=== PATIENT | female | born 1935 | race Caucasian/White ===

== ENCOUNTER → 2020-04-26 15:27 | Outpatient (BNVA) | payer MEDICARE, OTHER, SELFPAY | PROVIDERS: PCP Internal Medicine; Referring Provider Internal Medicine; Visit Provider Internal Medicine Cardiovascular Disease | DX: R94.31 Abnormal electrocardiogram [ECG] [EKG] (principal) | CPT/HCPCS: 93005 ==

== ENCOUNTER 2020-08-06 14:24 | Outpatient (REF) | payer MEDICARE, OTHER, SELFPAY ==
[2020-08-06 16:19] LABS: Anion Gap 13 (12-20); Blood Urea Nitrogen 13 mg/dL (9-16); Calcium 9.3 mg/dL (8.4-10.2); Carbon Dioxide 27 mmol/L (22-29); Chloride 101 mmol/L (96-108); Estimated Glomerular Filt Rate > 60; Glucose Random 94 mg/dL (60-115); Potassium 4.4 mmol/L (3.3-5.1); Sodium 137 mmol/L (135-145)
== END 2020-08-06 14:25 | disposition home or self-care (01) ==
LOC: HO.LAB 14:24
PROVIDERS: PCP Internal Medicine; Visit Provider Internal Medicine Cardiovascular Disease
DX: I48.0 Paroxysmal atrial fibrillation (principal); Z79.01 Long term (current) use of anticoagulants; Z79.899 Other long term (current) drug therapy
CPT/HCPCS: 36415; 80048; 93005; 99212

== ENCOUNTER → 2021-02-21 15:01 | Outpatient (BNVA) | payer MEDICARE, OTHER, SELFPAY | PROVIDERS: PCP Internal Medicine; Referring Provider Internal Medicine; Visit Provider Internal Medicine Cardiovascular Disease | DX: I48.0 Paroxysmal atrial fibrillation (principal); Z98.890 Other specified postprocedural states; Z79.02 Long term (current) use of antithrombotics/antiplatelets | CPT/HCPCS: 93005; 99212 ==

== ENCOUNTER 2021-03-26 10:27 | Outpatient (REF) | payer MEDICARE, OTHER, SELFPAY ==
[2021-03-26 10:31] LABS: MANUAL DIFF FLAG NO
[2021-03-26 11:24] LABS: Basophils Percent Auto 0.3 % (0-2); Eosinophils Absolute Auto 0.1 X10*3/uL (0.0-0.4); Eosinophils Percent Auto 1.7 % (0-4); Hematocrit 44.2 % (37-47); Hemoglobin 14.8 g/dl (12.0-16.0); Imm Gran Abs Auto 0.02 X10*3/uL (0.00-0.03); Imm Gran Pct Auto 0.3 % (0.0-0.4); Lymphocytes Absolute Auto 1.5 X10*3/uL (1.2-4.9); Lymphocytes Percent Auto 25.3 % (20-40); Mean Corpuscular HGB Conc 33.5 g/dl (31.0-35.0); Mean Corpuscular Hemoglobin 32.7 pg (27.0-33.0); Mean Corpuscular Volume 97.6 fL (80-98); Mean Platelet Volume 10.6 fL (9.4-12.3); Monocytes Absolute Auto 0.6 X10*3/uL (0.1-1.2); Monocytes Percent Auto 10.3 % (2-11); Neutrophils Absolute Auto 3.6 X10*3/uL (2.0-8.3); Neutrophils Percent Auto 62.1 % (45-73); Platelet Count 269 X10*3/uL (160-400); Red Blood Count 4.53 X10*6/uL (4.20-5.50); Red Cell Distribution Width 11.9 % (11.0-16.0); White Blood Count 5.7 X10*3/uL (4.8-10.8)
[2021-03-26 11:33] LABS: Estimated Average Glucose 97 mg/dL
[2021-03-26 11:46] LABS: Alanine Aminotransferase 14 U/L (0-31); Albumin Level 4.3 g/dL (3.5-5.0); Alkaline Phosphatase 72 U/L (39-117); Anion Gap 14 (12-20); Aspartate Amino Transferase 19 U/L (5-31); Bilirubin Total 0.6 mg/dL (0.0-1.0); Blood Urea Nitrogen 10 mg/dL (9-16); Calcium 9.5 mg/dL (8.4-10.2); Carbon Dioxide 26 mmol/L (22-29); Chloride 104 mmol/L (96-108); Cholesterol 183 mg/dL; Estimated Glomerular Filt Rate > 60; Glucose Fasting 102 mg/dL (60-99); HDL Cholesterol 58 mg/dL; LDL Cholesterol Calculated 111 mg/dl; Sodium 140 mmol/L (135-145); Total Protein 7.3 g/dL (6.5-8.0); Triglycerides 73 mg/dL
[2021-03-26 11:54] LABS: Appearance Urine CLEAR; Color Urine YELLOW; Glucose Urine UA NEG (NEG); Leukocyte Esterase Urine NEG (NEG); Nitrite Urine NEG (NEG); PH 7.5 (5.0-8.0); Urine Blood NEG (NEG); Urine Ketones NEG (NEG); Urine Protein NEG (NEG-TRACE)
[2021-03-26 11:55] LABS: Creatinine Urine 13.75 mg/dL; Microalbumin Urine < 5.0 mg/L
== END 2021-03-26 10:28 | disposition home or self-care (01) ==
LOC: HO.LNP 10:27
PROVIDERS: Visit Provider Internal Medicine
DX: I10 Essential (primary) hypertension (principal); R73.03 Prediabetes; E78.00 Pure hypercholesterolemia, unspecified
CPT/HCPCS: 80053; 80061; 81003; 82043; 83036; 85025

== ENCOUNTER → 2021-05-27 15:19 | Outpatient (BNVA) | payer MEDICARE, OTHER, SELFPAY | PROVIDERS: PCP Internal Medicine; Referring Provider Internal Medicine; Visit Provider Internal Medicine Cardiovascular Disease | DX: R94.31 Abnormal electrocardiogram [ECG] [EKG] (principal) | CPT/HCPCS: 93005 ==

== ENCOUNTER → 2021-08-26 10:28 | Outpatient (REF) | payer MEDICARE, OTHER, SELFPAY ==
--- NOTE | 2021-08-26 10:32 | CA_ITS ---
Transthoracic Echocardiogram Patient (Last, First, Middle): Toña Ríos, Gender: Female Date of : 1935 Age: 86 Procedure Date: 08/26/2021 Procedure Type: Transthoracic Echocardiogram Location: OP Height: 157.48 cm Weight: 58.97 kg BSA: 1.59 m2 Heart Rate: bpm BP: 120 / 80 mmHg Counseling Services Director: VH/OT Referring MD: Vic Stanley MD Symptoms: I48.0 - Paroxysmal atrial fibrillation Study Quality: Fair ECG Rhythm: Atrial Fibrillation Conclusions: - The left ventricular systolic function is normal. The visually estimated ejection fraction is between 55-60%. - No obvious valvular pathology seen on this study. - Patient in atrial fibrillation/rapid rate during procedure. Findings Left Ventricle Normal left ventricular cavity size. There is normal left ventricular wall thickness. The left ventricular systolic function is normal. The visually estimated ejection fraction is between 55-60%. There is no evidence of regional wall motion abnormalities. Diastolic function is indeterminate on the basis of available data. Right Ventricle Normal right ventricular cavity size and systolic function. Atria The left atrium is mildly dilated. The right atrium is normal in size. Aortic Valve There is a normal trileaflet aortic valve. There is no aortic valve stenosis. There is no aortic valve regurgitation. Mitral Valve The mitral valve appears normal. There is no mitral valve regurgitation. There is no mitral valve stenosis. Pulmonic Valve The pulmonic valve is likely normal. Tricuspid Valve Normal tricuspid valve structure. There is trace tricuspid valve regurgitation. The pulmonary artery systolic pressure is normal. Great Vessels The sinuses of valsalva is normal in size. Venous The inferior vena cava is normal in size and collapses greater than 50% with inspiration. Pericardium/Pleural There is no evidence of pericardial effusion. Prior Study Comparison No significant change compared to prior study dated: 06/16/2020. Recommendations, Care & Conclusions No obvious valvular pathology seen on this study. Measurements 2D Linear Measurements IVSd: 0.76 0.6-0.9/0.6-1.0 cm LVIDd: 3.42 3.9-5.3/4.2-5.9 cm LVIDd Index: 2.15 2.4-3.2/2.2-3.1 cm/m2 LVIDs: 2.22 2.0-3.6 cm LVPWd: 0.85 0.7-1.1 cm LA Diam: 3.30 2.7-3.8/3.0-4.0 cm LAIDs Index: 2.08 1.5-2.3 cm/m2 LV Mass: 90.59 67-162/88-224 g LV Mass Index: 56.98 43-95/49-115 g/m2 LVOT Diam: 2.10 3.0+(-)1.3 cm 2D Systolic Function EF 4C: 52.00 >55% Mitral Valve MV Pk E: 0.80 MV Decel Time: 136.00 E'Lateral: 8.70 E'Medial: 7.67 E/E' Med: 10.40 E/E' Lat: 9.20 PHT: 40.00 MVA PHT: 5.50 Decel [place]: 5.89 Aortic Valve AoV Pk Adán: 0.99 AoV Mn Adán: 0.63 AoV VTI: 0.15 AoV Pk Grad: 4.00 Aov Mn Grad: 2.00 TERESA Cont.VTI: 2.48 LVOT LVOT Pk Adán: 0.69 LVOT Mn Adán: 0.46 LVOT VTI: 0.11 LVOT Pk Grad: 2.00 LVOT Mn Grad: 1.00 LVOT Diam: 2.10 LVOT Area: 3.46 Diastolic Function MV Pk E: 0.80 E'Medial: 7.67 E/E' Med: 10.40 E' Laterial: 8.70 E/E' Lat: 9.20 Tricuspid Valve TR Pk Adán: 1.91 TR Pk Grad: 15.00 RA Press: 3.00 RVSP: 18.00 Great Vessels Aorta Sinus of Valsalva: 2.60 2.0-3.5 cm Pulmonary Valve PV Pk Adán: 0.57 Peak PV Grad: 1.00 Updated in Other Vendor System with Status of Final Darnell Moran MD electronically signed on 08/27/2021 12:29:55 PM with status of Final
== END ==
LOC: HO.CARD 10:28
PROVIDERS: Visit Provider Internal Medicine Cardiovascular Disease
DX: I48.0 Paroxysmal atrial fibrillation (principal)
CPT/HCPCS: 93306

== ENCOUNTER → 2021-08-27 15:21 | Outpatient (BNVA) | payer MEDICARE, OTHER, SELFPAY | PROVIDERS: PCP Internal Medicine; Referring Provider Internal Medicine; Visit Provider Internal Medicine Cardiovascular Disease | DX: I48.19 Other persistent atrial fibrillation (principal) | CPT/HCPCS: 93005; 99212 ==

== ENCOUNTER → 2021-09-04 14:55 | Outpatient (REF) | payer MEDICARE, OTHER, SELFPAY ==
--- NOTE | 2021-09-04 14:59 | HM_ITS ---
Conclusion: 1. Patient was monitored for total period of 3 days and 9 hours 2. Baseline rhythm is atrial fibrillation with average heart of 94 beats per minute, borderline rate control. 3. No significant pauses noted 4. One 9 beat wide complex run most likely due to aberrant conduction 5. Very rare PVCs 6. No patient reported events MTDD
== END ==
LOC: HO.CARD 14:55
PROVIDERS: Visit Provider Internal Medicine Cardiovascular Disease
DX: I48.19 Other persistent atrial fibrillation (principal)
CPT/HCPCS: 93242

== ENCOUNTER 2022-01-07 14:39 | Outpatient (REF) | payer MEDICARE, OTHER, SELFPAY ==
[2022-01-07 17:13] LABS: Anion Gap 16 (12-20); Blood Urea Nitrogen 17 mg/dL (9-16); Calcium 9.7 mg/dL (8.4-10.2); Carbon Dioxide 24 mmol/L (22-29); Chloride 104 mmol/L (96-108); Estimated Glomerular Filt Rate > 60; Glucose Random 101 mg/dL (60-115); Potassium 5.8 mmol/L (3.3-5.1); Sodium 138 mmol/L (135-145)
[2022-01-07 18:49] LABS: Digoxin < 0.3 ng/mL (0.8-2.0)
== END 2022-01-07 14:40 | disposition home or self-care (01) ==
LOC: HO.LAB 14:39
PROVIDERS: PCP Internal Medicine; Referring Provider Internal Medicine; Visit Provider Internal Medicine Cardiovascular Disease
DX: I48.20 Chronic atrial fibrillation, unspecified (principal); Z79.899 Other long term (current) drug therapy
CPT/HCPCS: 36415; 80048; 80162; 93005; 99212

== ENCOUNTER 2022-01-09 15:02 | Outpatient (REF) | payer MEDICARE, OTHER, SELFPAY ==
[2022-01-09 15:19] LABS: Potassium 5.4 mmol/L (3.3-5.1)
== END 2022-01-09 15:03 | disposition home or self-care (01) ==
LOC: HO.LNP 15:02
PROVIDERS: Visit Provider Internal Medicine
DX: E87.5 Hyperkalemia (principal)
CPT/HCPCS: 84132

== ENCOUNTER 2022-01-30 08:40 | Outpatient (REF) | payer MEDICARE, OTHER, SELFPAY ==
--- NOTE | ~2022-01-30 | XR_ITS ---
EXAMINATION: XR PELVIS CLINICAL INFORMATION: Hip pain COMPARISON: Pelvic radiographs 04/21/20202018, 10/26/2017 TECHNIQUE: AP x3 views of the pelvis. FINDINGS: There is prior left hip arthroplasty with proximal femoral cerclage wire. Hardware is intact. There is no destructive process or osteolysis. No fracture, dislocation. Again, there are degenerative changes SI joints and pubis. There are prominent osteoarthritic changes right hip with marked joint narrowing, subchondral sclerosis, osteophytes, and mild lateral subluxation similar to prior studies. XR/XR pelvis 1-2V IMPRESSION: -Left hip arthroplasty. Hardware intact. No osteolysis. -Severe osteoarthritis right hip similar to prior exam. -Degenerative changes SI joints and pubis.
== END 2022-01-30 08:41 | disposition home or self-care (01) ==
LOC: HO.HOSX 08:40
PROVIDERS: Visit Provider Orthopaedic Surgery
DX: M16.11 Unilateral primary osteoarthritis, right hip (principal); Z96.642 Presence of left artificial hip joint
CPT/HCPCS: 72170; 99212

== ENCOUNTER 2022-04-01 10:35 | Outpatient (REF) | payer MEDICARE, OTHER, SELFPAY ==
[2022-04-01 10:40] LABS: MANUAL DIFF FLAG NO
[2022-04-01 10:48] LABS: Basophils Percent Auto 0.5 % (0-2); Eosinophils Absolute Auto 0.2 X10*3/uL (0.0-0.4); Eosinophils Percent Auto 2.2 % (0-4); Hematocrit 43.3 % (37.0-47.0); Hemoglobin 14.5 g/dl (12.0-16.0); Imm Gran Abs Auto 0.04 X10*3/uL (0.00-0.03); Imm Gran Pct Auto 0.5 % (0.0-0.4); Lymphocytes Absolute Auto 1.9 X10*3/uL (1.2-4.9); Lymphocytes Percent Auto 25.6 % (20-40); Mean Corpuscular HGB Conc 33.5 g/dl (31.0-35.0); Mean Corpuscular Hemoglobin 33.1 pg (27.0-33.0); Mean Corpuscular Volume 98.9 fL (80.0-98.0); Mean Platelet Volume 10.7 fL (9.4-12.3); Monocytes Absolute Auto 0.8 X10*3/uL (0.1-1.2); Monocytes Percent Auto 10.2 % (2-11); Neutrophils Absolute Auto 4.5 x10*3/uL (2.0-8.3); Platelet Count 294 X10*3/uL (160-400); Red Blood Count 4.38 X10*6/uL (4.20-5.50); Red Cell Distribution Width 12.2 % (11.0-16.0); White Blood Count 7.3 X10*3/uL (4.8-10.8)
[2022-04-01 10:54] LABS: Appearance Urine Clear; Color Urine Yellow; Glucose Urine UA Negative (Negative); Leukocyte Esterase Urine Small (1+) (Negative); Nitrite Urine Negative (Negative); UMIC TRIGGER UA YES; Urine Blood Negative (Negative); Urine Ketones Negative (Negative); Urine Protein Negative (Neg-Trace)
[2022-04-01 11:05] LABS: Alanine Aminotransferase 17 U/L (0-31); Alkaline Phosphatase 76 U/L (39-117); Anion Gap 14 (12-20); Aspartate Amino Transferase 21 U/L (5-31); Bilirubin Total 0.5 mg/dL (0.0-1.0); Blood Urea Nitrogen 17 mg/dL (9-16); Calcium 9.3 mg/dL (8.4-10.2); Carbon Dioxide 27 mmol/L (22-29); Chloride 103 mmol/L (96-108); Cholesterol 185 mg/dL; Estimated Glomerular Filt Rate > 60; Glucose Fasting 124 mg/dL (60-99); HDL Cholesterol 47 mg/dL; LDL Cholesterol Calculated 120 mg/dl; Potassium 4.3 mmol/L (3.3-5.1); Sodium 140 mmol/L (135-145); Total Protein 7.1 g/dL (6.5-8.0); Triglycerides 92 mg/dL
[2022-04-01 11:07] LABS: Estimated Average Glucose 114 mg/dL; Hemoglobin A1c % 5.6 %
[2022-04-01 11:12] LABS: Bacteria Urine None Seen (None Seen); Hyaline Casts Urine 0-2 /LPF (0-2); Other Crystals Urine Present; RBC Urine 0-2 /HPF (0-2); Squamous Epithelial Cell Urine 0-2 /HPF (0-2); WBC Urine 0-5 /HPF (0-5)
[2022-04-01 12:15] LABS: Creatinine Urine 27.87 mg/dL; Microalbum/Creatinine Ratio Ur 32.2 ug/mg cr
== END 2022-04-01 10:36 | disposition home or self-care (01) ==
LOC: HO.LNP 10:35
PROVIDERS: Visit Provider Internal Medicine
DX: R73.03 Prediabetes (principal); E78.00 Pure hypercholesterolemia, unspecified; I10 Essential (primary) hypertension
CPT/HCPCS: 80053; 80061; 81001; 82043; 83036; 85025

== ENCOUNTER → 2022-04-14 12:19 | Outpatient (BNVA) | payer MEDICARE, OTHER, SELFPAY | PROVIDERS: PCP Internal Medicine; Referring Provider Internal Medicine; Visit Provider Internal Medicine Cardiovascular Disease | DX: Z01.810 Encounter for preprocedural cardiovascular examination (principal); I48.19 Other persistent atrial fibrillation | CPT/HCPCS: 93005; 99212 ==

== ENCOUNTER → 2022-05-12 09:18 | Outpatient (REF) | payer MEDICARE, OTHER, SELFPAY ==
--- NOTE | ~2022-05-12 | NM_ITS ---
Myocardial perfusion study Indication: Preoperative cardiovascular risk stratification Technique: The patient was brought in for a Lexiscan perfusion study on 05/12/2022. Patient performed low-level exercise and was injected 0.4 mg of Lexiscan intravenously. Within a minute of injection, 25 mCi of sestamibi was given intravenously. Images were obtained using the SPECT gamma camera interlaced with the gating device. Images were obtained in supine position. Resting perfusion study was performed on 05/13/2022. Patient was administered 25 mCi of sestamibi intravenously at rest. Images were then obtained in supine position. Images obtained with and without CT attenuation. Total DLP 104 mGy-cm. Images were processed with the software and compared side to side in short axis, horizontal long axis and vertical long axis views. Findings: The stress perfusion study showed both attenuated as well as non attenuated corrected images show normal uptake of radiotracer in all segment of LV myocardium. There is suggestion of left ventricle hypertrophy. The gated study shows normal LV systolic function with calculated LVEF of greater than 70%. LV cavity is normal in size. The gated study shows normal systolic wall thickening and contraction of segments. Resting study shows attenuated corrected images show normal uptake of radiotracer in all segments of LV myocardium.. Gating at rest reveals normal systolic wall motion with visually estimated ejection fraction at greater than 70%. The findings are consistent with normal myocardial perfusion. NM/NM kim perf SPECT rest & str Impression: 1. Myocardial perfusion imaging study shows normal myocardial perfusion 2. Gated LVEF is greater than 70% 3. Transient ischemic dilatation not present EKG is nondiagnostic for ischemia
--- NOTE | 2022-05-12 09:23 | CA_ITS ---
Acquisition Time: 2022-05-12 09:41:47 Total Exercise Time: 00:02:00 Test Indications: Abnormal ECG Medications: METOPROLOL DOGOXIN RIVAROXABAN Protocol: LEXISCAN Max HR: 166 BPM 122% of Pred: 135 BPM Max BP: 108/084 mmHG Max Work Load: 1.0 METS Pharmacological stress test with Lexiscan injection, while laying with feet elevated, without anginal symptoms, without arrythmia beyone her baseline afib, with normotensive response to injection, with nondiagnostic EKG for ischemia. In recovery she was treated with Aminophylline 75mg IVP to reverse Lexiscan. Nuclear images pending. Test reviewed with Dr Stanley. Note: when she arrived at stress lab she was in Afib RVR rate 140-160, asymptomatic. She had not taken her usual home meds. She was given her usual Metoprolol and Digoxin. She relaxed in recliner for over 1 hour as heart rate gradually came down to the 90s. She remained asymptomatic and we preceeded with test as planned. Referred By: Vic Stanley Overread By: MOI DAMICO
== END ==
LOC: HO.CARD 09:18
PROVIDERS: Visit Provider Internal Medicine Cardiovascular Disease
DX: Z01.810 Encounter for preprocedural cardiovascular examination (principal)
CPT/HCPCS: 78452; 93017; A9500; J0280; J2785

== ENCOUNTER → 2022-06-11 12:54 | Outpatient (BNVA) | payer MEDICARE, OTHER, SELFPAY | PROVIDERS: PCP Internal Medicine; Visit Provider Nurse Practitioner Family | DX: I95.9 Hypotension, unspecified (principal); E87.5 Hyperkalemia; I48.19 Other persistent atrial fibrillation; Z79.01 Long term (current) use of anticoagulants; Z79.899 Other long term (current) drug therapy | CPT/HCPCS: 99212 ==

== ENCOUNTER 2022-07-15 13:10 | Outpatient (REF) | payer MEDICARE, OTHER, SELFPAY ==
[2022-07-15 15:04] LABS: Hemoglobin 14.4 g/dl (12.0-16.0); Mean Corpuscular HGB Conc 33.5 g/dl (31.0-35.0); Mean Corpuscular Hemoglobin 33.2 pg (27.0-33.0); Mean Corpuscular Volume 99.1 fL (80.0-98.0); Mean Platelet Volume 10.3 fL (9.4-12.3); Platelet Count 295 X10*3/uL (160-400); Red Blood Count 4.34 X10*6/uL (4.20-5.50); Red Cell Distribution Width 12.5 % (11.0-16.0); White Blood Count 7.7 X10*3/uL (4.8-10.8)
[2022-07-15 15:35] LABS: Anion Gap 14 (12-20); Blood Urea Nitrogen 17 mg/dL (9-16); Calcium 9.6 mg/dL (8.4-10.2); Carbon Dioxide 24 mmol/L (22-29); Chloride 104 mmol/L (96-108); Estimated Glomerular Filt Rate > 60; Glucose Random 92 mg/dL (60-115); Magnesium 2.3 mg/dL (1.6-2.6); Sodium 137 mmol/L (135-145)
[2022-07-15 15:54] LABS: Digoxin 0.5 ng/mL (0.8-2.0)
== END 2022-07-15 13:11 | disposition home or self-care (01) ==
LOC: HO.LAB 13:10
PROVIDERS: Nurse Practitioner Family; PCP Internal Medicine; Referring Provider Internal Medicine; Visit Provider Internal Medicine Cardiovascular Disease
DX: I48.19 Other persistent atrial fibrillation (principal); I95.1 Orthostatic hypotension; Z79.899 Other long term (current) drug therapy
CPT/HCPCS: 36415; 80048; 80162; 83735; 85027; 93005; 99212

== ENCOUNTER → 2022-10-28 13:46 | Outpatient (BNVA) | payer MEDICARE, OTHER, SELFPAY | PROVIDERS: PCP Internal Medicine; Visit Provider Internal Medicine Cardiovascular Disease ==

== ENCOUNTER 2023-04-06 11:08 | Outpatient (REF) | payer MEDICARE, OTHER, SELFPAY ==
[2023-04-06 11:11] LABS: MANUAL DIFF FLAG NO
[2023-04-06 11:33] LABS: Basophils Percent Auto 0.3 % (0-2); Eosinophils Absolute Auto 0.2 X10*3/uL (0.0-0.4); Eosinophils Percent Auto 2.3 % (0-4); Hematocrit 44.6 % (37.0-47.0); Hemoglobin 14.9 g/dl (12.0-16.0); Imm Gran Abs Auto 0.04 X10*3/uL (0.00-0.03); Imm Gran Pct Auto 0.5 % (0.0-0.4); Lymphocytes Absolute Auto 2.8 X10*3/uL (1.2-4.9); Lymphocytes Percent Auto 32.3 % (20-40); Mean Corpuscular HGB Conc 33.4 g/dl (31.0-35.0); Mean Corpuscular Hemoglobin 32.1 pg (27.0-33.0); Mean Corpuscular Volume 96.1 fL (80.0-98.0); Mean Platelet Volume 11.2 fL (9.4-12.3); Monocytes Absolute Auto 0.9 X10*3/uL (0.1-1.2); Monocytes Percent Auto 10.2 % (2-11); Neutrophils Absolute Auto 4.8 x10*3/uL (2.0-8.3); Neutrophils Percent Auto 54.4 % (45-73); Platelet Count 269 X10*3/uL (160-400); Red Blood Count 4.64 X10*6/uL (4.20-5.50); Red Cell Distribution Width 12.2 % (11.0-16.0); White Blood Count 8.7 X10*3/uL (4.8-10.8)
[2023-04-06 11:40] LABS: Appearance Urine Cloudy; Color Urine Yellow; Glucose Urine UA Negative (Negative); Leukocyte Esterase Urine Large (3+) (Negative); Nitrite Urine Negative (Negative); Specific Gravity - Urine 1.025 (1.005-1.025); UMIC TRIGGER UACC YES; Urine Blood Trace (Negative); Urine Ketones Negative (Negative); Urine Protein 30 (1+) mg/dL (Neg-Trace)
[2023-04-06 11:44] LABS: Estimated Average Glucose 105 mg/dL; Hemoglobin A1c % 5.3 % (<6.0)
[2023-04-06 11:57] LABS: Alanine Aminotransferase 12 U/L (0-31); Albumin Level 3.9 g/dL (3.5-5.0); Alkaline Phosphatase 77 U/L (39-117); Anion Gap 15 (12-20); Aspartate Amino Transferase 22 U/L (5-31); Bilirubin Total 0.6 mg/dL (0.0-1.0); Blood Urea Nitrogen 17 mg/dL (9-16); Calcium 9.3 mg/dL (8.4-10.2); Carbon Dioxide 23 mmol/L (22-29); Chloride 107 mmol/L (96-108); Cholesterol 187 mg/dL (<200); Estimated Glomerular Filt Rate > 60; Glucose Fasting 108 mg/dL (60-99); HDL Cholesterol 42 mg/dL (>40); LDL Cholesterol Calculated 118 mg/dL (<100); Sodium 141 mmol/L (135-145); Total Protein 7.4 g/dL (6.5-8.0); Triglycerides 139 mg/dL (<150)
[2023-04-06 12:12] LABS: Bacteria Urine 3+ (None Seen); Calcium Oxalate Crystals Urine Present; Squamous Epithelial Cell Urine >20 /HPF (0-2); UACC Culture Trigger YES; WBC Urine >50 /HPF (0-5)
[2023-04-06 12:43] LABS: Creatinine Urine 171.38 mg/dL; Microalbum/Creatinine Ratio Ur 35.5 ug/mg cr (<30)
== END 2023-04-06 11:09 | disposition home or self-care (01) ==
LOC: HO.LNP 11:08
PROVIDERS: Visit Provider Internal Medicine
DX: R73.09 Other abnormal glucose (principal); E78.00 Pure hypercholesterolemia, unspecified; R82.90 Unspecified abnormal findings in urine
CPT/HCPCS: 80053; 80061; 81001; 82043; 82570; 83036; 85025; 87086

== ENCOUNTER 2023-04-27 10:46 | Outpatient (REF) | payer MEDICARE, OTHER, SELFPAY ==
[2023-04-27 11:09] LABS: Appearance Urine Cloudy; Color Urine Yellow; Glucose Urine UA Negative (Negative); Leukocyte Esterase Urine Moderate (2+) (Negative); Nitrite Urine Negative (Negative); UMIC TRIGGER UA YES; Urine Blood Small (1+) (Negative); Urine Ketones Negative (Negative); Urine Protein Negative (Neg-Trace)
[2023-04-27 11:13] LABS: Bacteria Urine 1+ (None Seen); Hyaline Casts Urine 0-2 /LPF (0-2); RBC Urine >20 /HPF (0-2); WBC Urine >50 /HPF (0-5)
== END 2023-04-27 10:47 | disposition home or self-care (01) ==
LOC: HO.LNP 10:46
PROVIDERS: Visit Provider Internal Medicine
DX: R31.29 Other microscopic hematuria (principal)
CPT/HCPCS: 81001

== ENCOUNTER 2023-05-07 12:45 | Outpatient (AMB) | payer MEDICARE, OTHER, SELFPAY ==
[2023-05-07 12:49] VITALS: BP 118/70; PULSE 84; BMI 21.4
--- NOTE | 2023-05-07 12:49 | MHC.OFFVIS ---
Intake Vital Signs 05/07/23 12:49 Height 5 ft 2 in Weight 116 lb 13.52 oz BMI 21.4 BP 118/70 Blood Pressure Location Lt brachial Position Sitting Pulse 84 Intake Visit Reasons: 6 mth f/up Intake Note: 6 month follow-up with ekg feeling ok Product Manufacturing Professional Required: No Allergies No Known Allergies [No Known Allergies*] Allergy (Unverified 10/28/22 13:47) Medication List - Last Reconciled 05/07/23 by Vic Stanley MD digoxin 125 mcg PO DAILY 90 days metoprolol tartrate 25 mg PO BID rivaroxaban 20 mg PO HPI HPI Comments History of Present Illness Details Toña comes for follow-up. She has been doing well from cardiac perspective. Overall no symptoms of lightheadedness or syncope. Denies any prolonged palpitation irregular heartbeat. No orthopnea, PND, leg edema. As per her , she has been improving of physical capacity. No bleeding issues or neurologic events. [facility] Medical History Persistent atrial fibrillation Paroxysmal atrial fibrillation History of cardioversion Surgical History History of hip surgery Family History Father No problems noted. Mother No problems noted. Review of Systems Const Denies chills, Denies fatigue, Denies fever(s), Denies frequent falls, Denies weakness, Denies weight gain and Denies weight loss ENT Denies dizziness Card Denies chest pain, Denies leg edema, Denies lightheadedness, Denies palpitations, Denies dyspnea, Denies dyspnea on exertion, Denies orthopnea and Denies other (loss of consciousness) Resp Denies cough, Denies dyspnea and Denies dyspnea on exertion GI Denies hematochezia and Denies change in stool character Musc Denies abnormal gait, Denies muscle weakness, Denies numbness, Denies radiating pain into limb and Denies tingling Neuro Denies abnormal gait, Denies dizziness, Denies frequent falls, Denies numbness, Denies tingling and Denies weakness Endo Denies fatigue and Denies palpitations Physical Exam Vital Signs: Last Vital Signs Pulse 84 05/07/23 12:49 BP 118/70 05/07/23 12:49 BMI result Body Mass Index 21.4 Const General: cooperative, comfortable, no acute distress, alert and awake Nutritional Appearance: thin and other (Frail elderly woman) Orientation/consciousness: patient oriented x3 Neck Neck: Yes supple and Yes no JVD Chest Chest palpation & inspection: normal inspection of the chest Resp Effort & Inspection: normal respiratory effort Auscultation: clear to auscultation bilaterally Cardio Jugular venous distension: no JVD Rhythm: abnormal rhythm irregularly irregular Heart sounds: S1 normal heart sound present, S2 normal heart sound present, no click, no gallops and no murmurs GI Auscultation: normal bowel sounds Neuro General: patient oriented x3 and no focal motor deficits Extrem General: Yes no clubbing, cyanosis or edema Psych Appearance: grossly normal Office Procedures EKG Details: EKG shows atrial fibrillation with low-voltage QRS with QS pattern in lead V1 V2 with no significant ST T wave changes [id number], Complete Assessment & Plan Assessment & Plan (1) Persistent atrial fibrillation: Code(s): I48.19 - Other persistent atrial fibrillation Plan: Chronic persistent atrial fibrillation without any significant signs or symptoms of cardiac decompensation. No symptoms related to it. Continue rate control approach at this point time. Continue current metoprolol as well as digoxin dose. Requires digoxin assay every 6 months, talk to patient patient's . They understand agree. Continue current full oral anticoagulation, currently on renally adjusted dose of Xarelto. At least semi annual renal function test should be pursued. (2) Hypotension: Code(s): I95.9 - Hypotension, unspecified Plan: Prior history of hypotension although blood pressure is well optimized on current regimen of metoprolol and digoxin. Advised to maintain adequate hydration. Orthostatic precautions were discussed. Advised to seek sitting and/or supine position if symptomatic. Will follow up in the clinic in 6 months time, sooner p.r.n.. Thank you for allowing me to partake in her care Orders: Orders Digoxin Today I48.19 - Other persistent atrial fibrillation Coding Level of Care Code Est Pt Level 4 (96553) Diagnoses Persistent atrial fibrillation I48.19 Hypotension I95.9 CPT Codes EKG - CPT: 64883-[id number], Complete ([id number])
== END 2023-05-07 13:31 | disposition home or self-care (01) ==
PROVIDERS: Visit Provider Internal Medicine Cardiovascular Disease
DX: I48.19 Other persistent atrial fibrillation (principal); I95.9 Hypotension, unspecified
CPT/HCPCS: 93010; 99214

== ENCOUNTER 2023-05-07 12:45 | Outpatient (REF) | payer MEDICARE, OTHER, SELFPAY ==
[2023-05-07 15:00] LABS: Digoxin 0.4 ng/mL (0.8-2.0)
== END 2023-05-07 12:46 | disposition home or self-care (01) ==
LOC: HO.LAB 12:45
PROVIDERS: PCP Internal Medicine; Visit Provider Internal Medicine Cardiovascular Disease
DX: I48.19 Other persistent atrial fibrillation (principal); I95.9 Hypotension, unspecified; Z79.899 Other long term (current) drug therapy
CPT/HCPCS: 36415; 80162; 93005; 99212

== ENCOUNTER 2023-05-18 11:04 | Outpatient (REF) | payer MEDICARE, OTHER, SELFPAY ==
[2023-05-18 11:11] LABS: Appearance Urine Clear; Color Urine Yellow; Glucose Urine UA Negative (Negative); Leukocyte Esterase Urine Small (1+) (Negative); Nitrite Urine Negative (Negative); UMIC TRIGGER UACC YES; Urine Blood Negative (Negative); Urine Ketones Negative (Negative); Urine Protein Negative (Neg-Trace)
[2023-05-18 11:24] LABS: Bacteria Urine None Seen (None Seen); Hyaline Casts Urine 0-2 /LPF (0-2); RBC Urine 0-2 /HPF (0-2); Squamous Epithelial Cell Urine 0-2 /HPF (0-2); UACC Culture Trigger YES; WBC Urine 0-5 /HPF (0-5)
== END 2023-05-18 11:05 | disposition home or self-care (01) ==
LOC: HO.LNP 11:04
PROVIDERS: Visit Provider Internal Medicine
DX: R31.9 Hematuria, unspecified (principal)
CPT/HCPCS: 81001; 87086

== ENCOUNTER 2023-12-08 13:05 | Outpatient (AMB) | payer MEDICARE, OTHER, SELFPAY ==
[2023-12-08 13:17] VITALS: BP 110/62; PULSE 48; BMI 21.0
--- NOTE | 2023-12-08 13:17 | MHC.OFFVIS ---
Vital Signs 12/08/23 13:17 Height 5 ft 2 in Weight 114 lb 10.246 oz BMI 21.0 BP 110/62 Blood Pressure Location Lt brachial Position Sitting Pulse 48 L Intake Visit Reasons: 6 mth fu Intake Note: 6 month follow-up with ekg feeling good Knit Goods Cutter Hand Required: No Reservoir Engineering Advisor: Reservoir Engineering Advisor Present Accompanied by: Spouse Allergies No Known Allergies [No Known Allergies*] Allergy (Unverified 10/28/22 13:47) Medication List - Last Reconciled 12/08/23 by Vic Stanley MD digoxin 125 mcg PO DAILY metoprolol tartrate 25 mg PO BID rivaroxaban 20 mg PO Q24H HPI Comments Details: Toña comes for follow-up. As per L her who accompanies her she says she has been doing well. She has been moving around better although she prefers not to walk much. She denies any exertional chest pain or shortness of breath. No prolonged palpitation irregular heartbeat. Noted to have low blood pressure occasionally. Today the blood pressure is 110 systolic. She has not had any lightheadedness or syncope. No falls. Denies any heart failure symptoms. [facility] Medical History (Updated 12/08/23 @ 13:52 by Vic Stanley MD) Paroxysmal atrial fibrillation Persistent atrial fibrillation History of cardioversion Surgical History History of hip surgery Family History Father No problems noted. Mother No problems noted. Review of Systems Const Denies chills, Denies fatigue, Denies fever(s), Denies frequent falls, Denies weakness, Denies weight gain and Denies weight loss ENT Denies dizziness Card Denies chest pain, Denies leg edema, Denies lightheadedness, Denies palpitations, Denies dyspnea, Denies dyspnea on exertion, Denies orthopnea and Denies other (loss of consciousness) Resp Denies cough, Denies dyspnea and Denies dyspnea on exertion GI Denies hematochezia and Denies change in stool character Musc Denies abnormal gait, Denies muscle weakness, Denies numbness, Denies radiating pain into limb and Denies tingling Neuro Denies abnormal gait, Denies dizziness, Denies frequent falls, Denies numbness, Denies tingling and Denies weakness Endo Denies fatigue and Denies palpitations Physical Exam Vital Signs: Last Vital Signs Pulse 48 L 12/08/23 13:17 BP 110/62 12/08/23 13:17 BMI result Body Mass Index 21.0 Const General: cooperative, comfortable, no acute distress, alert and awake Nutritional Appearance: thin and other (Frail elderly woman) Orientation/consciousness: patient oriented x3 Neck Neck: Yes supple and Yes no JVD Chest Chest palpation & inspection: normal inspection of the chest Resp Effort & Inspection: normal respiratory effort Auscultation: clear to auscultation bilaterally Cardio Jugular venous distension: no JVD Rhythm: abnormal rhythm irregularly irregular Heart sounds: S1 normal heart sound present, S2 normal heart sound present, no click, no gallops and no murmurs GI Auscultation: normal bowel sounds Neuro General: patient oriented x3 and no focal motor deficits Extrem General: Yes no clubbing, cyanosis or edema Psych Appearance: grossly normal Assessment & Plan Assessment & Plan (1) Paroxysmal atrial fibrillation: Code(s): I48.0 - Paroxysmal atrial fibrillation Category: Medical Plan: Patient has converted to sinus rhythm spontaneously. She has much improved symptoms and good quality of life at this point time. At this point time does not indication for digoxin. See below. Continue full oral anticoagulation with Xarelto. Semi annual renal function test should be pursued. Management was discussed with the in details. 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 There is no indication for digoxin therapy at this point time. This will be discontinued. Will also reduced metoprolol from b.i.d. to Toprol-XL 25 mg daily to reduce risk associated slow heart rate with low blood pressure. Advised to monitor blood pressure and heart rate at home. Follow up in the clinic in 6 months time, sooner p.r.n.. Thank you for allowing me to partake in her care Medications: New metoprolol succinate ER (Toprol XL) 25 mg PO DAILY 30 tabs 5RF Discontinued digoxin Discontinued Reason: Doctor's Order 125 mcg PO DAILY 90 tabs 3RF metoprolol tartrate Discontinued Reason: Doctor's Order 25 mg PO BID 180 tabs 3RF I48.19 - Other persistent atrial fibrillation Coding Level of Care Code Est Pt Level 4 (46042) Diagnoses Paroxysmal atrial fibrillation I48.0 Sinus bradycardia R00.1
== END 2023-12-08 14:02 | disposition home or self-care (01) ==
PROVIDERS: PCP Internal Medicine; Visit Provider Internal Medicine Cardiovascular Disease
DX: I48.0 Paroxysmal atrial fibrillation (principal); R00.1 Bradycardia, unspecified
CPT/HCPCS: 99214

== ENCOUNTER → 2023-12-08 13:05 | Outpatient (BNVA) | payer MEDICARE, OTHER, SELFPAY | PROVIDERS: PCP Internal Medicine; Visit Provider Internal Medicine Cardiovascular Disease | DX: R00.1 Bradycardia, unspecified (principal); I48.0 Paroxysmal atrial fibrillation; Z98.890 Other specified postprocedural states | CPT/HCPCS: 99212 ==

== ENCOUNTER 2024-04-12 11:45 | Outpatient (REF) | payer MEDICARE, OTHER, SELFPAY ==
[2024-04-12 11:49] LABS: MANUAL DIFF FLAG NO
[2024-04-12 12:08] LABS: Basophils Percent Auto 0.4 % (0-2); Eosinophils Absolute Auto 0.2 X10*3/uL (0.0-0.4); Eosinophils Percent Auto 2.1 % (0-4); Hematocrit 42.5 % (37.0-47.0); Hemoglobin 13.8 g/dl (12.0-16.0); Imm Gran Abs Auto 0.02 X10*3/uL (0.00-0.03); Imm Gran Pct Auto 0.3 % (0.0-0.4); Lymphocytes Absolute Auto 2.5 X10*3/uL (1.2-4.9); Lymphocytes Percent Auto 34.1 % (20-40); Mean Corpuscular HGB Conc 32.5 g/dl (31.0-35.0); Mean Corpuscular Hemoglobin 31.7 pg (27.0-33.0); Mean Corpuscular Volume 97.5 fL (80.0-98.0); Mean Platelet Volume 10.9 fL (9.4-12.3); Monocytes Absolute Auto 0.6 X10*3/uL (0.1-1.2); Monocytes Percent Auto 8.3 % (2-11); Neutrophils Absolute Auto 4.1 x10*3/uL (2.0-8.3); Neutrophils Percent Auto 54.8 % (45-73); Platelet Count 293 X10*3/uL (160-400); Red Blood Count 4.36 X10*6/uL (4.20-5.50); Red Cell Distribution Width 12.4 % (11.0-16.0); White Blood Count 7.5 X10*3/uL (4.8-10.8)
[2024-04-12 12:24] LABS: Appearance Urine Clear; Color Urine Yellow; Glucose Urine UA Negative (Negative); Leukocyte Esterase Urine Large (3+) (Negative); Nitrite Urine Positive (Negative); Specific Gravity - Urine <= 1.005 (1.005-1.025); UMIC TRIGGER UACC YES; Urine Blood Large (3+) (Negative); Urine Ketones Negative (Negative); Urine Protein Negative (Neg-Trace)
[2024-04-12 12:30] LABS: Bacteria Urine 4+ (None Seen); Hyaline Casts Urine 0-2 /LPF (0-2); RBC Urine >20 /HPF (0-2); Squamous Epithelial Cell Urine 0-2 /HPF (0-2); UACC Culture Trigger YES; WBC Urine 21-50 /HPF (0-5)
[2024-04-12 12:40] LABS: Estimated Average Glucose 105 mg/dL; Hemoglobin A1C 121.8827 umol/L; Hemoglobin A1c % 5.3 % (<6.0); Total Hemoglobin (HGBA1C) 3519.6666 umol/L
[2024-04-12 12:51] LABS: Alanine Aminotransferase 12 U/L (0-31); Alkaline Phosphatase 94 U/L (39-117); Anion Gap 16 (12-20); Aspartate Amino Transferase 27 U/L (5-31); Bilirubin Total 0.5 mg/dL (0.0-1.0); Blood Urea Nitrogen 18 mg/dL (9-16); Calcium 9.9 mg/dL (8.4-10.2); Carbon Dioxide 25 mmol/L (22-29); Chloride 107 mmol/L (96-108); Cholesterol 206 mg/dL (<200); Estimated Glomerular Filt Rate > 60; Glucose Fasting 108 mg/dL (60-99); HDL Cholesterol 54 mg/dL (>40); LDL Cholesterol Calculated 135 mg/dL (<100); Potassium 4.4 mmol/L (3.3-5.1); Sodium 144 mmol/L (135-145); Total Protein 7.4 g/dL (6.5-8.0); Triglycerides 87 mg/dL (<150)
[2024-04-12 13:04] LABS: Creatinine Urine 23.52 mg/dL; Microalbum/Creatinine Ratio Ur 174.3 ug/mg cr (<30)
== END 2024-04-12 11:46 | disposition home or self-care (01) ==
LOC: HO.LNP 11:45
PROVIDERS: Visit Provider Internal Medicine
DX: R73.09 Other abnormal glucose (principal); Z86.72 Personal history of thrombophlebitis; E78.00 Pure hypercholesterolemia, unspecified; E11.9 Type 2 diabetes mellitus without complications; R82.79 Other abnormal findings on microbiological examination of urine
CPT/HCPCS: 80053; 80061; 81001; 82043; 82570; 83036; 85025; 87086; 87088; 87186

== ENCOUNTER 2024-05-03 14:52 | Inpatient (IN) | payer MEDICARE, OTHER, SELFPAY ==
--- NOTE | ~2024-05-03 | CT_ITS ---
EXAMINATION: CT HEAD WITHOUT CONTRAST CT FACIAL BONES WITHOUT CONTRAST CT CERVICAL SPINE WITHOUT CONTRAST CLINICAL INFORMATION: Fall. Head strike. Patient on blood thinners. COMPARISON: None available. TECHNIQUE: Imaging was performed from the skull base to vertex without intravenous administration of contrast. In addition, helical noncontrast CT imaging was acquired through the cervical spine and facial bones and source images were reviewed along with axial reconstructions and sagittal and coronal MPRs. This CT examination was performed using dose optimization techniques as appropriate, variously including the following: *Automated exposure control. *Adjustment of mA and/or kV according to patient size (this includes techniques or standardized protocols for targeted exams where dose is matched to indication/reason for exam; i.e. extremities or head). *Use of iterative reconstruction technique. DLP: 1134 mGy-cm FINDINGS: Head: There is no evidence of acute intracranial hemorrhage or edematous territorial infarction. Yanes-white matter differentiation is preserved. Scattered and partially confluent hypoattenuation in the periventricular and deep white matter are consistent with moderate microangiopathy. Proportional prominence of the ventricles and sulcal spaces without evidence of obstructive hydrocephalus. No abnormal mass effect or midline shift. No extra-axial fluid collections. Calcific atherosclerotic disease of the intracranial internal carotid arteries. No hyperdense vessel sign. Moderate subgaleal hematoma along the right aspect of the frontal bone, measuring up to 0.9 cm in depth. No associated acute osseous abnormalities. Maxillofacial Bones: Moderate subcutaneous edema/hematoma in the right periorbital soft tissues extending into the right premaxillary soft tissues. No evidence of maxillofacial bone fractures. The zygomatic arches remain intact. No nasal bone fracture. The nasal septum remains midline. No evidence of mandibular or maxillary fracture. The mandibular condyles remain well-seated in their respective temporal articular grooves. Normal appearance of the intraconal and extraconal fat. No evidence of traumatic injury to the extraocular musculature or globes. Mild mucosal thickening of the paranasal sinuses. The mastoid air cells and middle ear cavities are clear. No layering fluid collections. Multifocal odontogenic enamel erosions and periapical lucencies. Cervical Spine: The atlantooccipital and atlantoaxial articulations remain well aligned. Moderate degenerative arthropathy of the atlantodental articulation. Minimal reversal of the normal cervical lordosis. Mild degenerative anterolistheses of C3 on C4 and stepwise from C6-T1. Otherwise, there is anatomic alignment of the vertebral bodies and posterior elements. Ankylosis of the C2-C3 facets. No evidence of acute fracture or subluxation. The vertebral body heights are maintained. Advanced degenerative disc disease from C4-C6. Moderate degenerative disc disease at C7-T1. Facet and uncovertebral joint arthropathy leads to osseous encroachment on the neural foramina from C2-T1. There is no prevertebral soft tissue swelling. The thyroid gland and remaining cervical soft tissues are within normal limits. The lung apices demonstrate no abnormalities. CT/CT cervical spine wo IV con IMPRESSION: 1. No evidence of acute intracranial hemorrhage or edematous territorial infarction. 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 2. No evidence of acute fracture or traumatic subluxation of the cervical spine. Moderate to advanced multilevel degenerative spondyloarthropathy of the cervical spine. 3. Moderate right frontal scalp, right periorbital, and right facial soft tissue edema/hematoma. No associated osseous abnormalities. 4. No evidence of acute fracture of the maxillofacial bones. Electronically signed by: Apolinar Oliva DO 05/03/2024 06:02 PM [facility]
--- NOTE | ~2024-05-03 | MR_ITS ---
EXAMINATION: MR BRAIN WITHOUT CONTRAST CLINICAL INFORMATION: Recurrent episodes of unresponsiveness COMPARISON: None available. TECHNIQUE: MRI of the brain was obtained using routine sequences without contrast. FINDINGS: No acute intracranial hemorrhage or infarct. Scattered and confluent periventricular and deep white matter T2/FLAIR hyperintensities, nonspecific however commonly seen with small vessel ischemic disease. Diffuse prominence of the sulci with associated ex vacuo dilation of the ventricles compatible with global cerebral atrophy. No midline shift or hydrocephalus. No acute extra-axial fluid collections. The osseous structures are unremarkable. There is a well-circumscribed soft tissue mass involving the right frontal scalp which demonstrate heterogeneous signal, likely reflect a complicated epidermal inclusion cyst. The pituitary gland, pineal gland and remaining midline structures are unremarkable. No orbital pathology. The paranasal sinuses and mastoid air cells are clear. MR/MR head/brain wo con IMPRESSION: No acute intracranial abnormality. Electronically signed by: Danish Moreno MD 05/04/2024 08:57 [facility]
[2024-05-03 14:56] VITALS: BP 132/51; PULSE 77; RESP 20; TEMP 37; O2SAT 98; BMI 20.5
--- NOTE | 2024-05-03 14:56 | ED_ITS ---
HPI - General Adult General Chief complaint: Fall Stated complaint: Fall - facial bruising, trouble speaking Time Seen by Provider: 05/03/24 18:02 Source: patient Mode of arrival: ambulatory Limitations: no limitations History of Present Illness ED Provider: Olinda Gabriel NP HPI narrative: patient is an 88-year-old female Who presents emergency department with and daughter for evaluation. Acaciater reports that approximately 1 month ago patient had an episode of unresponsiveness where she was awake with eyes open but not responding to her not following any commands not moving. This episode lasted approximately 1 hour before self-resolving. 1 week later she was diagnosed with a urinary tract infection that was discovered on apparently routine testing she was not endorsing any symptoms. She was treated with an antibiotic for 5 days, off antibiotics for 5 days. A repeat culture was obtained from her doctor, which still indicated a UTI and she was subsequently placed on Keflex A 10 day course (urine culture 04/12/2024 benjamin-sensitive E coli). Reportedly 2 nights ago patient was leaning forward to fix her shoes and she fell off the edge of the bed striking her head onto the floor. She is anticoagulated on Xarelto due to atrial fibrillation. She did not seek evaluation after this. Last night she had another episode at approximately 23:00 that lasted 30 minutes where she was not responding to her not symptoms sitting in a chair and staring off. She eventually got up and walked to bed afterwards. Patient's daughter states that did not make her aware of this episode was mother until today, they contacted her primary care doctor and was advised to come to the emergency department. Related Data Previous Rx's ?Medication ?Instructions ?Recorded rivaroxaban 20 mg tablet 20 mg PO Q24H #90 tabs 11/18/23 metoprolol succinate 25 mg 25 mg PO DAILY #30 tabs 12/08/23 tablet,extended release 24 hr (Toprol XL) Allergies Allergy/AdvReac Type Severity Reaction Status Date / Time No Known Allergies Allergy Unverified 05/03/24 14:59 [No Known Allergies*] [facility] Past Medical History Medical History (Updated 05/04/24 @ 01:25 by Olinda Gabriel CNP) Paroxysmal atrial fibrillation Persistent atrial fibrillation History of cardioversion Surgical History History of hip surgery Family History Family History Father No problems noted. Mother No problems noted. Social History Social History Household Members: Spouse Housing: House Do you presently have visiting nurse or other home services: No Patient Tobacco Use Status: Never used Tobacco Smoked in Last 30 Days: No Use of substances other than those prescribed or required for medical reasons: No Currently Displaying Signs/Symptoms of Drug Intoxication Withdrawal: No Have you been hit, kicked, punched, or otherwise hurt by someone within the past year? If so, by whom?: No Do you feel safe in your current relationship?: Yes Is there a partner from a previous relationship who is making you feel unsafe now?: No Are you made to feel afraid or neglected: No Advance Directives: No Advance Directives Information Provided: No Do you have a plan to hurt others: No Plan Recently lost weight without trying: No How much weight loss: Not applicable Eating poorly because of decreased appetite: No Nutrition screen score: 0 Nutrition Risks: No Nutritional Risk Patient : No : No Poor oral hygiene: No Physical Exam ED Vital Signs: Vital Signs - 24 hr 05/03/24 14:56 05/03/24 19:10 Temperature 98.6 F 97.9 F Pulse Rate 77 81 Respiratory Rate 20 14 Blood Pressure 132/51 L 119/61 Pulse Oximetry 98 99 Oxygen Delivery Method Room Air Room Air BMI result Body Mass Index 20.5 Appearance: Alert.?Oriented to person, place and time. No acute distress.?Normal affect. Head: Normocephalic Eyes: Pupils equal, round and reactive to light. EOMI. Conjunctiva and sclera normal? bilateral rolo orbital ecchymosis and swelling ENT: No septal hematoma, nares patent bilaterally. External auditory canal normal tympanic membrane pearly garcia and intact bilaterally. Dentition normal, no fractured teeth. No lesions or lacerations of oropharynx. Uvula midline. Moist mucous membranes. Neck: Normal inspection.? Neck supple.??No palpable tenderness, step-off, deformities. CVS: Heart sounds normal. Normal heart rate and rhythm.? Pulses normal.?? Respiratory: No respiratory distress.? Lung sounds clear to auscultation bilaterally?? Abdomen: Soft and non-tender. Normoactive bowel sounds. ?? Skin: Skin warm and dry.? Normal skin color.? Normal skin turgor.?? Extremities: No lower extremity edema.? Neuro: Moves all extremities spontaneously. Sensation intact bilaterally. CN II- XII intact. No focal neuro deficits. Course Course Course Narrative: This is a rapid medical exam performed by Sally Rodriguez NP: Additional HPI, ROS, PE not included below will be deferred to primary provider. Patient is an 88-year-old female with history of afib on Xarelto presenting to the ED with daughter who reports that patient had an episode around 11pm last night where patient was minimally responsive. tried to get her into bed and she was not responding. Patient also had a fall on Thursday, fell first from sitting while trying to put socks on. Significant bruising to face around eyes. Family reports a similar episode of patient not responding a few weeks ago. Also currently on second round of abx for UTI. Plan: CT head, c-spine, facial bones, labs Medications Administered Generic Name Dose Route Start Last Admin Trade Name Freq PRN Reason Stop Dose Admin Sodium Chloride 3 ml 05/04/24 00:00 05/04/24 00:17 0.9 % Sodium Chloride Flush 3 Ml Syringe IVFLUSH 3 ml QSHIFT GUERRERO Administration Discontinued Medications Generic Name Dose Route Start Last Admin Trade Name Freq PRN Reason Stop Dose Admin Ceftriaxone Sodium 1 gm 05/03/24 21:10 05/03/24 22:15 Ceftriaxone Sodium 1 Gm Vial IVPUSH 05/03/24 21:11 1 gm ONCE ONE Administration Medical Decision Making Medical Decision Making [facility] Narrative: This is an 88-year-old female with past medical history of paroxysmal atrial fibrillation on Xarelto, arthritis, hypertension who presents emergency department for episodes of unresponsiveness and a recent fall recent treatment for UTI as per HPI. The unresponsive episodes or concerning for possible absen seizure vtersus seizure versus syncope, the exact etiology is unclear. I have reviewed serum labs as well as CT imaging obtained prior to my assumption of care; CT head , facial bones and cervical spine are without acute intracranial abnormality, cervical fracture subluxation, maxillofacial fracture. Serum labs are without leukocytosis, anemia thrombocytopenia. No electrolyte derangement. No GEMMA. LFTs within normal range. Urinalysis remains concerning for urinary tract infection with WBC tear as well as microscopic hematuria daughter both state that she has noticed small amounts of blood toilet after patient urinates. Will cover with Rocephin. EKG reveals a sinus arrhythmia, discernible P-waves does not appear to be atrial fibrillation at this time, ventricular rate of 76, QTC 441, no ST elevation or ST depression. High sensitive troponin __. spoke with hospitalist Dr. Brayan Hollis regarding admission, she may require EEG/MRI for further evaluation Differential Diagnosis Differential Diagnoses: The differential diagnosis associated with the presentation includes Admission/Observation Consideration of admission/observation: Escalation of care including admission/observation considered Consult Healthcare Provider Management of the patient was discussed with: Hospitalist ( see narrative above) Lab Data MDM Lab Attestation statement: I reviewed the patient's lab results. ( see narrative above) 05/03/24 15:42 05/03/24 15:42 Labs: Lab Results 05/03/24 05/03/24 Range/Units 15:42 19:45 WBC 7.1 (4.8-10.8) X10*3/uL RBC 3.81 L (4.20-5.50) X10*6/uL Hgb 12.0 (12.0-16.0) g/dl Hct 36.0 L (37.0-47.0) % MCV 94.5 (80.0-98.0) fL MCH 31.5 (27.0-33.0) pg MCHC 33.3 (31.0-35.0) g/dl RDW 12.4 (11.0-16.0) % Plt Count 217 D (160-400) X10*3/uL MPV 10.6 (9.4-12.3) fL Immature Gran % (Auto) 0.3 (0.0-0.4) % Neut % (Auto) 57.7 (45-73) % Lymph % (Auto) 25.4 (20-40) % [place] % (Auto) 12.2 H (2-11) % Eos % (Auto) 3.8 (0-4) % Baso % (Auto) 0.6 (0-2) % Lymph # (Auto) 1.8 (1.2-4.9) X10*3/uL [place] # (Auto) 0.9 (0.1-1.2) X10*3/uL Eos # (Auto) 0.3 (0.0-0.4) X10*3/uL Baso # (Auto) 0.0 (0.0-0.2) X10*3/uL Abs Immat Gran (auto) 0.02 (0.00-0.03) X10*3/uL Absolute Neuts (auto) 4.1 (2.0-8.3) x10*3/uL Absolute Nucleated RBC 0.000 (0.0-0.012) X10*3/uL Nucleated RBC % (auto) 0.0 (0.0-0.2) /100WBC PT 23.3 H (10.9-12.4) SEC INR 2.0 H (0.9-1.1) Sodium 138 (135-145) mmol/L Potassium 4.2 (3.3-5.1) mmol/L Chloride 103 (96-108) mmol/L Carbon Dioxide 27 (22-29) mmol/L Anion Gap 12 (12-20) BUN 15 (9-16) mg/dL Creatinine 0.69 (0.5-1.4) mg/dL Estim Creat Clear Calc 47.5 Estimated GFR > 60 Random Glucose 119 H (60-115) mg/dL Calcium 9.3 D (8.4-10.2) mg/dL Total Bilirubin 0.5 (0.0-1.0) mg/dL AST 25 (5-31) U/L ALT 12 (0-31) U/L Alkaline Phosphatase 95 (39-117) U/L Total Protein 6.8 (6.5-8.0) g/dL Albumin 3.6 (3.5-5.0) g/dL Urine Color RED Urine Appearance Turbid Urine pH 6.5 (5.0-9.0) Ur Specific [place] >= 1.030 H (1.005-1.025) Urine Protein See Note (Neg-Trace) mg/dL Urine Glucose (UA) Negative (Negative) mg/dL Urine Ketones See Note (Negative) mg/dL Urine Blood Large (3+) H (Negative) Urine Nitrite See Note (Negative) Ur Leukocyte Esterase See Note (Negative) Urine RBC >20 H (0-2) /HPF Urine WBC 21-50 H (0-5) /HPF Ur Squamous Epith Cells 3-5 (0-2) /HPF Urine Bacteria 2+ (None Seen) Hyaline Casts 0-2 (0-2) /LPF Independent Interpretation I performed an independent interpretation of an: EKG ( see narrative above) and CT Scan ( no ICH or fracture) Radiology Impression Discussion of test interpretation with radiology: I have reviewed the radiologist's reading. Independent Historian Clinical information obtained from an independent historian. History obtained from or confirmed by: Spouse and Other (DTR) External Record Review External record reviewed: Outpatient record Discharge Plan Discharge Clinical Impression: Episode of unresponsiveness UTI (urinary tract infection) Qualifiers: Urinary tract infection type: acute cystitis Hematuria presence: without hematuria Qualified Code(s): N30.00 - Acute cystitis without hematuria Patient Disposition: Still a Patient Interventions: Admission Worksheet (ED) Last Done: 05/03/24 23:16 Discharge Date/Time: 05/04/24 00:02
[2024-05-03 16:01] LABS: MANUAL DIFF FLAG NO
[2024-05-03 16:02] LABS: Basophils Percent Auto 0.6 % (0-2); Eosinophils Absolute Auto 0.3 X10*3/uL (0.0-0.4); Eosinophils Percent Auto 3.8 % (0-4); Imm Gran Abs Auto 0.02 X10*3/uL (0.00-0.03); Imm Gran Pct Auto 0.3 % (0.0-0.4); Lymphocytes Absolute Auto 1.8 X10*3/uL (1.2-4.9); Lymphocytes Percent Auto 25.4 % (20-40); Mean Corpuscular HGB Conc 33.3 g/dl (31.0-35.0); Mean Corpuscular Hemoglobin 31.5 pg (27.0-33.0); Mean Corpuscular Volume 94.5 fL (80.0-98.0); Mean Platelet Volume 10.6 fL (9.4-12.3); Monocytes Absolute Auto 0.9 X10*3/uL (0.1-1.2); Monocytes Percent Auto 12.2 % (2-11); Neutrophils Absolute Auto 4.1 x10*3/uL (2.0-8.3); Neutrophils Percent Auto 57.7 % (45-73); Platelet Count 217 X10*3/uL (160-400); Red Blood Count 3.81 X10*6/uL (4.20-5.50); Red Cell Distribution Width 12.4 % (11.0-16.0); White Blood Count 7.1 X10*3/uL (4.8-10.8)
[2024-05-03 16:17] LABS: Prothrombin Time 23.3 SEC (10.9-12.4)
[2024-05-03 16:22] LABS: Alanine Aminotransferase 12 U/L (0-31); Albumin Level 3.6 g/dL (3.5-5.0); Anion Gap 12 (12-20); Aspartate Amino Transferase 25 U/L (5-31); Bilirubin Total 0.5 mg/dL (0.0-1.0); Blood Urea Nitrogen 15 mg/dL (9-16); Calcium 9.3 mg/dL (8.4-10.2); Carbon Dioxide 27 mmol/L (22-29); Chloride 103 mmol/L (96-108); Creatinine Clr Calc Pharmacy 47.5; Estimated Glomerular Filt Rate > 60; Glucose Random 119 mg/dL (60-115); Potassium 4.2 mmol/L (3.3-5.1); Sodium 138 mmol/L (135-145); Total Protein 6.8 g/dL (6.5-8.0)
[2024-05-03 16:45] LABS: Alkaline Phosphatase 95 U/L (39-117)
[2024-05-03 19:10] VITALS: BP 119/61; PULSE 81; RESP 14; TEMP 36.6; O2SAT 99
--- NOTE | 2024-05-03 19:43 | ECG_ITS ---
Test Reason : A-FIB/FALL Blood Pressure : / mmHG Vent. Rate : 076 BPM Atrial Rate : 076 BPM P-R Int : 158 ms QRS Dur : 064 ms QT Int : 392 ms P-R-T Axes : 070 017 039 degrees QTc Int : 441 ms Sinus rhythm with marked sinus arrhythmia Low voltage QRS Septal infarct (cited on or before 25-JUL-2016) Abnormal ECG When compared with ECG of 02-OCT-2016 11:22, Questionable change in initial forces of Septal leads Nonspecific T wave abnormality, improved in Inferior leads Nonspecific T wave abnormality, improved in Anterolateral leads QT has shortened Referred By: Olinda Gabriel Electronically Signed By:CARMELO CROFT
[2024-05-03 19:53] LABS: Appearance Urine Turbid; Color Urine RED; Glucose Urine UA Negative (Negative); PH 6.5 (5.0-9.0); Specific Gravity - Urine >= 1.030 (1.005-1.025); UMIC TRIGGER UACC YES; Urine Blood Large (3+) (Negative)
[2024-05-03 20:05] LABS: Bacteria Urine 2+ (None Seen); Hyaline Casts Urine 0-2 /LPF (0-2); RBC Urine >20 /HPF (0-2); UACC Culture Trigger YES; WBC Urine 21-50 /HPF (0-5)
--- NOTE | 2024-05-03 20:13 | PC.NURSE ---
ambulatory to BR with very minimal assist. family states that patient has been more alert and steady on feet today than she was at home.
--- NOTE | 2024-05-03 22:14 | PM.IMHP ---
History of Present Illness Date of Service: 05/03/24 Attending physician on admission: Mj Hollis Chief Complaint: Episodes of unresponsiveness Toña Ríos is a delightful 88 years old woman with past medical history significant for AFib on Xarelto followed by Dr. Stanley who was brought to the emergency department by her and daughter after she has been experiencing events of unresponsiveness there has been weakness by her . Her stated that about a month ago and last night the patient is having spells of unresponsiveness the last 20 minutes. He noted some minimal abnormal jerking movements. After she is out of these events she will return to her baseline. It seems like the patient has no recollection of these events. did not observe any associated events of stools or urine incontinence. Last Thursday, she was sitting tighten her shoes laces lost balance and hit her face with the floor. She had glasses on. Next day she developed significant bruising of the periorbital region and right frontal aspect of her head. There are no headache, acute visual disturbances, speech difficulty, focal weakness or acute gait difficulty reported. There is no fevers or chills. The patient was recently diagnosed with UTI and has had 2 courses of antibiotics. She was recently completed a course of cephalexin. Most recent urine culture showed pansensitive E coli. The patient has no history of seizures or strokes. In the ED, she was found to have normal vital signs. Blood workup was significant for no leukocytosis. Hemoglobin and platelets are normal. INR is 2.0. There are no electrolyte imbalances. LFTs are normal. Troponin is negative. Urinalysis consistent with UTI. ECG showed normal sinus rhythm with sinus arrhythmia and no obvious acute ischemic changes. Head face and C-spine CT scan showed no acute abnormalities. ED tx: Ceftriaxone 1 g IV. Daughter and at bedside. [facility] Medical History (Updated 05/03/24 @ 22:41 by Mj Hollis MD) Paroxysmal atrial fibrillation Persistent atrial fibrillation History of cardioversion Family History Father No problems noted. Mother No problems noted. Surgical History History of hip surgery Social History Smoked in Last 30 Days: No Use of substances other than those prescribed or required for medical reasons: No Advance Directives: No Advance Directives Information Provided: No Meds Allergies Allergy/AdvReac Type Severity Reaction Status Date / Time No Known Allergies Allergy Unverified 05/03/24 14:59 [No Known Allergies*] Active Medications: Current Medications Acetaminophen (Acetaminophen 325 Mg Tablet) 975 mg PO Q6H PRN PRN Reason: Pain, Mild (Pain Scale 1-3), fever or headache Melatonin (Melatonin 3 Mg Tablet) 6 mg PO BEDTIME PRN PRN Reason: Insomnia Sodium Chloride (0.9 % Sodium Chloride Flush 3 Ml Syringe) 3 ml IVFLUSH QSHIFT [facility] Physical Exam Vital Signs and Narrative: Vital Signs: Last Vital Signs Temp 97.9 F 05/03/24 19:10 Pulse 81 05/03/24 19:10 Resp 14 05/03/24 19:10 BP 119/61 05/03/24 19:10 Pulse Ox 99 05/03/24 19:10 O2 Del Method Room Air 05/03/24 19:10 BMI result Body Mass Index 20.5 Results Labs 05/03/24 15:42 05/03/24 15:42 Labs: Laboratory Results - last 24 hr 05/03/24 05/03/24 15:42 19:45 MCV 94.5 MCH 31.5 MCHC 33.3 RDW 12.4 Plt Count 217 D MPV 10.6 Immature Gran % (Auto) 0.3 Neut % (Auto) 57.7 Lymph % (Auto) 25.4 [place] % (Auto) 12.2 H Eos % (Auto) 3.8 Baso % (Auto) 0.6 Lymph # (Auto) 1.8 [place] # (Auto) 0.9 Eos # (Auto) 0.3 Baso # (Auto) 0.0 Abs Immat Gran (auto) 0.02 Absolute Neuts (auto) 4.1 Absolute Nucleated RBC 0.000 Nucleated RBC % (auto) 0.0 PT 23.3 H INR 2.0 H Anion Gap 12 Estim Creat Clear Calc 47.5 Estimated GFR > 60 Random Glucose 119 H Calcium 9.3 D Total Bilirubin 0.5 AST 25 ALT 12 Alkaline Phosphatase 95 Total Protein 6.8 Albumin 3.6 Urine Color RED Urine Appearance Turbid Urine pH 6.5 Ur Specific [place] >= 1.030 H Urine Protein See Note Urine Glucose (UA) Negative Urine Ketones See Note Urine Blood Large (3+) H Urine Nitrite See Note Ur Leukocyte Esterase See Note Urine RBC >20 H Urine WBC 21-50 H Ur Squamous Epith Cells 3-5 Urine Bacteria 2+ Hyaline Casts 0-2 Imaging Radiologist's Impressions: Impressions Face CT 05/03/24 14:59 IMPRESSION: 1. No evidence of acute intracranial hemorrhage or edematous territorial infarction. 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 2. No evidence of acute fracture or traumatic subluxation of the cervical spine. Moderate to advanced multilevel degenerative spondyloarthropathy of the cervical spine. 3. Moderate right frontal scalp, right periorbital, and right facial soft tissue edema/hematoma. No associated osseous abnormalities. 4. No evidence of acute fracture of the maxillofacial bones. Electronically signed by: Apolinar Oliva DO 05/03/2024 06:02 PM EST RP Head CT 05/03/24 14:59 IMPRESSION: 1. No evidence of acute intracranial hemorrhage or edematous territorial infarction. 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 2. No evidence of acute fracture or traumatic subluxation of the cervical spine. Moderate to advanced multilevel degenerative spondyloarthropathy of the cervical spine. 3. Moderate right frontal scalp, right periorbital, and right facial soft tissue edema/hematoma. No associated osseous abnormalities. 4. No evidence of acute fracture of the maxillofacial bones. Electronically signed by: Apolinar Oliva DO 05/03/2024 06:02 PM EST RP Cervical Spine CT 05/03/24 15:23 IMPRESSION: 1. No evidence of acute intracranial hemorrhage or edematous territorial infarction. 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 2. No evidence of acute fracture or traumatic subluxation of the cervical spine. Moderate to advanced multilevel degenerative spondyloarthropathy of the cervical spine. 3. Moderate right frontal scalp, right periorbital, and right facial soft tissue edema/hematoma. No associated osseous abnormalities. 4. No evidence of acute fracture of the maxillofacial bones. Electronically signed by: Apolinar Oliva DO 05/03/2024 06:02 PM EST RP Assessment and Plan (1) Unresponsiveness: Status: Acute (2) UTI (urinary tract infection): Qualifiers: Urinary tract infection type: acute cystitis Hematuria presence: without hematuria Qualified Code(s): N30.00 - Acute cystitis without hematuria Status: Acute Plan Toña Ríos is a 88 y/o woman admitted with: Episodes of unresponsiveness without collapse. ?Seizures. Admit to hospitalist service. Telemetry. Neuro checks every 4 hours. Check brain MRI and ECG. Neurology consult. UTI. Continue ceftriaxone 1 g IV daily. Urine culture obtained -will follow results. AFib, currently rate and rhythm controlled. Continue Xarelto (dose decreased to 15 mg due to current renal clearance). Continue metoprolol. DVT prophylaxis Xarelto Code status: Full Plan discussed with the and daughter and are agreeable. Patient will need hospitalization for at least 2 midnights for UTI treatment with IV antibiotics as she was failing outpatient treatment. Patient will also need further neurological assessment due to multiple episodes of unresponsiveness. Quality Stroke Does the patient have a stroke diagnosis?: No VTE Prior VTE?: No VTE Risk Level:: Medical - moderate - high VTE Device Contraindication: N/A - Device Ordered VTE Drug Contraindication: N/A - Med Ordered
[2024-05-03] MEDS: cefTRIAXone sodium 1 GM VIAL IVPUSH (22:15)
--- NOTE | 2024-05-03 22:17 | PHA.MEDREC ---
Pharmacy Consult ? Medication Reconciliation Pharmacy has completed the medication reconciliation.Med rec complete, spoke to patients daughter and compared with outpatient pharmacy history.
[2024-05-03 22:18] VITALS: BP 109/62; PULSE 71; RESP 18; TEMP 36.8; O2SAT 97
[2024-05-03 23:58] VITALS: BMI 20.3
[2024-05-04] VITALS (7 sets, daily range): BP systolic 96–123; BP diastolic 55–78; PULSE 58–84; RESP 16–18; TEMP 36.1–36.5; O2SAT 97–99
[2024-05-04] MEDS: 0.9 % Sodium Chloride Flush 3 ML SYRINGE IVFLUSH ×4 (00:17→23:52)
[2024-05-04 07:56] LABS: MANUAL DIFF FLAG NO
[2024-05-04 08:02] LABS: Basophils Percent Auto 0.7 % (0-2); Eosinophils Absolute Auto 0.3 X10*3/uL (0.0-0.4); Eosinophils Percent Auto 4.5 % (0-4); Hemoglobin 12.1 g/dl (12.0-16.0); Imm Gran Abs Auto 0.01 X10*3/uL (0.00-0.03); Imm Gran Pct Auto 0.2 % (0.0-0.4); Lymphocytes Absolute Auto 1.4 X10*3/uL (1.2-4.9); Lymphocytes Percent Auto 23.4 % (20-40); Mean Corpuscular HGB Conc 33.6 g/dl (31.0-35.0); Mean Corpuscular Hemoglobin 31.7 pg (27.0-33.0); Mean Corpuscular Volume 94.2 fL (80.0-98.0); Mean Platelet Volume 10.5 fL (9.4-12.3); Monocytes Absolute Auto 0.7 X10*3/uL (0.1-1.2); Monocytes Percent Auto 12.1 % (2-11); Neutrophils Absolute Auto 3.5 x10*3/uL (2.0-8.3); Neutrophils Percent Auto 59.1 % (45-73); Platelet Count 222 X10*3/uL (160-400); Red Blood Count 3.82 X10*6/uL (4.20-5.50); Red Cell Distribution Width 12.3 % (11.0-16.0); White Blood Count 5.9 X10*3/uL (4.8-10.8)
[2024-05-04 08:18] LABS: Anion Gap 13 (12-20); Blood Urea Nitrogen 12 mg/dL (9-16); Calcium 8.9 mg/dL (8.4-10.2); Carbon Dioxide 24 mmol/L (22-29); Chloride 107 mmol/L (96-108); Creatinine Clr Calc Pharmacy 55.9; Estimated Glomerular Filt Rate > 60; Glucose Random 75 mg/dL (60-115); Magnesium 2.4 mg/dL (1.6-2.6); Sodium 140 mmol/L (135-145)
--- NOTE | 2024-05-04 09:23 | P.CNNE_ITS ---
History of Present Illness Data of Consult Service Date: 05/04/24 Primary Care Provider: Jem Reid MD [facility] Reason for consult: Periods of unresponsiveness This is a 88 years old woman with history of AFib on Xarelto followed by Dr. Stanley who was brought to the emergency department by her and daughter after she has been experiencing events of unresponsiveness. Her stated that about a month ago and last night the patient was having spells of unresponsiveness that last 20 minutes. He noted some minimal abnormal jerking movements. After she is out of these events she will return to her baseline. It seems like the patient has no recollection of these events. There is no incontinence. Last Thursday, she was sitting to tighten her shoes laces when she lost balance and hit her face on the floor. Next day she developed significant bruising of the periorbital region and right frontal aspect of her head. There are no headache, acute visual disturbances, speech difficulty, focal weakness or acute gait difficulty reported. There is no fevers or chills. The patient was recently diagnosed with UTI and has had 2 courses of antibiotics. She was recently completed a course of cephalexin. Most recent urine culture showed pansensitive E coli. The patient has no history of seizures or strokes. CT head and neck negative except age related changes PMFSH Past Medical History Medical History (Updated 05/04/24 @ 01:25 by Olinda Gabriel CNP) Paroxysmal atrial fibrillation Persistent atrial fibrillation History of cardioversion Family History Family History Father No problems noted. Mother No problems noted. Surgical History Surgical History History of hip surgery Social History Social History Household Members: Spouse Housing: House Do you presently have visiting nurse or other home services: No Patient Tobacco Use Status: Never used Tobacco Smoked in Last 30 Days: No Use of substances other than those prescribed or required for medical reasons: No Currently Displaying Signs/Symptoms of Drug Intoxication Withdrawal: No Have you been hit, kicked, punched, or otherwise hurt by someone within the past year? If so, by whom?: No Do you feel safe in your current relationship?: Yes Is there a partner from a previous relationship who is making you feel unsafe now?: No Are you made to feel afraid or neglected: No Advance Directives: No Advance Directives Information Provided: No Do you have a plan to hurt others: No Plan Recently lost weight without trying: No How much weight loss: Not applicable Eating poorly because of decreased appetite: No Nutrition screen score: 0 Nutrition Risks: No Nutritional Risk Patient : No : No Poor oral hygiene: No service: No Meds Allergies Allergy/AdvReac Type Severity Reaction Status Date / Time No Known Allergies Allergy Unverified 05/03/24 14:59 [No Known Allergies*] Active Medications: Current Medications Acetaminophen (Acetaminophen 325 Mg Tablet) 975 mg PO Q6H PRN PRN Reason: Pain, Mild (Pain Scale 1-3), fever or headache Ceftriaxone Sodium (Ceftriaxone Sodium 1 Gm Vial) 1 gm IVPUSH Q24H [facility] Melatonin (Melatonin 3 Mg Tablet) 6 mg PO BEDTIME PRN PRN Reason: Insomnia Metoprolol Succinate (Metoprolol Succinate Er 25 Mg Tab.Er.24h) 25 mg PO DAILY [facility]; Protocol Last Admin: 05/04/24 07:46 Dose: Not Given Rivaroxaban (Rivaroxaban 15 Mg Tablet) 15 mg PO DAILY@1700 [facility] Sodium Chloride (0.9 % Sodium Chloride Flush 3 Ml Syringe) 3 ml IVFLUSH QSHIFT [facility] Last Admin: 05/04/24 07:46 Dose: 3 ml Physical Exam 2 Vital Signs: Vital Signs: Last Vital Signs Temp 97.1 F 05/04/24 07:55 Pulse 63 05/04/24 07:55 Resp 18 05/04/24 07:55 BP 106/68 05/04/24 08:27 Pulse Ox 99 05/04/24 07:55 O2 Del Method Room Air 05/04/24 07:55 BMI result Body Mass Index 20.3 Neuro: Other: Non focal exam Results Labs 05/04/24 05:46 05/04/24 05:45 Labs: Short CBC 05/03/24 05/04/24 Range/Units 15:42 05:46 WBC 7.1 5.9 (4.8-10.8) X10*3/uL Hgb 12.0 12.1 (12.0-16.0) g/dl Hct 36.0 L 36.0 L (37.0-47.0) % Plt Count 217 D 222 (160-400) X10*3/uL BMP 05/03/24 05/04/24 15:42 05:45 Sodium 138 140 Potassium 4.2 4.0 Chloride 103 107 Carbon Dioxide 24 BUN 15 12 Creatinine 0.69 0.58 Calcium 9.3 D 8.9 Liver Function 05/03/24 Range/Units 15:42 Total Bilirubin 0.5 (0.0-1.0) mg/dL AST 25 (5-31) U/L ALT 12 (0-31) U/L Alkaline Phosphatase 95 (39-117) U/L Albumin 3.6 (3.5-5.0) g/dL Urine 05/03/24 Range/Units 19:45 Urine Color RED Urine Appearance Turbid Urine pH 6.5 (5.0-9.0) Ur Specific [place] >= 1.030 H (1.005-1.025) Urine Protein See Note (Neg-Trace) mg/dL Urine Glucose (UA) Negative (Negative) mg/dL Assessment and Plan (1) Episode of unresponsiveness: Status: Acute r/o Seizures, r/o arrhythmias Recommendation: EEG, Cardiac monitoring , Echocardiogram Procedures Date of Service Date of Service: 05/04/24
--- NOTE | 2024-05-04 09:24 | MHC.CM.PN ---
IMM 05/04/24 S/P fall on Eliquis. She lives with her spouse. She is independent with all functional mobility. A new HCP has been documented.DP home self care. A family member will transport homeDtr Lakia Bo
--- NOTE | 2024-05-04 10:32 | EEG_ITS ---
FINDINGS: The waking background activity consists of a moderate voltage, diffuse 7 hertz theta intermixed with low voltage, fast frequencies anteriorly. Photic stimulation is without activation. Hyperventilation was omitted. IMPRESSION: This EEG is considered mildly abnormal due to diffuse background slowing consistent with a diffuse encephalopathic process or a dementing illness. No epileptiform discharges are seen. MD ROSEMARY Wilhelm/MAITE / [id number]
--- NOTE | 2024-05-04 15:19 | P.PNIM_ITS ---
Subjective Subjective Date of Service: 05/04/24 Interval History: uti Review of Systems No new episode of dizziness or passing out Denies any chest pain or shortness of breath Physical Exam 2 Vital Signs: Vital Signs: Last Vital Signs Temp 97.1 F 05/04/24 07:55 Pulse 63 05/04/24 07:55 Resp 18 05/04/24 07:55 BP 106/68 05/04/24 08:27 Pulse Ox 99 05/04/24 07:55 O2 Del Method Room Air 05/04/24 07:55 BMI result Body Mass Index 20.3 Appearance: Alert.? Oriented X3. cvs: rrr, [id number]. res: clear to auscultation ,no rhonchii or wheezing abd: no rebound or guarding ,nt, bs present. ext pulses present , no cyanosis . neuro: axo3 , nonfocal. skin: has ecchymosis of face /eye area, Objective Data Active Medications Acetaminophen (Acetaminophen 325 Mg Tablet) 975 mg PO Q6H PRN PRN Reason: Pain, Mild (Pain Scale 1-3), fever or headache Ceftriaxone Sodium (Ceftriaxone Sodium 1 Gm Vial) 1 gm IVPUSH Q24H [facility] Melatonin (Melatonin 3 Mg Tablet) 6 mg PO BEDTIME PRN PRN Reason: Insomnia Metoprolol Succinate (Metoprolol Succinate Er 25 Mg Tab.Er.24h) 25 mg PO DAILY [facility]; Protocol Last Admin: 05/04/24 07:46 Dose: Not Given Documented By: DABA Non-Admin Reason: Decreased Heart Rate Rivaroxaban (Rivaroxaban 15 Mg Tablet) 15 mg PO DAILY@1700 [facility] Sodium Chloride (0.9 % Sodium Chloride Flush 3 Ml Syringe) 3 ml IVFLUSH QSHIFT [facility] Last Admin: 05/04/24 07:46 Dose: 3 ml Documented By: DABA Labs 05/04/24 05:46 05/04/24 05:45 Labs: Laboratory Results - last 24 hr 05/03/24 05/03/24 05/03/24 15:42 19:45 22:09 MCV 94.5 MCH 31.5 MCHC 33.3 RDW 12.4 Plt Count 217 D MPV 10.6 Immature Gran % (Auto) 0.3 Neut % (Auto) 57.7 Lymph % (Auto) 25.4 [place] % (Auto) 12.2 H Eos % (Auto) 3.8 Baso % (Auto) 0.6 Lymph # (Auto) 1.8 [place] # (Auto) 0.9 Eos # (Auto) 0.3 Baso # (Auto) 0.0 Abs Immat Gran (auto) 0.02 Absolute Neuts (auto) 4.1 Absolute Nucleated RBC 0.000 Nucleated RBC % (auto) 0.0 PT 23.3 H INR 2.0 H Anion Gap 12 Estim Creat Clear Calc 47.5 Estimated GFR > 60 Random Glucose 119 H Calcium 9.3 D Magnesium Total Bilirubin 0.5 AST 25 ALT 12 Alkaline Phosphatase 95 Troponin I High Sens 9.0 Total Protein 6.8 Albumin 3.6 Urine Color RED Urine Appearance Turbid Urine pH 6.5 Ur Specific [place] >= 1.030 H Urine Protein See Note Urine Glucose (UA) Negative Urine Ketones See Note Urine Blood Large (3+) H Urine Nitrite See Note Ur Leukocyte Esterase See Note Urine RBC >20 H Urine WBC 21-50 H Ur Squamous Epith Cells 3-5 Urine Bacteria 2+ Hyaline Casts 0-2 05/04/24 05/04/24 05:45 05:46 MCV 94.2 MCH 31.7 MCHC 33.6 RDW 12.3 Plt Count 222 MPV 10.5 Immature Gran % (Auto) 0.2 Neut % (Auto) 59.1 Lymph % (Auto) 23.4 [place] % (Auto) 12.1 H Eos % (Auto) 4.5 H Baso % (Auto) 0.7 Lymph # (Auto) 1.4 [place] # (Auto) 0.7 Eos # (Auto) 0.3 Baso # (Auto) 0.0 Abs Immat Gran (auto) 0.01 Absolute Neuts (auto) 3.5 Absolute Nucleated RBC 0.000 Nucleated RBC % (auto) 0.0 PT INR Anion Gap 13 Estim Creat Clear Calc 55.9 Estimated GFR > 60 Random Glucose 75 Calcium 8.9 Magnesium 2.4 Total Bilirubin AST ALT Alkaline Phosphatase Troponin I High Sens Total Protein Albumin Urine Color Urine Appearance Urine pH Ur Specific [place] Urine Protein Urine Glucose (UA) Urine Ketones Urine Blood Urine Nitrite Ur Leukocyte Esterase Urine RBC Urine WBC Ur Squamous Epith Cells Urine Bacteria Hyaline Casts Microbiology Microbiology Results: Microbiology 05/03/24 Unknown Urine Culture - Preliminary Urine clean catch - Clean Catch Midstream Gram negative merle Assessment and Plan (1) UTI (urinary tract infection): Status: Acute (2) Episode of unresponsiveness: Status: Acute Assessment and Plan: 88 y/o woman admitted with: Episodes of unresponsiveness without collapse. ?Seizures. Admit to hospitalist service. Telemetry. Neuro checks every 4 hours. brain MRI and EEG ordered . Neurology consult. UTI. Continue ceftriaxone 1 g IV daily. Urine culture obtained -will follow results. AFib, currently rate and rhythm controlled. Continue Xarelto (dose decreased to 15 mg due to current renal clearance). Continue metoprolol. DVT prophylaxis Xarelto Plan discussed with the and daughter and are agreeable. Patient will need hospitalization for UTI treatment with IV antibiotics as she was failing outpatient treatment. Patient will also need further neurological assessment due to multiple episodes of unresponsiveness. Quality Stroke Does the patient have a stroke diagnosis?: No VTE Prior VTE?: No VTE Risk Level:: Medical - moderate - high VTE Device Contraindication: N/A - Device Ordered VTE Drug Contraindication: N/A - Med Ordered
[2024-05-04] MEDS: Rivaroxaban 15 MG TABLET PO (16:08)
--- NOTE | 2024-05-04 16:32 | P.PNNE_ITS ---
Subjective Subjective Date of Service: 05/04/24 Interval History: uti Critical Care Time (minutes): 0 Physical Exam 2 Vital Signs: Vital Signs: Last Vital Signs Temp 97.7 F 05/04/24 15:22 Pulse 76 05/04/24 15:22 Resp 18 05/04/24 15:22 BP 123/59 L 05/04/24 15:22 Pulse Ox 99 05/04/24 15:22 O2 Del Method Room Air 05/04/24 15:22 BMI result Body Mass Index 20.3 Neuro: Other: Non focal exam except for mild dementia. Disoriented to time and year. Slow in responses. Oriented to person and surroundings. Objective Data Labs 05/04/24 05:46 05/04/24 05:45 Labs: Laboratory Results - last 24 hr 05/03/24 05/03/24 05/03/24 15:42 19:45 22:09 WBC RBC Hgb Hct MCV MCH MCHC RDW Plt Count MPV Immature Gran % (Auto) Neut % (Auto) Lymph % (Auto) [place] % (Auto) Eos % (Auto) Baso % (Auto) Lymph # (Auto) [place] # (Auto) Eos # (Auto) Baso # (Auto) Abs Immat Gran (auto) Absolute Neuts (auto) Absolute Nucleated RBC Nucleated RBC % (auto) Sodium Potassium Chloride Carbon Dioxide Anion Gap BUN Creatinine Estim Creat Clear Calc Estimated GFR Random Glucose Calcium Magnesium Alkaline Phosphatase 95 Troponin I High Sens 9.0 Urine Color RED Urine Appearance Turbid Urine pH 6.5 Ur Specific [place] >= 1.030 H Urine Protein See Note Urine Glucose (UA) Negative Urine Ketones See Note Urine Blood Large (3+) H Urine Nitrite See Note Ur Leukocyte Esterase See Note Urine RBC >20 H Urine WBC 21-50 H Ur Squamous Epith Cells 3-5 Urine Bacteria 2+ Hyaline Casts 0-2 05/04/24 05/04/24 05:45 05:46 WBC 5.9 RBC 3.82 L Hgb 12.1 Hct 36.0 L MCV 94.2 MCH 31.7 MCHC 33.6 RDW 12.3 Plt Count 222 MPV 10.5 Immature Gran % (Auto) 0.2 Neut % (Auto) 59.1 Lymph % (Auto) 23.4 [place] % (Auto) 12.1 H Eos % (Auto) 4.5 H Baso % (Auto) 0.7 Lymph # (Auto) 1.4 [place] # (Auto) 0.7 Eos # (Auto) 0.3 Baso # (Auto) 0.0 Abs Immat Gran (auto) 0.01 Absolute Neuts (auto) 3.5 Absolute Nucleated RBC 0.000 Nucleated RBC % (auto) 0.0 Sodium 140 Potassium 4.0 Chloride 107 Carbon Dioxide 24 Anion Gap 13 BUN 12 Creatinine 0.58 Estim Creat Clear Calc 55.9 Estimated GFR > 60 Random Glucose 75 Calcium 8.9 Magnesium 2.4 Alkaline Phosphatase Troponin I High Sens Urine Color Urine Appearance Urine pH Ur Specific [place] Urine Protein Urine Glucose (UA) Urine Ketones Urine Blood Urine Nitrite Ur Leukocyte Esterase Urine RBC Urine WBC Ur Squamous Epith Cells Urine Bacteria Hyaline Casts Microbiology Microbiology Results: Microbiology 05/03/24 Unknown Urine clean catch - Clean Catch Midstream Urine Culture - Preliminary Gram negative merle Progress Note: A&P Assessment and plan (1) UTI (urinary tract infection): Status: Acute (2) Episode of unresponsiveness: Status: Acute Assessment and Plan: Basline mild dementia. Periods of unresponsiveness possibly excessive sleep MRI show rex related atrophy and minor micro vascular changes. EEG show mild diffuse slowing. Recommendations; Can be discharged after aperiod of observation Time Spent With Patient Time: Total time managing care of this patient today ____ minutes. Procedures Date of Service Date of Service: 05/04/24 Quality Stroke Does the patient have a stroke diagnosis?: No VTE Prior VTE?: No VTE Risk Level:: Medical - moderate - high VTE Device Contraindication: N/A - Device Ordered VTE Drug Contraindication: N/A - Med Ordered
[2024-05-04] MEDS: cefTRIAXone sodium 1 GM VIAL IVPUSH (21:11)
[2024-05-05] VITALS (8 sets, daily range): BP systolic 92–136; BP diastolic 50–78; PULSE 68–144; RESP 16–18; TEMP 36.3–36.8; O2SAT 96–100
--- NOTE | 2024-05-05 | ECG_ITS ---
Test Reason : tachycardia Blood Pressure : / mmHG Vent. Rate : 102 BPM Atrial Rate : 102 BPM P-R Int : 152 ms QRS Dur : 064 ms QT Int : 324 ms P-R-T Axes : 000 022 235 degrees QTc Int : 422 ms Atrial flutter vs Atrial tachycardia Septal infarct (cited on or before 25-JUL-2016) Abnormal ECG When compared with ECG of 03-MAY-2024 19:49, Rhythm change Referred By: Christelle Lambert Electronically Signed By:CARMELO CROFT
--- NOTE | 2024-05-05 06:06 | PM.EVENT ---
Event Note Date of Service: 05/05/24 Event Note: HR went up to 214 when she went to bathroom, then came back down..No symptoms Time Spent With Patient Time: Total time managing care of this patient today ____ minutes.
--- NOTE | 2024-05-05 06:11 | PC.NURSE ---
Patient's heart rate up to 214 while patient ambulated to the bathroom, stayed elevated for a few minutes until patient got back to bed. Patient asymptomatic, denies chest pain, sob, or discomfort. Patient alert and oriented. Psychology Intern at bedside , ekg done. Dr. Morris notified and ekg results sent to Dr. Morris. Continue to monitor.
[2024-05-05] MEDS: Metoprolol Tartrate 25 MG TABLET PO ×2 (08:55→19:20)
[2024-05-05] MEDS: 0.9 % Sodium Chloride Flush 3 ML SYRINGE IVFLUSH ×3 (08:57→21:00)
--- NOTE | 2024-05-05 11:00 | P.CONCA_ITS ---
History of Present Illness History of Present Illness Date of Service: 05/05/24 Chief complaint: Episode of unresponsiveness, UTI failing outpatien Narrative: This is a cardiology consultation regarding unresponsive episodes. Apparently, the month ago the patient started having spells of unresponsiveness lasting about 20 minutes. Minimal abnormal [place] moments. After that, she returns back to her baseline. Patient has no recollection. Few days back, she was tightening issues and, lost balance and hit her face on the floor. Bruising in the periorbital region. Then evaluated in the ER and found her normal atrial size. Admitted for further care. Currently, patient states she feels fine. She is not offering any clear-cut cardiac complaints. On telemetry, there were runs of narrow complex tachycardia reaching almost 200/min and hence we are consulted. Patient however does not feel it. Also they are all very brief duration. Review of Systems 2 Review of Systems: Yes all other systems are reviewed and are negative Constitutional: Constitutional: Reports as per HPI and Reports no additional constitutional complaints Eyes: Eyes: Reports as per HPI and Denies no additional eye complaints ENT: Denies system reviewed and no additional complaints, except as documented and Reports as per HPI Cardiovascular: Cardiovascular: Reports as per HPI, Reports no additional cardiovascular complaints, Denies acrocyanosis, Denies cool extremities, Denies chest pain, Denies leg edema, Denies lightheadedness, Denies palpitations and Denies dyspnea Respiratory: Respiratory: Reports as per HPI, Denies no additional respiratory complaints and Denies dyspnea Gastrointestinal: Gastrointestinal: Reports as per HPI and Denies no additional gastrointestinal complaints Genitourinary: Genitourinary: Reports as per HPI Musculoskeletal: Musculoskeletal: Reports no additional musculoskeletal complaints and Reports as per HPI Integumentary/Breasts: Skin/Breast: Reports system reviewed and no additional complaints, except as docu Neurologic: Reports system reviewed and no additional complaints, except as documented and Reports as per HPI Psychiatric: Psychiatric: Reports no additional psychiatric complaints and Reports as per HPI Endocrine: Endocrine: Reports no additional endocrine complaints, Reports as per HPI and Denies palpitations Hematologic/Lymphatic: Hematologic/Lymphatic: Reports no additional hematologic/lymphatic complaints and Reports as per HPI Allergic/Immunologic: Allergic/Immunologic: Reports no additional allergic/immunologic complaints and Reports as per HPI [facility] Past Medical History Medical History (Updated 05/05/24 @ 11:04 by Darnell Moran MD) Paroxysmal atrial fibrillation Persistent atrial fibrillation History of cardioversion Family History Family History Father No problems noted. Mother No problems noted. Surgical History Surgical History History of hip surgery Social History Social History Household Members: Spouse Housing: House Do you presently have visiting nurse or other home services: No Patient Tobacco Use Status: Never used Tobacco Smoked in Last 30 Days: No Use of substances other than those prescribed or required for medical reasons: No Currently Displaying Signs/Symptoms of Drug Intoxication Withdrawal: No Have you been hit, kicked, punched, or otherwise hurt by someone within the past year? If so, by whom?: No Do you feel safe in your current relationship?: Yes Is there a partner from a previous relationship who is making you feel unsafe now?: No Are you made to feel afraid or neglected: No Advance Directives: No Advance Directives Information Provided: No Do you have a plan to hurt others: No Plan Recently lost weight without trying: No How much weight loss: Not applicable Eating poorly because of decreased appetite: No Nutrition screen score: 0 Nutrition Risks: No Nutritional Risk Patient : No : No Poor oral hygiene: No service: No Meds Allergies Allergy/AdvReac Type Severity Reaction Status Date / Time No Known Allergies Allergy Unverified 05/03/24 14:59 [No Known Allergies*] Active Medications: Current Medications Acetaminophen (Acetaminophen 325 Mg Tablet) 975 mg PO Q6H PRN PRN Reason: Pain, Mild (Pain Scale 1-3), fever or headache Ceftriaxone Sodium (Ceftriaxone Sodium 1 Gm Vial) 1 gm IVPUSH Q24H [facility] Last Admin: 05/04/24 21:11 Dose: 1 gm Melatonin (Melatonin 3 Mg Tablet) 6 mg PO BEDTIME PRN PRN Reason: Insomnia Metoprolol Tartrate (Metoprolol Tartrate 25 Mg Tablet) 25 mg PO BID [facility]; Protocol Last Admin: 05/05/24 08:55 Dose: 25 mg Rivaroxaban (Rivaroxaban 15 Mg Tablet) 15 mg PO DAILY@1700 [facility] Last Admin: 05/04/24 16:08 Dose: 15 mg Sodium Chloride (0.9 % Sodium Chloride Flush 3 Ml Syringe) 3 ml IVFLUSH QSHIFT [facility] Last Admin: 05/05/24 08:57 Dose: 3 ml Physical Exam 2 Vital Signs: Vital Signs: Last Vital Signs Temp 97.5 F 05/05/24 07:46 Pulse 88 05/05/24 08:55 Resp 16 05/05/24 07:46 BP 120/78 05/05/24 08:55 Pulse Ox 99 05/05/24 07:46 O2 Del Method Room Air 05/05/24 07:46 BMI result Body Mass Index 20.3 Const: General: comfortable and no acute distress O rientation/consciousness: patient oriented x3 HEENT: Other: Unremarkable Head: Yes normal to inspection Neck: Neck: Yes normal visual inspection Chest: Chest palpation & inspection: normal inspection of the chest Resp: Auscultation: clear to auscultation bilaterally Cardio: Palpation: normal PMI Heart sounds: S1 normal heart sound present, S2 normal heart sound present, no gallops, no murmurs and no rubs GI: Palpation (GI): Soft to palpation Back/Spine/Pelvis: Other: unremarkable Skin: General skin exam: no rashes or lesions noted Neuro: General: patient oriented x3 Extrem: General: Yes normal to inspection Psych: Mental Status: mental status grossly normal Objective Labs and Meds 05/04/24 05:46 05/04/24 05:45 ECG Interpretation: In the EKG, underlying rhythm is sinus with frequent supraventricular ectopy; 76/Min; cannot exclude old septal infarct; normal MD and corrected QT. In the repeat EKG, possible atrial flutter with a ventricular rate of 102/Min. Can also be atrial tachycardia. Imaging Radiologist's impression: Impressions Brain MRI 05/04/24 13:00 IMPRESSION: No acute intracranial abnormality. Electronically signed by: Danish Moreno MD 05/04/2024 08:57 PM [facility] Assessment and Plan (1) Atrial flutter with rapid ventricular response: Status: Acute (2) Unresponsiveness: Status: Acute Plan Troponin level is unremarkable. In the last echocardiogram, LVEF 55-60%. On telemetry, very brief runs of narrow complex tachycardia reaching almost 200/Min. Not clear if it is atrial flutter with rapid rate. Difficult to say. Otherwise, back in sinus rhythm around 60/Min. We can start her on amiodarone which should keep her in sinus rhythm. However, doubt that these brief episodes or making it unresponsive. She is already on anticoagulation. Check TSH. Discussed with Dr. Lambert. Procedures Date of Service Date of Service: 05/05/24
--- NOTE | 2024-05-05 11:13 | HO.PM.IMPN ---
Subjective Subjective Date of Service: 05/05/24 Interval History: follow up Review of Systems has intermittent tachycardia denies chest pain or sob Physical Exam Vital Signs: Vital Signs: Last Vital Signs Temp 97.5 F 05/05/24 07:46 Pulse 88 05/05/24 08:55 Resp 16 05/05/24 07:46 BP 120/78 05/05/24 08:55 Pulse Ox 99 05/05/24 07:46 O2 Del Method Room Air 05/05/24 07:46 BMI result Body Mass Index 20.3 Appearance: Alert.? Oriented X3. cvs: rrr, [id number]. res: clear to auscultation ,no rhonchii or wheezing abd: no rebound or guarding ,nt, bs present. ext pulses present , no cyanosis . neuro: axo3 , nonfocal. skin: has ecchymosis of face /eye area, Objective Data Active Medications Acetaminophen (Acetaminophen 325 Mg Tablet) 975 mg PO Q6H PRN PRN Reason: Pain, Mild (Pain Scale 1-3), fever or headache Amiodarone HCl (Amiodarone Hcl 200 Mg Tablet) 400 mg PO BID [facility] Ceftriaxone Sodium (Ceftriaxone Sodium 1 Gm Vial) 1 gm IVPUSH Q24H [facility] Last Admin: 05/04/24 21:11 Dose: 1 gm Documented By: LOKESH Melatonin (Melatonin 3 Mg Tablet) 6 mg PO BEDTIME PRN PRN Reason: Insomnia Metoprolol Tartrate (Metoprolol Tartrate 25 Mg Tablet) 25 mg PO BID [facility]; Protocol Last Admin: 05/05/24 08:55 Dose: 25 mg Documented By: DENIS Rivaroxaban (Rivaroxaban 15 Mg Tablet) 15 mg PO DAILY@1700 [facility] Last Admin: 05/04/24 16:08 Dose: 15 mg Documented By: DABA Sodium Chloride (0.9 % Sodium Chloride Flush 3 Ml Syringe) 3 ml IVFLUSH QSHIFT [facility] Last Admin: 05/05/24 08:57 Dose: 3 ml Documented By: DENIS Labs 05/04/24 05:46 05/04/24 05:45 Microbiology Microbiology Results: Microbiology 05/03/24 Unknown Urine Culture - Final Urine clean catch - Clean Catch Midstream Pseudomonas aeruginosa Assessment and Plan (1) Atrial flutter with rapid ventricular response: Status: Acute (2) Episode of unresponsiveness: Status: Acute Plan 88 y/o woman admitted with: Episodes of unresponsiveness without collapse. ?Seizures. Admit to hospitalist service. Telemetry. Neuro checks every 4 hours. brain MRI and EEG ordered . Neurology consult. UTI. Continue ceftriaxone 1 g IV daily. Urine culture obtained -will follow results. AFib with rvr hr seems going in 200's intermittently Continue Xarelto (dose decreased to 15 mg due to current renal clearance),added amiodarone 400 mg bid ,adjusted metoprolol 25 mg po bid . tsh levels cardiology eval DVT prophylaxis Xarelto Plan discussed with the and daughter and are agreeable. ongoing stay for hospitalization UTI treatment with IV antibiotics as she was failing outpatient treatment. also have afib with rvr -added amio,needed tele monitering and cardiology eval. Quality Stroke Does the patient have a stroke diagnosis?: No VTE Prior VTE?: No VTE Risk Level:: Medical - moderate - high VTE Device Contraindication: N/A - Device Ordered VTE Drug Contraindication: N/A - Med Ordered
[2024-05-05] MEDS: Amiodarone HCL 200 MG TABLET 400 MG PO ×2 (12:06→19:20)
[2024-05-05] MEDS: Rivaroxaban 15 MG TABLET PO (17:12)
[2024-05-05] MEDS: cefTRIAXone sodium 1 GM VIAL IVPUSH (21:00)
[2024-05-06 03:15] VITALS: BP 109/71; PULSE 54; RESP 16; TEMP 36; O2SAT 100
[2024-05-06 07:10] LABS: Anion Gap 14 (12-20); Blood Urea Nitrogen 12 mg/dL (9-16); Calcium 9.3 mg/dL (8.4-10.2); Carbon Dioxide 27 mmol/L (22-29); Chloride 104 mmol/L (96-108); Creatinine Clr Calc Pharmacy 40.5; Estimated Glomerular Filt Rate > 60; Glucose Random 95 mg/dL (60-115); Potassium 4.4 mmol/L (3.3-5.1); Sodium 141 mmol/L (135-145)
[2024-05-06 07:28] LABS: Thyroid Stimulating Hormone 2.26 uIU/mL (0.32-4.0)
[2024-05-06 07:59] VITALS: BP 118/63; PULSE 54; RESP 14; TEMP 36.3; O2SAT 100
[2024-05-06] MEDS: 0.9 % Sodium Chloride Flush 3 ML SYRINGE IVFLUSH ×2 (08:37→16:03)
[2024-05-06] MEDS: Metoprolol Tartrate 12.5 MG HALFTAB PO (08:53)
[2024-05-06] MEDS: Amiodarone HCL 200 MG TABLET 400 MG PO ×2 (08:53→19:59)
--- NOTE | 2024-05-06 09:22 | PC.NURSE ---
Patient had a low heart rate of 54 This AM. Consulted with MD regarding scheduled metoprolol 12.5mg and Amiodarone 400mg. MD advised this RN to give both scheduled doses despite low HR. Pt is on tele, [employer] agreed to alert if HR drops below 50. Will continue to monitor.
[2024-05-06 10:02] VITALS: BP 96/68; PULSE 54
[2024-05-06 10:36] VITALS: BP 102/64; BP 103/68; PULSE 59; PULSE 62
[2024-05-06] MEDS: Piperacillin Sodium/Tazobactam 3.375 GM in 0.9 % Sodium Chloride 50 ML IV (11:38)
--- NOTE | 2024-05-06 12:12 | HO.PM.IMPN ---
Subjective Subjective Date of Service: 05/06/24 Interval History: pseudomonas uti Review of Systems denies new c/o no dizziness or chest pain Physical Exam Vital Signs: Vital Signs: Last Vital Signs Temp 97.3 F 05/06/24 07:59 Pulse 62 05/06/24 10:36 Resp 14 05/06/24 07:59 BP 102/64 05/06/24 10:36 Pulse Ox 100 05/06/24 07:59 O2 Del Method Room Air 05/06/24 07:59 BMI result Body Mass Index 20.3 Appearance: Alert.? Oriented X3. cvs: rrr, [id number]. res: clear to auscultation ,no rhonchii or wheezing abd: no rebound or guarding ,nt, bs present. ext pulses present , no cyanosis . neuro: axo3 , nonfocal. skin: has ecchymosis of face /eye area, Objective Data Active Medications Acetaminophen (Acetaminophen 325 Mg Tablet) 975 mg PO Q6H PRN PRN Reason: Pain, Mild (Pain Scale 1-3), fever or headache Amiodarone HCl (Amiodarone Hcl 200 Mg Tablet) 400 mg PO BID [facility] Last Admin: 05/06/24 08:53 Dose: 400 mg Documented By: KASIA Piperacillin Sod/Tazobactam (Sod 3.375 gm/ Sodium Chloride) 50 mls @ 100 mls/hr IV Q6H [facility] Last Admin: 05/06/24 11:38 Dose: 100 mls/hr Documented By: KASIA Melatonin (Melatonin 3 Mg Tablet) 6 mg PO BEDTIME PRN PRN Reason: Insomnia Rivaroxaban (Rivaroxaban 15 Mg Tablet) 15 mg PO DAILY@1700 [facility] Last Admin: 05/05/24 17:12 Dose: 15 mg Documented By: DENIS Sodium Chloride (0.9 % Sodium Chloride Flush 3 Ml Syringe) 3 ml IVFLUSH QSHIFT [facility] Last Admin: 05/06/24 08:37 Dose: 3 ml Documented By: KASIA Labs 05/04/24 05:46 05/06/24 05:06 Labs: Laboratory Results - last 24 hr 05/06/24 05:06 Anion Gap 14 Estim Creat Clear Calc 40.5 Estimated GFR > 60 Random Glucose 95 Calcium 9.3 TSH 2.26 Microbiology Microbiology Results: Microbiology 05/03/24 Unknown Urine Culture - Final Urine clean catch - Clean Catch Midstream Pseudomonas aeruginosa Assessment and Plan (1) Atrial flutter with rapid ventricular response: Status: Acute (2) Episode of unresponsiveness: Status: Acute Plan 88 y/o woman admitted with: Episodes of unresponsiveness without collapse. unclear etiology seen by neuro-Basline mild dementia unspecified. Periods of unresponsiveness possibly excessive sleep MRI show rex related atrophy and minor micro vascular changes. EEG show mild diffuse slowing. mane scan 05/13/22 : ef 70% orthostatics negative tele seems fine except -mild bradycardia seen by cardiology -continue amiodarone for rate control,and xarelato. UTI: urine culture grew -pseudomonas will avoid levaquin since patient is on amiodarone Added zosyn Id eval AFib with rvr hr seems improved ,mild bradycardia tsh levels normal cardiology eval noted -syncope-etiology unlcear. Continue Xarelto (dose decreased to 15 mg due to current renal clearance),added amiodarone 400 mg bid ,stop metoprolol due to boderline bp . DVT prophylaxis Xarelto Plan discussed with the and daughter and are agreeable. ongoing stay for hospitalization pseudomonas UTI treatment with IV antibiotics as she was failing outpatient treatment. also have afib with rvr -added amio,needed tele monitering and cardiology eval. Quality Stroke Does the patient have a stroke diagnosis?: No VTE Prior VTE?: No VTE Risk Level:: Medical - moderate - high VTE Device Contraindication: N/A - Device Ordered VTE Drug Contraindication: N/A - Med Ordered
--- NOTE | 2024-05-06 15:02 | MHC.CM.PN ---
EMR REVIEWED AND PER MD ROUNDS, PT IS NOT MEDICALLY CLEARED FOR DC ( AWAITING ID CONSULT/P.T. EVAL) FAMILY AT BEDSIDE AND UPDATED. CM WILL CONTINUE TO FOLLOW FOR ANY CHANGE TO DC PLAN.
[2024-05-06 15:49] VITALS: BP 117/56; PULSE 60; RESP 16; TEMP 37.1; O2SAT 94
[2024-05-06] MEDS: levoFLOXacin/D5W 750 MG/150 ML PIGGYBACK 100 MG IV (16:03)
[2024-05-06] MEDS: Rivaroxaban 15 MG TABLET PO (17:04)
[2024-05-06 19:32] VITALS: BP 101/56; PULSE 68; RESP 18; TEMP 37; O2SAT 99
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
--- NOTE | 2024-05-07 | ECG_ITS ---
Test Reason : Qtc check Blood Pressure : / mmHG Vent. Rate : 061 BPM Atrial Rate : 061 BPM P-R Int : 148 ms QRS Dur : 064 ms QT Int : 454 ms P-R-T Axes : 077 029 051 degrees QTc Int : 457 ms Poor data quality, interpretation may be adversely affected Sinus rhythm with sinus arrhythmia Low voltage QRS Borderline ECG When compared with ECG of 05-MAY-2024 05:48, rhythm change Referred By: Christelle Lambert Electronically Signed By:CARMELO CROFT
[2024-05-07] MEDS: 0.9 % Sodium Chloride Flush 3 ML SYRINGE IVFLUSH ×2 (00:29→08:54)
[2024-05-07 03:44] VITALS: BP 110/54; PULSE 58; RESP 18; TEMP 36.7; O2SAT 99
[2024-05-07 07:49] VITALS: BP 112/56; PULSE 60; RESP 16; TEMP 36.4; O2SAT 100
[2024-05-07] MEDS: Amiodarone HCL 200 MG TABLET 400 MG PO (08:54)
[2024-05-07 08:55] VITALS: PULSE 68
--- NOTE | 2024-05-07 09:18 | ECG_ITS ---
Test Reason : CP Blood Pressure : / mmHG Vent. Rate : 067 BPM Atrial Rate : 067 BPM P-R Int : 154 ms QRS Dur : 066 ms QT Int : 450 ms P-R-T Axes : 080 029 053 degrees QTc Int : 475 ms Sinus rhythm with Premature atrial complexes Low voltage QRS Borderline ECG When compared with ECG of 07-MAY-2024 09:17, Premature atrial complexes are now Present Referred By: Christelle Lambert Electronically Signed By:CARMELO CROFT
[2024-05-07 11:03] VITALS: PULSE 68
--- NOTE | 2024-05-07 11:49 | W.MHC.F2F ---
Service Date Service Date: 05/07/24 Encounter Date of encounter: 05/07/24 Encounter: Fall, UTI, AFib. Reasons for Services Signs and symptoms assessed: Elevated heart rate, dizziness, chest pain, any urinary complaints. Reason for shelter: medication management, medication treatment and teach disease management MD Overseeing Care: Jem Reid Homebound: Leaving the home is medically contraindicated at this time without the asist of a device and/or another person due th the listed conditions above and below. Reason homebound: weakness related to hospital stay Homebound supporting statement: Patient is generalised weak post hospitlisation ,has multiple coomorbidities, and need help with going to appointments and labs draws as well as PT. Certification: Based on the above findings, I certify that this patient is confined to the home and needs intermittent shelter care, physical therapy and/or speech therapy, or continues to need occupational therapy. The patient is under my care, and I have initiated the establishment of the plan of care. The patient will be followed by a physician who will periodically review the plan of care. Time Spent With Patient Time: Total time managing care of this patient today ____ minutes.
--- NOTE | 2024-05-07 11:53 | PM.DS ---
DS: Providers Provider Date of Service: 05/07/24 Date of admission: 05/03/24 22:08 Date of discharge: 05/07/24 Primary care physician: Jem Reid MD Consults: 05/03/24 22:10 Consult to Neurology Routine Consulting Provider: [facility] Reason for consultation: episodes of unresponsiveness, seizures? Has provider been notified: No 05/05/24 08:45 Consult to Cardiology Routine Consulting Provider: [facility] Reason for consultation: Syncope , tachycardia Has provider been notified: No 05/06/24 11:06 Consult to Infectious Diseases Routine Consulting Provider: [facility] Reason for consultation: pseudomanas uti,also on amiodarone for afib Has provider been notified: No Attending physician on discharge: Christelle Lambert Discharging clinician: Christelle Lambert DS: Diagnosis Discharge Diagnosis (1) UTI (urinary tract infection): Status: Acute DS: Summary Hospital Course Hospital Course: HPI: 88 years old woman with past medical history significant for AFib on Xarelto followed by Dr. Stanley who was brought to the emergency department by her and daughter after she has been experiencing events of unresponsiveness there has been weakness by her . Her stated that about a month ago and last night the patient is having spells of unresponsiveness the last 20 minutes. He noted some minimal abnormal jerking movements. After she is out of these events she will return to her baseline. It seems like the patient has no recollection of these events. did not observe any associated events of stools or urine incontinence. Last Thursday, she was sitting tighten her shoes laces lost balance and hit her face with the floor. She had glasses on. Next day she developed significant bruising of the periorbital region and right frontal aspect of her head. There are no headache, acute visual disturbances, speech difficulty, focal weakness or acute gait difficulty reported. There is no fevers or chills. The patient was recently diagnosed with UTI and has had 2 courses of antibiotics. She was recently completed a course of cephalexin. Most recent urine culture showed pansensitive E coli. The patient has no history of seizures or strokes. In the ED, she was found to have normal vital signs. Blood workup was significant for no leukocytosis. Hemoglobin and platelets are normal. INR is 2.0. There are no electrolyte imbalances. LFTs are normal. Troponin is negative. Urinalysis consistent with UTI. ECG showed normal sinus rhythm with sinus arrhythmia and no obvious acute ischemic changes. Head face and C-spine CT scan showed no acute abnormalities. ED tx: Ceftriaxone 1 g IV.Daughter and at bedside. Hospital course: Patient was admitted for fall , UTI, episode of unresponsiveness. 1.Episodes of unresponsiveness without collapse. unclear etiology. ct head and neck: negative, has Moderate right frontal scalp, right periorbital, and right facial soft tissue edema/hematoma. No associated osseous abnormalities. MRI show rex related atrophy and minor micro vascular changes. EEG show mild diffuse slowing. mane scan 05/13/22 : ef 70%,orthostatics negative tele seems fine except -mild bradycardia seen by cardiology -continue amiodarone for rate control,and xarelato. seen by neuro-Basline mild dementia unspecified. Periods of unresponsiveness possibly excessive sleep 2. Hx of afib: patient had tachycardia (very brief runs of narrow complex tachycardia reaching almost 200/Min): patient started on amidarone 400 mg po bid for 1 week(until 05/11/24) ,then switch to 200 mg daily on 05/12/24.Metoprolol was stopped due to borderline blood pressure. uti: Urine culture grew Pseudomonas sensitive to Levaquin, discussed with Cardiology and ID- ekg repeated qtc in 450's acceptable :patient will go home with levaquin 750 mg po q48hrs ( end date 05/15/24). Pt eval home with pt /vna. plan: amidarone 400 mg po bid for 1 week(until 05/11/24) ,then switch to 200 mg daily on 05/12/24.Metoprolol was stopped due to borderline blood pressures. Cardiology may arrange their own appointment outpatient and repeat EKG outpatient. levaquin 750 mg po q48hrs ( end date 05/15/24). Above management discussed with the patient detail length she understand in agreement with the above plan, time spent 40 minute. Time Attestation Total time managing care of this patient today: 40 mintues. Discharge Coordination Time (in mins): 40 min Quality: Safe Use of Opioids Does Pt have an Active Cancer Diagnosis on the Problem List?: No Quality: Stroke Does the patient have a stroke diagnosis?: No Physical Exam Vital Signs: Vital Signs: Last Vital Signs Temp 97.6 F 05/07/24 07:49 Pulse 68 05/07/24 11:03 Resp 16 05/07/24 07:49 BP 112/56 L 05/07/24 07:49 Pulse Ox 100 05/07/24 07:49 O2 Del Method Room Air 05/07/24 07:49 BMI result Body Mass Index 20.3 Appearance: Alert.? Oriented X3. cvs: rrr, [id number]. res: clear to auscultation ,no rhonchii or wheezing abd: no rebound or guarding ,nt, bs present. ext pulses present , no cyanosis . neuro: axo3 , nonfocal. skin: has ecchymosis of face /eye area improivng DS: Data Imaging Chest x-ray: Radiologist's impression: ITS Impressions Face CT 05/03/24 14:59 IMPRESSION: 1. No evidence of acute intracranial hemorrhage or edematous territorial infarction. 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 2. No evidence of acute fracture or traumatic subluxation of the cervical spine. Moderate to advanced multilevel degenerative spondyloarthropathy of the cervical spine. 3. Moderate right frontal scalp, right periorbital, and right facial soft tissue edema/hematoma. No associated osseous abnormalities. 4. No evidence of acute fracture of the maxillofacial bones. Electronically signed by: Apolinar Oliva DO 05/03/2024 06:02 PM EST RP Head CT 05/03/24 14:59 IMPRESSION: 1. No evidence of acute intracranial hemorrhage or edematous territorial infarction. 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 2. No evidence of acute fracture or traumatic subluxation of the cervical spine. Moderate to advanced multilevel degenerative spondyloarthropathy of the cervical spine. 3. Moderate right frontal scalp, right periorbital, and right facial soft tissue edema/hematoma. No associated osseous abnormalities. 4. No evidence of acute fracture of the maxillofacial bones. Electronically signed by: Apolinar Oliva DO 05/03/2024 06:02 PM EST RP Cervical Spine CT 05/03/24 15:23 IMPRESSION: 1. No evidence of acute intracranial hemorrhage or edematous territorial infarction. 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 2. No evidence of acute fracture or traumatic subluxation of the cervical spine. Moderate to advanced multilevel degenerative spondyloarthropathy of the cervical spine. 3. Moderate right frontal scalp, right periorbital, and right facial soft tissue edema/hematoma. No associated osseous abnormalities. 4. No evidence of acute fracture of the maxillofacial bones. Electronically signed by: Apolinar Oliva DO 05/03/2024 06:02 PM EST RP Brain MRI 05/04/24 13:00 IMPRESSION: No acute intracranial abnormality. Electronically signed by: Dansih Moreno MD 05/04/2024 08:57 PM EST RP Discharge Plan Discharge Anticipated Discharge Date/Time: 05/06/24 10:57 Patient Disposition: Home Health Service Discharge Diagnosis: episode of unresponsiveness unclear etiology Referrals: Bonnie MAYO [Outside] - 1 Week Jem Reid MD [Primary Care Provider] - 1 Week Discharge Medications: New amiodarone 200 mg Tablet 400 mg PO BID Qty: 90 0RF Rx Instructions: continue amiodarone 400 mg( 2 tabs ) po bid until 05/11/24, then switch to amiodarone 200 mg (1 tabs) daily afterwards. Xarelto 15 mg Tablet 15 mg PO DAILY@1700 Qty: 90 0RF acetaminophen 325 mg Tablet 975 mg PO Q6H PRN (Reason: Pain, Mild (Pain Scale 1-3), fever or headache) Qty: 10 0RF levofloxacin 750 mg tablet 750 mg PO Q48H Qty: 4 0RF Rx Instructions: please tale levofloxacin 750 mg po q48hrs ( end date is 05/15/24) Discontinued rivaroxaban 20 mg tablet 20 mg PO Q24H Qty: 90 3RF metoprolol succinate [Toprol XL] 25 mg tablet extended release 24 hr 25 mg PO DAILY Qty: 30 5RF Discharge Orders: Discharge Order (Routine); Ordered 05/07/24 Ordered By: Christelle Lambert Diet: Advance to usual diet Activity on Discharge: As tolerated Stand Alone Forms: Patient Portal Discharge page Print Language: Greenlandic Care Plan Goals: Patient was admitted for fall , UTI, syncope: Workup for syncope including CT, MRI, EEG unrevealing, in addition seen by neuro and cardio: Etiology of syncope unclear, orthostatic negative.patient had tachycardia (very brief runs of narrow complex tachycardia reaching almost 200/Min): patient started on amidarone 400 mg po bid for 1 week(until 05/11/24) ,then switch to 200 mg daily on 05/12/24.Metoprolol was stopped due to borderline blood pressure. uti: Urine culture grew Pseudomonas sensitive to Levaquin, discussed with Cardiology and ID- ekg repeated qtc in 450's acceptable :patient will go home with levaquin 750 mg po q48hrs ( end date 05/15/24). Pt eval home with pt /vna. Health Concerns: As above. Plan of Treatment: amidarone 400 mg po bid for 1 week(until 05/11/24) ,then switch to 200 mg daily on 05/12/24.Metoprolol was stopped due to borderline blood pressures. Cardiology may arrange their own appointment outpatient and repeat EKG outpatient. levaquin 750 mg po q48hrs ( end date 05/15/24). Assessment: as above. Patient Instructions: Syncope (DC), Urinary Tract Infection in Older Adults (DC)
--- NOTE | 2024-05-07 12:27 | MHC.CM.PN ---
Addendum entered by Terra Ball 05/07/24 13:14: [facility] HAS ACCEPTED AND WILL CONTACT PT FOR SOC Original Note: PT CLEARED TO DC HOME TODAY WITH [facility] FOR SN AND PT REFERRALS OUT DAUGHTER TO TRANSPORT
== END 2024-05-07 14:22 | disposition home health service (06) | DRG 690 ==
LOC: HO.ED 19:40 → HO.EDOVER 22:44 → HO.S3 23:12
PROVIDERS: Nurse Practitioner Family; Registered Nurse Emergency; Admitting Provider Internal Medicine; Emergency Provider Emergency Medicine; PCP Internal Medicine; Visit Provider Internal Medicine
DX: N39.0 Urinary tract infection, site not specified (principal); I48.19 Other persistent atrial fibrillation; F03.A0 Unspecified dementia, mild, without behavioral disturbance, psychotic disturbance, mood disturbance, and anxiety; B96.5 Pseudomonas (aeruginosa) (mallei) (pseudomallei) as the cause of diseases classified elsewhere; Z87.440 Personal history of urinary (tract) infections; Z79.01 Long term (current) use of anticoagulants; Z79.899 Other long term (current) drug therapy
CPT/HCPCS: 36415; 70450; 70486; 70551; 72125; 80048; 80053; 81001; 83735; 84443; 84484; 85025; 85610; 87086; 87088; 87186; 93005; 95816; 97161; 99285; J0696; J1956; J2543

== ENCOUNTER → 2024-05-03 18:26 | Outpatient (BNV) | payer MEDICARE, OTHER, SELFPAY | PROVIDERS: Emergency Provider Emergency Medicine; PCP Internal Medicine; Visit Provider Internal Medicine | DX: N30.00 Acute cystitis without hematuria (principal) | CPT/HCPCS: 99222; 99231; 99232; 99239; G0180 ==

== ENCOUNTER 2024-05-03 22:08 | Outpatient (BNV) | payer MEDICARE, OTHER, SELFPAY | END 2024-05-07 09:17 | PROVIDERS: Admitting Provider Internal Medicine; Emergency Provider Emergency Medicine; PCP Internal Medicine; Visit Provider Internal Medicine | DX: I49.8 Other specified cardiac arrhythmias (principal); R94.31 Abnormal electrocardiogram [ECG] [EKG]; R07.9 Chest pain, unspecified | CPT/HCPCS: 93010 ==

== ENCOUNTER 2024-05-03 22:08 | Outpatient (BNV) | payer MEDICARE, OTHER, SELFPAY | END 2024-05-05 05:48 | PROVIDERS: Admitting Provider Internal Medicine; Emergency Provider Emergency Medicine; PCP Internal Medicine; Visit Provider Internal Medicine | DX: R00.0 Tachycardia, unspecified (principal); I48.92 Unspecified atrial flutter; R94.31 Abnormal electrocardiogram [ECG] [EKG] | CPT/HCPCS: 93010 ==

== ENCOUNTER → 2024-05-03 22:08 | Outpatient (BNV) | payer MEDICARE, OTHER, SELFPAY | PROVIDERS: Admitting Provider Internal Medicine; Emergency Provider Emergency Medicine; PCP Internal Medicine; Visit Provider Internal Medicine | DX: N30.00 Acute cystitis without hematuria (principal) | CPT/HCPCS: 99221 ==

== ENCOUNTER → 2024-05-03 22:08 | Outpatient (BNV) | payer MEDICARE, OTHER, SELFPAY | PROVIDERS: Admitting Provider Internal Medicine; Emergency Provider Emergency Medicine; PCP Internal Medicine; Visit Provider Internal Medicine | DX: I48.92 Unspecified atrial flutter (principal); R41.89 Other symptoms and signs involving cognitive functions and awareness | CPT/HCPCS: 93010; 99223 ==

== ENCOUNTER → 2024-05-03 22:08 | Outpatient (BNV) | payer MEDICARE, OTHER, SELFPAY | PROVIDERS: Admitting Provider Internal Medicine; Emergency Provider Emergency Medicine; PCP Internal Medicine; Visit Provider Psychiatry & Neurology Neurology | DX: R40.4 Transient alteration of awareness (principal); F03.A0 Unspecified dementia, mild, without behavioral disturbance, psychotic disturbance, mood disturbance, and anxiety; N30.00 Acute cystitis without hematuria | CPT/HCPCS: 99222 ==

== ENCOUNTER 2024-05-16 15:22 | Outpatient (REF) | payer MEDICARE, OTHER, SELFPAY ==
[2024-05-16 15:32] LABS: Appearance Urine Clear; Color Urine Yellow; Glucose Urine UA Negative (Negative); Leukocyte Esterase Urine Trace (Negative); Nitrite Urine Negative (Negative); Specific Gravity - Urine 1.015 (1.005-1.025); UMIC TRIGGER UACC YES; Urine Blood Large (3+) (Negative); Urine Ketones Negative (Negative); Urine Protein Negative (Neg-Trace)
[2024-05-16 15:37] LABS: Bacteria Urine None Seen (None Seen); Hyaline Casts Urine 0-2 /LPF (0-2); RBC Urine >20 /HPF (0-2); WBC Urine 0-5 /HPF (0-5)
== END 2024-05-16 15:23 | disposition home or self-care (01) ==
LOC: HO.LNP 15:22
PROVIDERS: Visit Provider Internal Medicine
DX: Z87.440 Personal history of urinary (tract) infections (principal)
CPT/HCPCS: 81001

== ENCOUNTER 2024-05-20 11:22 | Day surgery (SDC) | payer MEDICARE, OTHER, SELFPAY ==
--- NOTE | 2024-05-19 12:06 | P.CONAN_ITS ---
Documented by User: Apolonia Hammer NP 05/19/24 12:09 HPI - Anesthesia Eval Consult details Narrative: 88yo F for Cardioversion Xarelto for afib [facility] admit 04/2024 for ams Hospital course: Patient was admitted for fall , UTI, episode of unresponsiveness. 1.Episodes of unresponsiveness without collapse. unclear etiology. ct head and neck: negative, has Moderate right frontal scalp, right periorbital, and right facial soft tissue edema/hematoma. No associated osseous abnormalities. MRI show rex related atrophy and minor micro vascular changes. EEG show mild diffuse slowing. mane scan 05/13/22 : ef 70%,orthostatics negative tele seems fine except -mild bradycardia seen by cardiology -continue amiodarone for rate control,and xarelato. seen by neuro-[facility] mild dementia unspecified. Periods of unresponsiveness p ossibly excessive sleep 2. Hx of afib: patient had tachycardia (very brief runs of narrow complex tachycardia reaching almost 200/Min): patient started on amidarone 400 mg po bid for 1 week(until 05/11/24) ,then switch to 200 mg daily on 05/12/24.Metoprolol was stopped due to borderline blood pressure. uti: Urine culture grew Pseudomonas sensitive to Levaquin, discussed with Cardiology and ID- ekg repeated qtc in 450's acceptable :patient will go home with levaquin 750 mg po q48hrs ( end date 05/15/24). [facility] Active Problems Active Problems: All Active Problems Atrial flutter with rapid ventricular response (Acute) Episode of unresponsiveness (Acute) UTI (urinary tract infection) (Acute) Unresponsiveness (Acute) Sinus bradycardia (Acute) Paroxysmal atrial fibrillation (Acute) Hypotension (Acute) Hyperkalemia (Acute) Pre-operative cardiovascular examination (Acute) History of left hip replacement (Acute) Arthritis of right hip (Acute) Past Medical History Medical History Paroxysmal atrial fibrillation Persistent atrial fibrillation History of cardioversion Family History Family History Father No problems noted. Mother No problems noted. Surgical History Surgical History History of hip surgery Social History Social History Household Members: Spouse Housing: House Are you a primary geriatric care manager to a significant other at home: No Do you presently have visiting nurse or other home services: No Patient Tobacco Use Status: Never used Tobacco Have you been hit, kicked, punched, or otherwise hurt by someone within the past year? If so, by whom?: No Are you DNR?: No Advance Directives: No Advance Directives Information Provided: Yes Recently lost weight without trying: No Nutrition Risks: No Nutritional Risk service: No Meds Allergies Allergy/AdvReac Type Severity Reaction Status Date / Time No Known Allergies Allergy Unverified 05/03/24 14:59 [No Known Allergies*] Exam Pertinent Lab Results Pertinent Lab Results: Laboratory Tests 05/04/24 05/06/24 05:46 05:06 WBC 5.9 Hgb 12.1 Hct 36.0 L Plt Count 222 Sodium 141 Potassium 4.4 Chloride 104 Carbon Dioxide 27 BUN 12 Creatinine 0.80 Assessment and Plan Assessment Anesthesia Assessment: Chart Reviewed Documented by User: Mona Solano MD 05/20/24 13:32 PMF Past Medical History Medical History Paroxysmal atrial fibrillation Persistent atrial fibrillation History of cardioversion Family History Family History Father No problems noted. Mother No problems noted. Family history of problems with anesthesia: No Surgical History Surgical History History of hip surgery History of Problems with Anesthesia: No Social History Social History Household Members: Spouse Housing: House Are you a primary geriatric care manager to a significant other at home: No Do you presently have visiting nurse or other home services: No Patient Tobacco Use Status: Never used Tobacco Have you been hit, kicked, punched, or otherwise hurt by someone within the past year? If so, by whom?: No Are you DNR?: No Advance Directives: No Advance Directives Information Provided: Yes Recently lost weight without trying: No Nutrition Risks: No Nutritional Risk service: No Meds Allergies Allergy/AdvReac Type Severity Reaction Status Date / Time No Known Allergies Allergy Unverified 05/03/24 14:59 [No Known Allergies*] Exam Airway Mallampati Class: II TM Dist: >3cm Neck ROM: Full Heart: a fib Lungs: cta Assessment and Plan Assessment Anesthesia Assessment: Anesthesia Plan Discussed Final Anesthetic Review Family History of Problems with Anesthesia: No History of Problems with Anesthesia: No ASA Class: III Final Preanesthetic Review: No Changes in Pt Med Stat, Meds/Allgs Chart Reviewed, Consent Obtained/Reviewed and Anes Risks/Benef Reviewed Patient Risk: Intermediate Procedure Risk: Low Anesthetic Plan Anesthetic Plan: MAC: Disposition: Standard PACU
[2024-05-20] VITALS (7 sets, daily range): BP systolic 90–117; BP diastolic 54–75; PULSE 56–102; RESP 14–18; TEMP 36.6–36.8; O2SAT 98–100; BMI 20.1
--- OUTSIDE RECORDS SUMMARY | 2024-05-20 11:25 | XMS_ITS ---
Author Organization Jem Reid MD Address [address] [place] [phone] Care Team Providers Care Stone Mason Name Role Phone Jem Reid Primary Care Provider [phone] REASON FOR VISIT U/A culture Encounters Encounter Location Date Provider Diagnosis Jem Reid MD 10 [facility] [address] [place] [phone] 05/10/2024 Jem Reid Acute UTI N39.0 ASSESSMENTS Encounter Date Diagnosis Assessment Notes Treatment Notes Treatment Clinical Notes 05/10/2024 Acute UTI (ICD-10 - N39.0) PLAN OF TREATMENT Pending Test Test Name Order Date Urinalysis and Microscopic 05/10/2024 Urine Culture 05/10/2024 Next Appt Details Provider Name:Jem aragon, 06/02/2024 08:30:00 AM, [address] [place] [address], [address] [place] [address], [phone], Provider Name:Jem aragon, 06/17/2024 02:00:00 PM, [address] [place] [address], [address], [phone], Provider Name:Jem aragon, 04/17/2025 07:45:00 AM, [address] [place] [address], [address], [phone], Provider Name:Jem aragon, 04/24/2025 01:00:00 PM, [address], [address], [place], [phone],
--- OUTSIDE RECORDS SUMMARY | 2024-05-20 11:25 | XMS_ITS ---
Author Organization Jem Reid MD Address [address] [place], [place] [phone] Care Team Providers Care Line Haul Owner Operator Name Role Phone Jem Reid Primary Care Provider ALLERGIES No Known Allergies RESULTS Component Value Reference Range Notes UA ClnCatch+Micro w/rflx Cul t Reviewed date:05/17/2024 12:50:27 PM Interpretation: Performing Lab:[facility], [address] [place] [phone] Notes/Report: Urine, Clean Catch Color Urine Yellow Appearance Urine Clear PH 8.0 5.0-9.0 Glucose Urine UA Negative Negative mg/dL Urine Blood Large (3+) Negative Specific [place] - Urine 1.015 1.005-1.025 Urine Protein Negative Neg-Trace mg/dL Urine Ketones Negative Negative mg/dL Nitrite Urine Negative Negative Leukocyte Esterase Urine Trace Negative RBC Urine >20 0-2 /HPF WBC Urine 0-5 0-5 /HPF Squamous Epithelial Cell Urine 3-5 0-2 /HPF Bacteria Urine None Seen None Seen Hyaline Casts Urine 0-2 0-2 /LPF REASON FOR VISIT PH/TCM, Accompanied by and daughter MEDICATIONS Medication SIG (Take, Route, Frequency, Duration) Notes Start Date End Date Status Amiodarone HCl 200 MG 1 tablet Orally On ce a day Active Tylenol Extra Strength 500 MG 2 tablets as needed Orally every 6 hrs Not-Taking Tylenol 325 MG 1 tablet as needed Orally every 4 hrs Not-Taking Digoxin 125 MCG 1 tablet Orally Active Calcium + D 315-200 MG-UNIT 1 tablet with meals Orally Twice a day Active Xarelto 15 MG TAKE 1 TABLET BY CHERRI TH EVERY DAY Orally Once a day Active VITAL SIGNS BMI 19.84 kg/m2 05/16/2024 Blood pressure systolic 92 mm Hg 05/16/20 24 Blood pressure diastolic 58 mm Hg 024 Height 63 in 05/16/2024 Weight 112 lbs 05/16/2024 Encounters Encounter Location Date Provider Diagnosis Jem Reid MD [address] [place] [address] [place] [phone] 05/16/2024 Jem Reid After-treatment Z51.89 ; Gross hematuria R31.0 and Loss of consciousness R40.20 ASSESSMENTS Encounter Date Diagnosis Assessment Notes Treatment Notes Treatment Clinical Notes 05/16/2024 After-treatment (ICD-10 - Z51.89) 05/16/2024 Gross hematuria (ICD-10 - R31.0) maybe related to the uti 05/16/2024 Loss of consciousness (ICD-10 - R40.20) maybe related to her uti/ but appears to be confused at times. did have heart rate of 200 in afib and is slower now but is going to get cardioverted next week PLAN OF TREATMENT Treatment Notes Assessment Notes Gross hematuria maybe related to the uti Loss of consciousness maybe related to h er uti/ but appears to be confused at times. did have heart rate of 200 in afib and is slower now but is going to get cardioverted next week Next Appt Details Follow Up: 1 months, Reason: Provider Name:Jem aragon, 06/02/2024 08:30:00 AM, [address] [place] [address], [address] [place] [address], [phone], Provider Name:Jem aragon, 06/17/2024 02:00:00 PM, [address] [place] [address], [address], [phone], Provider Name:Jem aragon, 04/17/2025 07:45:00 AM, [address] [place] [address], [address], [phone], Provider Name:Jem Mckee mahesh, 04/24/2025 01:00:00 PM, [address], [address], [place], [phone], Progress Notes * Examination Category Sub-Category Detail Notes General Examination GENERAL APPEARANCE: well dev eloped, well nourished HEAD: normocephalic HEART: irregularly irregula r rhythm LUNGS: no wheezes, rales, r honchi , good air movement , clear to auscultation bilaterally SKIN: good turgor History and Physical Notes * HPI (History of Present Illness) Category Sub-Category Detail Notes Fall Risk History Have you had any falls with injury in the past year?: Yes Patient leaned forward to tie her shoe and fell forward onto her face.
--- OUTSIDE RECORDS SUMMARY | 2024-05-20 11:25 | XMS_ITS ---
Author Organization Jem Reid MD Address [address] [place] [phone] Care Team Providers Care Resource Teacher Name Role Phone Jem Reid Primary Care Provider Encounters Encounter Location Date Provider Diagnosis Jem Reid MD 10 [facility] [address] [place] [phone] 05/19/2024 Jem Reid PLAN OF TREATMENT Next Appt Details Provider Name:Jem Mckee ier, 06/02/2024 08:30:00 AM, [address] [place] [address], [address], [phone], Provider Name:Jem Mckee ier, 06/17/2024 02:00:00 PM, [address] [place] [address], [address], [phone], Provider Name:Jem Mckee ier, 04/17/2025 07:45:00 AM, [address] [place] [address], [address], [phone], Provider Name:Jem Mckee ier, 04/24/2025 01:00:00 PM, [address] [place] [address], [address], [phone],
--- OUTSIDE RECORDS SUMMARY | 2024-05-20 11:26 | XMS_ITS | Patient Health Record ---
Author Organization Jem Reid MD Address [address] [place], [place] [id number] Care Team Providers Care Product Support Analyst Name Role Phone Jem Reid Primary Care Provider ALLERGIES No Known Allergies RESULTS Component Value Reference Range Notes Hemoglobin A1c Reviewed date:10/08/2023 01:34:13 PM Interpretation: Performing Lab: Notes/Report: Value Hemoglobin A1c 5.5 Glucose, finger stick Reviewed date:10/08/2023 01:23:43 PM Interpretation: Performing Lab: Notes/Report: Value 94 Urine Culture Reviewed date:04/14/2024 12:49:03 PM Interpretation: Performing Lab:[facility], [address] [place] [phone] Notes/Report: O:ESCCOL Escherichia coli Urine Culture Quant Urine Culture > 100,000 cfu/mL Ampicillin 8 Cefazolin 2 Cefepime <=0.12 Ceftriaxone <=0.25 Ciprofloxacin <=0.06 Gentamicin <=1 Nitrofurantoin <=16 Trimethoprim/Sulfamethoxa zole <=20 Complete Blood Count Auto Di ff Reviewed date:04/12/2024 04:50:38 PM Interpretation: Performing Lab:[facility], [address] [place] [phone] Notes/Report: White Blood Count 7.5 4.8-10.8 X10*3/uL Red Blood Count 4.36 4.20-5.50 X10*6/uL Hemoglobin 13.8 12.0-16.0 g/dl Hematocrit 42.5 37.0-47.0 % Mean Corpuscular Volume 97.5 80.0-98.0 fL Mean Corpuscular Hemoglobin 31.7 27.0-33.0 pg Mean Corpuscular HGB Conc 32.5 31.0-35.0 g/dl Red Cell Distribution Width 12.4 11.0-16.0 % Platelet Count 293 160-400 X10*3/uL Mean Platelet Volume 10.9 9.4-12.3 fL Neutrophils Percent Auto 54.8 45-73 % Imm Gran Pct Auto 0.3 0.0-0.4 % Lymphocytes Percent Auto 34.1 20-40 % Monocytes Percent Auto 8.3 2-11 % Eosinophils Percent Auto 2.1 0-4 % Basophils Percent Auto 0.4 0-2 % NRBC Pct Auto 0.0 0.0-0.2 /100WBC Neutrophils Absolute Auto 4.1 2.0-8.3 x10*3/u L Imm Gran Abs Auto 0.02 0.00-0.03 X10*3/uL Lymphocytes Absolute Auto 2.5 1.2-4.9 X10*3/u L Monocytes Absolute Auto 0.6 0.1-1.2 X10*3/uL Eosinophils Absolute Auto 0.2 0.0-0.4 X10*3/u L Basophils Absolute Auto 0.0 0.0-0.2 X10*3/uL NRBC Abs Auto 0.000 0.0-0.012 X10*3/uL Comprehensive Boyce. Panel Fa st Reviewed date:04/12/2024 04:49:40 PM Interpretation: Performing Lab:[facility], [address] [place] [address], [place] [phone] Notes/Report: Sodium 144 135-145 mmol/L Potassium 4.4 3.3-5.1 mmol/L Chloride 107 96-108 mmol/L Carbon Dioxide 25 22-29 mmol/L Anion Gap 16 12-20 Blood Urea Nitrogen 18 9-16 mg/dL Creatinine 0.74 0.5-1.4 mg/dL Estimated Glomerular Filt Rate > 60 NOTE: For -Emirati individuals, multiply the result by 1.210. Chronic Kidney Disease: Estimated GFR < 60 mL/min/1.73m2 Severe Kidney Disease: Estimated GFR < 15 mL/min/1.73m2 Glucose Fasting 108 60-99 mg/dL A fasting glucose from 100-125 mg/dl is considered impaired (pre-diabetes). Calcium 9.9 8.4-10.2 mg/dL Bilirubin Total 0.5 0.0-1.0 mg/dL Aspartate Amino Transferase 27 5-31 U/L Alanine Aminotransferase 12 0-31 U/L Total Protein 7.4 6.5-8.0 g/dL Albumin Level 4.0 3.5-5.0 g/dL Alkaline Phosphatase 94 39-117 U/L Lipid Panel Reviewed date:04/12/2024 04:51:05 PM Interpretation: Performing Lab:[facility], [address] [place] [phone] Notes/Report: Triglycerides 87 <150 mg/dL Desirable Triglyceride: less than 150 mg/dL Borderline High Triglyceride 150-199 mg/dL High Triglyceride: 200-499 mg/dL Very High Triglyceride: greater than or equal to 5OO mg/dL Cholesterol 206 <200 mg/dL Desirable Cholesterol: less than 200 mg/dL Borderline High Cholesterol: 200-239 mg/dL High Cholesterol: greater than 239 mg/dL LDL Cholesterol Calculated 135 <100 mg/dL Desirable LDL: less than 100 mg/dL Near Optimal/Above Optimal LDL: 110-129 mg/dL Borderline High LDL: 130-159 mg/dL High LDL: 160-189 mg/dL Very High LDL: greater than or equal to 190 mg/dL HDL Cholesterol 54 >40 mg/dL Desirable HDL: greater than 40 mg/dL Note: This HDL assay may give artificially low results in patients with liver disease. Microalbumin, Random Reviewed date:04/12/2024 04:50:01 PM Interpretation: Performing Lab:[address] [phone] Notes/Report: Creatinine Urine 23.52 Microalbumin Urine 41.0 Microalbum/Creatinine Ratio Ur 174.3 <30 ug/mg cr Albumin/Creatinine Ratio Reference Ranges: Normal: < 30 ug/mg creatinine Microalbuminuria: 30 - 300 ug/mg creatinine Clinical Albuminuria: > 300 ug/mg creatinine Hemoglobin A1c Reviewed date:04/12/2024 04:49:49 PM Interpretation: Performing Lab:[facility], [address] [place] [phone] Notes/Report: Hemoglobin A1c % 5.3 <6.0 % Hemoglobin A1C Reference Range Adults: 4.8 - 6.0 % Non diabetic: < 6.0 % Goal: < 7.0 % Additional Action Suggested: > 8.0 % Note: Hemoglobin A1c results are invalid for patients with abnormal amounts of HbF. Blood transfusions may impact the HbA1c concentration in the patient sample. Estimated Average Glucose 105 eAG = Estimated average glucose which is %A1C expressed as average glucose, using the formula of the J5R-Reulzks Average Glucose study (ADAG), Diabetes Care, Vol.31,#8, Jan. 2007 UA ClnCatch+Micro w/rflx Cul t Reviewed date:04/21/2024 10:28:41 AM Interpretation:CHEN 04/19 Performing Lab:[facility], [address] [place] [phone] Notes/Report: Urine, Clean Catch Color Urine Yellow Appearance Urine Clear PH 7.0 5.0-9.0 Glucose Urine UA Negative Negative mg/dL Urine Blood Large (3+) Negative Specific Sealy - Urine <= 1.005 1.005-1.025 Urine Protein Negative Neg-Trace mg/dL Urine Ketones Negative Negative mg/dL Nitrite Urine Positive Negative Leukocyte Esterase Urine Large (3+) Negative RBC Urine >20 0-2 /HPF WBC Urine 21-50 0-5 /HPF Squamous Epithelial Cell Urine 0-2 0-2 /HPF Bacteria Urine 4+ None Seen Hyaline Casts Urine 0-2 0-2 /LPF UA ClnCatch+Micro w/rflx Cul t (Not yet reviewed by provider) Interpretation:will be booked to a PH visit Performing Lab:[facility], [address] [place] [phone] Notes/Report: [id number] Urine, Clean Catch Color Urine RED Appearance Urine Turbid PH 6.5 5.0-9.0 Glucose Urine UA Negative Negative mg/dL Urine Blood Large (3+) Negative Specific Se[place] - Urine >= 1.030 1.005-1.025 Urine Protein See Note Neg-Trace mg/dL Urine pigme nt obscured dipstick results. Urine Ketones See Note Negative mg/dL Urine pigmen t obscured dipstick results. Nitrite Urine See Note Negative Urine pigment obscured dipstick results. Leukocyte Esterase Urine See Note Negative Uri ne pigment obscured dipstick results. RBC Urine >20 0-2 /HPF WBC Urine 21-50 0-5 /HPF Squamous Epithelial Cell Urine 3-5 0-2 /HPF Bacteria Urine 2+ None Seen Hyaline Casts Urine 0-2 0-2 /LPF Complete Blood Count Auto Di ff Reviewed date:05/03/2024 06:12:49 PM Interpretation: Performing Lab:[facility], [address] [place] [phone] Notes/Report: White Blood Count 7.1 4.8-10.8 X10*3/uL Red Blood Count 3.81 4.20-5.50 X10*6/uL Hemoglobin 12.0 12.0-16.0 g/dl Hematocrit 36.0 37.0-47.0 % Mean Corpuscular Volume 94.5 80.0-98.0 fL Mean Corpuscular Hemoglobin 31.5 27.0-33.0 pg Mean Corpuscular HGB Conc 33.3 31.0-35.0 g/dl Red Cell Distribution Width 12.4 11.0-16.0 % Platelet Count 217 160-400 X10*3/uL Mean Platelet Volume 10.6 9.4-12.3 fL Neutrophils Percent Auto 57.7 45-73 % Imm Gran Pct Auto 0.3 0.0-0.4 % Lymphocytes Percent Auto 25.4 20-40 % Monocytes Percent Auto 12.2 2-11 % Eosinophils Percent Auto 3.8 0-4 % Basophils Percent Auto 0.6 0-2 % NRBC Pct Auto 0.0 0.0-0.2 /100WBC Neutrophils Absolute Auto 4.1 2.0-8.3 x10*3/u L Imm Gran Abs Auto 0.02 0.00-0.03 X10*3/uL Lymphocytes Absolute Auto 1.8 1.2-4.9 X10*3/u L Monocytes Absolute Auto 0.9 0.1-1.2 X10*3/uL Eosinophils Absolute Auto 0.3 0.0-0.4 X10*3/u L Basophils Absolute Auto 0.0 0.0-0.2 X10*3/uL NRBC Abs Auto 0.000 0.0-0.012 X10*3/uL Prothrombin Time INR Reviewed date:05/03/2024 06:12:09 PM Interpretation: Performing Lab:[facility], [address] [place] [phone] Notes/Report: Prothrombin Time 23.3 10.9-12.4 SEC INTERNATIONAL NORM RATIO 2.0 0.9-1.1 INTERNATIONAL NORMALIZED RATIO (INR) REFERENCE RANGES Reference Range For patients not on anticoagulant therapy: 0.9 - 1.1 INR ranges for oral anticoagulant therapy: For prevention and treatment of venous thrombosis and pulmonary embolism: 2.0 - 3.0 For acute myocardial infarction with aspirin therapy: 2.0 - 3.0 For acute myocardial infarction without aspirin therapy: 3.0 - 4.0 For patients with mechanical prosthetic heart valves: 2.5 - 3.5 Comprehensive Met. Panel Reviewed date:05/03/2024 06:12:00 PM Interpretation: Performing Lab:[facility], [address] [place] [phone] Notes/Report: Sodium 138 135-145 mmol/L Potassium 4.2 3.3-5.1 mmol/L Chloride 103 96-108 mmol/L Carbon Dioxide 27 22-29 mmol/L Anion Gap 12 12-20 Blood Urea Nitrogen 15 9-16 mg/dL Creatinine 0.69 0.5-1.4 mg/dL Creatinine Clr Calc Pharmacy 47.5 Provided height and weight: 160.02 cm, 52.6 kg. eGFR (calculated from the MDRD study equation) and eCrCl (calculated from the Cockcroft-Gault equation) are based on different parameters and may not yield comparable results. If eCrCl result is absurd, please check patient's height/weight. Estimated Glomerular Filt Rate > 60 Chronic Kidney Disease: Estimated GFR < 60 mL/min/1.73m2 Severe Kidney Disease: Estimated GFR < 15 mL/min/1.73m2 Glucose Random 119 60-115 mg/dL Calcium 9.3 8.4-10.2 mg/dL Bilirubin Total 0.5 0.0-1.0 mg/dL Aspartate Amino Transferase 25 5-31 U/L Alanine Aminotransferase 12 0-31 U/L Total Protein 6.8 6.5-8.0 g/dL Albumin Level 3.6 3.5-5.0 g/dL Alkaline Phosphatase 95 39-117 U/L Troponin-I High Sensitivity Reviewed date:05/05/2024 12:00:12 PM Interpretation: Performing Lab:[address] [phone] Notes/Report: Troponin-I High Sensitivity 9.0 <3.5-17.0 ng/L The [place] high sensitivity Troponin-I results should be used in conjunction with other diagnostic information such as ECG, clinical observations and information, and patient symptoms to aid in the diagnosis of ID. Urine Culture Reviewed date:05/09/2024 12:34:43 PM Interpretation: Performing Lab:[address] [phone] Notes/Report: O:PSEAER Pseudomonas aeruginosa Urine Culture Quant Urine Culture > 100,000 cfu/mL Cefepime 2 Ciprofloxacin <=0.06 Gentamicin <=1 Meropenem <=0.25 Piperacillin/Tazobactam <=4 CT cervical spine wo con Reviewed date:05/03/2024 06:16:41 PM Interpretation: Performing Lab: Notes/Report: [address] [address] [address] Scan Report Signed Patient: Toña Ríos MR#: [id number] 2 : 1935 Acct:[id number] Age/Sex: 88 / F ADM Date: 05/03/24 Loc: HO.ED Attending Dr: Ordering Physician: Nicolasa Rodriguez NP Date of Service: 05/03/24 Procedure(s): CT cervical spine wo IV con Accession Number(s): [id number] cc: Jem Reid MD; Nicolasa Rodriguez NP EXAMINATION: CT HEAD WITHOUT CONTRAST CT FACIAL BONES WITHOUT CONTRAST CT CERVICAL SPINE WITHOUT CONTRAST CLINICAL INFORMATION: Fall. Head strike. Patient on blood thinners. COMPARISON: None available. TECHNIQUE: Imaging was performed from the skull base to vertex without intravenous administration of contrast. In addition, helical noncontrast CT imaging was acquired through the cervical spine and facial bones and source images were reviewed along with axial reconstructions and sagittal and coronal MPRs. This CT examination was performed using dose optimization techniques as appropriate, variously including the following: *Automated exposure control. *Adjustment of mA and/or kV according to patient size (this includes techniques or standardized protocols for targeted exams where dose is matched to indication/reason for exam; i.e. extremities or head). *Use of iterative reconstruction technique. DLP: 1134 mGy-cm FINDINGS: Head: There is no evidence of acute intracranial hemorrhage or edematous territorial infarction. Yanes-white matter differentiation is preserved. Scattered and partially confluent hypoattenuation in the periventricular and deep white matter are consistent with moderate microangiopathy. Proportional prominence of the ventricles and sulcal spaces without evidence of obstructive hydrocephalus. No abnormal mass effect or midline shift. No extra-axial fluid collections. Calcific atherosclerotic disease of the intracranial internal carotid arteries. No hyperdense vessel sign. Moderate subgaleal hematoma along the right aspect of the frontal bone, measuring up to 0.9 cm in depth. No associated acute osseous abnormalities. Maxillofacial Bones: Moderate subcutaneous edema/hematoma in the right periorbital soft tissues extending into the right premaxillary soft tissues. No evidence of maxillofacial bone fractures. The zygomatic arches remain intact. No nasal bone fracture. The nasal septum remains midline. No evidence of mandibular or maxillary fracture. The mandibular condyles remain well-seated in their respective temporal articular grooves. Normal appearance of the intraconal and extraconal fat. No evidence of traumatic injury to the extraocular musculature or globes. Mild mucosal thickening of the paranasal sinuses. The mastoid air cells and middle ear cavities are clear. No layering fluid collections. Multifocal odontogenic enamel erosions and periapical lucencies. Cervical Spine: The atlantooccipital and atlantoaxial articulations remain well aligned. Moderate degenerative arthropathy of the atlantodental articulation. Minimal reversal of the normal cervical lordosis. Mild degenerative anterolistheses of C3 on C4 and stepwise from C6-T1. Otherwise, there is anatomic alignment of the vertebral bodies and posterior elements. Ankylosis of the C2-C3 facets. No evidence of acute fracture or subluxation. The vertebral body heights are maintained. Advanced degenerative disc disease from C4-C6. Moderate degenerative disc disease at C7-T1. Facet and uncovertebral joint arthropathy leads to osseous encroachment on the neural foramina from C2-T1. There is no prevertebral soft tissue swelling. The thyroid gland and remaining cervical soft tissues are within normal limits. The lung apices demonstrate no abnormalities. CT/CT cervical spine wo IV con IMPRESSION: 1. No evidence of acute intracranial hemorrhage or edematous territorial infarction. 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 2. No evidence of acute fracture or traumatic subluxation of the cervical spine. Moderate to advanced multilevel degenerative spondyloarthropathy of the cervical spine. 3. Moderate right frontal scalp, right periorbital, and right facial soft tissue edema/hematoma. No associated osseous abnormalities. 4. No evidence of acute fracture of the maxillofacial bones. Electronically signed by: Apolinar Oliva DO 05/03/2024 06:02 PM [facility] Dictated By: Charles Oliva DO Signed By: <Electronically signed by Charles Oliva DO in OV> 05/03/24 1802 DD/ 1523 TD/TT: 05/03/24 1533 [employer]loader: DEBI CT head/brain wo con Reviewed date:05/03/2024 06:16:59 PM Interpretation: Performing Lab: Notes/Report: [place] [address] CT Scan Report Signed Patient: Toña Ríos MR#: [id number] 2 : 1935 Acct:[id number] Age/Sex: 88 / F ADM Date: 05/03/24 Loc: HO.ED Attending Dr: Ordering Physician: Nicolasa Rodriguez NP Date of Service: 05/03/24 Procedure(s): CT head/brain wo IV con Accession Number(s): [id number] cc: Jem Reid MD; Nicolasa Rodriguez NP EXAMINATION: CT HEAD WITHOUT CONTRAST CT FACIAL BONES WITHOUT CONTRAST CT CERVICAL SPINE WITHOUT CONTRAST CLINICAL INFORMATION: Fall. Head strike. Patient on blood thinners. COMPARISON: None available. TECHNIQUE: Imaging was performed from the skull base to vertex without intravenous administration of contrast. In addition, helical noncontrast CT imaging was acquired through the cervical spine and facial bones and source images were reviewed along with axial reconstructions and sagittal and coronal MPRs. This CT examination was performed using dose optimization techniques as appropriate, variously including the following: *Automated exposure control. *Adjustment of mA and/or kV according to patient size (this includes techniques or standardized protocols for targeted exams where dose is matched to indication/reason for exam; i.e. extremities or head). *Use of iterative reconstruction technique. DLP: 1134 mGy-cm FINDINGS: Head: There is no evidence of acute intracranial hemorrhage or edematous territorial infarction. Yanes-white matter differentiation is preserved. Scattered and partially confluent hypoattenuation in the periventricular and deep white matter are consistent with moderate microangiopathy. Proportional prominence of the ventricles and sulcal spaces without evidence of obstructive hydrocephalus. No abnormal mass effect or midline shift. No extra-axial fluid collections. Calcific atherosclerotic disease of the intracranial internal carotid arteries. No hyperdense vessel sign. Moderate subgaleal hematoma along the right aspect of the frontal bone, measuring up to 0.9 cm in depth. No associated acute osseous abnormalities. Maxillofacial Bones: Moderate subcutaneous edema/hematoma in the right periorbital soft tissues extending into the right premaxillary soft tissues. No evidence of maxillofacial bone fractures. The zygomatic arches remain intact. No nasal bone fracture. The nasal septum remains midline. No evidence of mandibular or maxillary fracture. The mandibular condyles remain well-seated in their respective temporal articular grooves. Normal appearance of the intraconal and extraconal fat. No evidence of traumatic injury to the extraocular musculature or globes. Mild mucosal thickening of the paranasal sinuses. The mastoid air cells and middle ear cavities are clear. No layering fluid collections. Multifocal odontogenic enamel erosions and periapical lucencies. Cervical Spine: The atlantooccipital and atlantoaxial articulations remain well aligned. Moderate degenerative arthropathy of the atlantodental articulation. Minimal reversal of the normal cervical lordosis. Mild degenerative anterolistheses of C3 on C4 and stepwise from C6-T1. Otherwise, there is anatomic alignment of the vertebral bodies and posterior elements. Ankylosis of the C2-C3 facets. No evidence of acute fracture or subluxation. The vertebral body heights are maintained. Advanced degenerative disc disease from C4-C6. Moderate degenerative disc disease at C7-T1. Facet and uncovertebral joint arthropathy leads to osseous encroachment on the neural foramina from C2-T1. There is no prevertebral soft tissue swelling. The thyroid gland and remaining cervical soft tissues are within normal limits. The lung apices demonstrate no abnormalities. CT/CT head/brain wo IV con IMPRESSION: 1. No evidence of acute intracranial hemorrhage or edematous territorial infarction. 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 2. No evidence of acute fracture or traumatic subluxation of the cervical spine. Moderate to advanced multilevel degenerative spondyloarthropathy of the cervical spine. 3. Moderate right frontal scalp, right periorbital, and right facial soft tissue edema/hematoma. No associated osseous abnormalities. 4. No evidence of acute fracture of the maxillofacial bones. Electronically signed by: Apolinar Oliva DO 05/03/2024 06:02 PM [facility] Dictated By: Charles Oliva DO Signed By: <Electronically signed by Charles Oliva DO in OV> 05/03/24 1802 DD/ 1459 TD/TT: 05/03/24 1533 [employer]: DEBI CT facial bones wo con Reviewed date:05/03/2024 06:17:06 PM Interpretation: Performing Lab: Notes/Report: [address] [address] [address] Scan Report Signed Patient: Toña Ríos MR#: [id number] 2 : 1935 Acct:[id number] Age/Sex: 88 / F ADM Date: 05/03/24 Loc: HO.ED Attending Dr: Ordering Physician: Nicolasa Rodriguez NP Date of Service: 05/03/24 Procedure(s): CT facial bones wo IV con Accession Number(s): [id number] cc: Jem Reid MD; Nicolasa Rodriguez NP EXAMINATION: CT HEAD WITHOUT CONTRAST CT FACIAL BONES WITHOUT CONTRAST CT CERVICAL SPINE WITHOUT CONTRAST CLINICAL INFORMATION: Fall. Head strike. Patient on blood thinners. COMPARISON: None available. TECHNIQUE: Imaging was performed from the skull base to vertex without intravenous administration of contrast. In addition, helical noncontrast CT imaging was acquired through the cervical spine and facial bones and source images were reviewed along with axial reconstructions and sagittal and coronal MPRs. This CT examination was performed using dose optimization techniques as appropriate, variously including the following: *Automated exposure control. *Adjustment of mA and/or kV according to patient size (this includes techniques or standardized protocols for targeted exams where dose is matched to indication/reason for exam; i.e. extremities or head). *Use of iterative reconstruction technique. DLP: 1134 mGy-cm FINDINGS: Head: There is no evidence of acute intracranial hemorrhage or edematous territorial infarction. Yanes-white matter differentiation is preserved. Scattered and partially confluent hypoattenuation in the periventricular and deep white matter are consistent with moderate microangiopathy. Proportional prominence of the ventricles and sulcal spaces without evidence of obstructive hydrocephalus. No abnormal mass effect or midline shift. No extra-axial fluid collections. Calcific atherosclerotic disease of the intracranial internal carotid arteries. No hyperdense vessel sign. Moderate subgaleal hematoma along the right aspect of the frontal bone, measuring up to 0.9 cm in depth. No associated acute osseous abnormalities. Maxillofacial Bones: Moderate subcutaneous edema/hematoma in the right periorbital soft tissues extending into the right premaxillary soft tissues. No evidence of maxillofacial bone fractures. The zygomatic arches remain intact. No nasal bone fracture. The nasal septum remains midline. No evidence of mandibular or maxillary fracture. The mandibular condyles remain well-seated in their respective temporal articular grooves. Normal appearance of the intraconal and extraconal fat. No evidence of traumatic injury to the extraocular musculature or globes. Mild mucosal thickening of the paranasal sinuses. The mastoid air cells and middle ear cavities are clear. No layering fluid collections. Multifocal odontogenic enamel erosions and periapical lucencies. Cervical Spine: The atlantooccipital and atlantoaxial articulations remain well aligned. Moderate degenerative arthropathy of the atlantodental articulation. Minimal reversal of the normal cervical lordosis. Mild degenerative anterolistheses of C3 on C4 and stepwise from C6-T1. Otherwise, there is anatomic alignment of the vertebral bodies and posterior elements. Ankylosis of the C2-C3 facets. No evidence of acute fracture or subluxation. The vertebral body heights are maintained. Advanced degenerative disc disease from C4-C6. Moderate degenerative disc disease at C7-T1. Facet and uncovertebral joint arthropathy leads to osseous encroachment on the neural foramina from C2-T1. There is no prevertebral soft tissue swelling. The thyroid gland and remaining cervical soft tissues are within normal limits. The lung apices demonstrate no abnormalities. CT/CT facial bones wo IV con IMPRESSION: 1. No evidence of acute intracranial hemorrhage or edematous territorial infarction. 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 2. No evidence of acute fracture or traumatic subluxation of the cervical spine. Moderate to advanced multilevel degenerative spondyloarthropathy of the cervical spine. 3. Moderate right frontal scalp, right periorbital, and right facial soft tissue edema/hematoma. No associated osseous abnormalities. 4. No evidence of acute fracture of the maxillofacial bones. Electronically signed by: Apolinar Oliva DO 05/03/2024 06:02 PM [facility] Dictated By: Charles Oliva DO Signed By: <Electronically signed by Charles Oliva DO in OV> 05/03/24 1802 DD/ 1459 TD/TT: 05/03/24 1533 [employer]: DEBI Complete Blood Count Auto Di ff Reviewed date:05/05/2024 12:04:27 PM Interpretation: Performing Lab:[facility], [address] [place] [phone] Notes/Report: White Blood Count 5.9 4.8-10.8 X10*3/uL Red Blood Count 3.82 4.20-5.50 X10*6/uL Hemoglobin 12.1 12.0-16.0 g/dl Hematocrit 36.0 37.0-47.0 % Mean Corpuscular Volume 94.2 80.0-98.0 fL Mean Corpuscular Hemoglobin 31.7 27.0-33.0 pg Mean Corpuscular HGB Conc 33.6 31.0-35.0 g/dl Red Cell Distribution Width 12.3 11.0-16.0 % Platelet Count 222 160-400 X10*3/uL Mean Platelet Volume 10.5 9.4-12.3 fL Neutrophils Percent Auto 59.1 45-73 % Imm Gran Pct Auto 0.2 0.0-0.4 % Lymphocytes Percent Auto 23.4 20-40 % Monocytes Percent Auto 12.1 2-11 % Eosinophils Percent Auto 4.5 0-4 % Basophils Percent Auto 0.7 0-2 % NRBC Pct Auto 0.0 0.0-0.2 /100WBC Neutrophils Absolute Auto 3.5 2.0-8.3 x10*3/u L Imm Gran Abs Auto 0.01 0.00-0.03 X10*3/uL Lymphocytes Absolute Auto 1.4 1.2-4.9 X10*3/u L Monocytes Absolute Auto 0.7 0.1-1.2 X10*3/uL Eosinophils Absolute Auto 0.3 0.0-0.4 X10*3/u L Basophils Absolute Auto 0.0 0.0-0.2 X10*3/uL NRBC Abs Auto 0.000 0.0-0.012 X10*3/uL Basic Metabolic Panel Reviewed date:05/05/2024 11:58:12 AM Interpretation: Performing Lab:[facility], [address] [place] [phone] Notes/Report: Sodium 140 135-145 mmol/L Potassium 4.0 3.3-5.1 mmol/L Chloride 107 96-108 mmol/L Carbon Dioxide 24 22-29 mmol/L Anion Gap 13 12-20 Blood Urea Nitrogen 12 9-16 mg/dL Creatinine 0.58 0.5-1.4 mg/dL Creatinine Clr Calc Pharmacy 55.9 Provided height and weight: 160.02 cm, 51.9 kg. eGFR (calculated from the MDRD study equation) and eCrCl (calculated from the Cockcroft-Gault equation) are based on different parameters and may not yield comparable results. If eCrCl result is absurd, please check patient's height/weight. Estimated Glomerular Filt Rate > 60 Chronic Kidney Disease: Estimated GFR < 60 mL/min/1.73m2 Severe Kidney Disease: Estimated GFR < 15 mL/min/1.73m2 Glucose Random 75 60-115 mg/dL Calcium 8.9 8.4-10.2 mg/dL Magnesium Reviewed date:05/05/2024 11:57:54 AM Interpretation: Performing Lab:[facility], [address] [place] [phone] Notes/Report: Magnesium 2.4 1.6-2.6 mg/dL MR head/brain wo con Reviewed date:05/05/2024 11:49:06 AM Interpretation: Performing Lab: Notes/Report: [address] [address] Magnetic Resonance Report Signed Patient: Toña Ríos MR#: [id number] 2 : 1935 Acct:[id number] Age/Sex: 88 / F ADM Date: 05/03/24 Loc: [facility] [id number]: Christelle Lambert MD Ordering Physician: Mj Seals MD Date of Service: 05/04/24 Procedure(s): MR head/brain wo con Accession Number(s): [id number] cc: Jem Reid MD; Mj Seals MD EXAMINATION: MR BRAIN WITHOUT CONTRAST CLINICAL INFORMATION: Recurrent episodes of unresponsiveness COMPARISON: None available. TECHNIQUE: MRI of the brain was obtained using routine sequences without contrast. FINDINGS: No acute intracranial hemorrhage or infarct. Scattered and confluent periventricular and deep white matter T2/FLAIR hyperintensities, nonspecific however commonly seen with small vessel ischemic disease. Diffuse prominence of the sulci with associated ex vacuo dilation of the ventricles compatible with global cerebral atrophy. No midline shift or hydrocephalus. No acute extra-axial fluid collections. The osseous structures are unremarkable. There is a well-circumscribed soft tissue mass involving the right frontal scalp which demonstrate heterogeneous signal, likely reflect a complicated epidermal inclusion cyst. The pituitary gland, pineal gland and remaining midline structures are unremarkable. No orbital pathology. The paranasal sinuses and mastoid air cells are clear. MR/MR head/brain wo con IMPRESSION: No acute intracranial abnormality. Electronically signed by: Danish Moreno MD 05/04/2024 08:57 PM [facility] Dictated By: Danish Moreno MD Signed By: <Electronically signed by Danish Moreno MD in OV> 05/04/242056 DD/ 1300 TD/TT: 05/04/24 1345 [employer]: Basic Metabolic Panel Reviewed date:05/07/2024 01:47:35 PM Interpretation: Performing Lab:[facility], [address] [place] [phone] Notes/Report: Sodium 141 135-145 mmol/L Potassium 4.4 3.3-5.1 mmol/L Chloride 104 96-108 mmol/L Carbon Dioxide 27 22-29 mmol/L Anion Gap 14 12-20 Blood Urea Nitrogen 12 9-16 mg/dL Creatinine 0.80 0.5-1.4 mg/dL Creatinine Clr Calc Pharmacy 40.5 Provided height and weight: 160.02 cm, 51.9 kg. eGFR (calculated from the MDRD study equation) and eCrCl (calculated from the Cockcroft-Gault equation) are based on different parameters and may not yield comparable results. If eCrCl result is absurd, please check patient's height/weight. Estimated Glomerular Filt Rate > 60 Chronic Kidney Disease: Estimated GFR < 60 mL/min/1.73m2 Severe Kidney Disease: Estimated GFR < 15 mL/min/1.73m2 Glucose Random 95 60-115 mg/dL Calcium 9.3 8.4-10.2 mg/dL Thyroid Stimulating Hormone Reviewed date:05/07/2024 01:43:46 PM Interpretation: Performing Lab:[facility], [address] [place] [phone] Notes/Report: Thyroid Stimulating Hormone 2.26 0.32-4.0 uIU/mL TSH 3rd Generation ([facility]) UA ClnCatch+Micro w/rflx Cul t Reviewed date:05/17/2024 12:50:27 PM Interpretation: Performing Lab:[facility], [address] [place] [phone] Notes/Report: Urine, Clean Catch Color Urine Yellow Appearance Urine Clear PH 8.0 5.0-9.0 Glucose Urine UA Negative Negative mg/dL Urine Blood Large (3+) Negative Specific [place] - Urine 1.015 1.005-1.025 Urine Protein Negative Neg-Trace mg/dL Urine Ketones Negative Negative mg/dL Nitrite Urine Negative Negative Leukocyte Esterase Urine Trace Negative RBC Urine >20 0-2 /HPF WBC Urine 0-5 0-5 /HPF Squamous Epithelial Cell Urine 3-5 0-2 /HPF Bacteria Urine None Seen None Seen Hyaline Casts Urine 0-2 0-2 /LPF REASON FOR REFERRAL No Information MEDICATIONS Medication SIG (Take, Route, Frequency, Duration) Notes Start Date End Date Status Calcium + D 315-200 MG-UNIT 1 tablet with meals Orally Twice a day Active Amiodarone HCl 200 MG 1 tablet Orally On ce a day Active Tylenol Extra Strength 500 MG 2 tablets as needed Orally every 6 hrs Not-Taking Tylenol 325 MG 1 tablet as needed Orally every 4 hrs Not-Taking Digoxin 125 MCG 1 tablet Orally Active Xarelto 15 MG TAKE 1 TABLET BY CHERRI TH EVERY DAY Orally Once a day Active IMMUNIZATIONS Vaccine Route Administration Date Status Comme nts Shingles Unknown 04/25/2013 Administered [facility] SARS-COV-2 Moderna Unknown 07/25/2020 Administered SARS-COV-2 Moderna Unknown 08/22/2020 Administered SARS-COV-2 Moderna Unknown 04/23/2021 [facility]ered [facility] Influenza High Dose IM Intramuscular 04/01/2022 Administer ed Influenza High Dose IM Intramuscular 04/06/2023 Administer ed PPSV23 (Pnemovax) Unknown 08/18/2013 Refused Flu Vaccine Unknown 08/08/2013 Refused Flu Vaccine Unknown 09/12/2014 Refused PPSV23 (Pnemovax) Unknown 09/12/2014 Refused Fluarix Quadrivalent Unknown 09/11/2016 Refused PPSV23 (Pnemovax) Unknown 09/11/2016 Refused Fluarix Quadrivalent Unknown 05/21/2017 Refused PPSV23 (Pnemovax) Unknown 02/04/2019 Refused Fluarix Quadrivalent Unknown 03/29/2020 Refused PPSV23 (Pnemovax) Unknown 03/29/2020 Refused Shingrix Unknown 03/29/2020 Refused SOCIAL HISTORY Tobacco Use: Social History Observation Description Date Details (start date - stop date) Former Smoker NA - NA Sex Assigned At : Social History Observation Description Sex Assigned At Unknown Tobacco Use/Smoking Question Answer Notes Patient is a former smoker How long has it been since y ou last smoked? > 10 years Additional Findings: Tobacco Non-User Fo rmer smoker, currently using no form of tobacco Alcohol Screen Question Answer Notes Did you have a drink containing alcohol in the p ast year? No Points 0 Interpretation Negative PROBLEMS Problem Type ICD Code Onset Dates Problem Status W/U Status Risk SNOMED Code Notes Problem Essential hypertensi on (I10) Active confirmed 64263262 Problem Prediabetes (R73.09) Active confirmed 9 943227 Problem Atrial fibrillation, unspecified type (I48.91) Active confirmed 78407873 Problem Pure hypercholesterolemia (E78.00) Active confirmed 979325034 Problem 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) Active confirmed 86223915 VITAL SIGNS Blood pressure diastolic 58 mm Hg 05/16/2024 Height 63 in 05/16/2024 Blood pressure systolic 92 mm Hg 05/16/2024 Weight 112 lbs 05/16/2024 BMI 19.84 kg/m2 05/16/2024 Encounters Encounter Location Date Provider Diagnosis Jem Reid MD [address] [place] [id number] 04/19/2024 Jem Reid Gross hematuria R31. 0 ; Acute UTI N39.0 ; Atrial fibrillation, unspecified type I48.91 ; Pure hypercholesterolemia E78.00 ; Prediabetes R73.09 ; Essential hypertension I10 and Depression screening Z13.31 Jem Reid MD [address] [place] [id number] 04/12/2024 Jem Reid Prediabetes R73.09 ; Pure hypercholesterolemia E78.00 and Essential hypertension I10 Jem Reid MD [address] [place] [id number] 05/10/2024 Jem Reid Acute UTI N39.0 Jem Reid MD [address] [place] [id number] 10/08/2023 Jem Reid Prediabetes R73.09 a nd Atrial fibrillation, unspecified type I48.91 Jem Reid MD [address] [place] [address] [id number] 05/16/2024 Jem Reid After-treatment Z51. 89 ; Gross hematuria R31.0 and Loss of consciousness R40.20 Jem Reid MD [address] [place] [id number] 04/14/2024 Jem Reid MD [address] [place] [id number] 04/14/2024 Jem Reid MD [address] [place] [id number] 04/14/2024 Jem Reid MD [address] [place] [address] [id number] 05/03/2024 Jem Reid MD [address] [place] [address] [id number] 05/09/2024 Jem Reid MD [address] [place], [place] [id number] 05/19/2024 Jem Reid ASSESSMENTS Encounter Date Diagnosis Assessment Notes Treatment Notes Treatment Clinical Notes 04/19/2024 Gross hematuria (ICD -10 - R31.0) will continue with ab since she is still having blood in the urine, pending future lab, will continue to monitor 04/19/2024 Acute UTI (ICD-10 - N39.0) will contiue ab 04/12/2024 Prediabetes (ICD-10 - R73.09) 04/12/2024 Pure hypercholestero lemia (ICD-10 - E78.00) 05/10/2024 Acute UTI (ICD-10 - N39.0) 10/08/2023 Prediabetes (ICD-10 - R73.09) stable, no need for medication at this time 10/08/2023 Atrial fibrillation, unspecified type (ICD-10 - I48.91) stable, will continue current regiment 05/16/2024 Gross hematuria (ICD -10 - R31.0) maybe related to the uti 05/16/2024 After-treatment (ICD -10 - Z51.89) 04/19/2024 Atrial fibrillation, unspecified type (ICD-10 - I48.91) well controlled rate, will continue current regiment 04/12/2024 Essential hypertensi on (ICD-10 - I10) 05/16/2024 Loss of consciousnes s (ICD-10 - R40.20) maybe related to her uti/ but appears to be confused at times. did have heart rate of 200 in afib and is slower now but is going to get cardioverted next week 04/19/2024 Pure hypercholestero lemia (ICD-10 - E78.00) doing well, will contiue current regiment 04/19/2024 Prediabetes (ICD-10 - R73.09) stable, no need for medication at this time 04/19/2024 Essential hypertensi on (ICD-10 - I10) stable, will continue current regiment 04/19/2024 Depression screening (ICD-10 - Z13.31) negative screen PLAN OF TREATMENT Pending Test Test Name Order Date UA ClnCatch+Micro w/rflx Cult 05/03/2024 UA ClnCatch+Micro w/rflx Cult 06/02/2024 Urinalysis and Microscopic 05/10/2024 Urine Culture 05/10/2024 Next Appt Details Provider Name:Jem Mckee ier, 06/02/2024 08:30:00 AM, [address] [place] [address], Suite [facility], [place], [place], [phone], Provider Name:Jem Mckee ier, 06/17/2024 02:00:00 PM, [address] [place] [address], Suite [facility], [place], [place], [phone], Provider Name:Jem Mckee ier, 04/17/2025 07:45:00 AM, [address] [place] [address], Suite [facility], [place], [place], [phone], Provider Name:Jem Mckee ier, 04/24/2025 01:00:00 PM, [address] [place] [address], [place] [address], [place], [place], [phone], Insurance Providers Payer Name Payer Address Payer Phone Subscriber Number Group Number Insured Name Patient Relationship to Insured Coverage Start Date Coverage End Date MEDICARE [employer] [address] [place] [address] [id number] [place] Self - patient is the insured [facility] [address] [place] [phone] [id number] [place] Self - patient is the insured MEDICAL (GENERAL) HISTORY Medical History History ICD Code Refuses flu shot (07-06-12) Refuses pneumo (07-06-12) refuses colonoscoopy 2012 refuses pneumo, 2013 Surgical History Surgery Date(Month/Year) Left Total Hip Arthroplasty by Dr. Alexandru Young 09/2016
[2024-05-20] MEDS: Lactated Ringers 1,000 ML 100 ML IVCONT (11:51)
--- NOTE | 2024-05-20 13:10 | MHC.SHP ---
Pre-Procedural Eval Section A - 24 Hr Update-Section A only Date of Service: 05/20/24 The patient is an INPATIENT: No Changes since office visit: Yes Cold of Flu in the past 2 weeks, Yes Changes in Medication and Yes Patient answered all questions; No New Medical Problems The patient has been examined within 24 hours of the surgical procedure. The History & Physical has been completed within 30 days and I have reviewed it.: Yes Section B - Complete if H&P > 30 days Chief Complaint: Unspecified atrial flutter Allergies: Allergies Allergy/AdvReac Type Severity Reaction Status Date / Time No Known Allergies Allergy Unverified 05/03/24 14:59 [No Known Allergies*] Plan I have reviewed the history and physical and performed a pertinent physical examination on my patient. No changes have occurred unless specified. Time Spent With Patient Time: Total time managing care of this patient today ____ minutes.
--- NOTE | 2024-05-20 13:52 | PM.EVENT ---
Event Note Date of Service: 05/20/24 Event Note: Patient remains in AF and with RVR and need synchronized cardioversion. Plan is unchanged Time Spent With Patient Time: Total time managing care of this patient today ____ minutes.
--- NOTE | 2024-05-20 14:02 | HO.CARDIVERS ---
Cardioversion Procedure Note Cardioversion Date of Procedure: 05/20/2024 Ordering Provider: Dr. Moran Performing Provider: Dr. Stanley Indication for Procedure: Persistent atrial fibrillation rapid ventricular response Pre-Op Diagnosis: Same Post-Op Diagnosis: Normal sinus rhythm Performed with Transesophageal Echo: No Consent: Verbal and Written consent was obtained from the patient's before starting and after confirming oral anticoagulation use. The patient was made aware of the risk of synchronized cardioversion including benefits and alternatives Procedure: After consent obtained, cardioversion pads were attached in anteroposterior configuration and the patient was sedated by the anesthesia team. Once adequate sedation achieved, patient was delivered 200 joules of biphasic synchronized energy in anteroposterior configuration Complications: None Impression: Successful conversion to sinus rhythm Recommendations: 1. 12 lead EKG 2. Continue amiodarone and full oral anticoagulation 3. Follow up in the office
--- NOTE | 2024-05-20 14:03 | ECG_ITS ---
Test Reason : Status post cardioversion Blood Pressure : / mmHG Vent. Rate : 063 BPM Atrial Rate : 063 BPM P-R Int : 172 ms QRS Dur : 064 ms QT Int : 444 ms P-R-T Axes : 082 024 042 degrees QTc Int : 454 ms Baseline wander Sinus rhythm with Premature atrial complexes Low voltage QRS Borderline ECG When compared with ECG of 07-MAY-2024 09:18, No significant change was found Referred By: Vic Stanely Electronically Signed By:VIC STANLEY MD
== END 2024-05-20 15:35 | disposition home or self-care (01) ==
PROVIDERS: PCP Internal Medicine; Visit Provider Internal Medicine Cardiovascular Disease
PROC: 5A2204Z Restoration of Cardiac Rhythm, Single (ICD-10-PCS; principal; 2024-05-20 13:00)
DX: I48.19 Other persistent atrial fibrillation (principal); Z79.01 Long term (current) use of anticoagulants; Z79.899 Other long term (current) drug therapy; Z98.890 Other specified postprocedural states
CPT/HCPCS: 92960; 93005; J2003; J2704

== ENCOUNTER → 2024-05-20 11:22 | Outpatient (BNV) | payer MEDICARE, OTHER, SELFPAY | PROVIDERS: PCP Internal Medicine; Visit Provider Internal Medicine Cardiovascular Disease | DX: I48.19 Other persistent atrial fibrillation (principal) | CPT/HCPCS: 92960; 93010; 99499 ==

== ENCOUNTER → 2024-05-30 12:59 | Outpatient (REF) | payer MEDICARE, OTHER, SELFPAY ==
--- OUTSIDE RECORDS SUMMARY | 2024-05-30 13:02 | XMS_ITS ---
Author Organization Jem Reid MD Address [address] [place], [place] [phone] Care Team Providers Care Follow Up Rep Name Role Phone Jem Reid Primary Care Provider ALLERGIES No Known Allergies RESULTS Component Value Reference Range Notes UA ClnCatch+Micro w/rflx Cul t Reviewed date:05/17/2024 12:50:27 PM Interpretation: Performing Lab:[facility], [address] [place] [phone] Notes/Report: Urine, Clean Catch Color Urine Yellow Appearance Urine Clear PH 8.0 5.0-9.0 Glucose Urine UA Negative Negative mg/dL Urine Blood Large (3+) Negative Specific [place] - Urine 1.015 1.005-1.025 Urine Protein Negative [...] Location Date Provider Diagnosis Jem Reid MD [address] [place] [address] [place] [id number] 05/16/2024 Jem Reid After-treatment Z51.89 ; Gross [...] Reason: Provider Name:Jem aragon, 06/02/2024 08:30:00 AM, [address] [place] [address], [address] [place] [address], [phone], Provider Name:Jem aragon, 06/17/2024 02:00:00 PM, [address] [place] [address], [address], [phone], Provider Name:Jem aragon, 04/17/2025 07:45:00 AM, [address] [place] [address], [address], [phone], Provider Name:Jem Mckee mahesh, 04/24/2025 01:00:00 PM, [address], [address], [place], [phone], Progress Notes * Examination Category Sub-Category Detail [...]
--- OUTSIDE RECORDS SUMMARY | 2024-05-30 13:02 | XMS_ITS ---
Author Organization Jem Reid MD Address [address] [place] [phone] Care Team Providers Care Pocket Operator Name Role Phone Jem Reid Primary Care Provider [phone] REASON FOR VISIT U/A culture Encounters Encounter Location Date Provider Diagnosis Jem Reid MD [address] [facility] [address] [place] [phone] 05/10/2024 Jem Reid Acute UTI N39.0 ASSESSMENTS Encounter Date Diagnosis Assessment Notes Treatment Notes Treatment Clinical Notes 05/10/2024 Acute UTI (ICD-10 - N39.0) PLAN OF TREATMENT Pending Test Test Name Order Date Urinalysis and Microscopic 05/10/2024 Urine Culture 05/10/2024 Next Appt Details Provider Name:Jem aragon, 06/02/2024 08:30:00 AM, [address] [place] [address], [address] [place] [address], [phone], Provider Name:Jem aragon, 06/17/2024 02:00:00 PM, [address] [place] [address], [address], [phone], Provider Name:Jem aragon, 04/17/2025 07:45:00 AM, [address] [place] [address], [address], [phone], Provider Name:Jem aragon, 04/24/2025 01:00:00 PM, [address], [address], [place], [phone],
--- OUTSIDE RECORDS SUMMARY | 2024-05-30 13:03 | XMS_ITS | Patient Health Record ---
Author Organization Jem Reid MD Address [address] [place], [place] [phone] Care Team Providers Care Back Winder Name Role Phone Jem Reid Primary Care Provider ALLERGIES No Known Allergies RESULTS Component Value Reference Range Notes Hemoglobin A1c Reviewed date:10/08/2023 01:34:13 PM Interpretation: Performing Lab: Notes/Report: Value Hemoglobin A1c 5.5 Glucose, finger stick Reviewed date:10/08/2023 01:23:43 PM Interpretation: Performing Lab: Notes/Report: Value 94 Urine Culture Reviewed date:04/14/2024 12:49:03 PM Interpretation: Performing Lab:[facility], [address] [place] [phone] Notes/Report: O:ESCCOL Escherichia coli Urine Culture Quant Urine Culture > 100,000 cfu/mL Ampicillin 8 Cefazolin 2 Cefepime <=0.12 Ceftriaxone <=0.25 Ciprofloxacin <=0.06 Gentamicin <=1 Nitrofurantoin <=16 Trimethoprim/Sulfamethoxa zole <=20 Complete Blood Count Auto Di ff Reviewed date:04/12/2024 04:50:38 PM Interpretation: Performing Lab:[facility], [address] [place] [phone] Notes/Report: White Blood Count 7.5 4.8-10.8 X10*3/uL [...] NRBC Abs Auto 0.000 0.0-0.012 X10*3/uL Comprehensive [place]. Panel Fa st Reviewed date:04/12/2024 04:49:40 PM Interpretation: Performing Lab:[facility], [address] [place] [address], [place] [address] Notes/Report: Sodium 144 135-145 mmol/L Potassium 4.4 3.3-5.1 mmol/L Chloride 107 96-108 mmol/L Carbon Dioxide 25 22-29 mmol/L Anion Gap 16 12-20 Blood Urea Nitrogen 18 9-16 mg/dL Creatinine 0.74 0.5-1.4 mg/dL Estimated Glomerular Filt Rate > 60 NOTE: For -[place] Ze[place] individuals, multiply the result by 1.210. Chronic [...] Panel Reviewed date:04/12/2024 04:51:05 PM Interpretation: Performing Lab:[facility], [address] [place] [phone] Notes/Report: Triglycerides 87 <150 mg/dL Desirable Triglyceride: [...] Random Reviewed date:04/12/2024 04:50:01 PM Interpretation: Performing Lab:[address] [phone] Notes/Report: Creatinine Urine 23.52 Microalbumin Urine 41.0 Microalbum/Creatinine Ratio Ur 174.3 <30 ug/mg cr Albumin/Creatinine Ratio Reference Ranges: Normal: < 30 ug/mg creatinine Microalbuminuria: 30 - 300 ug/mg creatinine Clinical Albuminuria: > 300 ug/mg creatinine Hemoglobin A1c Reviewed date:04/12/2024 04:49:49 PM Interpretation: Performing Lab:[facility], [address] [place] [phone] Notes/Report: Hemoglobin A1c % 5.3 <6.0 % [...] average glucose, using the formula of the X2V-Homegeo Average Glucose study (ADAG), Diabetes Care, Vol.31,#8, Jan. 2007 UA ClnCatch+Micro w/rflx Cul t Reviewed date:04/21/2024 10:28:41 AM Interpretation:CHEN 04/19 Performing Lab:[facility], [address] [place] [phone] Notes/Report: Urine, Clean Catch Color Urine Yellow Appearance Urine Clear PH 7.0 5.0-9.0 Glucose Urine UA Negative Negative mg/dL Urine Blood Large (3+) Negative Specific [place] - Urine <= 1.005 1.005-1.025 Urine Protein [...] be booked to a PH visit Performing Lab:[facility], [address] [place] [phone] Notes/Report: [id number] Urine, Clean Catch Color Urine RED Appearance Urine Turbid PH 6.5 5.0-9.0 Glucose Urine UA Negative Negative mg/dL Urine Blood Large (3+) Negative Specific [place] - Urine >= 1.030 1.005-1.025 Urine Protein [...] ff Reviewed date:05/03/2024 06:12:49 PM Interpretation: Performing Lab:[facility], [address] [place] [phone] Notes/Report: White Blood Count 7.1 4.8-10.8 X10*3/uL [...] INR Reviewed date:05/03/2024 06:12:09 PM Interpretation: Performing Lab:[facility], [address] [place] [phone] Notes/Report: Prothrombin Time 23.3 10.9-12.4 SEC INTERNATIONAL [...] Panel Reviewed date:05/03/2024 06:12:00 PM Interpretation: Performing Lab:[facility], [address] [place] [phone] Notes/Report: Sodium 138 135-145 mmol/L Potassium 4.2 [...] Sensitivity Reviewed date:05/05/2024 12:00:12 PM Interpretation: Performing Lab:[address] [phone] Notes/Report: Troponin-I High Sensitivity 9.0 <3.5-17.0 ng/L The [place] high sensitivity Troponin-I results should be used in conjunction with other diagnostic information such as ECG, clinical observations and information, and patient symptoms to aid in the diagnosis of [place]. Urine Culture Reviewed date:05/09/2024 12:34:43 PM Interpretation: Performing Lab:[address] [phone] Notes/Report: O:PSEAER Pseudomonas aeruginosa Urine Culture Quant Urine Culture > 100,000 cfu/mL Cefepime 2 Ciprofloxacin <=0.06 Gentamicin <=1 Meropenem <=0.25 Piperacillin/Tazobactam <=4 CT cervical spine wo con Reviewed date:05/03/2024 06:16:41 PM Interpretation: Performing Lab: Notes/Report: [address] [address] [address] Scan Report Signed Patient: Toña Ríos MR#: [id number] 2 : 1935 Acct:[id number] Age/Sex: 88 / F ADM Date: 05/03/24 Loc: HO.ED Attending Dr: Ordering Physician: Nicolasa Rodriguez NP Date of Service: 05/03/24 Procedure(s): CT cervical spine wo IV con Accession Number(s): [id number] cc: Jem Reid MD; Nicolasa Rodriguez NP [...] by: Apolinar Oliva DO 05/03/2024 06:02 PM [facility] Dictated By: Charles Oliva DO Signed By: <Electronically signed by Charles Oliva DO in OV> 05/03/24 1802 DD/ 1523 TD/TT: 05/03/24 1533 Senior Analytical Chemist: DEBI CT head/brain wo con Reviewed date:05/03/2024 06:16:59 PM Interpretation: Performing Lab: Notes/Report: [place] [address] [address] Scan Report Signed Patient: Toña Ríos MR#: [id number] 2 : 1935 Acct:[id number] Age/Sex: 88 / F ADM Date: 05/03/24 Loc: HO.ED Attending Dr: Ordering Physician: Nicolasa Rodriguez NP Date of Service: 05/03/24 Procedure(s): CT head/brain wo IV con Accession Number(s): [id number] cc: Jem Reid MD; Nicolasa Rodriguez NP [...] by: Apolinar Oliva DO 05/03/2024 06:02 PM [facility] Dictated By: Charles Oliva DO Signed By: <Electronically signed by Charles Oliva DO in OV> 05/03/24 1802 DD/ 1459 TD/TT: 05/03/24 1533 Senior Analytical Chemist: DEBI CT facial bones wo con Reviewed date:05/03/2024 06:17:06 PM Interpretation: Performing Lab: Notes/Report: [address] [address] [address] Scan Report Signed Patient: Toña Ríos MR#: [id number] 2 : 1935 Acct:[id number] Age/Sex: 88 / F ADM Date: 05/03/24 Loc: HO.ED Attending Dr: Ordering Physician: Nicolasa Rodriguez NP Date of Service: 05/03/24 Procedure(s): CT facial bones wo IV con Accession Number(s): [id number] cc: Jem Reid MD; Nicolasa Rodriguez NP [...] by: Apolinar Oliva DO 05/03/2024 06:02 PM [facility] Dictated By: Charles Oliva DO Signed By: <Electronically signed by Charles Oliva DO in OV> 05/03/24 1802 DD/ 1459 TD/TT: 05/03/24 1533 Senior Analytical Chemist: DEBI Complete Blood Count Auto Di ff Reviewed date:05/05/2024 12:04:27 PM Interpretation: Performing Lab:[facility], [address] [place] [phone] Notes/Report: White Blood Count 5.9 4.8-10.8 X10*3/uL [...] Panel Reviewed date:05/05/2024 11:58:12 AM Interpretation: Performing Lab:[facility], [address] [place] [phone] Notes/Report: Sodium 140 135-145 mmol/L Potassium 4.0 [...] Magnesium Reviewed date:05/05/2024 11:57:54 AM Interpretation: Performing Lab:[facility], [address] [place] [phone] Notes/Report: Magnesium 2.4 1.6-2.6 mg/dL MR head/brain wo con Reviewed date:05/05/2024 11:49:06 AM Interpretation: Performing Lab: Notes/Report: [address] [address] Magnetic Resonance Report Signed Patient: Toña Ríos MR#: [id number] 2 : 1935 Acct:[id number] Age/Sex: 88 / F ADM Date: 05/03/24 Loc: [facility] 359-[address]: Christelle Lambert MD Ordering Physician: Mj Seals MD Date of Service: 05/04/24 Procedure(s): MR head/brain wo con Accession Number(s): [id number] cc: Jem Reid MD; Mj Seals MD [...] by: Danish Moreno MD 05/04/2024 08:57 PM [facility] Dictated By: Danish Moreno MD Signed By: <Electronically signed by Danish Moreno MD in OV> 05/04/242056 DD/ 1300 TD/TT: 05/04/24 1345 Senior Analytical Chemist: Basic Metabolic Panel Reviewed date:05/07/2024 01:47:35 PM Interpretation: Performing Lab:[facility], [address] [place] [phone] Notes/Report: Sodium 141 135-145 mmol/L Potassium 4.4 [...] Hormone Reviewed date:05/07/2024 01:43:46 PM Interpretation: Performing Lab:[facility], [address] [place] [phone] Notes/Report: Thyroid Stimulating Hormone 2.26 0.32-4.0 uIU/mL TSH 3rd Generation ([facility] [employer]) UA ClnCatch+Micro w/rflx Cul t Reviewed date:05/17/2024 12:50:27 PM Interpretation: Performing Lab:[facility], [address] [place] [phone] Notes/Report: Urine, Clean Catch Color Urine Yellow Appearance Urine Clear PH 8.0 5.0-9.0 Glucose Urine UA Negative Negative mg/dL Urine Blood Large (3+) Negative Specific [place] - Urine 1.015 1.005-1.025 Urine Protein Negative [...] Problem Essential hypertensi on (I10) Active confirmed 77059561 Problem Prediabetes (R73.09) Active confirmed 9 631951 Problem Atrial fibrillation, unspecified type (I48.91) Active confirmed 64939158 Problem Pure hypercholesterolemia (E78.00) Active confirmed 389215936 Problem 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) Active confirmed 60185299 VITAL SIGNS Blood pressure diastolic 58 mm Hg 05/16/2024 Height 63 in 05/16/2024 Blood pressure systolic 92 mm Hg 05/16/2024 Weight 112 lbs 05/16/2024 BMI 19.84 kg/m2 05/16/2024 Encounters Encounter Location Date Provider Diagnosis Jem Reid MD [address] [place] [id number] 04/19/2024 Jem Reid Gross hematuria R31. 0 ; Acute UTI N39.0 ; Atrial fibrillation, unspecified type I48.91 ; Pure hypercholesterolemia E78.00 ; Prediabetes R73.09 ; Essential hypertension I10 and Depression screening Z13.31 Jem Reid MD [address] [place] [id number] 04/12/2024 Jem Reid Prediabetes R73.09 ; Pure hypercholesterolemia E78.00 and Essential hypertension I10 Jem Reid MD [address] [place] [id number] 05/10/2024 Jem Reid Acute UTI N39.0 Jem Reid MD [address] [place] [id number] 10/08/2023 Jem Reid Prediabetes R73.09 a nd Atrial fibrillation, unspecified type I48.91 Jem Reid MD [address] [place] [id number] 05/16/2024 Jem Reid After-treatment Z51. 89 ; Gross hematuria R31.0 and Loss of consciousness R40.20 Jem Reid MD [address] [place] [id number] 04/14/2024 Jem Reid MD [address] [place] [id number] 04/14/2024 Jem Reid MD [address] [place] [id number] 04/14/2024 Jem Reid MD [address] [place] [id number] 05/03/2024 Jem Reid MD [address] [place] [id number] 05/09/2024 Jem Reid MD [address] [facility] [address] [place], [place] [id number] 05/19/2024 Jem Reid ASSESSMENTS Encounter Date Diagnosis [...] Provider Name:Jem Mckee ier, 06/02/2024 08:30:00 AM, [address] [place] [address], Suite [facility], [place], [place], [phone], Provider Name:Jem Mckee ier, 06/17/2024 02:00:00 PM, [address] [place] [address], Suite [facility], [place], [place], [phone], Provider Name:Jem Mckee ier, 04/17/2025 07:45:00 AM, [address] [place] [address], Suite [facility], [place], [place], [phone], Provider Name:Jem Mckee ier, 04/24/2025 01:00:00 PM, [address] [place] [address], [place] [address], [place], [place], [phone], Insurance Providers Payer Name Payer Address Payer Phone Subscriber Number Group Number Insured Name Patient Relationship to Insured Coverage Start Date Coverage End Date MEDICARE NHIC [address] [place] [address] [id number] Toña Ríos Self - patient is the insured [facility] [address] [place] [phone] [id number] Toña Ríos Self - patient is the insured MEDICAL (GENERAL) HISTORY Medical History History ICD Code Refuses flu shot (07-06-12) Refuses pneumo (07-06-12) refuses colonoscoopy 2012 refuses pneumo, 2013 Surgical History Surgery Date(Month/Year) Left Total Hip Arthroplasty by Dr. Alexandru Young 09/2016
== END ==
LOC: HO.CARD 12:59
PROVIDERS: PCP Internal Medicine; Visit Provider Internal Medicine Cardiovascular Disease
DX: I48.92 Unspecified atrial flutter (principal)
CPT/HCPCS: 93242

== ENCOUNTER → 2024-05-30 13:04 | Outpatient (BNV) | payer MEDICARE, OTHER, SELFPAY | PROVIDERS: PCP Internal Medicine; Visit Provider Internal Medicine Cardiovascular Disease | DX: I49.1 Atrial premature depolarization (principal) | CPT/HCPCS: 93244 ==

== ENCOUNTER 2024-06-02 13:31 | Outpatient (REF) | payer MEDICARE, OTHER, SELFPAY ==
--- OUTSIDE RECORDS SUMMARY | 2024-06-02 13:38 | XMS_ITS ---
Author Organization Jem Reid MD Address [address] [place] [phone] Care Team Providers Care Ordnance Truck Installation Mechanic Name Role Phone Jem Reid Primary Care Provider REASON FOR VISIT U/A Encounters Encounter Location Date Provider Diagnosis Jem Reid MD [address] [facility] [address] [place] [id number] 06/02/2024 Jem Reid Hematuria R31.9 ASSESSMENTS Encounter Date Diagnosis Assessment Notes Treatment Notes Treatment Clinical Notes 06/02/2024 Hematuria (ICD-10 - R31.9) PLAN OF TREATMENT Pending Test Test Name Order Date UA ClnCatch+Micro w/rflx Cult 06/02/2024 Next Appt Details Provider Name:Jem aragon, 06/17/2024 02:00:00 PM, [address] [place] [address], [address] [place] [address], [phone], Provider Name:Jem aragon, 04/17/2025 07:45:00 AM, [address] [place] [address], [address], [phone], Provider Name:Jem aragon, 04/24/2025 01:00:00 PM, [address] [place] [address], [address], [phone],
--- OUTSIDE RECORDS SUMMARY | 2024-06-02 13:38 | XMS_ITS ---
Author Organization Jem Reid MD Address [address] [place], [place] [phone] Care Team Providers Care Snuff Container Inspector Name Role Phone Jem Reid Primary Care Provider ALLERGIES No Known Allergies RESULTS Component Value Reference Range Notes UA ClnCatch+Micro w/rflx Cul t Reviewed date:05/17/2024 12:50:27 PM Interpretation: Performing Lab:[facility], [address] [place] [phone] Notes/Report: Urine, Clean Catch Color Urine Yellow Appearance Urine Clear PH 8.0 5.0-9.0 Glucose Urine UA Negative Negative mg/dL Urine Blood Large (3+) Negative Specific [place] - Urine 1.015 1.005-1.025 Urine Protein Negative [...] Location Date Provider Diagnosis Jem Reid MD [address] [place] [address] [place] [id number] 05/16/2024 Jem Reid After-treatment Z51.89 ; Gross [...] Up: 1 months, Reason: Provider Name:Jem aragon, 06/17/2024 02:00:00 PM, [address] [place] [address], [address] [place] [address], [phone], Provider Name:Jem aragon, 04/17/2025 07:45:00 AM, [address] [place] [address], [address] [place] [address], [phone], Provider Name:Jem aragon, 04/24/2025 01:00:00 PM, [address] [place] [address], [address], [phone], Progress Notes * Examination Category Sub-Category Detail [...]
--- OUTSIDE RECORDS SUMMARY | 2024-06-02 13:38 | XMS_ITS ---
Author Organization Jem Reid MD Address [address] [place] [phone] Care Team Providers Care Foreign Broadcast Specialist Name Role Phone Jem Redi Primary Care Provider [phone] Encounters Encounter Location Date Provider Diagnosis Jem Reid MD [address] [facility] [address] [place] [id number] 05/19/2024 Jem Reid PLAN OF TREATMENT Next Appt Details Provider Name:Jem aragon, 06/17/2024 02:00:00 PM, [address] [place] [address], [address] [place] [address], [phone], Provider Name:Jem Mckee ier, 04/17/2025 07:45:00 AM, [address] [place] [address], [address] [place] [address], [phone], Provider Name:Jem aragon, 04/24/2025 01:00:00 PM, [address] [place] [address], [place] [address], [place], [place], [phone],
--- OUTSIDE RECORDS SUMMARY | 2024-06-02 13:38 | XMS_ITS | Patient Health Record ---
Author Organization Jem Reid MD Address [address] [place], [place] [id number] Care Team Providers Care Railroad Inspector Name Role Phone Jem Reid Primary Care Provider ALLERGIES No Known Allergies RESULTS Component Value Reference Range Notes Hemoglobin A1c Reviewed date:10/08/2023 01:34:13 PM Interpretation: Performing Lab: Notes/Report: Value Hemoglobin A1c 5.5 Glucose, finger stick Reviewed date:10/08/2023 01:23:43 PM Interpretation: Performing Lab: Notes/Report: Value 94 Urine Culture Reviewed date:04/14/2024 12:49:03 PM Interpretation: Performing Lab:[facility], [address] [place] [phone] Notes/Report: O:ESCCOL Escherichia coli Urine Culture Quant Urine Culture > 100,000 cfu/mL Ampicillin 8 Cefazolin 2 Cefepime <=0.12 Ceftriaxone <=0.25 Ciprofloxacin <=0.06 Gentamicin <=1 Nitrofurantoin <=16 Trimethoprim/Sulfamethoxa zole <=20 Complete Blood Count Auto Di ff Reviewed date:04/12/2024 04:50:38 PM Interpretation: Performing Lab:[facility], [address] [place] [phone] Notes/Report: White Blood Count 7.5 4.8-10.8 X10*3/uL [...] NRBC Abs Auto 0.000 0.0-0.012 X10*3/uL Comprehensive Tyro. Panel Fa st Reviewed date:04/12/2024 04:49:40 PM Interpretation: Performing Lab:[facility], [address] [place] [address], [place] [address] Notes/Report: Sodium 144 135-145 mmol/L Potassium 4.4 3.3-5.1 mmol/L Chloride 107 96-108 mmol/L Carbon Dioxide 25 22-29 mmol/L Anion Gap 16 12-20 Blood Urea Nitrogen 18 9-16 mg/dL Creatinine 0.74 0.5-1.4 mg/dL Estimated Glomerular Filt Rate > 60 NOTE: For -[place]at[place] individuals, multiply the result by 1.210. Chronic [...] Panel Reviewed date:04/12/2024 04:51:05 PM Interpretation: Performing Lab:[facility], [address] [place] [phone] Notes/Report: Triglycerides 87 <150 mg/dL Desirable Triglyceride: [...] Random Reviewed date:04/12/2024 04:50:01 PM Interpretation: Performing Lab:[address] [phone] Notes/Report: Creatinine Urine 23.52 Microalbumin Urine 41.0 Microalbum/Creatinine Ratio Ur 174.3 <30 ug/mg cr Albumin/Creatinine Ratio Reference Ranges: Normal: < 30 ug/mg creatinine Microalbuminuria: 30 - 300 ug/mg creatinine Clinical Albuminuria: > 300 ug/mg creatinine Hemoglobin A1c Reviewed date:04/12/2024 04:49:49 PM Interpretation: Performing Lab:[facility], [address] [place] [phone] Notes/Report: Hemoglobin A1c % 5.3 <6.0 % [...] average glucose, using the formula of the [id number] Average Glucose study (ADAG), Diabetes Care, Vol.31,#8, Jan. 2007 UA ClnCatch+Micro w/rflx Cul t Reviewed date:04/21/2024 10:28:41 AM Interpretation:CHEN 04/19 Performing Lab:[facility], [address] [place] [phone] Notes/Report: Urine, Clean Catch Color Urine Yellow Appearance Urine Clear PH 7.0 5.0-9.0 Glucose Urine UA Negative Negative mg/dL Urine Blood Large (3+) Negative Specific [place] - Urine <= 1.005 1.005-1.025 Urine Protein [...] be booked to a PH visit Performing Lab:[facility], [address] [place] [phone] Notes/Report: [id number] Urine, Clean Catch Color Urine RED Appearance Urine Turbid PH 6.5 5.0-9.0 Glucose Urine UA Negative Negative mg/dL Urine Blood Large (3+) Negative Specific [place] - Urine >= 1.030 1.005-1.025 Urine Protein [...] ff Reviewed date:05/03/2024 06:12:49 PM Interpretation: Performing Lab:[facility], [address] [place] [phone] Notes/Report: White Blood Count 7.1 4.8-10.8 X10*3/uL [...] INR Reviewed date:05/03/2024 06:12:09 PM Interpretation: Performing Lab:[facility], [address] [place] [phone] Notes/Report: Prothrombin Time 23.3 10.9-12.4 SEC INTERNATIONAL [...] Panel Reviewed date:05/03/2024 06:12:00 PM Interpretation: Performing Lab:[facility], [address] [place] [phone] Notes/Report: Sodium 138 135-145 mmol/L Potassium 4.2 [...] Sensitivity Reviewed date:05/05/2024 12:00:12 PM Interpretation: Performing Lab:[address] [phone] Notes/Report: Troponin-I High Sensitivity 9.0 <3.5-17.0 ng/L The [place] high sensitivity Troponin-I results should be used in conjunction with other diagnostic information such as ECG, clinical observations and information, and patient symptoms to aid in the diagnosis of [place]. Urine Culture Reviewed date:05/09/2024 12:34:43 PM Interpretation: Performing Lab:[address] [phone] Notes/Report: O:PSEAER Pseudomonas aeruginosa Urine Culture Quant Urine Culture > 100,000 cfu/mL Cefepime 2 Ciprofloxacin <=0.06 Gentamicin <=1 Meropenem <=0.25 Piperacillin/Tazobactam <=4 CT cervical spine wo con Reviewed date:05/03/2024 06:16:41 PM Interpretation: Performing Lab: Notes/Report: [address] [address] [address] Scan Report Signed Patient: Toña Ríos MR#: [id number] 2 : 1935 Acct:[id number] Age/Sex: 88 / F ADM Date: 05/03/24 Loc: HO.ED Attending Dr: Ordering Physician: Nicolasa Rodriguez NP Date of Service: 05/03/24 Procedure(s): CT cervical spine wo IV con Accession Number(s): [id number] cc: Jem Reid MD; Nicolasa Rodriguez NP [...] by: Apolinar Oliva DO 05/03/2024 06:02 PM [facility] Dictated By: Charles Oliva DO Signed By: <Electronically signed by Charles Oliva DO in OV> 05/03/24 1802 DD/ 1523 TD/TT: 05/03/24 1533 Lead Php Developer: DEBI CT head/brain wo con Reviewed date:05/03/2024 06:16:59 PM Interpretation: Performing Lab: Notes/Report: [place] [address] [address] Scan Report Signed Patient: Toña Ríos MR#: [id number] 2 : 1935 Acct:[id number] Age/Sex: 88 / F ADM Date: 05/03/24 Loc: HO.ED Attending Dr: Ordering Physician: Nicolasa Rodriguez NP Date of Service: 05/03/24 Procedure(s): CT head/brain wo IV con Accession Number(s): [id number] cc: Jem Reid MD; Nicolasa Rodriguez NP [...] by: Apolinar Oliva DO 05/03/2024 06:02 PM [facility] Dictated By: Charles Oliva DO Signed By: <Electronically signed by Charles Oliva DO in OV> 05/03/24 1802 DD/ 1459 TD/TT: 05/03/24 1533 Lead Php Developer: DEBI CT facial bones wo con Reviewed date:05/03/2024 06:17:06 PM Interpretation: Performing Lab: Notes/Report: [address] [address] [address] Scan Report Signed Patient: Toña Ríos MR#: [id number] 2 : 1935 Acct:[id number] Age/Sex: 88 / F ADM Date: 05/03/24 Loc: HO.ED Attending Dr: Ordering Physician: Nicolasa Rodriguez NP Date of Service: 05/03/24 Procedure(s): CT facial bones wo IV con Accession Number(s): [id number] cc: Jem Reid MD; Nicolasa Rodriguez NP [...] by: Apolinar Oliva DO 05/03/2024 06:02 PM [facility] Dictated By: Charles Oliva DO Signed By: <Electronically signed by Charles Oliva DO in OV> 05/03/24 1802 DD/ 1459 TD/TT: 05/03/24 1533 Lead Php Developer: DEBI Complete Blood Count Auto Di ff Reviewed date:05/05/2024 12:04:27 PM Interpretation: Performing Lab:[facility], [address] [place] [phone] Notes/Report: White Blood Count 5.9 4.8-10.8 X10*3/uL [...] Panel Reviewed date:05/05/2024 11:58:12 AM Interpretation: Performing Lab:[facility], [address] [place] [phone] Notes/Report: Sodium 140 135-145 mmol/L Potassium 4.0 [...] Magnesium Reviewed date:05/05/2024 11:57:54 AM Interpretation: Performing Lab:[facility], [address] [place] [phone] Notes/Report: Magnesium 2.4 1.6-2.6 mg/dL MR head/brain wo con Reviewed date:05/05/2024 11:49:06 AM Interpretation: Performing Lab: Notes/Report: [address] [address] Magnetic Resonance Report Signed Patient: Toña Ríos MR#: [id number] 2 : 1935 Acct:[id number] Age/Sex: 88 / F ADM Date: 05/03/24 Loc: [facility] 359-[address]: Christelle Lambert MD Ordering Physician: Mj Seals MD Date of Service: 05/04/24 Procedure(s): MR head/brain wo con Accession Number(s): [id number] cc: Jem Reid MD; Mj Seals MD [...] by: Danish Moreno MD 05/04/2024 08:57 PM [facility] Dictated By: Danish Moreno MD Signed By: <Electronically signed by Danish Moreno MD in OV> 05/04/242056 DD/ 1300 TD/TT: 05/04/24 1345 Lead Php Developer: Basic Metabolic Panel Reviewed date:05/07/2024 01:47:35 PM Interpretation: Performing Lab:[facility], [address] [place] [phone] Notes/Report: Sodium 141 135-145 mmol/L Potassium 4.4 [...] Hormone Reviewed date:05/07/2024 01:43:46 PM Interpretation: Performing Lab:[facility], [address] [place] [phone] Notes/Report: Thyroid Stimulating Hormone 2.26 0.32-4.0 uIU/mL TSH 3rd Generation ([facility]) UA ClnCatch+Micro w/rflx Cul t Reviewed date:05/17/2024 12:50:27 PM Interpretation: Performing Lab:[facility], [address] [place] [phone] Notes/Report: Urine, Clean Catch Color Urine Yellow Appearance Urine Clear PH 8.0 5.0-9.0 Glucose Urine UA Negative Negative mg/dL Urine Blood Large (3+) Negative Specific [place] - Urine 1.015 1.005-1.025 Urine Protein Negative [...] Problem Essential hypertensi on (I10) Active confirmed 07606665 Problem Prediabetes (R73.09) Active confirmed 9 696551 Problem Atrial fibrillation, unspecified type (I48.91) Active confirmed 79516859 Problem Pure hypercholesterolemia (E78.00) Active confirmed 581262631 Problem 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) Active confirmed 39495035 VITAL SIGNS Blood pressure diastolic 58 mm Hg 05/16/2024 Height 63 in 05/16/2024 Blood pressure systolic 92 mm Hg 05/16/2024 Weight 112 lbs 05/16/2024 BMI 19.84 kg/m2 05/16/2024 Encounters Encounter Location Date Provider Diagnosis Jem Reid MD [address] [place] [id number] 04/19/2024 Jem Reid Gross hematuria R31. 0 ; Acute UTI N39.0 ; Atrial fibrillation, unspecified type I48.91 ; Pure hypercholesterolemia E78.00 ; Prediabetes R73.09 ; Essential hypertension I10 and Depression screening Z13.31 Jem Reid MD [address] [place] [id number] 04/12/2024 Jem Reid Prediabetes R73.09 ; Pure hypercholesterolemia E78.00 and Essential hypertension I10 Jem Reid MD [address] [place] [id number] 05/10/2024 Jem Reid Acute UTI N39.0 Jem Reid MD [address] [place] [id number] 06/02/2024 Jem Reid Hematuria R31.9 Jme Reid MD [address] [place] [id number] 10/08/2023 Jem Reid Prediabetes R73.09 a nd Atrial fibrillation, unspecified type I48.91 Jem Reid MD [address] [place] [id number] 05/16/2024 Jem Reid After-treatment Z51. 89 ; Gross hematuria R31.0 and Loss of consciousness R40.20 Jem Reid MD [address] [place] [id number] 04/14/2024 Jem Reid MD [address] [place] [id number] 04/14/2024 Jem Reid MD [address] [place] [id number] 04/14/2024 Jem Reid MD [address] [place] [id number] 05/03/2024 Jem Reid MD [address] [place], [place] [id number] 05/09/2024 Jem Reid MD [address] [place] [id number] 05/19/2024 Jem Reid ASSESSMENTS Encounter Date Diagnosis [...] 04/12/2024 Essential hypertensi on (ICD-10 - I10) 06/02/2024 Hematuria (ICD-10 - R31.9) 05/16/2024 Loss of consciousnes s (ICD-10 - [...] Urine Culture 05/10/2024 Next Appt Details Provider Name:Jemze Mckee ier, 06/17/2024 02:00:00 PM, [address] [place] [address], [address], [phone], Provider Name:Jem Medrano Rafi ier, 04/17/2025 07:45:00 AM, [address] [place] [address], [place] [address], [place], [place], [phone], Provider Name:Jem Mitchell Rafi ier, 04/24/2025 01:00:00 PM, [address] [place] [address], [place] [address], [place], [place], [phone], Insurance Providers Payer Name Payer Address Payer Phone Subscriber Number Group Number Insured Name Patient Relationship to Insured Coverage Start Date Coverage End Date [employer] [address] [place] [address] [id number] Toña Ríos Self - patient is the insured [facility] [address] [place] [phone] [id number] Toña Ríos Self - patient is the insured MEDICAL (GENERAL) HISTORY Medical History History ICD Code Refuses flu shot (07-06-12) Refuses pneumo (07-06-12) refuses colonoscoopy 2012 refuses pneumo, 2013 Surgical History Surgery Date(Month/Year) Left Total Hip Arthroplasty by Dr. Alexandru Young 09/2016
[2024-06-02 13:47] LABS: Appearance Urine Clear; Color Urine Yellow; Glucose Urine UA Negative (Negative); Leukocyte Esterase Urine Negative (Negative); Nitrite Urine Negative (Negative); UMIC TRIGGER UACC YES; Urine Blood Moderate (2+) (Negative); Urine Ketones Negative (Negative); Urine Protein Trace mg/dL (Neg-Trace)
[2024-06-02 13:53] LABS: Bacteria Urine None Seen (None Seen); Hyaline Casts Urine 0-2 /LPF (0-2); RBC Urine >20 /HPF (0-2); Squamous Epithelial Cell Urine 0-2 /HPF (0-2); WBC Urine 0-5 /HPF (0-5)
== END 2024-06-02 13:32 | disposition home or self-care (01) ==
LOC: HO.LNP 13:31
PROVIDERS: Visit Provider Internal Medicine
DX: R31.9 Hematuria, unspecified (principal)
CPT/HCPCS: 81001

== ENCOUNTER 2024-06-15 13:44 | Outpatient (AMB) | payer MEDICARE, OTHER, SELFPAY ==
--- OUTSIDE RECORDS SUMMARY | 2024-06-15 13:48 | XMS_ITS ---
Author Organization Jem Reid MD Address [address] [place] [phone] Care Team Providers Care Secretary Bookkeeper Name Role Phone Jem Reid Primary Care Provider [phone] Encounters Encounter Location Date Provider Diagnosis Jem Reid MD [facility] [address] [place] [id number] 05/19/2024 Jem Reid PLAN OF TREATMENT Next Appt Details Provider Name:Jem aragon, 06/17/2024 02:00:00 PM, [address] [place] [address], [address] [place] [address], [phone], Provider Name:Jem Mckee ier, 04/17/2025 07:45:00 AM, [address] [place] [address], [address] [place] [address], [phone], Provider Name:Jem aragno, 04/24/2025 01:00:00 PM, [address] [place] [address], [place] [address], [place], [place], [phone],
--- OUTSIDE RECORDS SUMMARY | 2024-06-15 13:48 | XMS_ITS ---
Author Organization Jem Reid MD Address [address] [place], [place] [phone] Care Team Providers Care Psychology Clinician Name Role Phone Jem Reid Primary Care Provider RESULTS Component Value Reference Range Notes UA ClnCatch+Micro w/rflx Cul t (Not yet reviewed by provider) Interpretation:CBACK 06/17/24 Performing Lab:[facility], [address] [place] [phone] Notes/Report: Urine, Clean Catch Color Urine Yellow Appearance Urine Clear PH 7.0 5.0-9.0 Glucose Urine UA Negative Negative mg/dL Urine Blood Moderate (2+) Negative Specific [place] - Urine 1.020 1.005-1.025 Urine Protein Trace [...] Reid MD [address] [place], [place] [id number] 06/02/2024 Jem Reid Hematuria R31.9 ASSESSMENTS Encounter Date Diagnosis Assessment Notes Treatment Notes Treatment Clinical Notes 06/02/2024 Hematuria (ICD-10 - R31.9) PLAN OF TREATMENT Pending Test Test Name Order Date UA ClnCatch+Micro w/rflx Cult 06/02/2024 Next Appt Details Provider Name:Jem aragon, 06/17/2024 02:00:00 PM, [address] [place] [address], Suite [facility], [place], [place], [phone], Provider Name:Jem rodriguezr, 04/17/2025 07:45:00 AM, [address] [place] [address], [address], [place], [phone], Provider Name:Jem aragon, 04/24/2025 01:00:00 PM, [address] [place] [address], [address], [place], [phone],
--- OUTSIDE RECORDS SUMMARY | 2024-06-15 13:48 | XMS_ITS ---
Author Organization Jem Reid MD Address [address] [place], [place] [phone] Care Team Providers Care Terminal Clerk Name Role Phone Jem Reid Primary Care Provider [phone] ALLERGIES No Known Allergies RESULTS Component Value Reference Range Notes UA ClnCatch+Micro w/rflx Cul t Reviewed date:05/17/2024 12:50:27 PM Interpretation: Performing Lab:[facility], [address] [place] [phone] Notes/Report: Urine, Clean Catch Color Urine Yellow Appearance Urine Clear PH 8.0 5.0-9.0 Glucose Urine UA Negative Negative mg/dL Urine Blood Large (3+) Negative Specific [place] - Urine 1.015 1.005-1.025 Urine Protein Negative [...] Location Date Provider Diagnosis Jem Reid MD [address] [place] [address] [place] [phone] 05/16/2024 Jem Reid After-treatment Z51.89 ; Gross [...] Reason: Provider Name:Jem aragon, 06/17/2024 02:00:00 PM, [address] [place] [address], [address] [place] [address], [phone], Provider Name:Jem aragon, 04/17/2025 07:45:00 AM, [address] [place] [address], [address] [place] [address], [phone], Provider Name:Jem aragon, 04/24/2025 01:00:00 PM, [address] [place] [address], [address], [phone], Progress Notes * Examination Category Sub-Category Detail [...]
--- OUTSIDE RECORDS SUMMARY | 2024-06-15 13:49 | XMS_ITS | Patient Health Record ---
Author Organization Jem Reid MD Address [address] [place], [place] [id number] Care Team Providers Care Eyeglass Assembler Name Role Phone Jem Reid Primary Care Provider ALLERGIES No Known Allergies RESULTS Component Value Reference Range Notes Hemoglobin A1c Reviewed date:10/08/2023 01:34:13 PM Interpretation: Performing Lab: Notes/Report: Value Hemoglobin A1c 5.5 Glucose, finger stick Reviewed date:10/08/2023 01:23:43 PM Interpretation: Performing Lab: Notes/Report: Value 94 Urine Culture Reviewed date:04/14/2024 12:49:03 PM Interpretation: Performing Lab:[facility], [address] [place] [phone] Notes/Report: O:ESCCOL Escherichia coli Urine Culture Quant Urine Culture > 100,000 cfu/mL Ampicillin 8 Cefazolin 2 Cefepime <=0.12 Ceftriaxone <=0.25 Ciprofloxacin <=0.06 Gentamicin <=1 Nitrofurantoin <=16 Trimethoprim/Sulfamethoxa zole <=20 Complete Blood Count Auto Di ff Reviewed date:04/12/2024 04:50:38 PM Interpretation: Performing Lab:[facility], [address] [place] [phone] Notes/Report: White Blood Count 7.5 4.8-10.8 X10*3/uL [...] NRBC Abs Auto 0.000 0.0-0.012 X10*3/uL Comprehensive [place]. Panel Fa st Reviewed date:04/12/2024 04:49:40 PM Interpretation: Performing Lab:[facility], [address] [place] [address], [place] [address] Notes/Report: Sodium 144 135-145 mmol/L Potassium 4.4 3.3-5.1 mmol/L Chloride 107 96-108 mmol/L Carbon Dioxide 25 22-29 mmol/L Anion Gap 16 12-20 Blood Urea Nitrogen 18 9-16 mg/dL Creatinine 0.74 0.5-1.4 mg/dL Estimated Glomerular Filt Rate > 60 NOTE: For -Canadian individuals, multiply the result by 1.210. Chronic [...] Panel Reviewed date:04/12/2024 04:51:05 PM Interpretation: Performing Lab:[facility], [address] [place] [phone] Notes/Report: Triglycerides 87 <150 mg/dL Desirable Triglyceride: [...] Random Reviewed date:04/12/2024 04:50:01 PM Interpretation: Performing Lab:[address] [address] Notes/Report: Creatinine Urine 23.52 Microalbumin Urine 41.0 Microalbum/Creatinine Ratio Ur 174.3 <30 ug/mg cr Albumin/Creatinine Ratio Reference Ranges: Normal: < 30 ug/mg creatinine Microalbuminuria: 30 - 300 ug/mg creatinine Clinical Albuminuria: > 300 ug/mg creatinine Hemoglobin A1c Reviewed date:04/12/2024 04:49:49 PM Interpretation: Performing Lab:[facility], [address] [place] [phone] Notes/Report: Hemoglobin A1c % 5.3 <6.0 % [...] average glucose, using the formula of the [id number]-[id number] Average Glucose study (ADAG), Diabetes Care, Vol.31,#8, Jan. 2007 UA ClnCatch+Micro w/rflx Cul t Reviewed date:04/21/2024 10:28:41 AM Interpretation:CHEN 04/19 Performing Lab:[facility], [address] [place] [phone] Notes/Report: Urine, Clean Catch Color Urine Yellow Appearance Urine Clear PH 7.0 5.0-9.0 Glucose Urine UA Negative Negative mg/dL Urine Blood Large (3+) Negative Specific [place] - Urine <= 1.005 1.005-1.025 Urine Protein [...] ff Reviewed date:05/03/2024 06:12:49 PM Interpretation: Performing Lab:[facility], [address] [place] [phone] Notes/Report: White Blood Count 7.1 4.8-10.8 X10*3/uL [...] INR Reviewed date:05/03/2024 06:12:09 PM Interpretation: Performing Lab:[address] [address] Notes/Report: Prothrombin Time 23.3 10.9-12.4 SEC INTERNATIONAL [...] Panel Reviewed date:05/03/2024 06:12:00 PM Interpretation: Performing Lab:[address] [place] [address] Notes/Report: Sodium 138 135-145 mmol/L Potassium 4.2 [...] Sensitivity Reviewed date:05/05/2024 12:00:12 PM Interpretation: Performing Lab:[address] [address] Notes/Report: Troponin-I High Sensitivity 9.0 <3.5-17.0 ng/L The [place] high sensitivity Troponin-I results should be used in conjunction with other diagnostic information such as ECG, clinical observations and information, and patient symptoms to aid in the diagnosis of [place]. Urine Culture Reviewed date:05/09/2024 12:34:43 PM Interpretation: Performing Lab:[address] [address] Notes/Report: O:PSEAER Pseudomonas aeruginosa Urine Culture Quant Urine Culture > 100,000 cfu/mL Cefepime 2 Ciprofloxacin <=0.06 Gentamicin <=1 Meropenem <=0.25 Piperacillin/Tazobactam <=4 UA ClnCatch+Micro w/rflx Cul t Reviewed date:06/03/2024 08:00:29 AM Interpretation:will be booked to a PH visit Performing Lab:[facility], [address] [place] [phone] Notes/Report: [id number] Urine, Clean Catch Color Urine RED Appearance Urine Turbid PH 6.5 5.0-9.0 Glucose Urine UA Negative Negative mg/dL Urine Blood Large (3+) Negative Specific [place] - Urine >= 1.030 1.005-1.025 Urine Protein [...] Seen Hyaline Casts Urine 0-2 0-2 /LPF CT cervical spine wo con Reviewed date:05/03/2024 06:16:41 PM Interpretation: Performing Lab: Notes/Report: [address] [address] [address] Scan Report Signed Patient: Toña Ríos MR#: [id number] 2 : 1935 Acct:[id number] Age/Sex: 88 / F ADM Date: 05/03/24 Loc: HO.ED Attending Dr: Ordering Physician: Nicolasa Rodriguez NP Date of Service: 05/03/24 Procedure(s): CT cervical spine wo IV con Accession Number(s): [id number] cc: Jem Reid MD; Nicolasa Rodriguez NP [...] by: Apolinar Oliva DO 05/03/2024 06:02 PM [facility] Dictated By: Charles Oliva DO Signed By: <Electronically signed by Charles Oliva DO in OV> 05/03/24 1802 DD/ 1523 TD/TT: 05/03/24 1533 Pipe Jeeper: DEBI CT head/brain wo con Reviewed date:05/03/2024 06:16:59 PM Interpretation: Performing Lab: Notes/Report: [place] [address] [address] Scan Report Signed Patient: Toña Ríos MR#: [id number] 2 : 1935 Acct:[id number] Age/Sex: 88 / F ADM Date: 05/03/24 Loc: HO.ED Attending Dr: Ordering Physician: Nicolasa Rodriguez NP Date of Service: 05/03/24 Procedure(s): CT head/brain wo IV con Accession Number(s): [id number] cc: Jem Reid MD; Nicolasa Rodriguez NP [...] by: Apolinar Oliva DO 05/03/2024 06:02 PM [facility] Dictated By: Charles Oliva DO Signed By: <Electronically signed by Charles Oliva DO in OV> 05/03/24 1802 DD/ 1459 TD/TT: 05/03/24 1533 Pipe Jeeper: DEBI CT facial bones wo con Reviewed date:05/03/2024 06:17:06 PM Interpretation: Performing Lab: Notes/Report: [place] [address] [address] Scan Report Signed Patient: Toña Ríos MR#: [id number] 2 : 1935 Acct:[id number] Age/Sex: 88 / F ADM Date: 05/03/24 Loc: HO.ED Attending Dr: Ordering Physician: Nicolasa Rodriguez NP Date of Service: 05/03/24 Procedure(s): CT facial bones wo IV con Accession Number(s): [id number] cc: Jem Reid MD; Nicolasa Rodriguez NP [...] by: Apolinar Oliva DO 05/03/2024 06:02 PM [facility] Dictated By: Charles Oliva DO Signed By: <Electronically signed by Charles Oliva DO in OV> 05/03/24 1802 DD/ 1459 TD/TT: 05/03/24 1533 Pipe Jeeper: DEBI Complete Blood Count Auto Di ff Reviewed date:05/05/2024 12:04:27 PM Interpretation: Performing Lab:[facility], [address] [place] [phone] Notes/Report: White Blood Count 5.9 4.8-10.8 X10*3/uL [...] Panel Reviewed date:05/05/2024 11:58:12 AM Interpretation: Performing Lab:[address] [address] Notes/Report: Sodium 140 135-145 mmol/L Potassium 4.0 [...] Magnesium Reviewed date:05/05/2024 11:57:54 AM Interpretation: Performing Lab:[facility], [address] [place] [phone] Notes/Report: Magnesium 2.4 1.6-2.6 mg/dL MR head/brain wo con Reviewed date:05/05/2024 11:49:06 AM Interpretation: Performing Lab: Notes/Report: [address] [place] [address] Magnetic Resonance Report Signed Patient: Toña Ríos MR#: [id number] 2 : 1935 Acct:[id number] Age/Sex: 88 / F ADM Date: 05/03/24 Loc: [facility] 359-[address]: Christelle Lambert MD Ordering Physician: Mj Seals MD Date of Service: 05/04/24 Procedure(s): MR head/brain wo con Accession Number(s): [id number] cc: Jem Reid MD; Mj Seals MD [...] by: Danish Moreno MD 05/04/2024 08:57 PM [facility] Dictated By: Danish Moreno MD Signed By: <Electronically signed by Danish Mroeno MD in OV> 05/04/242056 DD/ 1300 TD/TT: 05/04/24 1345 Pipe Jeeper: Basic Metabolic Panel Reviewed date:05/07/2024 01:47:35 PM Interpretation: Performing Lab:[facility], [address] [place] [phone] Notes/Report: Sodium 141 135-145 mmol/L Potassium 4.4 [...] Hormone Reviewed date:05/07/2024 01:43:46 PM Interpretation: Performing Lab:[address] [address] Notes/Report: Thyroid Stimulating Hormone 2.26 0.32-4.0 uIU/mL TSH 3rd Generation ([facility]) UA ClnCatch+Micro w/rflx Cul t Reviewed date:05/17/2024 12:50:27 PM Interpretation: Performing Lab:[address] [address] Notes/Report: Urine, Clean Catch Color Urine Yellow Appearance Urine Clear PH 8.0 5.0-9.0 Glucose Urine UA Negative Negative mg/dL Urine Blood Large (3+) Negative Specific [place] - Urine 1.015 1.005-1.025 Urine Protein Negative [...] yet reviewed by provider) Interpretation:CBACK 06/17/24 Performing Lab:[address] [place] [address] Notes/Report: Urine, Clean Catch Color Urine Yellow Appearance Urine Clear PH 7.0 5.0-9.0 Glucose Urine UA Negative Negative mg/dL Urine Blood Moderate (2+) Negative Specific [place] - Urine 1.020 1.005-1.025 Urine Protein Trace [...] Problem Essential hypertensi on (I10) Active confirmed 44103395 Problem Prediabetes (R73.09) Active confirmed 9 478745 Problem Atrial fibrillation, unspecified type (I48.91) Active confirmed 80622699 Problem Pure hypercholesterolemia (E78.00) Active confirmed 697463410 Problem 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) Active confirmed 60455420 VITAL SIGNS Blood pressure diastolic 58 mm Hg 05/16/2024 Height 63 in 05/16/2024 Blood pressure systolic 92 mm Hg 05/16/2024 Weight 112 lbs 05/16/2024 BMI 19.84 kg/m2 05/16/2024 Encounters Encounter Location Date Provider Diagnosis Jem Reid MD [address] [place] [id number] 04/19/2024 Jem Reid Gross hematuria R31. 0 ; Acute UTI N39.0 ; Atrial fibrillation, unspecified type I48.91 ; Pure hypercholesterolemia E78.00 ; Prediabetes R73.09 ; Essential hypertension I10 and Depression screening Z13.31 Jem Reid MD [address] [place] [id number] 04/12/2024 Jem Reid Prediabetes R73.09 ; Pure hypercholesterolemia E78.00 and Essential hypertension I10 Jem Reid MD [address] [place] [id number] 05/10/2024 Jem Reid Acute UTI N39.0 Jem Reid MD [address] [place] [id number] 06/02/2024 Jem Alinaardier Hematuria R31.9 Jem Reid MD [address] [place] [id number] 10/08/2023 Jem Reid Prediabetes R73.09 a nd Atrial fibrillation, unspecified type I48.91 Jem Reid MD [address] [place] [id number] 05/16/2024 Jem Reid After-treatment Z51. 89 ; Gross hematuria R31.0 and Loss of consciousness R40.20 Jem Reid MD [address] [place] [id number] 04/14/2024 Jem Reid MD [address] [place] [id number] 04/14/2024 Jem Reid MD [address] [place] [id number] 04/14/2024 Jem Reid MD [address] [place] [id number] 05/03/2024 Jem Reid MD [address] [id number] 05/09/2024 Jem Reid MD [address] [place] [id number] 05/19/2024 Jem Reid ASSESSMENTS Encounter Date Diagnosis [...] Order Date UA ClnCatch+Micro w/rflx Cult 06/02/2024 Urinalysis and Microscopic 05/10/2024 Urine Culture 05/10/2024 Next Appt Details Provider Name:Jem aragon, 06/17/2024 02:00:00 PM, [address] [place] [address], [address], [phone], Provider Name:Jem aragon, 04/17/2025 07:45:00 AM, [address] [place] [address], [place] [address], [place], [place], [phone], Provider Name:Jem rodriguezr, 04/24/2025 01:00:00 PM, [address] [place] [address], [address], [phone], Insurance Providers Payer Name Payer Address Payer Phone Subscriber Number Group Number Insured Name Patient Relationship to Insured Coverage Start Date Coverage End Date MEDICARE NHIC [address] [place] [address] [id number] Toña Ríos Self - patient is the insured [facility] [address] [place] [address] [id number] Toña Ríos Self - patient is the insured MEDICAL (GENERAL) HISTORY Medical History History ICD Code Refuses flu shot (07-06-12) Refuses pneumo (07-06-12) refuses colonoscoopy 2012 refuses pneumo, 2013 Surgical History Surgery Date(Month/Year) Left Total Hip Arthroplasty by Dr. Alexandru Young 09/2016
[2024-06-15 14:03] VITALS: BP 110/62; PULSE 64; BMI 19.8
--- NOTE | 2024-06-15 14:03 | MHC.OFFVIS ---
Vital Signs 06/15/24 14:03 Height 5 ft 2 in Weight 108 lb 0.424 oz BMI 19.8 BP 110/62 Blood Pressure Location Lt brachial Position Sitting Pulse 64 Intake Visit Reasons: 6 mth f/up Intake Note: Follow-up with ekg dx afib Linen Tech Required: No Allergies No Known Allergies [No Known Allergies*] Allergy (Unverified 05/03/24 14:59) Medication List - Last Reconciled 06/15/24 by Vic Stanley MD acetaminophen 975 mg (3 x 325 mg) PO Q6H PRN amiodarone 200 mg PO BID rivaroxaban (Xarelto) 15 mg PO DAILY@1700 HPI Comments Details: Toña comes for follow-up. She is status post cardioversion currently on amiodarone. As per the fami, both the daughter and the she has been doing extremely well. She has lot more alert less tired more functional since the cardioversion. She is maintaining rhythm. She has no side effects to the therapy. No fall issues as long as she walks with help of a walker. No heart failure symptoms. No worsening shortness of breath, orthopnea, PND. No lightheadedness, syncope. No overt bleeding issues. No reported chest pain. Patient continues to have memory issues. PENDING SALE TO [facility] Medical History (Updated 06/15/24 @ 14:31 by Vic Stanley MD) Atrial flutter with rapid ventricular response Paroxysmal atrial fibrillation Persistent atrial fibrillation History of cardioversion Surgical History History of hip surgery Family History Father No problems noted. Mother No problems noted. Social History Household Members: Spouse Housing: House Are you a primary urgent care nurse practitioner to a significant other at home: No Do you presently have visiting nurse or other home services: No Patient Tobacco Use Status: Never used Tobacco service: No Review of Systems Const Denies chills, Denies fatigue, Denies fever(s), Denies frequent falls, Denies weakness, Denies weight gain and Denies weight loss ENT Denies dizziness Card Denies chest pain, Denies leg edema, Denies lightheadedness, Denies palpitations, Denies dyspnea, Denies dyspnea on exertion, Denies orthopnea and Denies other (loss of consciousness) Resp Denies cough, Denies dyspnea and Denies dyspnea on exertion GI Denies hematochezia and Denies change in stool character Musc Denies abnormal gait, Denies muscle weakness, Denies numbness, Denies radiating pain into limb and Denies tingling Neuro Denies abnormal gait, Denies dizziness, Denies frequent falls, Denies numbness, Denies tingling and Denies weakness Endo Denies fatigue and Denies palpitations Physical Exam Vital Signs: Last Vital Signs Pulse 64 06/15/24 14:03 BP 110/62 06/15/24 14:03 BMI result Body Mass Index 19.8 Const General: cooperative, comfortable, no acute distress, alert and awake Nutritional Appearance: thin, underweight and other (Frail elderly woman) Neck Neck: Yes supple and Yes no JVD Chest Chest palpation & inspection: normal inspection of the chest Resp Effort & Inspection: normal respiratory effort Auscultation: clear to auscultation bilaterally Cardio Jugular venous distension: no JVD Rhythm: abnormal rhythm irregularly irregular Heart sounds: S1 normal heart sound present, S2 normal heart sound present, no click, no gallops and no murmurs GI Auscultation: normal bowel sounds Neuro General: no focal motor deficits Extrem General: Yes no clubbing, cyanosis or edema Psych Appearance: grossly normal Office Procedures EKG Details: EKG shows normal sinus rhythm with sinus arrhythmia [id number], Complete Assessment & Plan Assessment & Plan (1) Paroxysmal atrial fibrillation: Code(s): I48.0 - Paroxysmal atrial fibrillation Category: Medical Plan: Paroxysmal atrial fibrillation doing extremely well with rhythm control approach as per the family. Much more alert and awake and participating in the day-to-day activities. Continue rhythm control approach. Continue amiodarone therapy. In 6 months if she maintains rhythm will pursue to reduce dose of amiodarone to reduce long-term toxicity. Continue current dose of Xarelto at 15 mg daily which is renally adjusted given her GFR of less than 50 mL/minute. Avoidance of stimulants was discussed encouraged to maintain activity level. Fall prevention techniques were discussed. Follow up in the clinic in 6 months time, sooner p.r.n.. Thank you for allowing me to partake in his Medications: Changed From amiodarone continue amiodarone 400 mg( 2 tabs ) po bid until 05/11/24, then switch to amiodarone 200 mg (1 tabs) daily afterwards. 400 mg (2 x 200 mg) PO BID 90 tabs 0RF To amiodarone 200 mg PO BID Coding Level of Care Code Est Pt Level 4 (62113) Complex EM visit Add On G2211 Diagnoses Paroxysmal atrial fibrillation I48.0 CPT Codes EKG - CPT: 85688-[id number], Complete ([id number])
== END 2024-06-15 14:30 | disposition home or self-care (01) ==
PROVIDERS: PCP Internal Medicine; Visit Provider Internal Medicine Cardiovascular Disease
DX: I48.0 Paroxysmal atrial fibrillation (principal)
CPT/HCPCS: 93010; 99214; G2211

== ENCOUNTER → 2024-06-15 13:44 | Outpatient (BNVA) | payer MEDICARE, OTHER, SELFPAY | PROVIDERS: PCP Internal Medicine; Visit Provider Internal Medicine Cardiovascular Disease | DX: I48.0 Paroxysmal atrial fibrillation (principal) | CPT/HCPCS: 93005; 99212 ==

== ENCOUNTER 2024-06-24 13:24 | Inpatient (IN) | payer MEDICARE, OTHER, SELFPAY ==
--- NOTE | ~2024-06-24 | CT_ITS ---
EXAMINATION: CT CERVICAL SPINE WITHOUT CONTRAST CLINICAL INFORMATION: Trauma to neck. COMPARISON: 05/03/2024. TECHNIQUE: Spiral CT of the cervical spine was performed in axial plane without IV contrast. Sagittal, coronal, and thin section axial reformatted images were constructed from the axial data set. This CT examination was performed using dose optimization techniques as appropriate, variously including the following: *Automated exposure control *Adjustment of mA and/or kV according to patient size (this includes techniques or standardized protocols for targeted exams where dose is matched to indication/reason for exam; i.e. extremities or head) *Use of iterative reconstruction technique FINDINGS: Mild reversal of the normal lordosis centered at C4. No scoliosis. No fracture, compression deformity, evidence of traumatic subluxation, or suspicious focal bone lesion. There is a 2 mm degenerative appearing anterolisthesis of C3 on C4. There is a 2 mm degenerative retrolisthesis C5 on C6. There is a 3 mm degenerative anterolisthesis C6 on C7. Normal facet alignment. Multilevel hypertrophic degenerative facet changes most significant on the right at C3-4, and on the left at C4-5. Moderate to severe disc degeneration present focally C4-5 and C5-6. Arthritic changes present at the atlantoaxial joint. No fracture or malalignment. Craniocervical junction is intact. No prevertebral or paravertebral soft tissue abnormalities. Mild carotid bulb calcifications. Normal thyroid. Imaged lung apices clear. CT/CT cervical spine wo IV con IMPRESSION: 1. No CT evidence of acute cervical spine fracture or injury. 2. Degenerative spondylosis. Electronically signed by: Obdulio Schultz MD 06/24/2024 04:29 PM [facility]
--- NOTE | ~2024-06-24 | CT_ITS ---
EXAMINATION: CT HEAD WITHOUT CONTRAST CLINICAL INFORMATION: Head trauma. COMPARISON: 05/03/2024. TECHNIQUE: Contiguous axial imaging was performed from the skull base to vertex without intravenous administration of contrast. This CT examination was performed using dose optimization techniques as appropriate, variously including the following: *Automated exposure control *Adjustment of mA and/or kV according to patient size (this includes techniques or standardized protocols for targeted exams where dose is matched to indication/reason for exam; i.e. extremities or head) *Use of iterative reconstruction technique FINDINGS: There is no evidence of intracranial hemorrhage or extra-axial fluid collection. There is no mass effect, or edema. No CT evidence of acute territorial infarct. Ventricles, sulci, and cisterns somewhat diffusely prominent, consistent with age-related involutional changes. No hydrocephalus. No midline shift. Negative hyperdense MCA sign. Negative insular ribbon sign. 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 Mild to moderate low attenuating supratentorial white matter foci in keeping with small vessel ischemia. Partial empty sella noted. There is thinning of the corpus callosum. Mild atheromatous calcification of the bilateral carotid siphons and V4 segments vertebral arteries bilaterally. Globes and orbital contents image normally. No extracranial soft tissue abnormalities. The paranasal sinuses, mastoid air cells, and tympanic cavities are normally aerated. No suspicious bony abnormalities. No fractures. CT/CT head/brain wo IV con IMPRESSION: 1. No acute intracranial abnormality. 2. Stable chronic changes. Electronically signed by: Obdulio Schultz MD 06/24/2024 04:40 PM [facility]
--- NOTE | ~2024-06-24 | XR_ITS ---
EXAMINATION: XR CHEST CLINICAL INFORMATION: fall COMPARISON: 07/21/2016. TECHNIQUE: Frontal view of the chest was obtained. FINDINGS: Cardiac, hilar, and mediastinal contours appear normal. There is aortic calcification and mild tortuosity. The lungs appear clear bilaterally aside from minimal left base atelectasis. No effusion or pneumothorax. There are no acute soft tissue or bony findings. No fractures seen. Degenerative changes of the spine and left shoulder joint. XR/XR chest 1V IMPRESSION: No active disease or acute posttraumatic findings. Electronically signed by: Obdulio Schultz MD 06/24/2024 04:43 PM [facility]
--- NOTE | ~2024-06-24 | XR_ITS ---
CLINICAL HISTORY: fecal impaction 1 view abdomen Comparison: None Findings: Two films were obtained. No significant small bowel dilatation. Large amount of stool throughout the colon. No radiopaque foreign body. There is a 10 x 8 mm calcific density inferior to the right L2 transverse process. There are several pelvic phleboliths. There are bilateral total hip arthroplasties. There are cerclage wires on the left. Nonspecific left basilar opacities. IMPRESSION: 1. Large colonic stool burden. 2. Nonobstructive bowel gas pattern. 3. 10 x 8 mm calcific density in the medial right upper quadrant may be gallbladder, renal or mesenteric in origin. Recommend clinical correlation This document has been electronically signed by: Joan Mcdonald DO on 06/24/2024 17:33:20
[2024-06-24 13:43] VITALS: BP 118/65; BP 97/50; PULSE 70; PULSE 75; RESP 16; TEMP 36.6; O2SAT 100; O2SAT 96; BMI 27.4
[2024-06-24 14:01] VITALS: BP 97/50; PULSE 70; RESP 16; TEMP 36.6; O2SAT 96
--- NOTE | 2024-06-24 14:27 | ECG_ITS ---
Test Reason : FALL Blood Pressure : */* mmHG Vent. Rate : 70 BPM Atrial Rate : 70 BPM P-R Int : 152 ms QRS Dur : 66 ms QT Int : 396 ms P-R-T Axes : 79 45 58 degrees QTcB Int : 427 ms Sinus rhythm with Premature atrial complexes Possible Anterior infarct , age undetermined Abnormal ECG When compared with ECG of 20-May-2024 14:17, No significant change was found Referred By: Hanna Harrington Electronically Signed By: Ty Jackson
--- NOTE | 2024-06-24 15:06 | MHC.CM.ED ---
Patient is currently in ER. Received notification from Bonnie MAYO that patient is active with their agency. Return referral made in [facility] so they can follow for d/c needs.
[2024-06-24 15:37] LABS: MANUAL DIFF FLAG NO
[2024-06-24 15:38] LABS: Basophils Percent Auto 0.1 % (0-2); Hematocrit 41.3 % (37.0-47.0); Hemoglobin 13.7 g/dl (12.0-16.0); Imm Gran Abs Auto 0.04 X10*3/uL (0.00-0.03); Imm Gran Pct Auto 0.6 % (0.0-0.4); Lymphocytes Absolute Auto 1.1 X10*3/uL (1.2-4.9); Lymphocytes Percent Auto 16.6 % (20-40); Mean Corpuscular HGB Conc 33.2 g/dl (31.0-35.0); Mean Corpuscular Hemoglobin 30.8 pg (27.0-33.0); Mean Corpuscular Volume 92.8 fL (80.0-98.0); Mean Platelet Volume 10.2 fL (9.4-12.3); Monocytes Absolute Auto 1.1 X10*3/uL (0.1-1.2); Monocytes Percent Auto 16.6 % (2-11); Neutrophils Absolute Auto 4.5 x10*3/uL (2.0-8.3); Neutrophils Percent Auto 66.1 % (45-73); Platelet Count 201 X10*3/uL (160-400); Red Blood Count 4.45 X10*6/uL (4.20-5.50); Red Cell Distribution Width 12.8 % (11.0-16.0); White Blood Count 6.8 X10*3/uL (4.8-10.8)
[2024-06-24 15:54] LABS: Lactic Acid 1.6 mmol/L (0.5-2.0)
[2024-06-24] MEDS: cefEPime HCl 1 GM in 0.9 % Sodium Chloride 50 ML IV (16:01)
[2024-06-24 16:04] LABS: Troponin-I High Sensitivity 20.3 ng/L (<3.5-17.0)
[2024-06-24 16:15] LABS: Alanine Aminotransferase 15 U/L (0-31); Albumin Level 4.1 g/dL (3.5-5.0); Alkaline Phosphatase 85 U/L (39-117); Anion Gap 13 (12-20); Aspartate Amino Transferase 41 U/L (5-31); Bilirubin Direct 0.2 mg/dL (0.0-0.5); Bilirubin Total 0.5 mg/dL (0.0-1.0); Blood Urea Nitrogen 17 mg/dL (9-16); Calcium 9.6 mg/dL (8.4-10.2); Carbon Dioxide 25 mmol/L (22-29); Chloride 103 mmol/L (96-108); Creatinine Clr Calc Pharmacy 47.8; Estimated Glomerular Filt Rate > 60; Glucose Random 100 mg/dL (60-115); Lipase 21 U/L (8-78); Magnesium 2.3 mg/dL (1.6-2.6); Potassium 4.3 mmol/L (3.3-5.1); Sodium 137 mmol/L (135-145); Total Protein 8.5 g/dL (6.5-8.0)
[2024-06-24 16:17] LABS: Appearance Urine Cloudy; Color Urine Yellow; Glucose Urine UA Negative (Negative); Leukocyte Esterase Urine Large (3+) (Negative); Nitrite Urine Positive (Negative); PH 5.5 (5.0-9.0); Specific Gravity - Urine 1.015 (1.005-1.025); UMIC TRIGGER UACC YES; Urine Blood Trace (Negative); Urine Ketones Trace mg/dL (Negative); Urine Protein Trace mg/dL (Neg-Trace)
[2024-06-24] MEDS: Lactated Ringers 1,000 ML 999 ML IV (16:17)
[2024-06-24 16:18] LABS: Influenza A PCR NEGATIVE (Negative); Influenza B PCR NEGATIVE (Negative); Resp Syncy Virus RNA Qual PCR NEGATIVE (Negative); SARS COV2 PCR INHOUSE POSITIVE (Negative)
--- NOTE | 2024-06-24 16:18 | ED.FALL ---
HPI - Fall General Chief Complaint: Fall Stated Complaint: WEAKNESS, FALL, CHRONIC UTI PER EMS Time Seen by Provider: 06/24/24 16:10 Source: patient Mode of arrival: ambulatory Limitations: no limitations History of Present Illness ED Provider: HPI Narrative: Patient's history of recurrent UTI came from home after she fell out of bed last night no head strike patient has been feeling weak lately admitted on 05/03 discharged on 05/07 urine culture showed Pseudomonas and E coli sensitive to quinolones and patient was discharged on Levaquin which she finished on 05/15 patient does have history of AFib on Xarelto Related Data Home Medications ?Medication ?Instructions ?Recorded ?Confirmed amiodarone 200 mg tablet 200 mg PO DAILY 06/15/24 06/24/24 ascorbic acid (vitamin C) 500 mg 500 mg PO DAILY 06/24/24 06/24/24 tablet (Vitamin C) calcium carbonate 500 mg PO DAILY 06/24/24 06/24/24 cholecalciferol (vitamin D3) 25 25 mcg PO DAILY 06/24/24 06/24/24 mcg (1,000 unit) tablet (Vitamin D3) zinc acetate 50 mg (zinc) capsule 50 mg PO DAILY 06/24/24 06/24/24 Previous Rx's ?Medication ?Instructions ?Recorded rivaroxaban 15 mg tablet (Xarelto) 15 mg PO DAILY@1700 #90 tabs 05/06/24 Allergies Allergy/AdvReac Type Severity Reaction Status Date / Time No Known Allergies Allergy Unverified 06/24/24 13:47 [No Known Allergies*] [facility] Past Medical History Medical History Atrial flutter with rapid ventricular response Paroxysmal atrial fibrillation Persistent atrial fibrillation History of cardioversion Surgical History History of hip surgery Family History Family History Father No problems noted. Mother No problems noted. Social History Social History Household Members: Spouse Housing: House Are you a primary managed care liaison to a significant other at home: No Do you presently have visiting nurse or other home services: No Patient Tobacco Use Status: Never used Tobacco Smoked in Last 30 Days: No Use of substances other than those prescribed or required for medical reasons: No Advance Directives: No Advance Directives Information Provided: Yes Do you have a plan to hurt others: No Plan service: No Physical Exam Vital Signs: Vital Signs: Last Vital Signs Temp 98 F 06/24/24 16:47 Pulse 70 06/24/24 16:47 Resp 13 06/24/24 16:47 BP 134/62 06/24/24 16:47 Pulse Ox 97 06/24/24 16:47 O2 Del Method Room Air 06/24/24 16:47 BMI result Body Mass Index 27.4 Appearance: Alert. Oriented X3. No acute distress. Forgetful Eyes: PERRLA, No Nystagmus ENT: Pharynx normal. Oral Mucosa moist Neck: Normal inspection. Neck supple. CVS: Normal heart rate and rhythm. Pulses normal. Respiratory: No respiratory distress. Equal air entry bilateral, no wheezing/rales/rhonchi Abdomen: Soft and nontender. Bowel sounds are present, no mass palpable, no CVA tenderness rectal: Soft stool in the rectum Skin: Skin warm and dry. Normal skin color. Normal skin turgor. Extremities: No lower extremity edema. No calf tenderness Neuro: Oriented X 3. No motor deficit. No sensory deficit.No cerebellar signs , cranial nerves II-XII intact Medications Administered Discontinued Medications Generic Name Dose Route Start Last Admin Trade Name Freq PRN Reason Stop Dose Admin Lactated Ringer's 1,000 mls @ 999 mls/hr 06/24/24 14:27 06/24/24 16:17 Lr IV 06/24/24 15:27 999 mls/hr .Q1H1M ONE Administration Cefepime HCl 1 gm/ Sodium 50 mls @ 100 mls/hr 06/24/24 14:28 06/24/24 16:17 Chloride IV 06/24/24 14:57 Infused ONCE ONE Infusion Medical Decision Making Medical Decision Making [facility] Narrative: Patient with increased weakness with mechanical fall no signs of major injury noticed to have UTI and COVID will admit patient for IV antibiotics patient's urine culture was positive for Pseudomonas E coli started on cefepime Differential Diagnosis Differential Diagnoses: The differential diagnosis associated with the presentation includes Weakness/bacteremia/UTI/viral pathology Admission/Observation Consideration of admission/observation: Escalation of care including admission/observation considered Consult Healthcare Provider Management of the patient was discussed with: Hospitalist Lab Data MDM Lab Attestation statement: I reviewed the patient's lab results. 06/24/24 15:29 06/24/24 15:29 Labs: Lab Results 06/24/24 06/24/24 Range/Units 15:29 16:07 WBC 6.8 (4.8-10.8) X10*3/uL RBC 4.45 (4.20-5.50) X10*6/uL Hgb 13.7 (12.0-16.0) g/dl Hct 41.3 (37.0-47.0) % MCV 92.8 (80.0-98.0) fL MCH 30.8 (27.0-33.0) pg MCHC 33.2 (31.0-35.0) g/dl RDW 12.8 (11.0-16.0) % Plt Count 201 (160-400) X10*3/uL MPV 10.2 (9.4-12.3) fL Immature Gran % (Auto) 0.6 H (0.0-0.4) % Neut % (Auto) 66.1 (45-73) % Lymph % (Auto) 16.6 L (20-40) % [place] % (Auto) 16.6 H (2-11) % Eos % (Auto) 0.0 (0-4) % Baso % (Auto) 0.1 (0-2) % Lymph # (Auto) 1.1 L (1.2-4.9) X10*3/uL [place] # (Auto) 1.1 (0.1-1.2) X10*3/uL Eos # (Auto) 0.0 (0.0-0.4) X10*3/uL Baso # (Auto) 0.0 (0.0-0.2) X10*3/uL Abs Immat Gran (auto) 0.04 H (0.00-0.03) X10*3/uL Absolute Neuts (auto) 4.5 (2.0-8.3) x10*3/uL Absolute Nucleated RBC 0.000 (0.0-0.012) X10*3/uL Nucleated RBC % (auto) 0.0 (0.0-0.2) /100WBC Sodium 137 (135-145) mmol/L Potassium 4.3 (3.3-5.1) mmol/L Chloride 103 (96-108) mmol/L Carbon Dioxide 25 (22-29) mmol/L Anion Gap 13 (12-20) BUN 17 H (9-16) mg/dL Creatinine 0.75 (0.5-1.4) mg/dL Estim Creat Clear Calc 47.8 Estimated GFR > 60 Random Glucose 100 (60-115) mg/dL Lactic Acid 1.6 (0.5-2.0) mmol/L Calcium 9.6 (8.4-10.2) mg/dL Magnesium 2.3 (1.6-2.6) mg/dL Total Bilirubin 0.5 (0.0-1.0) mg/dL Direct Bilirubin 0.2 (0.0-0.5) mg/dL AST 41 H (5-31) U/L ALT 15 (0-31) U/L Alkaline Phosphatase 85 (39-117) U/L Total Creatine Kinase 219 H (26-140) U/L Troponin I High Sens 20.3 H D (<3.5-17.0) ng/L Total Protein 8.5 H (6.5-8.0) g/dL Albumin 4.1 (3.5-5.0) g/dL Lipase 21 (8-78) U/L Urine Color Yellow Urine Appearance Cloudy Urine pH 5.5 (5.0-9.0) Ur Specific [place] 1.015 (1.005-1.025) Urine Protein Trace (Neg-Trace) mg/dL Urine Glucose (UA) Negative (Negative) mg/dL Urine Ketones Trace (Negative) mg/dL Urine Blood Trace H (Negative) Urine Nitrite Positive H (Negative) Ur Leukocyte Esterase Large (3+) H (Negative) Urine RBC 3-5 H (0-2) /HPF Urine WBC >50 H (0-5) /HPF Ur Squamous Epith Cells 0-2 (0-2) /HPF Urine Bacteria 4+ (None Seen) Hyaline Casts 3-5 (0-2) /LPF Influenza Type A (PCR) NEGATIVE (Negative) Influenza Type B (PCR) NEGATIVE (Negative) RSV RNA Qual (PCR) NEGATIVE (Negative) SARS-CoV-2 RNA (RT-PCR) POSITIVE A (Negative) Independent Interpretation I performed an independent interpretation of an: CT Scan Radiology Impression Discussion of test interpretation with radiology: I have reviewed the radiologist's reading. Radiologist Impression: RDER #: [id number] CT/CT cervical spine wo IV con IMPRESSION: 1. No CT evidence of acute cervical spine fracture or injury. 2. Degenerative spondylosis. CT/CT head/brain wo IV con IMPRESSION: 1. No acute intracranial abnormality. 2. Stable chronic changes Discharge Plan Discharge Clinical Impression: COVID-19, Weakness, Constipation UTI (urinary tract infection) Qualifiers: Urinary tract infection type: acute cystitis Hematuria presence: without hematuria Qualified Code(s): N30.00 - Acute cystitis without hematuria Patient Disposition: Admitted As Inpatient
[2024-06-24 16:38] LABS: Bacteria Urine 4+ (None Seen); Squamous Epithelial Cell Urine 0-2 /HPF (0-2); UACC Culture Trigger YES; WBC Urine >50 /HPF (0-5)
[2024-06-24 16:47] VITALS: BP 134/62; PULSE 70; RESP 13; TEMP 36.6; O2SAT 97
--- NOTE | 2024-06-24 17:57 | P.HPHOSP_ITS ---
History of Present Illness Date of Service: 06/24/24 Chief Complaint: Fall/generalized weakness 88-year-old female patient with past medical history significant for paroxysmal atrial fibrillation on Xarelto, lives at home with ambulates with walker receiving physical therapy at home, this morning patient question slept from bed or fell down heard the noise and found her on the floor next to the bed, he was unable to lift her up therefore call the son who helped her back to recliner patient was awake alert with no loss of consciousness did not complain of pain but daughter came later to check on her she was noticed to be weak was not opening her eyes and her gait was unsteady therefore she was brought to [place] emergency room also as per daughter patient has not moved her bowel in last 17 days despite using stool softeners in the emergency room workup showed COVID positive, urinalysis also positive for pyuria and 4+ bacteria with prior history of Pseudomonas UTI in April of last year, since then patient has had multiple episodes of UTI treated with oral antibiotics, at present patient denies shortness of breath, no cough, no headache no dizziness, no chest pain complaining of right sided discomfort where she fell but no hip , knee or shoulder pain, KUB showed large stool burden, no obstruction patient is now being admitted to [facility] for continued monitoring and treatment of UTI constipation and fall. Patient treated in the emergency room with IV cefepime, 1 L of IV fluid. Review of Systems 2 Review of Systems: All other system reviewed and are negative other than HPI. FORMERLY [facility], [facility]1983 Medical History Atrial flutter with rapid ventricular response Paroxysmal atrial fibrillation Persistent atrial fibrillation History of cardioversion Family History Father No problems noted. Mother No problems noted. Surgical History History of hip surgery Social History Household Members: Spouse Housing: House Are you a primary progressive care unit registered nurse to a significant other at home: No Do you presently have visiting nurse or other home services: No Patient Tobacco Use Status: Never used Tobacco Smoked in Last 30 Days: No Use of substances other than those prescribed or required for medical reasons: No Advance Directives: No Advance Directives Information Provided: Yes Do you have a plan to hurt others: No Plan service: No Meds Allergies Allergy/AdvReac Type Severity Reaction Status Date / Time No Known Allergies Allergy Unverified 06/24/24 13:47 [No Known Allergies*] Home Medications ?Medication ?Instructions ?Recorded ?Confirmed ?Last Taken ?Type amiodarone 200 mg tablet 200 mg PO BID 06/15/24 06/15/24 Unknown History Physical Exam 2 Vital Signs and Narrative: Vital Signs: Last Vital Signs Temp 98 F 06/24/24 16:47 Pulse 70 06/24/24 16:47 Resp 13 06/24/24 16:47 BP 134/62 06/24/24 16:47 Pulse Ox 97 06/24/24 16:47 O2 Del Method Room Air 06/24/24 16:47 BMI result Body Mass Index 27.4 Const: Other: General awake alert x3, resting comfortably in no acute distress. Anicteric sclera Moist mucous membrane Neck supple no JVD. CVS regular rate rhythm, Respiratory lungs clear to auscultation, no respiratory distress, no wheeze, no rhonchi. Gastrointestinal abdomen soft, non tender, bowel sounds audible, no distention, no guarding , no rigidity. Extremities no edema. Neuro non focal ,moving all 4 extremity speech clear. Skin no rash, no bruising Appropriate affect Results Labs 06/24/24 15:29 06/24/24 15:29 Labs: Laboratory Results - last 24 hr 06/24/24 06/24/24 15:29 16:07 MCV 92.8 MCH 30.8 MCHC 33.2 RDW 12.8 Plt Count 201 MPV 10.2 Immature Gran % (Auto) 0.6 H Neut % (Auto) 66.1 Lymph % (Auto) 16.6 L [place] % (Auto) 16.6 H Eos % (Auto) 0.0 Baso % (Auto) 0.1 Lymph # (Auto) 1.1 L [place] # (Auto) 1.1 Eos # (Auto) 0.0 Baso # (Auto) 0.0 Abs Immat Gran (auto) 0.04 H Absolute Neuts (auto) 4.5 Absolute Nucleated RBC 0.000 Nucleated RBC % (auto) 0.0 Anion Gap 13 Estim Creat Clear Calc 47.8 Estimated GFR > 60 Random Glucose 100 Lactic Acid 1.6 Calcium 9.6 Magnesium 2.3 Total Bilirubin 0.5 Direct Bilirubin 0.2 AST 41 H ALT 15 Alkaline Phosphatase 85 Total Creatine Kinase 219 H Troponin I High Sens 20.3 H D Total Protein 8.5 H Albumin 4.1 Lipase 21 Urine Color Yellow Urine Appearance Cloudy Urine pH 5.5 Ur Specific [place] 1.015 Urine Protein Trace Urine Glucose (UA) Negative Urine Ketones Trace Urine Blood Trace H Urine Nitrite Positive H Ur Leukocyte Esterase Large (3+) H Urine RBC 3-5 H Urine WBC >50 H Ur Squamous Epith Cells 0-2 Urine Bacteria 4+ Hyaline Casts 3-5 Influenza Type A (PCR) NEGATIVE Influenza Type B (PCR) NEGATIVE RSV RNA Qual (PCR) NEGATIVE SARS-CoV-2 RNA (RT-PCR) POSITIVE A Imaging Radiologist's Impressions: Impressions Chest X-Ray 06/24/24 14:28 IMPRESSION: No active disease or acute posttraumatic findings. Electronically signed by: Obdulio Schultz MD 06/24/2024 04:43 PM EST RP Head CT 06/24/24 14:28 IMPRESSION: 1. No acute intracranial abnormality. 2. Stable chronic changes. Electronically signed by: Obdulio Schultz MD 06/24/2024 04:40 PM EST RP Cervical Spine CT 06/24/24 15:56 IMPRESSION: 1. No CT evidence of acute cervical spine fracture or injury. 2. Degenerative spondylosis. Electronically signed by: Obdulio Schultz MD 06/24/2024 04:29 PM EST RP Assessment and Plan (1) UTI (urinary tract infection): Qualifiers: Urinary tract infection type: acute cystitis Hematuria presence: w ithout hematuria Qualified Code(s): N30.00 - Acute cystitis without hematuria Status: Acute (2) Paroxysmal atrial fibrillation: Status: Acute (3) COVID: Status: Acute Plan 88-year-old female patient with past medical history significant for paroxysmal atrial fibrillation was brought in to [facility] due to generalized weakness, fall, constipation patient diagnosed to have UTI and COVID. Generalized weakness with fall Likely due to COVID infection and UTI Soft BP on arrival improved after IV fluid. CT head, C-spine CT scan unremarkable Treat infection PT eval prior to discharge. Acute UTI with history of Pseudomonas infection in the past No sepsis with normal WBC, no fevers. Will treat with IV meropenem follow final urine and blood culture report COVID infection without hypoxia continue supportive care, chest x-ray unremarkable. Paroxysmal atrial fibrillation continue Xarelto and amiodarone, EKG showed normal sinus rhythm DVT prophylaxis with Xarelto Full Code. In my clinical judgment patient required 2 night inpatient hospitalization for generalized weakness, due to UTI requiring IV antibiotics/PT eval. Quality Stroke Does the patient have a stroke diagnosis?: No VTE Prior VTE?: No VTE Risk Level:: Medical - moderate - high VTE Device Contraindication: Treatment Not Indicated VTE Drug Contraindication: N/A - Med Ordered
--- NOTE | 2024-06-24 18:35 | PHA.MEDREC ---
Addendum entered by Alyson Coppola [facility] 06/24/24 19:21: reviewed Original Note: Pharmacy Consult ? Medication Reconciliation Pharmacy has completed the medication reconciliation. Spoke with patient and family at bedside we were able to confirm patients medications. Patient confirmed she is taking the Xarelto and the daughter at bedside confirmed the dose of 15mg and that she takes it every day @1700. The daughter confirmed her mom is not taking the Metoprolol Succinate 25mg tab anymore and stated her moms Dr switched her from that to Amiodarone 200mg tabs right around . The daughter states her mom started off taking the Amiodarone 200mg tab twice a day but states back in the beginning of May she changed to taking 1 tablet daily. The daughter confirmed her mom took her morning medications this morning.
[2024-06-24] MEDS: Meropenem 1 GM VIAL IVPUSH (18:47)
[2024-06-24] MEDS: bisacodyL 5 MG TABLET.DR 10 MG PO (18:49)
[2024-06-24] MEDS: Lactulose 20 GM/30 ML SOLUTION PO (18:49)
[2024-06-24] MEDS: Milk of Magnesia 30 ML ORAL.SUSP PO (18:49)
[2024-06-24 20:15] VITALS: BP 121/69; PULSE 71; RESP 14; TEMP 37; O2SAT 95
--- NOTE | 2024-06-24 22:01 | PC.NURSE ---
assist pt to commode, XL firm BM. pt back in bed, transport at bedside to bring to overflow
--- NOTE | 2024-06-24 23:11 | PC.NURSE ---
patient stood with assist of 2 and transferred from stretcher to bed.
[2024-06-24] MEDS: 0.9 % Sodium Chloride Flush 3 ML SYRINGE IVFLUSH (23:31)
--- NOTE | 2024-06-24 23:32 | PC.NURSE ---
Colace not given, producing large multiple soft stools
--- NOTE | 2024-06-24 23:46 | PC.NURSE ---
Patient having excessive loose stools. Cleaned up and repositioned in bed.
--- NOTE | 2024-06-25 03:32 | PC.NURSE ---
patient to commode, assist of 2
[2024-06-25] MEDS: Meropenem 1 GM VIAL IVPUSH ×2 (05:34→18:31)
[2024-06-25 06:19] VITALS: BP 131/59; PULSE 61; RESP 12; TEMP 36.7; O2SAT 97
--- NOTE | 2024-06-25 08:06 | HO.PM.IMPN ---
Subjective Subjective Date of Service: 06/25/24 Interval History: Admitted due to fall/COVID/constipation Feeling better this morning had multiple loose stools overnight, tolerating diet, no acute events overnight, complaining of generalized pain. Review of Systems All other system reviewed and are negative Physical Exam Vital Signs: Vital Signs: Last Vital Signs Temp 98.1 F 06/25/24 06:19 Pulse 61 06/25/24 06:19 Resp 12 06/25/24 06:19 BP 131/59 L 06/25/24 06:19 Pulse Ox 97 06/25/24 06:19 O2 Del Method Room Air 06/25/24 06:19 BMI result Body Mass Index 27.4 Const: Other: General awake alert x3, resting comfortably in no acute distress. Anicteric sclera Moist mucous membrane Neck supple no JVD. CVS regular rate rhythm, Respiratory lungs clear to auscultation, no respiratory distress, no wheeze, no rhonchi. Gastrointestinal abdomen soft, non tender, bowel sounds audible, no distention, no guarding , no rigidity. Extremities no edema. Neuro non focal ,moving all 4 extremity speech clear. Skin no rash, no bruising Appropriate affect Objective Data Active Medications Acetaminophen (Acetaminophen 325 Mg Tablet) 650 mg PO Q6H PRN PRN Reason: Pain, Mild 1-3,fever,headache Calcium Carbonate (Calcium Carbonate 750 Mg Tab.Chew) 750 mg PO Q4H PRN PRN Reason: Heartburn Docusate Sodium (Docusate Sodium 100 Mg Capsule) 200 mg PO BEDTIME [facility] Last Admin: 06/24/24 23:32 Dose: Not Given Documented By: LYDIA Non-Admin Reason: See Note Magnesium Hydroxide (Milk Of Magnesia 30 Ml Oral.Susp) 30 ml PO DAILY PRN PRN Reason: Constipation Melatonin (Melatonin 3 Mg Tablet) 6 mg PO BEDTIME PRN PRN Reason: Insomnia Meropenem (Meropenem 1 Gm Vial) 1 gm IVPUSH Q12H [facility] Last Admin: 06/25/24 05:34 Dose: 1 gm Documented By: LYDIA Ondansetron HCl (Ondansetron Hcl 4 Mg/2 Ml Vial) 4 mg IVPUSH Q8H PRN PRN Reason: Nausea and Vomiting Sodium Chloride (0.9 % Sodium Chloride Flush 3 Ml Syringe) 3 ml IVFLUSH QSHIFT [facility] Last Admin: 06/24/24 23:31 Dose: 3 ml Documented By: LYDIA Labs 06/24/24 15:29 06/24/24 15:29 Labs: Laboratory Results - last 24 hr 06/24/24 06/24/24 15:29 16:07 MCV 92.8 MCH 30.8 MCHC 33.2 RDW 12.8 Plt Count 201 MPV 10.2 Immature Gran % (Auto) 0.6 H Neut % (Auto) 66.1 Lymph % (Auto) 16.[address] [place] % (Auto) 16.6 H Eos % (Auto) 0.0 Baso % (Auto) 0.1 Lymph # (Auto) 1.[address] [place] # (Auto) 1.1 Eos # (Auto) 0.0 Baso # (Auto) 0.0 Abs Immat Gran (auto) 0.04 H Absolute Neuts (auto) 4.5 Absolute Nucleated RBC 0.000 Nucleated RBC % (auto) 0.0 Anion Gap 13 Estim Creat Clear Calc 47.8 Estimated GFR > 60 Random Glucose 100 Lactic Acid 1.6 Calcium 9.6 Magnesium 2.3 Total Bilirubin 0.5 Direct Bilirubin 0.2 AST 41 H ALT 15 Alkaline Phosphatase 85 Total Creatine Kinase 219 H Troponin I High Sens 20.3 H D Total Protein 8.5 H Albumin 4.1 Lipase 21 Urine Color Yellow Urine Appearance Cloudy Urine pH 5.5 Ur Specific Bailey 1.015 Urine Protein Trace Urine Glucose (UA) Negative Urine Ketones Trace Urine Blood Trace H Urine Nitrite Positive H Ur Leukocyte Esterase Large (3+) H Urine RBC 3-5 H Urine WBC >50 H Ur Squamous Epith Cells 0-2 Urine Bacteria 4+ Hyaline Casts 3-5 Influenza Type A (PCR) NEGATIVE Influenza Type B (PCR) NEGATIVE RSV RNA Qual (PCR) NEGATIVE SARS-CoV-2 RNA (RT-PCR) POSITIVE A Assessment and Plan (1) Constipation: Status: Acute (2) Weakness: Status: Acute (3) COVID-19: Status: Acute (4) UTI (urinary tract infection): Status: Acute Plan 88-year-old female patient with past medical history significant for paroxysmal atrial fibrillation was brought in to [facility] due to generalized weakness, fall, constipation patient diagnosed to have UTI and COVID. Generalized weakness with fall Likely due to COVID infection and UTI Soft BP on arrival improved after IV fluid. CT head, CT C-spine unremarkable Treat infection PT eval prior to discharge. Acute UTI with history of Pseudomonas infection in the past No sepsis with normal WBC, no fevers. Will treat with IV meropenem urine culture grew Gram-negative merle, follow final urine and blood culture report COVID infection without hypoxia continue supportive care, chest x-ray unremarkable. Paroxysmal atrial fibrillation continue Xarelto and amiodarone, EKG showed normal sinus rhythm Constipation treated with lactulose with good response continue stool softeners. DVT prophylaxis with Xarelto Full Code. In my clinical judgment patient requires continued inpatient hospitalization for generalized weakness, due to UTI requiring IV antibiotics/PT eval. Quality Stroke Does the patient have a stroke diagnosis?: No VTE Prior VTE?: No VTE Risk Level:: Medical - moderate - high VTE Device Contraindication: Treatment Not Indicated VTE Drug Contraindication: N/A - Med Ordered
[2024-06-25] MEDS: 0.9 % Sodium Chloride Flush 3 ML SYRINGE IVFLUSH ×3 (10:32→20:41)
[2024-06-25] MEDS: Amiodarone HCL 200 MG TABLET PO (10:32)
[2024-06-25 14:32] VITALS: BP 107/54; PULSE 64; RESP 18; TEMP 36.2; O2SAT 96
--- NOTE | 2024-06-25 14:53 | MHC.CM.PN ---
Patient lives in a house with her , uses a walker to assist with mobility, and is active with [facility]. Patient is Covid positive and may benefit from a PT Eval to assist with disposition(resume [facility] VS STR). CM has initiated and will follow for dc planning. PCP is Dr. Jem Reid and Daughter will transport if dc is to home.
[2024-06-25 17:32] VITALS: BP 104/60; PULSE 65; RESP 18; TEMP 36.3; O2SAT 95
[2024-06-25] MEDS: Rivaroxaban 15 MG TABLET PO (18:31)
[2024-06-25 19:59] VITALS: BP 101/58; PULSE 61; RESP 18; TEMP 36.7; O2SAT 98
[2024-06-25] MEDS: Docusate Sodium 100 MG CAPSULE 200 MG PO (20:41)
[2024-06-26] VITALS (7 sets, daily range): BP systolic 92–118; BP diastolic 51–60; PULSE 61–74; RESP 16–20; TEMP 36.2–37; O2SAT 96–99
[2024-06-26] MEDS: Meropenem 1 GM VIAL IVPUSH (07:34)
[2024-06-26] MEDS: Amiodarone HCL 200 MG TABLET PO (09:38)
[2024-06-26] MEDS: 0.9 % Sodium Chloride Flush 3 ML SYRINGE IVFLUSH ×3 (09:47→19:45)
--- NOTE | 2024-06-26 12:01 | P.PNIM_ITS ---
Subjective Subjective Date of Service: 06/26/24 Physical Exam 2 Vital Signs: Vital Signs: Last Vital Signs Temp 97.1 F 06/26/24 08:00 Pulse 65 06/26/24 08:00 Resp 20 06/26/24 08:00 BP 118/60 06/26/24 08:00 Pulse Ox 98 06/26/24 08:00 O2 Del Method Room Air 06/26/24 08:00 BMI result Body Mass Index 27.4 Const: Other: General awake alert x3, resting comfortably in no acute distress. Anicteric sclera Moist mucous membrane Neck supple no JVD. CVS regular rate rhythm, Respiratory lungs clear to auscultation, no respiratory distress, no wheeze, no rhonchi. Gastrointestinal abdomen soft, non tender, bowel sounds audible, no distention, no guarding , no rigidity. Extremities no edema. Neuro non focal ,moving all 4 extremity speech clear. Skin no rash, no bruising Appropriate affect Objective Data Active Medications Acetaminophen (Acetaminophen 325 Mg Tablet) 650 mg PO Q6H PRN PRN Reason: Pain, Mild 1-3,fever,headache Amiodarone HCl (Amiodarone Hcl 200 Mg Tablet) 200 mg PO DAILY [facility] Last Admin: 06/26/24 09:38 Dose: 200 mg Documented By: SANTOSH Calcium Carbonate (Calcium Carbonate 750 Mg Tab.Chew) 750 mg PO Q4H PRN PRN Reason: Heartburn Docusate Sodium (Docusate Sodium 100 Mg Capsule) 200 mg PO BEDTIME [facility] Last Admin: 06/25/24 20:41 Dose: 200 mg Documented By: ÁNGEL Magnesium Hydroxide (Milk Of Magnesia 30 Ml Oral.Susp) 30 ml PO DAILY PRN PRN Reason: Constipation Melatonin (Melatonin 3 Mg Tablet) 6 mg PO BEDTIME PRN PRN Reason: Insomnia Meropenem (Meropenem 1 Gm Vial) 1 gm IVPUSH Q12H [facility] Last Admin: 06/26/24 07:34 Dose: 1 gm Documented By: ÁNGEL Ondansetron HCl (Ondansetron Hcl 4 Mg/2 Ml Vial) 4 mg IVPUSH Q8H PRN PRN Reason: Nausea and Vomiting Rivaroxaban (Rivaroxaban 15 Mg Tablet) 15 mg PO DAILY@1700 [facility] Last Admin: 06/25/24 18:31 Dose: 15 mg Documented By: HO.PODMORP Sodium Chloride (0.9 % Sodium Chloride Flush 3 Ml Syringe) 3 ml IVFLUSH QSHIFT [facility] Last Admin: 06/26/24 09:47 Dose: 3 ml Documented By: FOSTEKR Labs 06/24/24 15:29 06/24/24 15:29 Microbiology Microbiology Results: Microbiology 06/24/24 18:55 Urine Culture - Final Urine clean catch - Clean Catch Midstream Escherichia coli 06/24/24 15:28 Blood Culture - Preliminary Blood - Venous No growth after 24 hours. 06/24/24 15:29 Blood Culture - Preliminary Blood - Venous No growth after 24 hours. Assessment and Plan (1) Constipation: Status: Acute (2) Weakness: Status: Acute (3) COVID-19: Status: Acute (4) UTI (urinary tract infection): Status: Acute Plan 88-year-old female patient with past medical history significant for paroxysmal atrial fibrillation was brought in to [facility] due to generalized weakness, fall, constipation patient diagnosed to have UTI and COVID. Generalized weakness with fall Likely due to COVID infection and UTI Soft BP on arrival improved after IV fluid. CT head, CT C-spine unremarkable Treat infection PT eval . Acute UTI with history of Pseudomonas infection in the past No sepsis with normal WBC, no fevers. on IV meropenem urine culture grew E coli sensitive to ceftriaxone/cefepime and Cipro, blood cultures x2 are negative Will DC IV meropenem place on Levaquin 250 mg x3 more days COVID infection without hypoxia continue supportive care, chest x-ray unremarkable. Paroxysmal atrial fibrillation continue Xarelto and amiodarone, EKG showed normal sinus rhythm Constipation treated with lactulose with good response continue stool softeners. DVT prophylaxis with Xarelto Full Code. In my clinical judgment patient requires continued inpatient hospitalization for generalized weakness, due to UTI on antibiotics and PT eval for safe discharge Quality Stroke Does the patient have a stroke diagnosis?: No VTE Prior VTE?: No VTE Risk Level:: Medical - moderate - high VTE Device Contraindication: Treatment Not Indicated VTE Drug Contraindication: N/A - Med Ordered
[2024-06-26] MEDS: Rivaroxaban 15 MG TABLET PO (16:37)
[2024-06-26] MEDS: levoFLOXacin 250 MG TABLET PO (16:38)
[2024-06-27 04:00] VITALS: BP 96/51; PULSE 59; RESP 16; TEMP 36.6; O2SAT 97
[2024-06-27 07:51] VITALS: BP 127/60; PULSE 73; RESP 14; TEMP 36.5; O2SAT 96
[2024-06-27] MEDS: Amiodarone HCL 200 MG TABLET PO (07:58)
[2024-06-27] MEDS: 0.9 % Sodium Chloride Flush 3 ML SYRINGE IVFLUSH ×2 (07:59→19:55)
[2024-06-27 12:00] VITALS: BP 118/61; PULSE 58; RESP 12; TEMP 36.4; O2SAT 98
--- NOTE | 2024-06-27 14:53 | MHC.CM.PN ---
Addendum entered by Carrol Maciel RN 06/27/24 15:02: CORRECTION HCP IS PT'S HOWEVER HE IS 89YO AND IS NOT FEELING WELL. Original Note: EMR REVIEWED, PT MEDICALLY CLEARED FOR DC, P.T. RECOMMENDING STR, CM CONTACTED PT'S DTR/HCP [facility] [phone], [facility] REPORTS HER FIRST CHOICE WOULD BE [facility] HOWEVER THEY DO NOT TAKE COVID+ PT'S, [facility] AGREEABLE TO [facility] AND [facility], REFERRAL PLACED, CM AWAITING BED OFFER AND CM WILL CONT TO FOLLOW.
[2024-06-27] MEDS: levoFLOXacin 250 MG TABLET PO (15:15)
--- NOTE | 2024-06-27 15:55 | HO.PM.IMPN ---
Subjective Subjective Date of Service: 06/27/24 Interval History: Being followed for fall/UTI/COVID and constipation Offers no acute complaints denies abdominal pain, no nausea no vomiting, no shortness of breath no cough no acute issues overnight. Review of Systems All other system reviewed and are negative. Physical Exam Vital Signs: Vital Signs: Last Vital Signs Temp 97.5 F 06/27/24 12:00 Pulse 58 06/27/24 12:00 Resp 12 06/27/24 12:00 BP 118/61 06/27/24 12:00 Pulse Ox 98 06/27/24 12:00 O2 Del Method Room Air 06/27/24 12:00 BMI result Body Mass Index 27.4 Const: Other: General awake alert x3, resting comfortably in no acute distress. Anicteric sclera Moist mucous membrane Neck supple no JVD. CVS regular rate rhythm, Respiratory lungs clear to auscultation, no respiratory distress, no wheeze, no rhonchi. Gastrointestinal abdomen soft, non tender, bowel sounds audible, no distention, no guarding , no rigidity. Extremities no edema. Neuro non focal ,moving all 4 extremity speech clear. Skin no rash, no bruising Appropriate affect Objective Data Active Medications Acetaminophen (Acetaminophen 325 Mg Tablet) 650 mg PO Q6H PRN PRN Reason: Pain, Mild 1-3,fever,headache Amiodarone HCl (Amiodarone Hcl 200 Mg Tablet) 200 mg PO DAILY [facility] Last Admin: 06/27/24 07:58 Dose: 200 mg Documented By: OLI Calcium Carbonate (Calcium Carbonate 750 Mg Tab.Chew) 750 mg PO Q4H PRN PRN Reason: Heartburn Docusate Sodium (Docusate Sodium 100 Mg Capsule) 200 mg PO BEDTIME [facility] Last Admin: 06/25/24 20:41 Dose: 200 mg Documented By: ÁNGEL Levofloxacin (Levofloxacin 250 Mg Tablet) 250 mg PO Q24H [facility] Last Admin: 06/27/24 15:15 Dose: 250 mg Documented By: OLI Magnesium Hydroxide (Milk Of Magnesia 30 Ml Oral.Susp) 30 ml PO DAILY PRN PRN Reason: Constipation Melatonin (Melatonin 3 Mg Tablet) 6 mg PO BEDTIME PRN PRN Reason: Insomnia Ondansetron HCl (Ondansetron Hcl 4 Mg/2 Ml Vial) 4 mg IVPUSH Q8H PRN PRN Reason: Nausea and Vomiting Rivaroxaban (Rivaroxaban 15 Mg Tablet) 15 mg PO DAILY@1700 [facility] Last Admin: 06/26/24 16:37 Dose: 15 mg Documented By: SANTOSH Sodium Chloride (0.9 % Sodium Chloride Flush 3 Ml Syringe) 3 ml IVFLUSH QSHIFT [facility] Last Admin: 06/27/24 07:59 Dose: 3 ml Documented By: OSCAROTPAT Labs 06/24/24 15:29 06/24/24 15:29 Microbiology Microbiology Results: Microbiology 06/24/24 15:28 Blood Culture - Preliminary Blood - Venous No growth after 48 hours. 06/24/24 15:29 Blood Culture - Preliminary Blood - Venous No growth after 48 hours. Assessment and Plan (1) Constipation: Status: Acute (2) Weakness: Status: Acute (3) COVID-19: Status: Acute Plan 88-year-old female patient with past medical history significant for paroxysmal atrial fibrillation was brought in to [facility] due to generalized weakness, fall, constipation patient diagnosed to have UTI and COVID. Generalized weakness with fall Likely due to COVID infection and UTI Soft BP on arrival improved after IV fluid. CT head, CT C-spine unremarkable Treat infection PT recommend short-term rehab. Acute UTI with history of Pseudomonas infection in the past No sepsis with normal WBC, no fevers. urine culture grew E coli sensitive to ceftriaxone/cefepime and Cipro, blood cultures x2 are negative s/p IV meropenem , on Levaquin 250 mg x3 more days COVID infection without hypoxia continue supportive care, chest x-ray unremarkable. Paroxysmal atrial fibrillation continue Xarelto and amiodarone, EKG showed normal sinus rhythm Constipation treated with lactulose with good response continue stool softeners. DVT prophylaxis with Xarelto Full Code. In my clinical judgment patient requires continued inpatient hospitalization for generalized weakness, due to UTI on antibiotics and safe discharge Quality Stroke Does the patient have a stroke diagnosis?: No VTE Prior VTE?: No VTE Risk Level:: Medical - moderate - high VTE Device Contraindication: Treatment Not Indicated VTE Drug Contraindication: N/A - Med Ordered
[2024-06-27 16:00] VITALS: BP 134/62; PULSE 73; RESP 14; TEMP 36.4; O2SAT 98
[2024-06-27] MEDS: Rivaroxaban 15 MG TABLET PO (16:59)
[2024-06-27] MEDS: Docusate Sodium 100 MG CAPSULE 200 MG PO (19:55)
[2024-06-27 20:00] VITALS: BP 137/65; PULSE 71; RESP 19; TEMP 36.6; O2SAT 99
[2024-06-28] VITALS: BP 127/58; PULSE 62; RESP 16; TEMP 36.2; O2SAT 99
[2024-06-28 04:00] VITALS: BP 129/91; PULSE 78; RESP 16; TEMP 36.8; O2SAT 98
[2024-06-28 08:00] VITALS: BP 113/60; PULSE 52; RESP 20; TEMP 36.7; O2SAT 99
--- NOTE | 2024-06-28 08:17 | MHC.CM.PN ---
IMM 06/28/24, PT DISCHARGING TO STR AT [facility], PT'S DTR [facility] AT NUMBER ON FILE ON 06/27 AT APPROX 4:10PM, [facility] FOR BLS TRANSPORT AT 11AM.
--- NOTE | 2024-06-28 10:40 | P.DS_ITS ---
DS: Providers Provider Date of Service: 06/28/24 Date of admission: 06/24/24 17:55 Date of discharge: 06/28/24 Primary care physician: Jem Reid MD DS: Diagnosis Discharge Diagnosis (1) Constipation: Status: Acute (2) Weakness: Status: Acute (3) COVID-19: Status: Acute DS: Summary Hospital Course Hospital Course: History of presenting illness.: Date of Service: 06/24/24 Chief Complaint: Fall/generalized weakness 88-year-old female patient with past medical history significant for paroxysmal atrial fibrillation on Xarelto, lives at home with ambulates with walker receiving physical therapy at home, this morning patient question slept from bed or fell down heard the noise and found her on the floor next to the bed, he was unable to lift her up therefore call the son who helped her back to recliner patient was awake alert with no loss of consciousness did not complain of pain but daughter came later to check on her she was noticed to be weak was not opening her eyes and her gait was unsteady therefore she was brought to [facility] emergency room also as per daughter patient has not moved her bowel in last 17 days despite using stool softeners in the emergency room workup showed COVID positive, urinalysis also positive for pyuria and 4+ bacteria with prior history of Pseudomonas UTI in April of last year, since then patient has had multiple episodes of UTI treated with oral antibiotics, at present patient denies shortness of breath, no cough, no headache no dizziness, no chest pain complaining of right sided discomfort where she fell but no hip , knee or shoulder pain, KUB showed large stool burden, no obstruction patient is now being admitted to [facility] for continued monitoring and treatment of UTI constipation and fall. Patient treated in the emergency room with IV cefepime, 1 L of IV fluid. Hospital course : 88-year-old female patient with past medical history significant for paroxysmal atrial fibrillation was brought in to [facility] due to generalized weakness, fall, constipation patient diagnosed to have UTI and COVID. Generalized weakness with fall, Likely due to COVID infection and UTI initially noted to have soft blood pressure treated with IV fluids, CT head and CT C-spine unremarkable for acute abnormality patient evaluated by Physical therapy patient is now being discharged to acute rehab as per PT recommendation Acute UTI with history of Pseudomonas infection in the past, therefore initially treated with IV meropenem, patient noted to have no sepsis with no fevers, normal WBC count, urine culture grew E coli sensitive to ceftriaxone cefepime and Cipro blood cultures x2 negative, therefore IV meropenem discontinued, and patient treated with Levaquin patient require 2 more days of 250 mg of Levaquin,to finish course of antibiotic COVID infection without hypoxia , chest x-ray unremarkable, did not qualify for steroids continue symptomatic treatment with analgesics and cough medication. Paroxysmal atrial fibrillation continue Xarelto and amiodarone, EKG showed normal sinus rhythm Constipation treated with lactulose with good response continue stool softeners, recommend Metamucil if continued to have constipation after finishing course of antibiotics. Time Attestation Discharge Coordination Time (in mins): 36 Quality: Safe Use of Opioids Does Pt have an Active Cancer Diagnosis on the Problem List?: No Quality: Stroke Does the patient have a stroke diagnosis?: No Physical Exam Vital Signs: Vital Signs: Last Vital Signs Temp 98.1 F 06/28/24 08:00 Pulse 52 06/28/24 08:00 Resp 20 06/28/24 08:00 BP 113/60 06/28/24 08:00 Pulse Ox 99 06/28/24 08:00 O2 Del Method Room Air 06/28/24 08:00 BMI result Body Mass Index 27.4 Const: Other: General awake alert x3, resting comfortably in no acute distress. Anicteric sclera Moist mucous membrane Neck supple no JVD. CVS regular rate rhythm, Respiratory lungs clear to auscultation, no respiratory distress, no wheeze, no rhonchi. Gastrointestinal abdomen soft, non tender, bowel sounds audible, no distention, no guarding , no rigidity. Extremities no edema. Neuro non focal ,moving all 4 extremity speech clear. Skin no rash, no bruising Appropriate affect DS: Data Data Completed and Pending Labs on day of discharge: Preliminary micro results at discharge 06/24/24 15:28 Blood Culture - Preliminary Blood - Venous No growth after 48 hours. 06/24/24 15:29 Blood Culture - Preliminary Blood - Venous No growth after 48 hours. Discharge Plan Discharge Anticipated Discharge Date/Time: 06/28/24 10:36 Patient Disposition: Xfer SNF Discharge Diagnosis: Generalized weakness/fall Acute UTI COVID infection Referrals: [facility] [Outside] - 1 Day (SHORT TERM REHAB) Jem Reid MD [Primary Care Provider] - 1 Week Discharge Medications: New levofloxacin 250 mg Tablet 250 mg PO Q24H Qty: 2 0RF magnesium hydroxide [Milk of Magnesia] 400 mg/5 mL Suspension 30 ml PO DAILY PRN (Reason: Constipation) Qty: 355 0RF docusate sodium 100 mg Capsule 200 mg PO BEDTIME Qty: 60 0RF Continued Xarelto 15 mg Tablet 15 mg PO DAILY@1700 Qty: 90 0RF zinc acetate 50 mg (zinc) Capsule 50 mg PO DAILY calcium carbonate [Calcium 500] 500 mg calcium (1,250 mg) Tablet 500 mg PO DAILY ascorbic acid (vitamin C) [Vitamin C] 500 mg Tablet 500 mg PO DAILY cholecalciferol (vitamin D3) [Vitamin D3] 25 mcg (1,000 unit) Tablet 25 mcg PO DAILY amiodarone 200 mg tablet 200 mg PO DAILY Discharge Orders: Discharge Order (Routine); Ordered 06/28/24 Ordered By: Lissette Nogueira Diet: Advance to usual diet Activity on Discharge: As tolerated Stand Alone Forms: Patient Portal Discharge page Print Language: Australian Care Plan Goals: Constipation resolved continue Colace 200 mg at bedtime and after done with antibiotic if persistent constipation add Metamucil UTI take Levaquin 1 tablet daily for 2 days Continue all home medications No hypoxia Health Concerns: As above Plan of Treatment: Outpatient follow-up with primary care physician call for appointment Assessment: As above
[2024-06-28] MEDS: Amiodarone HCL 200 MG TABLET PO (10:49)
[2024-06-28] MEDS: 0.9 % Sodium Chloride Flush 3 ML SYRINGE IVFLUSH (10:49)
== END 2024-06-28 11:42 | disposition skilled nursing facility (03) | DRG 690 ==
LOC: HO.ED 16:10 → HO.EDOVER 18:00 → HO.IMC 06-25 14:11
PROVIDERS: Emergency Medicine; Admitting Provider Hospitalist; Emergency Provider Internal Medicine; PCP Internal Medicine; Visit Provider Hospitalist
DX: N30.00 Acute cystitis without hematuria (principal); I48.0 Paroxysmal atrial fibrillation; K59.00 Constipation, unspecified; W19.XXXA Unspecified fall, initial encounter; B96.20 Unspecified Escherichia coli [E. coli] as the cause of diseases classified elsewhere; Z20.822 Contact with and (suspected) exposure to COVID-19; Z87.440 Personal history of urinary (tract) infections; Z79.01 Long term (current) use of anticoagulants; Z79.899 Other long term (current) drug therapy
CPT/HCPCS: 0241U; 36415; 70450; 71045; 72125; 74018; 80048; 80076; 81001; 82550; 83605; 83690; 83735; 84484; 85025; 87040; 87086; 87088; 87186; 93005; 97162; 99285; J0692; J2185; J7120

== ENCOUNTER → 2024-06-24 14:27 | Outpatient (BNV) | payer MEDICARE, OTHER, SELFPAY | PROVIDERS: Admitting Provider Hospitalist; Emergency Provider Internal Medicine; PCP Internal Medicine; Visit Provider Internal Medicine Cardiovascular Disease | DX: I49.8 Other specified cardiac arrhythmias (principal); I49.1 Atrial premature depolarization; R94.31 Abnormal electrocardiogram [ECG] [EKG] | CPT/HCPCS: 93010 ==

== ENCOUNTER → 2024-06-24 14:28 | Outpatient (BNV) | payer MEDICARE, OTHER, SELFPAY | PROVIDERS: Emergency Provider Internal Medicine; PCP Internal Medicine; Visit Provider Radiology Diagnostic Radiology | DX: M47.812 Spondylosis without myelopathy or radiculopathy, cervical region (principal); S09.90XA Unspecified injury of head, initial encounter; K56.41 Fecal impaction | CPT/HCPCS: 70450; 71045; 72125 ==

== ENCOUNTER → 2024-06-24 17:55 | Outpatient (BNV) | payer MEDICARE, OTHER, SELFPAY | PROVIDERS: Admitting Provider Hospitalist; Emergency Provider Internal Medicine; PCP Internal Medicine; Visit Provider Hospitalist | DX: N30.00 Acute cystitis without hematuria (principal); I48.0 Paroxysmal atrial fibrillation; U07.1 COVID-19 | CPT/HCPCS: 99222; 99231; 99232; 99239 ==

== ENCOUNTER 2024-06-29 05:29 | Outpatient (REF) | payer MEDICARE, OTHER, SELFPAY ==
[2024-06-29 05:31] LABS: MANUAL DIFF FLAG NO
[2024-06-29 06:06] LABS: Basophils Percent Auto 0.5 % (0-2); Eosinophils Absolute Auto 0.1 X10*3/uL (0.0-0.4); Eosinophils Percent Auto 2.4 % (0-4); Hematocrit 37.2 % (37.0-47.0); Hemoglobin 12.2 g/dl (12.0-16.0); Imm Gran Abs Auto 0.02 X10*3/uL (0.00-0.03); Imm Gran Pct Auto 0.5 % (0.0-0.4); Lymphocytes Absolute Auto 1.6 X10*3/uL (1.2-4.9); Lymphocytes Percent Auto 37.4 % (20-40); Mean Corpuscular HGB Conc 32.8 g/dl (31.0-35.0); Mean Corpuscular Hemoglobin 30.2 pg (27.0-33.0); Mean Corpuscular Volume 92.1 fL (80.0-98.0); Mean Platelet Volume 10.7 fL (9.4-12.3); Monocytes Absolute Auto 0.6 X10*3/uL (0.1-1.2); Monocytes Percent Auto 14.1 % (2-11); Neutrophils Absolute Auto 1.9 x10*3/uL (2.0-8.3); Neutrophils Percent Auto 45.1 % (45-73); Platelet Count 192 X10*3/uL (160-400); Red Blood Count 4.04 X10*6/uL (4.20-5.50); Red Cell Distribution Width 12.3 % (11.0-16.0); White Blood Count 4.3 X10*3/uL (4.8-10.8)
[2024-06-29 06:27] LABS: Alanine Aminotransferase 17 U/L (0-31); Albumin Level 3.1 g/dL (3.5-5.0); Alkaline Phosphatase 65 U/L (39-117); Anion Gap 9 (12-20); Aspartate Amino Transferase 38 U/L (5-31); Bilirubin Total 0.5 mg/dL (0.0-1.0); Blood Urea Nitrogen 9 mg/dL (9-16); Calcium 8.6 mg/dL (8.4-10.2); Carbon Dioxide 26 mmol/L (22-29); Chloride 106 mmol/L (96-108); Estimated Glomerular Filt Rate > 60; Glucose Random 82 mg/dL (60-115); Potassium 3.2 mmol/L (3.3-5.1); Sodium 138 mmol/L (135-145); Total Protein 6.4 g/dL (6.5-8.0)
== END 2024-06-29 05:30 | disposition home or self-care (01) ==
LOC: HO.MMNH2L 05:29
PROVIDERS: Visit Provider Family Medicine
DX: N39.0 Urinary tract infection, site not specified (principal)
CPT/HCPCS: 36415; 80053; 85025

== ENCOUNTER 2024-07-01 05:31 | Outpatient (REF) | payer MEDICARE, OTHER, SELFPAY ==
--- OUTSIDE RECORDS SUMMARY | 2024-07-01 05:34 | XMS_ITS ---
Author Organization Jem Reid MD Address [address] [place], [place] [phone] Care Team Providers Care Riding Instructor Name Role Phone Jem Reid Primary Care Provider Results Component Value Reference Range Notes UA ClnCatch+Micro w/rflx Cul t Reviewed date:06/20/2024 09:15:12 AM Interpretation:CHEN 06/17/24 Performing Lab:[facility], [address] [place] [phone] Notes/Report: Urine, Clean Catch Color Urine Yellow Appearance Urine Clear PH 7.0 5.0-9.0 Glucose Urine UA Negative Negative mg/dL Urine Blood Moderate (2+) Negative Specific [place] - Urine 1.020 1.005-1.025 Urine Protein Trace [...] Reid MD [address] [place], [place] [phone] 06/02/2024 Jem Bombardier Hematuria R31.9 Assessments Encounter Date Diagnosis (ICD Code) Assessment Notes Treatment Notes Treatment Clinical Notes Section Notes 06/02/2024 Hematuria (ICD-10 - R31.9) Plan Of Treatment Next Appt Details Provider Name:Jemze aragon, 04/17/2025 07:45:00 AM, [address] [facility], [address], [place], [place], [phone], Provider Name:Jem Mitchell Alinaab jenniferr, 04/24/2025 01:00:00 PM, [address] [place] [address], [address], [place], [place], [phone], Progress Notes * Toña RÍOS MDOB:[birth year] (88 yo F)Acc No.[id number]:06/02/2024 Progress Note Patient:?SHAHIDAToña PLATT Edel Provider:?Jem Reid MD :1935???Age:88 Y???Sex:Female D ate:06/02/2024 Address:[address] [place], [place] [phone] Subjective: * Chief Complaints: * ???1. U/A. * Medical History:? Objective: * Vitals:? Assessment: * Assessment: 1.?Hematuria - R31.9??? Plan: * Treatment: * * The named appointment provid er may or may not be the originator of this progress note, and it is not deemed complete until electronically signed by the appointment provider. Sign off status: Pending * Provider:?Jem Reid MD Date:?1 08/03/2023 Generated for Octavia castillo/Jay/eTransmitting on:?07/01/2024 05:34 AM EST
--- OUTSIDE RECORDS SUMMARY | 2024-07-01 05:35 | XMS_ITS ---
Author Organization Jem Reid MD Address [address] [place] [phone] Care Team Providers Care Electric Tool Repairer Name Role Phone eJm Reid Primary Care Provider REASON FOR VISIT discharge Encounters Encounter Location Date Provider Diagnosis Jem Reid MD [address] [place] [phone] 06/28/2024 Jem Reid Plan Of Treatment Next Appt Details Provider Name:Jem aragon, 04/17/2025 07:45:00 AM, [address] [place] [address], [address], [phone], Provider Name:Jem aragon, 04/24/2025 01:00:00 PM, [address] [place] [address], [address] [place] [address], [phone], Progress Notes * Toña RÍOS MDOB:[birth year] (88 yo F)Acc No.[id number]:06/28/2024 Patient:?Toña RÍOS :1935???Age:88 Y???Sex:Female Address:[address] [place] [address] * * Date:?
[2024-07-01 06:23] LABS: Anion Gap 11 (12-20); Blood Urea Nitrogen 9 mg/dL (9-16); Calcium 8.5 mg/dL (8.4-10.2); Carbon Dioxide 22 mmol/L (22-29); Chloride 107 mmol/L (96-108); Estimated Glomerular Filt Rate > 60; Glucose Random 79 mg/dL (60-115); Potassium 4.2 mmol/L (3.3-5.1); Sodium 136 mmol/L (135-145)
== END 2024-07-01 05:32 | disposition home or self-care (01) ==
LOC: HO.MMNH2L 05:31
PROVIDERS: Visit Provider Student in an Organized Health Care Education/Training Program
DX: I10 Essential (primary) hypertension (principal)
CPT/HCPCS: 36415; 80048

== ENCOUNTER 2024-07-04 06:18 | Outpatient (REF) | payer MEDICARE, OTHER, SELFPAY ==
[2024-07-04 06:04] LABS: MANUAL DIFF FLAG NO
--- OUTSIDE RECORDS SUMMARY | 2024-07-04 06:29 | XMS_ITS ---
Author Organization Jem Reid MD Address [address] [place] [phone] Care Team Providers Care Dev Technical Mgr Name Role Phone Jem Reid Primary Care Provider REASON FOR VISIT discharge Encounters Encounter Location Date Provider Diagnosis Jem Reid MD [address] [place] [phone] 06/28/2024 Jem Reid Plan Of Treatment Next Appt Details Provider Name:Jem aragon, 04/17/2025 07:45:00 AM, [address] [place] [address], [address], [phone], Provider Name:Jem aragon, 04/24/2025 01:00:00 PM, [address] [place] [address], [address] [place] [address], [phone], Progress Notes * Toña RÍOS MDOB:[birth year] (88 yo F)Acc No.[id number]:06/28/2024 Patient:?Toña RÍOS :1935???Age:88 Y???Sex:Female Address:[address] [place] [address] * * Date:?
--- OUTSIDE RECORDS SUMMARY | 2024-07-04 06:29 | XMS_ITS ---
Author Organization Jem Reid MD Address [address] [place], [place] [phone] Care Team Providers Care Gin Operator Name Role Phone Jem Reid Primary Care Provider [phone] Results Component Value Reference Range Notes UA ClnCatch+Micro w/rflx Cul t Reviewed date:06/20/2024 09:15:12 AM Interpretation:CHEN 06/17/24 Performing Lab:[facility], [address] [place] [phone] Notes/Report: Urine, Clean Catch Color Urine Yellow Appearance Urine Clear PH 7.0 5.0-9.0 Glucose Urine UA Negative Negative mg/dL Urine Blood Moderate (2+) Negative Specific [place] - Urine 1.020 1.005-1.025 Urine Protein Trace [...] Reid MD [address] [place], [place] [phone] 06/02/2024 Jem Bombardier Hematuria R31.9 Assessments Encounter Date Diagnosis (ICD Code) Assessment Notes Treatment Notes Treatment Clinical Notes Section Notes 06/02/2024 Hematuria (ICD-10 - R31.9) Plan Of Treatment Next Appt Details Provider Name:Jem Mitchell aragon, 04/17/2025 07:45:00 AM, [facility], [address], [place], [place], [phone], Provider Name:Jem Mitchell Alinaab jenniferr, 04/24/2025 01:00:00 PM, [address] [place] [address], [address], [place], [place], [phone], Progress Notes * Toña RÍOS MDOB:[birth year] (88 yo F)Acc No.[id number]:06/02/2024 Progress Note Patient:?SHAHIDAToña PLATT Edel Provider:?Jem Reid MD :1935???Age:88 Y???Sex:Female D ate:06/02/2024 Address:[address] [place], [place] [phone] Subjective: * Chief Complaints: * ???1. U/A. [...] MD Date:?1 08/03/2023 Generated for Octavia castillo/Jay/eTransmitting on:?07/04/2024 06:29 AM EST
[2024-07-04 07:04] LABS: Basophils Percent Auto 0.4 % (0-2); Eosinophils Absolute Auto 0.2 X10*3/uL (0.0-0.4); Eosinophils Percent Auto 2.6 % (0-4); Hematocrit 36.8 % (37.0-47.0); Hemoglobin 12.4 g/dl (12.0-16.0); Imm Gran Abs Auto 0.04 X10*3/uL (0.00-0.03); Imm Gran Pct Auto 0.7 % (0.0-0.4); Lymphocytes Absolute Auto 1.7 X10*3/uL (1.2-4.9); Lymphocytes Percent Auto 30.3 % (20-40); Mean Corpuscular HGB Conc 33.7 g/dl (31.0-35.0); Mean Corpuscular Hemoglobin 30.8 pg (27.0-33.0); Mean Corpuscular Volume 91.3 fL (80.0-98.0); Monocytes Absolute Auto 0.7 X10*3/uL (0.1-1.2); Monocytes Percent Auto 11.5 % (2-11); Neutrophils Absolute Auto 3.1 x10*3/uL (2.0-8.3); Neutrophils Percent Auto 54.5 % (45-73); Platelet Count 256 X10*3/uL (160-400); Red Blood Count 4.03 X10*6/uL (4.20-5.50); Red Cell Distribution Width 12.4 % (11.0-16.0); White Blood Count 5.7 X10*3/uL (4.8-10.8)
[2024-07-04 07:10] LABS: Anion Gap 11 (12-20); Blood Urea Nitrogen 9 mg/dL (9-16); Calcium 8.6 mg/dL (8.4-10.2); Carbon Dioxide 25 mmol/L (22-29); Chloride 104 mmol/L (96-108); Estimated Glomerular Filt Rate > 60; Glucose Random 71 mg/dL (60-115); Potassium 4.2 mmol/L (3.3-5.1); Sodium 136 mmol/L (135-145)
== END 2024-07-04 06:19 | disposition home or self-care (01) ==
LOC: HO.MMNH2L 06:18
PROVIDERS: Visit Provider Family Medicine
DX: N39.0 Urinary tract infection, site not specified (principal)
CPT/HCPCS: 36415; 80048; 85025

== ENCOUNTER 2024-07-11 06:16 | Outpatient (REF) | payer MEDICARE, OTHER, SELFPAY ==
[2024-07-11 06:04] LABS: MANUAL DIFF FLAG NO
[2024-07-11 06:30] LABS: Basophils Absolute Auto 0.1 X10*3/uL (0.0-0.2); Basophils Percent Auto 0.8 % (0-2); Eosinophils Absolute Auto 0.1 X10*3/uL (0.0-0.4); Eosinophils Percent Auto 1.6 % (0-4); Hematocrit 34.3 % (37.0-47.0); Hemoglobin 11.4 g/dl (12.0-16.0); Imm Gran Abs Auto 0.01 X10*3/uL (0.00-0.03); Imm Gran Pct Auto 0.2 % (0.0-0.4); Lymphocytes Absolute Auto 1.5 X10*3/uL (1.2-4.9); Mean Corpuscular HGB Conc 33.2 g/dl (31.0-35.0); Mean Corpuscular Hemoglobin 30.6 pg (27.0-33.0); Monocytes Absolute Auto 0.8 X10*3/uL (0.1-1.2); Monocytes Percent Auto 12.5 % (2-11); Neutrophils Absolute Auto 3.8 x10*3/uL (2.0-8.3); Neutrophils Percent Auto 60.9 % (45-73); Platelet Count 298 X10*3/uL (160-400); Red Blood Count 3.73 X10*6/uL (4.20-5.50); Red Cell Distribution Width 12.9 % (11.0-16.0); White Blood Count 6.2 X10*3/uL (4.8-10.8)
[2024-07-11 06:43] LABS: Anion Gap 12 (12-20); Blood Urea Nitrogen 10 mg/dL (9-16); Calcium 8.3 mg/dL (8.4-10.2); Carbon Dioxide 22 mmol/L (22-29); Chloride 107 mmol/L (96-108); Estimated Glomerular Filt Rate > 60; Glucose Random 72 mg/dL (60-115); Potassium 3.8 mmol/L (3.3-5.1); Sodium 137 mmol/L (135-145)
== END 2024-07-11 06:17 | disposition home or self-care (01) ==
LOC: HO.MMNH2L 06:16
PROVIDERS: Visit Provider Family Medicine
DX: N39.0 Urinary tract infection, site not specified (principal)
CPT/HCPCS: 36415; 80048; 85025

== ENCOUNTER 2024-07-29 10:33 | Outpatient (REF) | payer MEDICARE, OTHER, SELFPAY ==
[2024-07-29 11:16] LABS: Appearance Urine Clear; Color Urine Yellow; Glucose Urine UA Negative (Negative); Leukocyte Esterase Urine Large (3+) (Negative); Nitrite Urine Negative (Negative); PH 8.5 (5.0-9.0); Specific Gravity - Urine 1.015 (1.005-1.025); UMIC TRIGGER UACC YES; Urine Blood Negative (Negative); Urine Ketones Negative (Negative); Urine Protein Negative (Neg-Trace)
[2024-07-29 11:26] LABS: Bacteria Urine 2+ (None Seen); Hyaline Casts Urine 0-2 /LPF (0-2); RBC Urine 0-2 /HPF (0-2); UACC Culture Trigger YES; WBC Urine 21-50 /HPF (0-5)
--- OUTSIDE RECORDS SUMMARY | 2024-07-29 11:32 | XMS_ITS ---
Author Organization Jem Reid MD Address [address] [place], [place] [phone] Care Team Providers Care Supervisor Composing Room Name Role Phone Jem Reid Primary Care Provider Allergies No Known Allergies Results Component Value Reference Range Notes UA ClnCatch+Micro w/rflx Cul t (Not yet reviewed by provider) Interpretation: Performing Lab:[facility], [address] [place] [phone] Notes/Report: Urine, Clean Catch Color Urine Yellow Appearance Urine Clear PH 8.5 5.0-9.0 Glucose Urine UA Negative Negative mg/dL Urine Blood Negative Negative Specific [place] - Urine 1.015 1.005-1.025 Urine Protein Negative [...] Problem Status W/U Status Risk Notes Problem [id number] Acute constipation (K59.00) Active confirmed Vital Signs Blood pressure systolic 88 mm Hg 07/29/19 25 Blood pressure diastolic 56 mm Hg 025 Height 63 in 07/29/2024 Weight 112 lbs 07/29/2024 BMI 19.84 kg/m2 07/29/2024 Encounters Encounter Location Date Provider Diagnosis Jem Reid MD [address] [place] [address] [place] [phone] 07/29/2024 Jem Reid After-treatment Z51.89 and Acute constipation K59.00 Assessments Encounter Date Diagnosis (ICD Code) Assessment Notes Treatment Notes Treatment Clinical Notes Section Notes 07/29/2024 After-treatment (ICD-10 - Z51.89) 07/29/2024 Acute constipation (ICD-10 - K59.00) doing well/ is using meds Plan Of Treatment Treatment Notes Assessment Notes Acute constipation doing well/ is using meds Pending Test Test Name Order Date UA ClnCatch+Micro w/rflx Cult 07/29/2024 Next Appt Details Provider Name:Jem aragon, 04/17/2025 07:45:00 AM, [address] [place] [address], [place] [address], [place], [place], [phone], Provider Name:Jem aragon, 04/24/2025 01:00:00 PM, [address] [place] [address], [address], [phone], Progress Notes * Toña RÍOS MDOB:[birth year] (89 yo F)Acc No.[id number]:07/29/2024 Patient:?Toña RÍOS Provider:?Jem Reid MD :1935???Age:89 Y???Sex:Female D ate:07/29/2024 Address:[address], [id number] Subjective: * Chief Complaints: * ???1. PH/TCM. 2. Accompanied by and daughter. * HPI: ???Symptom(s):? had been in hospital for covid, uti and constipation. * ROS:?General/Constitutional:?Denies?Chills.?Denies?Fatigue.?Denies?Fever.?Denies?Headache.?ENT:?Denies?Sore throat.?Respiratory:?Denies?Cough.?Denies?Shortness of breath at rest.?Denies?Shortness of breath with exertion.?Gastrointestinal:?Denies?Diarrhea.?Denies?Nausea.? * Medical History:?Refuses flu shot (07-06-12), Refuses pneumo (07-06-12), Refuses colonoscoopy 2012, Refuses pneumo, 2013. * Medications:?Taking Amiodaro ne HCl 100 MG Tablet 1 tablet Orally [...] reviewed and reconciled with the patient * Allergies:?N.K.D.A. Objective: * Vitals:?Ht: 63, Wt: 112, BMI :19.84, BP:88/56, Wt-k.8. * Examination: ???General Examination: ?GENERAL APPEARANCE:?alert, well hydrated, in no distress.?HEAD:?normocephalic.?SKIN:?good turgor.?HEART:?no murmurs, rubs, gallops, regular rate and rhythm.?LUNGS:?no wheezes, rales, rhonchi, good air movement, clear to auscultation bilaterally.? Assessment: * Assessment: 1.?After-treatment - Z51.89? ??2.?Acute constipation - K59.00??? Plan: * Treatment: 2.?Acute constipation? Notes: doing well/ is using meds?? * * The named appointment provid er may or may not be the originator of this progress note, and it is not deemed complete until electronically signed by the appointment provider. Sign off status: Pending * Provider:?Jem Reid MD Date:?0 07/29/2024 Generated for Octavia castillo/Jay/Amayasmitting on:?07/29/2024 11:32 AM EST History and Physical Notes * HPI (History of Present Illness) Category Sub-Category Detail Notes Category Not es Symptom(s) had been in hos pital for covid, uti and constipation Examination Category Sub-Category Detail Notes Category Not es General Examination GENERAL APPEARANCE: alert, w ell hydrated, in no distress HEAD: normocephalic HEART: no murmurs, rubs, ga llops, regular rate and rhythm LUNGS: no wheezes, rales, r honchi, good air movement, clear to auscultation bilaterally SKIN: good turgor
--- OUTSIDE RECORDS SUMMARY | 2024-07-29 11:32 | XMS_ITS ---
Author Organization Jem Reid MD Address [address] [employer], [place] [phone] Care Team Providers Care Dance Master Name Role Phone Jem Reid Primary Care Provider [phone] Allergies No Known Allergies Reason For Referral [...] Location Date Provider Diagnosis Jem Reid MD [address] [place] [address] [place] [phone] 06/17/2024 Jem Reid Microscopic hematuria R31.29 Assessments [...] Edwin Arriaga Next Appt Details Provider Name:Jem aragon, 04/17/2025 07:45:00 AM, [address] [place] [address], Suite [facility], [employer], [place], [phone], Provider Name:Jem aragon, 04/24/2025 01:00:00 PM, [address] [place] [address], [place] [address], [employer], [phone], Progress Notes * Toña PINEDO MDOB:[birth year] (89 yo F)Acc No.[id number]:06/17/2024 Patient:?Toña PINEDO Provider:?Jem Reid MD :1935???Age:88 Y???Sex:Female D ate:06/17/2024 Address:[address] [place] [address] [address] [id number] Subjective: * Chief Complaints: * ???1. 1MO F/U/ CBACK URINE. 2. Accompanied by and daughter. * HPI: ???Symptom(s):? patient is a 88 yo female here for one month follow up of uti, accompanied by and daughter. * ROS:?General/Constitutional:?Denies?Chills.?Denies?Fatigue.?Denies?Fever.?Denies?Headache.?ENT:?Patient denies?decreased sense of smell , any loss of taste , sore throat.?Denies?Sore throat.?Respiratory:?Denies?Cough.?Denies?Shortness of breath at rest.?Denies?Shortness of breath with exertion.?Gastrointestinal:?Denies?Diarrhea.?Denies?Nausea.?Musculoskeletal:?Patient denies?muscle aches.?Peripheral Vascular:?Patient denies?red and blue toes.? * Medical History:?Refuses flu shot (07-06-12), Refuses pneumo (07-06-12), Refuses colonoscoopy 2012, Refuses pneumo, 2013. * Medications:?Taking Amiodaro ne HCl 200 MG Tablet 1 tablet Orally [...] patient * Allergies:?N.K.D.A. Objective: * Vitals:?Ht: 63, Wt:112, BMI: 19.84, BP:92/60. * Examination: ???General Examination: ?GENERAL APPEARANCE:?alert, well hydrated, in no distress , female.?HEAD:?normocephalic.?SKIN:?good turgor.?HEART:?regular rate and rhythm , no murmurs, rubs, gallops.?LUNGS:?no wheezes, rales, rhonchi , good air movement , clear to auscultation bilaterally.?ABDOMEN:?soft, nontender, nondistended.?BACK:?no costovertebral angle tenderness.? Assessment: * Assessment: 1.?Microscopic hematuria - R 31.29 (Primary)??? Plan: * Treatment: * * The named appointment provid er may or may not be the originator of this progress note, and it is not deemed complete until electronically signed by the appointment provider. Sign off status: Pending * Provider:?Jem Reid MD Date:?0 06/17/2024 Generated for Octavia castillo/Jay/eTransmitting on:?07/29/2024 11:31 AM EST History and Physical Notes * [...]
--- OUTSIDE RECORDS SUMMARY | 2024-07-29 11:32 | XMS_ITS ---
Author Organization Jem Reid MD Address [address] [place] [phone] Care Team Providers Care Website Project Manager Name Role Phone Jem Reid Primary Care Provider [phone] REASON FOR VISIT discharge Encounters Encounter Location Date Provider Diagnosis Jem Reid MD [address] [place] [phone] 06/28/2024 Jem Reid Plan Of Treatment Next Appt Details Provider Name:Jem aragon, 04/17/2025 07:45:00 AM, [address] [place] [address], [address], [phone], Provider Name:Jem aragon, 04/24/2025 01:00:00 PM, [address] [place] [address], [address] [place] [address], [phone], Progress Notes * Toña RÍOS MDOB:[birth year] (89 yo F)Acc No.[id number]:06/28/2024 Patient:?Toña RÍOS :1935???Age:88 Y???Sex:Female Address:[address] [place] [address] * true * Date:? Generated for Octavia castillo/Jay/Renayitting on:?07/29/2024 11:32 AM EST
--- OUTSIDE RECORDS SUMMARY | 2024-07-29 11:32 | XMS_ITS ---
Author Organization [facility] Address Unknown Medications Medication Dose Frequency Directions Start Date End Bert e Tubersol Solution 5 UNIT/0.1ML 0.1 mL Inject 0.1 ml intradermally one time only for Screening For TB until 07/12/2024 23:59 record induration in millimeters; Read PPD in 48 hours, notify physician if positive. 07/12/2024 07/12/2024 Dulcolax Suppository 10 MG 1 Insert 1 suppository rectally as needed for Constipation every 3 days if No Bowel Movement and Milk of Magnesia ineffective 06/28/2024 07/12/2024 Milk of Magnesia Suspension 400 MG/5ML 30 mL Give 30 ml by mout h as needed for Constipation daily 06/28/2024 07/01/2024 Fleet Enema Enema 7-19 GM/118ML 1 Insert 1 application rectally as needed for Constipation daily 06/28/2024 07/01/2024 Acetaminophen Tablet 325 MG 2 {tbl} Give 2 tablet by mouth every 8 hours as needed for Elevated Temperature over 100.F Total Dose 650mg*DO NOT EXCEED 3 GRAMS per 24 HOURS* 06/28/2024 07/12/2024 Acetaminophen Tablet 325 MG 2 {tbl} Give 2 tablet by mouth every 8 hours as needed for Mild (1-3) Disocmfort Total Dose 650mg*DO NOT EXCEED 3 GRAMS per 24 HOURS* 06/28/2024 07/12/2024 Tubersol Solution 5 UNIT/0.1ML 0.1 mL Inject 0.1 ml intradermally one time only for Monitoring until 07/05/2024 23:59 record induration in millimeters; Read PPD in 48 hours, notify physician if positive. 07/05/2024 07/06/2024 Dulcolax Suppository 10 MG 1 Insert 1 suppository rectally as needed for Constipation every 3 days if No Bowel Movement and Milk of Magnesia ineffective 06/28/2024 07/12/2024 Milk of Magnesia Suspension 400 MG/5ML 30 mL Give 30 ml by mout h as needed for Constipation daily 06/28/2024 07/12/2024 Fleet Enema Enema 7-19 GM/118ML 1 Insert 1 application rectally as needed for Constipation daily 06/28/2024 07/12/2024 Acetaminophen Tablet 325 MG 2 {tbl} Give 2 tablet by mouth every 8 hours as needed for Elevated Temperature over 100.F Total Dose 650mg*DO NOT EXCEED 3 GRAMS per 24 HOURS* 06/28/2024 07/12/2024 Levaquin Tablet 250 MG 1 {tbl} 24 h Give 1 tablet by mouth one time a day for infection (UTI) for 2 Days 06/29/2024 07/01/2024 Docusate Sodium Capsule 100 MG 2 {Capsule} Give 2 capsule by mouth at bedtime for constipation 06/29/2024 07/05/2024 Ascorbic Acid Tablet 500 MG 1 {tbl} 24 h Give 1 tablet by mouth one time a day for Supplement 06/29/2024 07/12/2024 Amiodarone HCl Tablet 200 MG 1 {tbl} 24 h Give 1 tablet by mouth one time a day for abnormal heart rhythm 06/29/2024 07/05/2024 Acetaminophen Tablet 325 MG 2 {tbl} Give 2 tablet by mouth every 8 hours as needed for Discomfort/pain Total Dose 650mg *DO NOT EXCEED 3 GRAMS per 24 HOURS* 06/28/2024 07/12/2024 Zinc Oral Tablet 50 MG 1 {tbl} 24 h Give 1 tablet by mouth one time a day for Supplement 06/29/2024 07/12/2024 Xarelto Oral Tablet 15 MG 1 {tbl} Give 1 tablet by mouth in the evening for Anticoalgulant 06/28/2024 07/12/2024 Calcium Carbonate Tablet Chewable 500 MG 1 {tbl} 24 h Give 1 tablet by mouth one time a day for Supplement 06/29/2024 07/12/2024 Cholecalciferol Tablet 1000 UNIT 1 {tbl} 24 h Give 1 tablet by mouth one time a day for Supplement 06/29/2024 07/12/2024 Potassium Chloride ER Tablet Extended Release 20 MEQ 2 {tbl} 6 h Give 2 tablet by mouth every 6 hours for low K for 2 Administrations 06/29/2024 06/30/2024 Fleet Enema 1 Insert 1 unit rectally as needed for Constipation. Give if no results from laxative suppository. 07/01/2024 07/12/2024 Bisacodyl Rectal Suppository 10 MG 1 Insert 1 suppository rectally every 24 hours as needed for Constipation Give 1 Suppository (10mg) via rectum if no results from Milk of Magnesia after 24 hours. 07/01/2024 07/12/2024 Docusate Sodium Capsule 100 MG 2 {Capsule} Give 2 capsule by mouth at bedtime for constipation 07/05/2024 07/12/2024 Amiodarone HCl Tablet 100 MG 1 {tbl} 24 h Give 1 tablet by mouth one time a day for abnormal heart rhythm hold for HR less than 60 07/06/2024 07/12/2024 Medications Administered Medication Dose Frequency Status Start Date End Date Tubersol Solution 5 UNIT/0.1ML 0.1 mL 07/12/2024 Dulcolax Suppository 10 MG 1 Milk of Magnesia Suspension 400 MG/5ML 30 mL 06/28/2024 Fleet Enema Enema 7-19 GM/118ML 1 06/28/2024 Acetaminophen Tablet 325 MG 2 {tbl} Acetaminophen Tablet 325 MG 2 {tbl} Tubersol Solution 5 UNIT/0.1ML 0.1 mL 07/05/2024 Dulcolax Suppository 10 MG 1 Milk of Magnesia Suspension 400 MG/5ML 30 mL 06/28/2024 Fleet Enema Enema 7-19 GM/118ML 1 06/28/2024 Acetaminophen Tablet 325 MG 2 {tbl} Levaquin Tablet 250 MG 1 {tbl} 24 h 025 Docusate Sodium Capsule 100 MG 2 {Capsule} 07/05/2024 Ascorbic Acid Tablet 500 MG 1 {tbl} 24 h Amiodarone HCl Tablet 200 MG 1 {tbl} 24 h 0 07/05/2024 Acetaminophen Tablet 325 MG 2 {tbl} Zinc Oral Tablet 50 MG 1 {tbl} 24 h 025 Xarelto Oral Tablet 15 MG 1 {tbl} 02/0 08/2024 Calcium Carbonate Tablet Svitlana wable 500 MG 1 {tbl} 24 h 07/12/2024 Cholecalciferol Tablet 1000 UNIT 1 {tbl} 24 h 07/12/2024 Potassium Chloride ER Tablet Extended Release 20 MEQ 2 {tbl} 6 h 06/30/2024 Fleet Enema 1 07/01/2024 Bisacodyl Rectal Suppository 10 MG 1 07/01/2024 Docusate Sodium Capsule 100 MG 2 {Capsule} 07/11/2024 Amiodarone HCl Tablet 100 MG 1 {tbl} 24 h 0 07/12/2024 Problems Problem Status Start Date End Date MUSCLE WASTING AND ATROPHY, NOT ELSEWHERE CLASSIFIED, MULTIPLE SITES (Primary) (M62.59 - ICD-10-CM) ACTIVE 06/28/2024 COVID-19 (U07.1 - ICD-10-CM) ACTIVE 06/28/2024 PAROXYSMAL ATRIAL FIBRILLATION (I48.0 - ICD-10-CM) ACT IVONNE 06/28/2024 URINARY TRACT INFECTION, SIT E NOT SPECIFIED (N39.0 - ICD-10-CM) ACTIVE 06/28/2024 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 with home health services [facility] 12:28 pm EST - 10:45 am EST Immunizations Vaccine Date (Influenza) FLUAD - Adjuvanted - High Do se - 65+ 03/08/2024 12:00 am EDT (COVID-19) Updated Pfizer Vacc ine 03/08/2024 12:00 am EDT Social History Vital Signs Vital Sign Reading Time Taken painLevel 0 {score} 07/12/2024 01:36 am EST painLevel 0 {score} 07/11/2024 05:30 pm EST painLevel 0 {score} 07/11/2024 11:20 am EST painLevel 0 {score} 07/11/2024 01:08 am EST painLevel 0 {score} 07/10/2024 04:48 pm EST painLevel 0 {score} 07/10/2024 12:51 pm EST painLevel 0 {score} 07/10/2024 01:14 am EST painLevel 0 {score} 07/09/2024 05:19 pm EST painLevel 0 {score} 07/09/2024 11:33 am EST painLevel 0 {score} 07/09/2024 12:08 am EST oxygenSaturation 97 % 07/11/2024 02:0 8 pm EST oxygenSaturation 98 % 07/10/2024 12:5 3 pm EST oxygenSaturation 98 % 07/09/2024 11:3 4 am EST oxygenSaturation 97 % 07/08/2024 01:2 6 pm EST heartrate 69 /min 07/11/2024 02:08 pm EST heartrate 76 /min 07/10/2024 12:53 pm EST heartrate 70 /min 07/09/2024 11:34 am EST heartrate 79 /min 07/08/2024 01:26 pm EST temperature 98 [degF] 07/11/2024 02:08 pm EST temperature 98.3 [degF] 07/10/2024 12:53 pm EST temperature 98.6 [degF] 07/09/2024 11:34 am EST temperature 98 [degF] 07/08/2024 01:26 pm EST systolicValue 100 mm[Hg] 07/11/2024 02:08 pm EST diastolicValue 70 mm[Hg] 07/11/2024 02:08 pm EST systolicValue 114 mm[Hg] 07/10/2024 12:53 pm EST diastolicValue 62 mm[Hg] 07/10/2024 12:53 pm EST systolicValue 110 mm[Hg] 07/09/2024 11:34 am EST diastolicValue 70 mm[Hg] 07/09/2024 11:34 am EST systolicValue 102 mm[Hg] 07/08/2024 01:26 pm EST diastolicValue 61 mm[Hg] 07/08/2024 01:26 pm EST respirations 16 /min 07/11/2024 02:08 pm EST respirations 18 /min 07/10/2024 12:53 pm EST respirations 18 /min 07/09/2024 11:34 am EST respirations 16 /min 07/08/2024 01:26 pm EST weight 111.6 [lb_av] 07/11/2024 12:17 pm EST weight 111.6 [lb_av] 07/11/2024 12:17 pm EST
== END 2024-07-29 10:34 | disposition home or self-care (01) ==
LOC: HO.LNP 10:33
PROVIDERS: Visit Provider Internal Medicine
DX: Z13.89 Encounter for screening for other disorder (principal); Z51.89 Encounter for other specified aftercare
CPT/HCPCS: 81001; 87086; 87088; 87186

== ENCOUNTER 2024-08-18 15:05 | Outpatient (REF) | payer MEDICARE, OTHER, SELFPAY ==
[2024-08-18 15:18] LABS: Appearance Urine Hazy; Color Urine Yellow; Glucose Urine UA Negative (Negative); Leukocyte Esterase Urine Trace (Negative); Nitrite Urine Negative (Negative); Specific Gravity - Urine >= 1.030 (1.005-1.025); UMIC TRIGGER UACC YES; Urine Blood Large (3+) (Negative); Urine Ketones Trace mg/dL (Negative); Urine Protein 30 (1+) mg/dL (Neg-Trace)
[2024-08-18 15:27] LABS: Bacteria Urine Trace (None Seen); Hyaline Casts Urine 0-2 /LPF (0-2); RBC Urine >20 /HPF (0-2); Squamous Epithelial Cell Urine 0-2 /HPF (0-2); WBC Urine 0-5 /HPF (0-5)
--- OUTSIDE RECORDS SUMMARY | 2024-08-18 18:50 | XMS_ITS ---
Author Organization Jem Reid MD Address [address] [place] [phone] Care Team Providers Care Driver Guard Name Role Phone Jem Reid Primary Care Provider [phone] Medications Medication SIG (Take, Route, Fr equency, Duration) Notes Start Date End Date Status Amoxicillin 500 MG 1 capsule Orally twi ce a day for 5 days 07/31/2024 Active Encounters Encounter Location Date Provider Diagnosis Jem Reid MD [address] [facility] [address] [place] [phone] 07/31/2024 Jem Reid Plan Of Treatment Medication Medication Name Sig Start Date Stop Date Notes Amoxicillin 500 MG 1 capsule Orally twice a day for 5 days 07/31/2024 Next Appt Details Provider Name:Jem aragon, 04/17/2025 07:45:00 AM, [address] [facility], [address] [facility], [place], [place], [phone], Provider Name:Jem aragon, 04/24/2025 01:00:00 PM, [address] [facility], [address] [place] [address], [phone], Progress Notes * Toña RÍOS MDOB:[birth year] (89 yo F)Acc No.[id number]:07/31/2024 Patient:?Toña RÍOS :1935???Age:89 Y???Sex:Female Address:[address] [place] [address] * Refills? Start Amoxicillin Capsule, 500 MG, Orally, 10 Capsule, 1 capsule, twice a day, 5 days * true * Date:? Generated for Octavia castillo/Jay/Amayasmitting on:?08/18/2024 06:50 PM EDT
--- OUTSIDE RECORDS SUMMARY | 2024-08-18 18:50 | XMS_ITS ---
Author Organization Jem Reid MD Address [address] [place], [place] [phone] Care Team Providers Care Lumber Sticker Name Role Phone Jem Reid Primary Care Provider Allergies No Known Allergies Results Component Value Reference Range Notes UA ClnCatch+Micro w/rflx Cul t Reviewed date:07/29/2024 04:29:01 PM Interpretation: Performing Lab:[facility], [address] [place] [phone] Notes/Report: Urine, Clean Catch Color Urine Yellow Appearance Urine Clear PH 8.5 5.0-9.0 Glucose Urine UA Negative Negative mg/dL Urine Blood Negative Negative Specific [place] - Urine 1.015 1.005-1.025 Urine Protein Negative [...] Problem Status W/U Status Risk Notes Problem [id number] Acute constipation (K59.00) Active confirmed Vital Signs Blood pressure systolic 88 mm Hg 07/29/19 25 Blood pressure diastolic 56 mm Hg 025 Height 63 in 07/29/2024 Weight 112 lbs 07/29/2024 BMI 19.84 kg/m2 07/29/2024 Encounters Encounter Location Date Provider Diagnosis Jem Reid MD [address] [place] [address] [place] [id number] 07/29/2024 Jem Reid After-treatment Z51.89 and Acute [...] Details Provider Name:Jem aragon, 04/17/2025 07:45:00 AM, [address] [place] [address], Suite [facility], [place], [place], [phone], Provider Name:Jem aragon, 04/24/2025 01:00:00 PM, [address] [place] [address], Suite [facility], [place], [place], [phone], Progress Notes * Toña RÍOS MDOB:[birth year] (89 yo F)Acc No.[id number]:07/29/2024 Patient:?Toña RÍOS Provider:?Jem Reid MD :1935???Age:89 Y???Sex:Female D ate:07/29/2024 Address:[id number] Subjective: * Chief Complaints: * ???PH/TCMAccompanied by husb and and daughter * HPI: ???Symptom(s):?patient is a 89 yo female here for follow up from recent hospitaliztion, discharge summary has been reviewed and medications reconcilled. had been in hospital for covid, uti and constipation. * ROS:?General/Constitutional:?Denies?Chills.?Denies?Fatigue.?Denies?Fever.?Denies?Headache.?ENT:?Patient denies?decreased sense of smell, any loss of taste, sore throat.?Denies?Sore throat.?Respiratory:?Denies?Cough.?Denies?Shortness of breath at rest.?Denies?Shortness of breath with exertion.?Gastrointestinal:?Denies?Diarrhea.?Denies?Nausea.?Musculoskeletal:?Patient denies?muscle aches.?Peripheral Vascular:?Patient denies?red and blue toes.? * Medical History:? * Surgical History:? * Hospitalization/Major Diagno stic Procedure:? * Medications:?TakingAmiodaron e HCl 100 MG Tablet 1 tablet Orally [...] reviewed and reconciled with the patient * Allergies:?N.K.D.A.yes[Aller gies Verified] Objective: * Vitals:?Ht: 63, Wt: 112, BMI :19.84, BP:88/56, Wt-k.8. * Examination: ???General Examination: ?GENERAL APPEARANCE:?alert, well hydrated, in no distress.?HEAD:?normocephalic.?SKIN:?good turgor.?HEART:?no murmurs, rubs, gallops, regular rate and rhythm.?LUNGS:?no wheezes, rales, rhonchi, good air movement, clear to auscultation bilaterally.? Assessment: * Assessment: 1.?Acute constipation - K59. 00 (Primary)???2.?After-treatment - Z51.89??? Plan: * Treatment: 2.?After-treatment?LAB: UA ClnCatch+Micro w/rflx Cult (Collection Date & Time - 07/29/2024 09:15 AM) Notes: had been in the hospital with urinary tract infection. is doing well now?? * Procedure Codes:? * * Sign off status: Completed true * Provider:?Jem Reid MD Date:?0 07/29/2024 Generated for Octavia castillo/Jay/Quang on:?08/18/2024 06:50 PM EDT History and Physical Notes * [...]
--- OUTSIDE RECORDS SUMMARY | 2024-08-18 18:50 | XMS_ITS ---
Author Organization Jem Reid MD Address [address] [place], [place] [phone] Care Team Providers Care Document Control Specialist Name Role Phone Jem Reid Primary Care Provider Results Component Value Reference Range Notes UA ClnCatch+Micro w/rflx Cul t (Not yet reviewed by provider) Interpretation: Performing Lab:[facility], [address] [place] [phone] Notes/Report: Urine, Clean Catch Color Urine Yellow Appearance Urine Hazy PH 6.0 5.0-9.0 Glucose Urine UA Negative Negative mg/dL Urine Blood Large (3+) Negative Specific [place] - Urine >= 1.030 1.005-1.025 Urine Protein [...] Reid MD [address] [place], [place] [phone] 08/18/2024 Jem Reid After-treatment Z51.89 Assessments Encounter Date Diagnosis (ICD Code) Assessment Notes Treatment Notes Treatment Clinical Notes Section Notes 08/18/2024 After-treatment (ICD-10 - Z51.89) Plan Of Treatment Pending Test Test Name Order Date UA ClnCatch+Micro w/rflx Cult 08/18/2024 Next Appt Details Provider Name:Jem Medrano Alinaab ier, 04/17/2025 07:45:00 AM, [address] [facility], [address], [place], [place], [phone], Provider Name:Jem Mckee ier, 04/24/2025 01:00:00 PM, [address] [facility], [address], [place], [place], [phone], Progress Notes * Toña RÍOS MDOB:[birth year] (89 yo F)Acc No.[id number]:08/18/2024 Progress Note Patient:?Toña RÍOS Edel Provider:?Jem Reid MD :1935???Age:89 Y???Sex:Female D ate:08/18/2024 Address:[address] [place], [place] [phone] Subjective: * Chief Complaints: * ???1. U/A POST CARE. * Medical History:? Objective: * Vitals:? Assessment: * Assessment: 1.?After-treatment - Z51.89? ?? Plan: * Treatment: * * The named appointment provid er may or may not be the originator of this progress note, and it is not deemed complete until electronically signed by the appointment provider. Sign off status: Pending * Provider:?Jem Reid MD Date:?0 08/18/2024 Generated for Octavia castillo/Jay/eTaliviasmitting on:?08/18/2024 06:49 PM EDT
== END 2024-08-18 15:06 | disposition home or self-care (01) ==
LOC: HO.LNP 15:05
PROVIDERS: Visit Provider Internal Medicine
DX: Z13.9 Encounter for screening, unspecified (principal); Z51.89 Encounter for other specified aftercare
CPT/HCPCS: 81001

== ENCOUNTER 2024-09-22 08:54 | Outpatient (REF) | payer MEDICARE, OTHER, SELFPAY | END 2024-09-22 08:55 | disposition home or self-care (01) | LOC: HO.LAB 08:54 | PROVIDERS: PCP Internal Medicine; Visit Provider Urology | DX: N30.00 Acute cystitis without hematuria (principal) | CPT/HCPCS: 81003; 87086 ==

== ENCOUNTER 2024-09-22 08:54 | Outpatient (AMB) | payer MEDICARE, OTHER, SELFPAY ==
--- NOTE | 2024-09-22 09:04 | MHC.OFFVIS ---
Intake Visit Reasons: microscopic hematuria Intake Note: New patient presents today for initial visit for microscopic hematuria Urology Medication:none Blood Thinner: Xarelto Antibiotic Allergies:none PVR:0ml Allergies No Known Allergies [No Known Allergies*] Allergy (Verified 09/22/24 09:05) PFSH Medical History Atrial flutter with rapid ventricular response Paroxysmal atrial fibrillation Persistent atrial fibrillation History of cardioversion Surgical History History of hip surgery Family History Father No problems noted. Mother No problems noted. Social History Household Members: Spouse Housing: House Are you a primary critical care physician to a significant other at home: No Do you presently have visiting nurse or other home services: Yes (phys therapy) Patient Tobacco Use Status: Never used Tobacco service: No Results AMB Urinalysis, Automated UA Leukoctes 125 New/uL Last Edit by Yandy Ramirez on 09/22/24 16:19 UA Nitrite Negative Last Edit by Yandy Ramirez on 09/22/24 16:19 UA Urobilinogen 0.2 mg/dL Last Edit by Yandy Ramirez on 09/22/24 16:19 UA Protein 15 mg/dL Last Edit by Yandy Ramirez on 09/22/24 16:19 UA pH 6.0 Last Edit by Yandy Ramirez on 09/22/24 16:19 UA Blood 10 Romulo/uL Last Edit by Yandy Ramirez on 09/22/24 16:19 UA Specific [place] 1.015 Last Edit by Yandy Ramirez on 09/22/24 16:19 UA Ketone Negative Last Edit by Yandy Ramirez on 09/22/24 16:19 UA Bilirubin 0 mg/dL Last Edit by Yandy Ramirez on 09/22/24 16:19 UA Glucose 100 mg/dL Last Edit by Yandy Ramirez on 09/22/24 16:19 Assessment & Plan Assessment & Plan Orders: Orders AMB Urinalysis Automated Today Z13.9 - Encounter for screening, unspecified Urine Culture Today N30.00 - Acute cystitis without hematuria Coding
--- OUTSIDE RECORDS SUMMARY | 2024-09-22 09:40 | XMS_ITS | Patient Health Record ---
Author Organization Jem Reid MD Address [address] [place], [place] [id number] Care Team Providers Care [facility] Administrator Name Role Phone Jem Reid Primary Care Provider Allergies No Known Allergies Results Component Value Reference Range Notes Hemoglobin A1c Reviewed date:10/08/2023 01:34:13 PM Interpretation: Performing Lab: Notes/Report: Hemoglobin A1c 5.5 Complete Blood Count Auto Di ff Reviewed date:04/12/2024 04:50:38 PM Interpretation: Performing Lab:[facility], [address] [place] [phone] Notes/Report: White Blood Count 7.5 4.8-10.8 X10*3/uL [...] 0.0-0.2 /100WBC Neutrophils Absolute Auto 4.1 2.0-8.3 x10*3/uL Imm Gran Abs Auto 0.02 0.00-0.03 X10*3/uL Lymphocytes Absolute Auto 2.5 1.2-4.9 X10*3/uL Monocytes Absolute Auto 0.6 0.1-1.2 X10*3/uL Eosinophils Absolute Auto 0.2 0.0-0.4 X10*3/uL Basophils Absolute Auto 0.0 0.0-0.2 X10*3/uL NRBC Abs Auto 0.000 0.0-0.012 X10*3/uL Comprehensive [place]. Panel Fa st Reviewed date:04/12/2024 04:49:40 PM Interpretation: Performing Lab:[facility], [address] [place] [phone] Notes/Report: Sodium 144 135-145 mmol/L Potassium 4.4 3.3-5.1 mmol/L Chloride 107 96-108 mmol/L Carbon Dioxide 25 22-29 mmol/L Anion Gap 16 12-20 Blood Urea Nitrogen 18 9-16 mg/dL Creatinine 0.74 0.5-1.4 mg/dL Estimated Glomerular Filt Rate > 60 NOTE: For -Italian individuals, multiply the result by 1.210. Chronic [...] Panel Reviewed date:04/12/2024 04:51:05 PM Interpretation: Performing Lab:[facility], [address] [place] [phone] Notes/Report: Triglycerides 87 <150 mg/dL Desirable Triglyceride: [...] Random Reviewed date:04/12/2024 04:50:01 PM Interpretation: Performing Lab:[facility], [address] [place] [phone] Notes/Report: Creatinine Urine 23.52 Microalbumin Urine 41.0 Microalbum/Creatinine Ratio Ur 174.3 <30 ug/mg cr Albumin/Creatinine Ratio Reference Ranges: Normal: < 30 ug/mg creatinine Microalbuminuria: 30 - 300 ug/mg creatinine Clinical Albuminuria: > 300 ug/mg creatinine Hemoglobin A1c Reviewed date:04/12/2024 04:49:49 PM Interpretation: Performing Lab:[facility], [address] [place] [phone] Notes/Report: Hemoglobin A1c % 5.3 <6.0 % [...] average glucose, using the formula of the J6S-Ddttlhr Average Glucose study (ADAG), Diabetes Care, Vol.31,#8, 2007 UA ClnCatch+Micro w/rflx Cul t Reviewed date:04/21/2024 10:28:41 AM Interpretation:CHEN 04/19 Performing Lab:[facility], [address] [place] [phone] Notes/Report: Urine, Clean Catch Color Urine Yellow Appearance Urine Clear PH 7.0 5.0-9.0 Glucose Urine UA Negative Negative mg/dL Urine Blood Large (3+) Negative Specific [place] - Urine <= 1.005 1.005-1.025 Urine Protein Negative Neg-Trace mg/dL Urine Ketones Negative Negative mg/dL Nitrite Urine Positive Negative Leukocyte Esterase Urine Large (3+) Negative RBC Urine >20 0-2 /HPF WBC Urine 21-50 0-5 /HPF Squamous Epithelial Cell Urine 0-2 0-2 /HPF Bacteria Urine 4+ None Seen Hyaline Casts Urine 0-2 0-2 /LPF UA ClnCatch+Micro w/rflx Cul t Reviewed date:06/20/2024 09:15:12 AM Interpretation:CHEN 06/17/24 Performing Lab:[facility], [address] [place] [phone] Notes/Report: Urine, Clean Catch Color Urine Yellow Appearance Urine Clear PH 7.0 5.0-9.0 Glucose Urine UA Negative Negative mg/dL Urine Blood Moderate (2+) Negative Specific [place] - Urine 1.020 1.005-1.025 Urine Protein Trace Neg-Trace mg/dL Urine Ketones Negative Negative mg/dL Nitrite Urine Negative Negative Leukocyte Esterase Urine Negative Negative RBC Urine >20 0-2 /HPF WBC Urine 0-5 0-5 /HPF Squamous Epithelial Cell Urine 0-2 0-2 /HPF Bacteria Urine None Seen None Seen Hyaline Casts Urine 0-2 0-2 /LPF UA ClnCatch+Micro w/rflx Cul t Reviewed date:08/22/2024 09:35:10 AM Interpretation: Performing Lab:[facility], [address] [place] [phone] Notes/Report: Urine, Clean Catch Color Urine Yellow Appearance Urine Hazy PH 6.0 5.0-9.0 Glucose Urine UA Negative Negative mg/dL Urine Blood Large (3+) Negative Specific [place] - Urine >= 1.030 1.005-1.025 Urine Protein 30 (1+) Neg-Trace mg/dL Urine Ketones Trace Negative mg/dL Nitrite Urine Negative Negative Leukocyte Esterase Urine Trace Negative RBC Urine >20 0-2 /HPF WBC Urine 0-5 0-5 /HPF Squamous Epithelial Cell Urine 0-2 0-2 /HPF Bacteria Urine Trace None Seen Hyaline Casts Urine 0-2 0-2 /LPF Yeast Urine Present Glucose, finger stick Reviewed date:10/08/2023 01:23:43 PM Interpretation: Performing Lab: Notes/Report: Value 94 UA ClnCatch+Micro w/rflx Cul t Reviewed date:05/17/2024 12:50:27 PM Interpretation: Performing Lab:[facility], [address] [place] [phone] Notes/Report: Urine, Clean Catch Color Urine Yellow Appearance Urine Clear PH 8.0 5.0-9.0 Glucose Urine UA Negative Negative mg/dL Urine Blood Large (3+) Negative Specific [place] - Urine 1.015 1.005-1.025 Urine Protein Negative Neg-Trace mg/dL Urine Ketones Negative Negative mg/dL Nitrite Urine Negative Negative Leukocyte Esterase Urine Trace Negative RBC Urine >20 0-2 /HPF WBC Urine 0-5 0-5 /HPF Squamous Epithelial Cell Urine 3-5 0-2 /HPF Bacteria Urine None Seen None Seen Hyaline Casts Urine 0-2 0-2 /LPF UA ClnCatch+Micro w/rflx Cul t Reviewed date:07/29/2024 04:29:01 PM Interpretation: Performing Lab:[facility], [address] [place] [phone] Notes/Report: Urine, Clean Catch Color Urine Yellow Appearance Urine Clear PH 8.5 5.0-9.0 Glucose Urine UA Negative Negative mg/dL Urine Blood Negative Negative Specific [place] - Urine 1.015 1.005-1.025 Urine Protein Negative Neg-Trace mg/dL Urine Ketones Negative Negative mg/dL Nitrite Urine Negative Negative Leukocyte Esterase Urine Large (3+) Negative RBC Urine 0-2 0-2 /HPF WBC Urine 21-50 0-5 /HPF Squamous Epithelial Cell Urine 11-20 0-2 /HPF Bacteria Urine 2+ None Seen Hyaline Casts Urine 0-2 0-2 /LPF Urine Culture Reviewed date:04/14/2024 12:49:03 PM Interpretation: Performing Lab:[address] [phone] Notes/Report: O:ESCCOL Escherichia coli Urine Culture Quant Urine Culture > 100,000 cfu/mL Ampicillin 8 Cefazolin 2 Cefepime <=0.12 Ceftriaxone <=0.25 Ciprofloxacin <=0.06 Gentamicin <=1 Nitrofurantoin <=16 Trimethoprim/Sulfametho xazole <=20 Complete Blood Count Auto Di ff Reviewed date:05/03/2024 06:12:49 PM Interpretation: Performing Lab:[address] [phone] Notes/Report: White Blood Count 7.1 4.8-10.8 X10*3/uL [...] 0.0-0.2 /100WBC Neutrophils Absolute Auto 4.1 2.0-8.3 x10*3/uL Imm Gran Abs Auto 0.02 0.00-0.03 X10*3/uL Lymphocytes Absolute Auto 1.8 1.2-4.9 X10*3/uL Monocytes Absolute Auto 0.9 0.1-1.2 X10*3/uL Eosinophils Absolute Auto 0.3 0.0-0.4 X10*3/uL Basophils Absolute Auto 0.0 0.0-0.2 X10*3/uL NRBC Abs Auto 0.000 0.0-0.012 X10*3/uL Prothrombin Time INR Reviewed date:05/03/2024 06:12:09 PM Interpretation: Performing Lab:[facility], [address] [place] [phone] Notes/Report: Prothrombin Time 23.3 10.9-12.4 [employer] [...] Panel Reviewed date:05/03/2024 06:12:00 PM Interpretation: Performing Lab:[facility], [address] [place] [phone] Notes/Report: Sodium 138 135-145 mmol/L Potassium 4.2 [...] Sensitivity Reviewed date:05/05/2024 12:00:12 PM Interpretation: Performing Lab:[address] [phone] Notes/Report: Troponin-I High Sensitivity 9.0 <3.5-17.0 ng/L The [place] high sensitivity Troponin-I results should be used in conjunction with other diagnostic information such as ECG, clinical observations and information, and patient symptoms to aid in the diagnosis of [place]. Urine Culture Reviewed date:05/09/2024 12:34:43 PM Interpretation: Performing Lab:[address] [phone] Notes/Report: O:PSEAER Pseudomonas aeruginosa Urine Culture Quant Urine Culture > 100,000 cfu/mL Cefepime 2 Ciprofloxacin <=0.06 Gentamicin <=1 Meropenem <=0.25 Piperacillin/Tazobactam <=4 UA ClnCatch+Micro w/rflx Cul t Reviewed date:06/03/2024 08:00:29 AM Interpretation:will be booked to a PH visit Performing Lab:[address] [phone] Notes/Report: [id number] Urine, Clean Catch Color Urine RED Appearance Urine Turbid PH 6.5 5.0-9.0 Glucose Urine UA Negative Negative mg/dL Urine Blood Large (3+) Negative Specific [place] - Urine >= 1.030 1.005-1.025 Urine Protein See Note Neg-Trace mg/dL Urine pigme nt obscured dipstick results. Urine Ketones See Note Negative mg/dL Urine pigmen t obscured dipstick results. Nitrite Urine See Note Negative Urine pigment obscured dipstick results. Leukocyte Esterase Urine See Note Negative Urine pigment obscured dipstick results. RBC Urine >20 0-2 /HPF WBC Urine 21-50 0-5 /HPF Squamous Epithelial Cell Urine 3-5 0-2 /HPF Bacteria Urine 2+ None Seen Hyaline Casts Urine 0-2 0-2 /LPF CT cervical spine wo con Reviewed date:05/03/2024 06:16:41 PM Interpretation: Performing Lab: Notes/Report: [address] [address] [address] Scan Report Signed Patient: Toña Ríos MR#: [id number] 2 : 1935 Acct:[id number] Age/Sex: 88 / F ADM Date: 05/03/24 Loc: HO.ED Attending Dr: Ordering Physician: Nicolasa Rodriguez NP Date of Service: 05/03/24 Procedure(s): CT cervical spine wo IV con Accession Number(s): [id number] cc: Jem Reid MD; Nicolasa Rodriguez NP [...] by: Apolinar Oliva DO 05/03/2024 06:02 PM [facility] Dictated By: Charles Oliva DO Signed By: <Electronically signed by Charles Oliva DO in OV> 05/03/24 1802 DD/ 1523 TD/TT: 05/03/24 1533 Senior Teller: DEBI [address] [address] [address] Scan Report Signed Patient: Mee Ríos MR#: [id number] 2 : 1935 Acct:[id number] Age/Sex: 88 / F ADM Date: 05/03/24 Loc: HO.ED Attending Dr: Ordering Physician: Nicolasa Rodriguez NP Date of Service: 05/03/24 Procedure(s): CT cer vical spine wo IV con Accession Number(s): [id number] cc: Jem Reid MD; Nicolasa Rodriguez NP EXAMINATION: CT HEAD WITHOUT CONTRAST CT FACIAL BONES WITH OUT CONTRAST CT CERVICAL SPINE WI THOUT CONTRAST CLINICAL INFORMATION: Fall. Head strike. P atient on blood thinners. COMPARISON: None available. TECHNIQUE: Imaging was performe d from the skull base to vertex without intravenous administration of contrast. In addition, helical noncontrast CT imaging was acquired through the cervical spine and facial bones and source images were reviewed along with axial reconstructions and sagittal and coronal MPRs. This CT examination was performed using dose optimization techniques as appropriate, various ly including the following: *Automated exposure control. *Adjustment of mA an d/or kV according to patient size (this includes techniques or standa rdized protocols for targeted exams where dose is matched to indication/reason for exam; i.e. extremities or head). *Use of iterative reconstruction technique. DLP: 1134 mGy-cm FINDINGS: Head: There is no evidence of acute intracranial hemorrhage or edematous territorial infarcti on. Yanes-white matter differentiation is preserved. Scattered and partia lly confluent hypoattenuation in the periventricular and deep white matter are consistent with moderate microangiopathy. Proportional prominence of the ventricles and sulcal spaces without evide nce of obstructive hydrocephalus. No abnormal mass effect or midline sh ift. No extra-axial fluid collections. Calcific atherosclerotic dise ase of the intracranial internal carotid arteries. No hyperdense vessel sign. Moderate subgaleal hematoma along the right aspect of the frontal bone, measuring up to 0.9 cm in depth. No associated acute osseous abnormalities. Maxillofacial Bones: Moderate subcutaneou s edema/hematoma in the right periorbital soft tissues extending in to the right premaxillary soft tissues. No evidence of maxillofacial bone fractures. The zygomatic arches remain intact. No na artis bone fracture. The nasal septum remains midline. No evidence of mandibular or maxillary fracture. The mandibular condyles remain well-seated in their respective temporal articular grooves. N ormal appearance of the intraconal and extraconal fat. No evidence of traumatic injury to the extraocular musculature or globes. Mild mucosal thicken ing of the paranasal sinuses. The mastoid air cells and middle ear cavit ies are clear. No layering fluid collections. Multifocal odontogen ic enamel erosions and periapical lucencies. Cervical Spine: The atlantooccipital and atlantoaxial articulations remain well aligned. Moderate degenerative arthropathy of the atlantodental articulation. Minima l reversal of the normal cervical lordosis. Mild degenerative anterolistheses of C3 on C4 and stepwise from C6-T1. Otherwise, there is anatomic alignment of the vertebral bodies and posterior elements. Ankylosis of the C2-C3 facets. No evidence of acute fracture or subluxat ion. The vertebral body heights are maintained. Advanced degenerativ e disc disease from C4-C6. Moderate degenerative disc disease at C7-T 1. Facet and uncovertebral joint arthropathy leads to osseous encroachm ent on the neural foramina from C2-T1. There is no prevertebral soft ti ssue swelling. The thyroid gland an d remaining cervical soft tissues are within normal limits. The lung api justine demonstrate no abnormalities. C T/CT cervical spine wo IV con IMPRESSION: 1. No evidence of ac citizen [place] intracranial hemorrhage or edematous territorial infarcti on. 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 2. No evidence of ac citizen [place] fracture or traumatic subluxation of the cervical spine. 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 3. Moderate right fr ontal scalp, right periorbital, and right facial soft tissue edema/hematoma. No associated osseous abnormalities. 4. No evidence of ac citizen [place] fracture of the maxillofacial bones. Electronically nate d by: Apolinar Oliva DO 05/03/2024 06:02 PM [facility] Dictated By: Mati Oliva DO Signed By: <Nita candice signed by Charles Oliva DO in OV> 05/03/24 1802 DD/ 1523 TD/TT: 05/03/24 1533 Senior Teller: DEBI CT head/brain wo con Reviewed date:05/03/2024 06:16:59 PM Interpretation: Performing Lab: Notes/Report: [address] [address] [address] Scan Report Signed Patient: Toña Ríos MR#: [id number] 2 : 1935 Acct:[id number] Age/Sex: 88 / F ADM Date: 05/03/24 Loc: HO.ED Attending Dr: Ordering Physician: Nicolasa Rodriguez NP Date of Service: 05/03/24 Procedure(s): CT head/brain wo IV con Accession Number(s): [id number] cc: Jem Reid MD; Nicolasa Rodriguez NP [...] by: Apolinar Oliva DO 05/03/2024 06:02 PM [facility] Dictated By: Charles Oliva DO Signed By: <Electronically signed by Charles Oliva DO in OV> 05/03/24 1802 DD/ 1459 TD/TT: 05/03/24 1533 Senior Teller: DEBI [address] [address] [address] Scan Report Signed Patient: Mee Ríos MR#: [id number] 2 : 1935 Acct:[id number] Age/Sex: 88 / F ADM Date: 05/03/24 Loc: HO.ED Attending Dr: Ordering Physician: Nicolasa Rodriguez NP Date of Service: 05/03/24 Procedure(s): CT head/brain wo IV con Accession Number(s): [id number] cc: Jem Reid MD; Nicolasa Rodriguez NP EXAMINATION: CT HEAD WITHOUT CONTRAST CT FACIAL BONES WITH OUT CONTRAST CT CERVICAL SPINE WI THOUT CONTRAST CLINICAL INFORMATION: Fall. Head strike. P atient on blood thinners. COMPARISON: None available. TECHNIQUE: Imaging was performe d from the skull base to vertex without intravenous administration of contrast. In addition, helical noncontrast CT imaging was acquired through the cervical spine and facial bones and source images were reviewed along with axial reconstructions and sagittal and coronal MPRs. This CT examination was performed using dose optimization techniques as appropriate, various ly including the following: *Automated exposure control. *Adjustment of mA an d/or kV according to patient size (this includes techniques or standa rdized protocols for targeted exams where dose is matched to indication/reason for exam; i.e. extremities or head). *Use of iterative reconstruction technique. DLP: 1134 mGy-cm FINDINGS: Head: There is no evidence of acute intracranial hemorrhage or edematous territorial infarcti on. Yanes-white matter differentiation is preserved. Scattered and partia lly confluent hypoattenuation in the periventricular and deep white matter are consistent with moderate microangiopathy. Proportional prominence of the ventricles and sulcal spaces without evide nce of obstructive hydrocephalus. No abnormal mass effect or midline sh ift. No extra-axial fluid collections. Calcific atherosclerotic dise ase of the intracranial internal carotid arteries. No hyperdense vessel sign. Moderate subgaleal hematoma along the right aspect of the frontal bone, measuring up to 0.9 cm in depth. No associated acute osseous abnormalities. Maxillofacial Bones: Moderate subcutaneou s edema/hematoma in the right periorbital soft tissues extending in to the right premaxillary soft tissues. No evidence of maxillofacial bone fractures. The zygomatic arches remain intact. No na artis bone fracture. The nasal septum remains midline. No evidence of mandibular or maxillary fracture. The mandibular condyles remain well-seated in their respective temporal articular grooves. N ormal appearance of the intraconal and extraconal fat. No evidence of traumatic injury to the extraocular musculature or globes. Mild mucosal thicken ing of the paranasal sinuses. The mastoid air cells and middle ear cavit ies are clear. No layering fluid collections. Multifocal odontogen ic enamel erosions and periapical lucencies. Cervical Spine: The atlantooccipital and atlantoaxial articulations remain well aligned. Moderate degenerative arthropathy of the atlantodental articulation. Minima l reversal of the normal cervical lordosis. Mild degenerative anterolistheses of C3 on C4 and stepwise from C6-T1. Otherwise, there is anatomic alignment of the vertebral bodies and posterior elements. Ankylosis of the C2-C3 facets. No evidence of acute fracture or subluxat ion. The vertebral body heights are maintained. Advanced degenerativ e disc disease from C4-C6. Moderate degenerative disc disease at C7-T 1. Facet and uncovertebral joint arthropathy leads to osseous encroachm ent on the neural foramina from C2-T1. There is no prevertebral soft ti ssue swelling. The thyroid gland an d remaining cervical soft tissues are within normal limits. The lung api justine demonstrate no abnormalities. C T/CT head/brain wo IV con IMPRESSION: 1. No evidence of ac citizen [place] intracranial hemorrhage or edematous territorial infarcti on. 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 2. No evidence of ac citizen [place] fracture or traumatic subluxation of the cervical spine. 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 3. Moderate right fr ontal scalp, right periorbital, and right facial soft tissue edema/hematoma. No associated osseous abnormalities. 4. No evidence of ac citizen [place] fracture of the maxillofacial bones. Electronically nate d by: Apolinar Oliva DO 05/03/2024 06:02 PM EST Dictated By: Mati Oliva DO Signed By: <Nita candice signed by Charles Oliva DO in OV> 05/03/24 1802 DD/ 1459 TD/TT: 05/03/24 1533 Senior Teller: DEBI CT facial bones wo con Reviewed date:05/03/2024 06:17:06 PM Interpretation: Performing Lab: Notes/Report: [address] [address] [address] Scan Report Signed Patient: Toña Ríos MR#: [id number] 2 : 1935 Acct:[id number] Age/Sex: 88 / F ADM Date: 05/03/24 Loc: HO.ED Attending Dr: Ordering Physician: Nicolasa Rodriguez NP Date of Service: 05/03/24 Procedure(s): CT facial bones wo IV con Accession Number(s): [id number] cc: Jem Reid MD; Nicolasa Rodriguez NP [...] by: Apolinar Oliva DO 05/03/2024 06:02 PM [facility] Dictated By: Charles Oliva DO Signed By: <Electronically signed by Charles Oliva DO in OV> 05/03/24 1802 DD/ 1459 TD/TT: 05/03/24 1533 Senior Teller: DEBI [address] [address] [address] Scan Report Signed Patient: Mee Ríos MR#: [id number] 2 : 1935 Acct:[id number] Age/Sex: 88 / F ADM Date: 05/03/24 Loc: HO.ED Attending Dr: Ordering Physician: Nicolasa Rodriguez NP Date of Service: 05/03/24 Procedure(s): CT fac ial bones wo IV con Accession Number(s): [id number] cc: Jem Reid MD; Nicolasa Rodriguez NP EXAMINATION: CT HEAD WITHOUT CONTRAST CT FACIAL BONES WITH OUT CONTRAST CT CERVICAL SPINE WI THOUT CONTRAST CLINICAL INFORMATION: Fall. Head strike. P atient on blood thinners. COMPARISON: None available. TECHNIQUE: Imaging was performe d from the skull base to vertex without intravenous administration of contrast. In addition, helical noncontrast CT imaging was acquired through the cervical spine and facial bones and source images were reviewed along with axial reconstructions and sagittal and coronal MPRs. This CT examination was performed using dose optimization techniques as appropriate, various ly including the following: *Automated exposure control. *Adjustment of mA an d/or kV according to patient size (this includes techniques or standa rdized protocols for targeted exams where dose is matched to indication/reason for exam; i.e. extremities or head). *Use of iterative reconstruction technique. DLP: 1134 mGy-cm FINDINGS: Head: There is no evidence of acute intracranial hemorrhage or edematous territorial infarcti on. Yanes-white matter differentiation is preserved. Scattered and partia lly confluent hypoattenuation in the periventricular and deep white matter are consistent with moderate microangiopathy. Proportional prominence of the ventricles and sulcal spaces without evide nce of obstructive hydrocephalus. No abnormal mass effect or midline sh ift. No extra-axial fluid collections. Calcific atherosclerotic dise ase of the intracranial internal carotid arteries. No hyperdense vessel sign. Moderate subgaleal hematoma along the right aspect of the frontal bone, measuring up to 0.9 cm in depth. No associated acute osseous abnormalities. Maxillofacial Bones: Moderate subcutaneou s edema/hematoma in the right periorbital soft tissues extending in to the right premaxillary soft tissues. No evidence of maxillofacial bone fractures. The zygomatic arches remain intact. No na artis bone fracture. The nasal septum remains midline. No evidence of mandibular or maxillary fracture. The mandibular condyles remain well-seated in their respective temporal articular grooves. N ormal appearance of the intraconal and extraconal fat. No evidence of traumatic injury to the extraocular musculature or globes. Mild mucosal thicken ing of the paranasal sinuses. The mastoid air cells and middle ear cavit ies are clear. No layering fluid collections. Multifocal odontogen ic enamel erosions and periapical lucencies. Cervical Spine: The atlantooccipital and atlantoaxial articulations remain well aligned. Moderate degenerative arthropathy of the atlantodental articulation. Minima l reversal of the normal cervical lordosis. Mild degenerative anterolistheses of C3 on C4 and stepwise from C6-T1. Otherwise, there is anatomic alignment of the vertebral bodies and posterior elements. Ankylosis of the C2-C3 facets. No evidence of acute fracture or subluxat ion. The vertebral body heights are maintained. Advanced degenerativ e disc disease from C4-C6. Moderate degenerative disc disease at C7-T 1. Facet and uncovertebral joint arthropathy leads to osseous encroachm ent on the neural foramina from C2-T1. There is no prevertebral soft ti ssue swelling. The thyroid gland an d remaining cervical soft tissues are within normal limits. The lung api justine demonstrate no abnormalities. C T/CT facial bones wo IV con IMPRESSION: 1. No evidence of ac citizen [place] intracranial hemorrhage or edematous territorial infarcti on. 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 2. No evidence of ac citizen [place] fracture or traumatic subluxation of the cervical spine. 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 3. Moderate right fr ontal scalp, right periorbital, and right facial soft tissue edema/hematoma. No associated osseous abnormalities. 4. No evidence of ac citizen [place] fracture of the maxillofacial bones. Electronically nate d by: Apolinar Oliva DO 05/03/2024 06:02 PM EST Dictated By: Mati Oliva DO Signed By: <Nita harvey signed by Charles Oliva DO in OV> 05/03/24 1802 DD/ 1459 TD/TT: 05/03/24 1533 Senior Teller: DEBI Complete Blood Count Auto Di ff Reviewed date:05/05/2024 12:04:27 PM Interpretation: Performing Lab:[facility], [address] [place] [address] Notes/Report: White Blood Count 5.9 4.8-10.8 X10*3/uL [...] 0.0-0.2 /100WBC Neutrophils Absolute Auto 3.5 2.0-8.3 x10*3/uL Imm Gran Abs Auto 0.01 0.00-0.03 X10*3/uL Lymphocytes Absolute Auto 1.4 1.2-4.9 X10*3/uL Monocytes Absolute Auto 0.7 0.1-1.2 X10*3/uL Eosinophils Absolute Auto 0.3 0.0-0.4 X10*3/uL Basophils Absolute Auto 0.0 0.0-0.2 X10*3/uL NRBC Abs Auto 0.000 0.0-0.012 X10*3/uL Basic Metabolic Panel Reviewed date:05/05/2024 11:58:12 AM Interpretation: Performing Lab:[address] [address] Notes/Report: Sodium 140 135-145 mmol/L Potassium 4.0 [...] Magnesium Reviewed date:05/05/2024 11:57:54 AM Interpretation: Performing Lab:[facility], [address] [place] [phone] Notes/Report: Magnesium 2.4 1.6-2.6 mg/dL MR head/brain wo con Reviewed date:05/05/2024 11:49:06 AM Interpretation: Performing Lab: Notes/Report: [address] [address] Magnetic Resonance Report Signed Patient: Toña Ríos MR#: [id number] 2 : 1935 Acct:[id number] Age/Sex: 88 / F ADM Date: 05/03/24 Loc: HO.S3 359-[address]: Christelle Lambert MD Ordering Physician: Mj Seals MD Date of Service: 05/04/24 Procedure(s): MR head/brain wo con Accession Number(s): [id number] cc: Jem Reid MD; Mj Seals MD [...] by: Danish Moreno MD 05/04/2024 08:57 PM [facility] Dictated By: Danish Moreno MD Signed By: <Electronically signed by Danish Moreno MD in OV> 05/04/242056 DD/ 1300 TD/TT: 05/04/24 1345 Senior Teller: [place] [address] Magnetic Resonance Report Signed Patient: Mee Ríos MR#: [id number] 2 : 1935 Acct:[id number] Age/Sex: 88 / F ADM Date: 05/03/24 Loc: .S3 359-[address]: Rolando Lambert MD Ordering Physician: Mj Seals MD Date of Service: 05/04/24 Procedure(s): MR head/brain wo con Accession Number(s): [id number] cc: Jem Reid MD; Mj Seals MD EXAMINATION: MR BRAIN WITHOUT CONTRAST CLINICAL INFORMATION: Recurrent episodes o f unresponsiveness COMPARISON: None available. TECHNIQUE: MRI of the brain was obtained using routine sequences without contrast. FINDINGS: No acute intracrania l hemorrhage or infarct. Scattered and confluent periventricular and deep white matter T2/FLAIR hyperintensities, nonspecific however commonly seen with small vessel ischemic disease. Diffuse prominence o f the sulci with associated ex vacuo dilation of the ventricles chaparro tible with global cerebral atrophy. No midline shift or hydrocephalus. No acute extra-axial fluid collections. The osseous structur es are unremarkable. There is a well-circumscribed soft tissue mass inv olving the right frontal scalp which demonstrate heterogeneous signal , likely reflect a complicated epidermal inclusion cyst. The pituitary gland, pineal gland and remaining midline structures are unremarkable. No orbital pathology. The paranasal sinuse s and mastoid air cells are clear. M R/MR head/brain wo con IMPRESSION: No acute intracrania l abnormality. Electronically nate d by: Danish Moreno MD 05/04/2024 08:57 PM EST Dictated By: Danish Moreno MD Signed By: <Electron ically signed by Danish Moreno MD in OV> 05/04/242056 DD/ 1300 TD/TT: 05/04/24 1345 Senior Teller: Basic Metabolic Panel Reviewed date:05/07/2024 01:47:35 PM Interpretation: Performing Lab:[facility], [address] [place] [phone] Notes/Report: Sodium 141 135-145 mmol/L Potassium 4.4 [...] Hormone Reviewed date:05/07/2024 01:43:46 PM Interpretation: Performing Lab:[facility], [address] [place] [phone] Notes/Report: Thyroid Stimulating Hormone 2.26 0.32-4.0 uIU/mL TSH 3rd Generation ([facility]) Complete Blood Count Auto Di ff Reviewed date:06/24/2024 05:57:08 PM Interpretation: Performing Lab:[facility], [address] [place] [phone] Notes/Report: White Blood Count 6.8 4.8-10.8 X10*3/uL Red Blood Count 4.45 4.20-5.50 X10*6/uL Hemoglobin 13.7 12.0-16.0 g/dl Hematocrit 41.3 37.0-47.0 % Mean Corpuscular Volume 92.8 80.0-98.0 fL Mean Corpuscular Hemoglobin 30.8 27.0-33.0 pg Mean Corpuscular HGB Conc 33.2 31.0-35.0 g/dl Red Cell Distribution Width 12.8 11.0-16.0 % Platelet Count 201 160-400 X10*3/uL Mean Platelet Volume 10.2 9.4-12.3 fL Neutrophils Percent Auto 66.1 45-73 % Imm Gran Pct Auto 0.6 0.0-0.4 % Lymphocytes Percent Auto 16.6 20-40 % Monocytes Percent Auto 16.6 2-11 % Eosinophils Percent Auto 0.0 0-4 % Basophils Percent Auto 0.1 0-2 % NRBC Pct Auto 0.0 0.0-0.2 /100WBC Neutrophils Absolute Auto 4.5 2.0-8.3 x10*3/uL Imm Gran Abs Auto 0.04 0.00-0.03 X10*3/uL Lymphocytes Absolute Auto 1.1 1.2-4.9 X10*3/uL Monocytes Absolute Auto 1.1 0.1-1.2 X10*3/uL Eosinophils Absolute Auto 0.0 0.0-0.4 X10*3/uL Basophils Absolute Auto 0.0 0.0-0.2 X10*3/uL NRBC Abs Auto 0.000 0.0-0.012 X10*3/uL Liver Panel Reviewed date:06/24/2024 05:52:26 PM Interpretation: Performing Lab:[address] [address] Notes/Report: Bilirubin Total 0.5 0.0-1.0 mg/dL Bilirubin Direct 0.2 0.0-0.5 mg/dL Aspartate Amino Transferase 41 5-31 U/L Alanine Aminotransferase 15 0-31 U/L Total Protein 8.5 6.5-8.0 g/dL Albumin Level 4.1 3.5-5.0 g/dL Alkaline Phosphatase 85 39-117 U/L Basic Metabolic Panel Reviewed date:06/24/2024 05:54:58 PM Interpretation: Performing Lab:[address] [address] Notes/Report: Sodium 137 135-145 mmol/L Potassium 4.3 3.3-5.1 mmol/L Chloride 103 96-108 mmol/L Carbon Dioxide 25 22-29 mmol/L Anion Gap 13 12-20 Blood Urea Nitrogen 17 9-16 mg/dL Creatinine 0.75 0.5-1.4 mg/dL Creatinine Clr Calc Pharmacy 47.8 Provided height and weight: 157.48 cm, 68.039 kg. eGFR (calculated from the MDRD study equation) and eCrCl (calculated from the Cockcroft-Gault equation) are based on different parameters and may not yield comparable results. If eCrCl result is absurd, please check patient's height/weight. Estimated Glomerular Filt Rate > 60 Chronic Kidney Disease: Estimated GFR < 60 mL/min/1.73m2 Severe Kidney Disease: Estimated GFR < 15 mL/min/1.73m2 Glucose Random 100 60-115 mg/dL Calcium 9.6 8.4-10.2 mg/dL Lactic Acid Reviewed date:06/24/2024 05:54:33 PM Interpretation: Performing Lab:[address] [address] Notes/Report: Lactic Acid 1.6 0.5-2.0 mmol/L Magnesium Reviewed date:06/24/2024 05:54:18 PM Interpretation: Performing Lab:[facility], [address] [place] [phone] Notes/Report: Magnesium 2.3 1.6-2.6 mg/dL Creatine Kinase Total Reviewed date:06/24/2024 05:55:16 PM Interpretation: Performing Lab:[facility], [address] [place] [phone] Notes/Report: Creatine Kinase Total 219 26-140 U/L Troponin-I High Sensitivity Reviewed date:06/24/2024 05:54:43 PM Interpretation: Performing Lab:[address] [address] Notes/Report: Troponin-I High Sensitivity 20.3 <3.5-17.0 ng/L [facility] high sensitivity Troponin-I results should be used in conjunction with other diagnostic information such as ECG, clinical observations and information, and patient symptoms to aid in the diagnosis of [place]. Lipase Reviewed date:06/24/2024 05:54:11 PM Interpretation: Performing Lab:[address] [address] Notes/Report: Lipase 21 8-78 U/L Urine Culture Reviewed date:06/28/2024 01:21:17 PM Interpretation: Performing Lab:[address] [address] Notes/Report: O:ESCCOL Escherichia coli Urine Culture Quant Urine Culture > 100,000 cfu/mL Ampicillin <=2 Cefazolin (Urine) 2 Cefepime <=0.12 Ceftriaxone <=0.25 Ciprofloxacin <=0.06 Gentamicin <=1 Nitrofurantoin <=16 Trimethoprim/Sulfametho xazole <=20 SARS-CoV2/FLU/RSV Reviewed date:06/24/2024 05:54:26 PM Interpretation: Performing Lab:[address] [address] Notes/Report: Influenza A PCR NEGATIVE Negative Influenza B PCR NEGATIVE Negative Resp Syncy Virus RNA Qual PCR NEGATIVE Negative SARS COV2 PCR INHOUSE POSITIVE Negative All test results must be correlated with clinical findings. Negative results do not preclude SARS-CoV2, influenza A virus, influenza B virus and/or RSV infection and should not be used as the sole basis for treatment or other patient management decisions. Negative results must be combined with clinical observations, patient history, and epidemiological information. This test has not been evaluated for monitoring treatment of infection. This test has been authorized by the FDA under an Emergency Use Authorization (EUA) for use by authorized laboratories. Testing performed on the [employer] GeneXpert utilizing real-time RT-PCR. All SARS CoV2 and positive influenza A/B results are reported to [facility]. Blood Culture (First) Reviewed date:06/30/2024 05:52:36 PM Interpretation: Performing Lab:[address] [address] Notes/Report: Blood Culture (First) No growth after 5 days. Blood Culture (Second) Reviewed date:06/30/2024 05:52:44 PM Interpretation: Performing Lab:[address] [address] Notes/Report: Blood Culture (Second) No growth after 5 days. UA ClnCatch+Micro w/rflx Cul t Reviewed date:06/24/2024 05:56:48 PM Interpretation: Performing Lab:[address] [address] Notes/Report: Urine, Clean Catch Color Urine Yellow Appearance Urine Cloudy PH 5.5 5.0-9.0 Glucose Urine UA Negative Negative mg/dL Urine Blood Trace Negative Specific [place] - Urine 1.015 1.005-1.025 Urine Protein Trace Neg-Trace mg/dL Urine Ketones Trace Negative mg/dL Nitrite Urine Positive Negative Leukocyte Esterase Urine Large (3+) Negative RBC Urine 3-5 0-2 /HPF WBC Urine >50 0-5 /HPF Squamous Epithelial Cell Urine 0-2 0-2 /HPF Bacteria Urine 4+ None Seen Hyaline Casts Urine 3-5 0-2 /LPF CT cervical spine wo con Reviewed date:06/24/2024 05:53:01 PM Interpretation: Performing Lab: Notes/Report: [address] [address] [address] Scan Report Signed Patient: Toña Ríos MR#: [id number] 2 : 1935 Acct:[id number] Age/Sex: 88 / F ADM Date: 06/24/24 Loc: HO.ED Attending Dr: Ordering Physician: Hanna Harrington DO Date of Service: 06/24/24 Procedure(s): CT cervical spine wo IV con Accession Number(s): [id number] cc: Jem Reid MD; Hanna Harrington DO Report Number: [id number]: Total DLP = 868.56 mGy-cm EXAMINATION: CT CERVICAL SPINE WITHOUT CONTRAST CLINICAL INFORMATION: Trauma to neck. COMPARISON: 05/03/2024. TECHNIQUE: Spiral CT of the cervical spine was performed in axial plane without IV contrast. Sagittal, coronal, and thin section axial reformatted images were constructed from the axial data set. This CT examination was performed using dose optimization techniques as appropriate, variously including the following: *Automated exposure control *Adjustment of mA and/or kV according to patient size (this includes techniques or standardized protocols for targeted exams where dose is matched to indication/reason for exam; i.e. extremities or head) *Use of iterative reconstruction technique FINDINGS: Mild reversal of the normal lordosis centered at C4. No scoliosis. No fracture, compression deformity, evidence of traumatic subluxation, or suspicious focal bone lesion. There is a 2 mm degenerative appearing anterolisthesis of C3 on C4. There is a 2 mm degenerative retrolisthesis C5 on C6. There is a 3 mm degenerative anterolisthesis C6 on C7. Normal facet alignment. Multilevel hypertrophic degenerative facet changes most significant on the right at C3-4, and on the left at C4-5. Moderate to severe disc degeneration present focally C4-5 and C5-6. Arthritic changes present at the atlantoaxial joint. No fracture or malalignment. Craniocervical junction is intact. No prevertebral or paravertebral soft tissue abnormalities. Mild carotid bulb calcifications. Normal thyroid. Imaged lung apices clear. CT/CT cervical spine wo IV con IMPRESSION: 1. No CT evidence of acute cervical spine fracture or injury. 2. Degenerative spondylosis. Electronically signed by: Obdulio Schultz MD 06/24/2024 04:29 PM [facility] Dictated By: Obdulio Schultz MD Signed By: <Electronically signed by Obdulio Schultz MD in OV> 06/24/24 1629 DD/ 1556 TD/TT: 06/24/24 1617 Senior Teller: [address] [address] [address] Scan Report Signed Patient: Mee Ríos MR#: [id number] 2 : 1935 Acct:[id number] Age/Sex: 88 / F ADM Date: 06/24/24 Loc: HO.ED Attending Dr: Ordering Physician: Hanna Harrington DO Date of Service: 06/24/24 Procedure(s): CT cer vical spine wo IV con Accession Number(s): [id number] cc: Jem Reid MD; Hanna Harrington DO Report Number: [id number]: Total DLP = 868.56 mGy-cm EXAMINATION: CT CERVICAL SPINE WI THOUT CONTRAST CLINICAL INFORMATION: Trauma to neck. COMPARISON: 05/03/2024. TECHNIQUE: Spiral CT of the cer vical spine was performed in axial plane without IV contrast. Sagittal, coronal, and thin section axial reformatted images were constructed fro m the axial data set. This CT examination was performed using dose optimization techniques as appropriate, various ly including the following: *Automated exposure control *Adjustment of mA an d/or kV according to patient size (this includes techniques or standa rdized protocols for targeted exams where dose is matched to indication/reason for exam; i.e. extremities or head) *Use of iterative reconstruction technique FINDINGS: Mild reversal of the normal lordosis centered at C4. No scoliosis. No fracture, gomez kian deformity, evidence of traumatic subluxation, or suspicious focal bone lesion. There is a 2 mm degenerative appearing anterolisthesis of C3 on C4. There is a 2 mm degenerative retrolisthesis C5 on C6. There is a 3 mm degenerative anterolisthesis C6 on C7. Normal facet alignme nt. Multilevel hypertrophic degenerative facet changes most signifi cant on the right at C3-4, and on the left at C4-5. Moderate to severe d isc degeneration present focally C4-5 and C5-6. Arthritic changes pr esent at the atlantoaxial joint. No fracture or malalignment. Craniocervical junction is intact. No prevertebral or paravertebral soft tissue abnormalities. Mild carotid bulb calcifications. Normal thyroid. Imaged lung apices clear. C T/CT cervical spine wo IV con IMPRESSION: 1. No CT evidence of acute cervical spine fracture or injury. 2. Degenerative spondylosis. Electronically nate d by: Obdulio Schultz MD 06/24/2024 04:29 PM [facility] Dictated By: Obdulio Durand MD Signed By: <Electron ically signed by Obdulio Schultz MD in OV> 06/24/24 1629 DD/ 1556 TD/TT: 06/24/24 1617 Senior Teller: CT head/brain wo con Reviewed date:06/24/2024 05:54:02 PM Interpretation: Performing Lab: Notes/Report: [place] [address] CT Scan Report Signed Patient: Toña Ríos MR#: [id number] 2 : 1935 Acct:[id number] Age/Sex: 88 / F ADM Date: 06/24/24 Loc: HO.ED Attending Dr: Ordering Physician: Hanna Harrington DO Date of Service: 06/24/24 Procedure(s): CT head/brain wo IV con Accession Number(s): [id number] cc: Jem Reid MD; Hanna Harrington DO Report Number: [id number]: Total DLP = 0.00 mGy-cm EXAMINATION: CT HEAD WITHOUT CONTRAST CLINICAL INFORMATION: Head trauma. COMPARISON: 05/03/2024. TECHNIQUE: Contiguous axial imaging was performed from the skull base to vertex without intravenous administration of contrast. This CT examination was performed using dose optimization techniques as appropriate, variously including the following: *Automated exposure control *Adjustment of mA and/or kV according to patient size (this includes techniques or standardized protocols for targeted exams where dose is matched to indication/reason for exam; i.e. extremities or head) *Use of iterative reconstruction technique FINDINGS: There is no evidence of intracranial hemorrhage or extra-axial fluid collection. There is no mass effect, or edema. No CT evidence of acute territorial infarct. Ventricles, sulci, and cisterns somewhat diffusely prominent, consistent with age-related involutional changes. No hydrocephalus. No midline shift. Negative hyperdense MCA sign. Negative insular ribbon sign. 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 Mild to moderate low attenuating supratentorial white matter foci in keeping with small vessel ischemia. Partial empty sella noted. There is thinning of the corpus callosum. Mild atheromatous calcification of the bilateral carotid siphons and V4 segments vertebral arteries bilaterally. Globes and orbital contents image normally. No extracranial soft tissue abnormalities. The paranasal sinuses, mastoid air cells, and tympanic cavities are normally aerated. No suspicious bony abnormalities. No fractures. CT/CT head/brain wo IV con IMPRESSION: 1. No acute intracranial abnormality. 2. Stable chronic changes. Electronically signed by: Obdulio Schultz MD 06/24/2024 04:40 PM [facility] Dictated By: Obdulio Schultz MD Signed By: <Electronically signed by Obdulio Schultz MD in OV> 06/24/24 1640 DD/ 1428 TD/TT: 06/24/24 1617 Senior Teller: [place] [address] CT Scan Report Signed Patient: Mee Ríos MR#: [id number] 2 : 1935 Acct:[id number] Age/Sex: 88 / F ADM Date: 06/24/24 Loc: HO.ED Attending Dr: Ordering Physician: Hanna Harrington DO Date of Service: 06/24/24 Procedure(s): CT head/brain wo IV con Accession Number(s): [id number] cc: Jem Reid MD; Hanna Harrington DO Report Number: [id number]: Total DLP = 0.00 mGy-cm EXAMINATION: CT HEAD WITHOUT CONTRAST CLINICAL INFORMATION: Head trauma. COMPARISON: 05/03/2024. TECHNIQUE: Contiguous axial henri ging was performed from the skull base to vertex without intravenous administration of contrast. This CT examination was performed using dose optimization techniques as appropriate, various ly including the following: *Automated exposure control *Adjustment of mA an d/or kV according to patient size (this includes techniques or standa rdized protocols for targeted exams where dose is matched to indication/reason for exam; i.e. extremities or head) *Use of iterative reconstruction technique FINDINGS: There is no evidence of intracranial hemorrhage or extra-axial fluid collection. There is no mass eff ect, or edema. No CT evidence of acute territorial infarct. Ventricles, sulci, a nd cisterns somewhat diffusely prominent, consistent with age-related involutional changes. No hydrocephalus. No midline shift. Negative hyperdense MCA sign. Negative insular ribbon sign. Old lacunar type inf arct present in the anterior limb of the right internal capsule. Mild to moderate low attenuating supratentorial white matter foci in keeping with small v essel ischemia. Partial empty sella noted. There is thinning of the corpus callosum. Mild atheromatous calcification of the bilateral carotid siphons and V4 segments vertebral arteries bilaterally. Globes and orbital contents image normally. No extracranial soft tissue abnormalities. The paranasal sinuse s, mastoid air cells, and tympanic cavities are normally aerated. No suspicious bony abnormalities. No fractures. C T/CT head/brain wo IV con IMPRESSION: 1. No acute intracra nial abnormality. 2. Stable chronic changes. Electronically nate d by: Obdulio Schultz MD 06/24/2024 04:40 PM [facility] Dictated By: Obdulio Durand MD Signed By: <Electron ically signed by Obdulio Schultz MD in OV> 06/24/24 1640 DD/ 1428 TD/TT: 06/24/24 1617 Senior Teller: CARMINA HUNTER Reviewed date:06/24/2024 05:52:08 PM Interpretation: Performing Lab: Notes/Report: [address] [address] XRay Report Signed Patient: Toña Ríos MR#: [id number] 2 : 1935 Acct:[id number] Age/Sex: 88 / F ADM Date: 06/24/24 Loc: HO.ED Attending Dr: Ordering Physician: Anders Bradford MD Date of Service: 06/24/24 Procedure(s): CARMINA HUNTER Accession Number(s): [id number] cc: Jem Reid MD; Anders Bradford MD CLINICAL HISTORY: fecal impaction 1 view abdomen Comparison: None Findings: Two films were obtained. No significant small bowel dilatation. Large amount of stool throughout the colon. No radiopaque foreign body. There is a 10 x 8 mm calcific density inferior to the right L2 transverse process. There are several pelvic phleboliths. There are bilateral total hip arthroplasties. There are cerclage wires on the left. Nonspecific left basilar opacities. IMPRESSION: 1. Large colonic stool burden. 2. Nonobstructive bowel gas pattern. 3. 10 x 8 mm calcific density in the medial right upper quadrant may be gallbladder, renal or mesenteric in origin. Recommend clinical correlation This document has been electronically signed by: Joan Mcdonald DO on 06/24/2024 17:33:20 Dictated By: Joan Mcdonald MD Signed By: <Electronically signed by Joan Mcdonald MD in OV> 06/24/24 1734 DD/ 32 TD/TT: 06/24/241732 Senior Teller: [place] [address] XRay Report Signed Patient: Mee Ríos MR#: [id number] 2 : 1935 Acct:[id number] Age/Sex: 88 / F ADM Date: 06/24/24 Loc: HO.ED Attending Dr: Ordering Physician: Anders Bradford MD Date of Service: 06/24/24 Procedure(s): XR KUB Accession Number(s): [id number] cc: Jem Reid MD; Anders Bradford MD CLINICAL HISTORY: fe bijan impaction 1 view abdomen Comparison: None Findings: Two films were obtained. No significant small bowel dilatation. Large amount of stoo l throughout the colon. No radiopaque foreig n body. There is a 10 x 8 mm calcific density inferior to the right L2 transverse process. There are s everal pelvic phleboliths. There are bilateral total hip arthroplasties. There are cerclage wires on the left. Nonspecific left bas ilar opacities. IMPRESSION: 1. Large colonic sto ol burden. 2. Nonobstructive arianne wel gas pattern. 3. 10 x 8 mm calcifi c density in the medial right upper quadrant may be gallbladder, renal o r mesenteric in origin. Recommend clinical correlation This document has be en electronically signed by: Joan Mcdonald DO on 06/24/2024 17:33:20 Dictated By: Rachel Mcdonald MD Signed By: <Nita harvey signed by Joan Mcdonald MD in OV> 06/24/24 1734 DD/ 1733 TD/TT: 06/24/24 1733 Senior Teller: XR chest 1V Reviewed date:06/24/2024 05:53:29 PM Interpretation: Performing Lab: Notes/Report: [address] [address] XRay Report Signed Patient: Toña Ríos MR#: [id number] 2 : 1935 Acct:[id number] Age/Sex: 88 / F ADM Date: 06/24/24 Loc: HO.ED Attending Dr: Ordering Physician: Hanna Harrington DO Date of Service: 06/24/24 Procedure(s): XR chest 1V Accession Number(s): [id number] cc: Jem Reid MD; Hanna Harrington DO EXAMINATION: XR CHEST CLINICAL INFORMATION: fall COMPARISON: 07/21/2016. TECHNIQUE: Frontal view of the chest was obtained. FINDINGS: Cardiac, hilar, and mediastinal contours appear normal. There is aortic calcification and mild tortuosity. The lungs appear clear bilaterally aside from minimal left base atelectasis. No effusion or pneumothorax. There are no acute soft tissue or bony findings. No fractures seen. Degenerative changes of the spine and left shoulder joint. XR/XR chest 1V IMPRESSION: No active disease or acute posttraumatic findings. Electronically signed by: Obdulio Schultz MD 06/24/2024 04:43 PM [facility] Dictated By: Obdulio Schultz MD Signed By: <Electronically signed by Obdulio Schultz MD in OV> 06/24/24 1643 DD/ 1428 TD/TT: 06/24/24 1439 Senior Teller: [address] [address] XRay Report Signed Patient: Mee Ríos MR#: [id number] 2 : 1935 Acct:[id number] Age/Sex: 88 / F ADM Date: 06/24/24 Loc: HO.ED Attending Dr: Ordering Physician: Hanna Harrington DO Date of Service: 06/24/24 Procedure(s): XR chest 1V Accession Number(s): [id number] cc: Jem Reid MD; Hanna Harrington DO EXAMINATION: XR CHEST CLINICAL INFORMATION: fall COMPARISON: 07/21/2016. TECHNIQUE: Frontal view of the chest was obtained. FINDINGS: Cardiac, hilar, and mediastinal contours appear normal. There is aortic calcification and mi ld tortuosity. The lungs appear en ar bilaterally aside from minimal left base atelectasis. No effu kian or pneumothorax. There are no acute s oft tissue or bony findings. No fractures seen. Degenerative changes of the spine and left shoulder joint. X R/XR chest 1V IMPRESSION: No active disease or acute posttraumatic findings. Electronically nate d by: Obdulio Schultz MD 06/24/2024 04:43 PM [facility] Dictated By: Obdulio Durand MD Signed By: <[facility] signed by Obdulio Schultz MD in OV> 06/24/24 1643 DD/ 1428 TD/TT: 06/24/24 1439 Senior Teller: Urine Culture Reviewed date:07/31/2024 09:36:47 AM Interpretation: Performing Lab:[facility], [address] [place] [phone] Notes/Report: O:ENTFAC Enterococcus faecalis Urine Culture Quant Urine Culture > 100,000 cfu/mL Ampicillin <=2 Levofloxacin 0.5 Nitrofurantoin <=16 Tetracycline <=1 Vancomycin 1 Reason For Referral Reason microscopic hematuri a [...] Referral Priority Routine Referral Appointment Date 09/22/2024 Medications Medication SIG (Take, Route, Frequency, Duration) Notes Start Date End Date Status Calcium + D 315-200 MG-UNIT 1 tablet with meals Orally Twice a day Active Amiodarone HCl 100 MG 1 tablet Orally On ce a day Active Digoxin 125 MCG 1 tablet Orally Not-Taking Xarelto 15 MG TAKE 1 TABLET BY CHERRI TH EVERY DAY Orally Once a day Active Tylenol Extra Strength 500 MG 2 tablets as needed Orally every 6 hrs Not-Taking Tylenol 325 MG 1 tablet as needed Orally every 4 hrs Not-Taking Amoxicillin 500 MG 1 capsule Orally twi ce a day for 5 days 07/31/2024 Active Immunizations Vaccine Route Administration Date Status Comme nts [...] Unknown 03/29/2020 Refused Shingrix Unknown 03/29/2020 Refused Social History Tobacco Use: Social History Observation Description Date Details (start date - stop date) Former Smoker NA - NA Tobacco Use/Smoking Question Answer Notes Patient is a former smoker How long has it been since y ou last smoked? > 10 years Additional Findings: Tobacco Non-User Fo rmer smoker, currently using no form of tobacco Alcohol Screen Question Answer Notes Did you have a drink containing alcohol in the p ast year? No Points 0 Interpretation Negative Problems Problem Type SNOMED Code ICD Code Onset Dates Problem Status W/U Status Risk Notes Problem 34476821 Essential hypert ension (I10) Active confirmed Problem 1795840 Prediabetes (R73.09) Active confirmed Problem 79501587 Atrial fibrillat ion, unspecified type (I48.91) Active confirmed Problem 183653480 Pure hypercholesterolemia (E78.00) Active confirmed Problem 81618783 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) Active confirme d Problem 064509522 Acute constipati on (K59.00) Active confirmed Vital Signs Blood pressure diastolic 56 mm Hg 07/29/2024 Height 63 in 07/29/2024 Blood pressure systolic 88 mm Hg 07/29/2024 Weight 112 lbs 07/29/2024 BMI 19.84 kg/m2 07/29/2024 Encounters Encounter Location Date Provider Diagnosis Jem Reid MD [address] [place] [id number] 04/12/2024 Jem Reid Prediabetes R73.09 ; Pure hypercholesterolemia E78.00 and Essential hypertension I10 Jem Reid MD [address] [place] [id number] 06/02/2024 Jem Ulricher Hematuria R31.9 Jem Reid MD [address] [place] [address] [id number] 06/17/2024 Jem Reid Microscopic hematuri a R31.29 Jem Reid MD [address] [place] [address] [id number] 08/18/2024 Jem Reid After-treatment Z51. 89 Jem Reid MD [address] [place] [address] [id number] 10/08/2023 Jem Reid Prediabetes R73.09 a nd Atrial fibrillation, unspecified type I48.91 Jem Reid MD [address] [place] [id number] 04/19/2024 Jem Reid Gross hematuria R31. 0 ; Acute UTI N39.0 ; Atrial fibrillation, unspecified type I48.91 ; Pure hypercholesterolemia E78.00 ; Prediabetes R73.09 ; Essential hypertension I10 and Depression screening Z13.31 Jem Reid MD [address] [place] [address] [id number] 05/16/2024 Jem Reid After-treatment Z51. 89 ; Gross hematuria R31.0 and Loss of consciousness R40.20 Jem Reid MD [address] [place] [address] [id number] 07/29/2024 Jem Reid After-treatment Z51. 89 and Acute constipation K59.00 Jem Reid MD [address] [place] [address] [id number] 04/14/2024 Jem Reid MD [address] [place] [address] [id number] 04/14/2024 Jem Reid MD [address] [place] [id number] 04/14/2024 Jem Reid MD [address] [place] [address] [id number] 05/03/2024 Jem Reid MD [address] [id number] 05/09/2024 Jem Reid MD [address] [place] [address] [id number] 05/19/2024 Jem Reid MD [address] [id number] 06/28/2024 Jem Reid MD [address] [id number] 07/31/2024 Jem Reid Assessments Encounter Date Diagnosis (ICD Code) Assessment Notes Treatment Notes Treatment Clinical Notes Section Notes 04/12/2024 Prediabetes (ICD-10 - R73.09) 04/12/2024 Pure hypercholesterolemia (ICD-10 - E78.00) 06/17/2024 Microscopic hematuri a (ICD-10 - R31.29) have gone over the results of the repeat urine and is going to get evaluated by urologist 08/18/2024 After-treatment (ICD -10 - Z51.89) 10/08/2023 Prediabetes (ICD-10 - R73.09) stable, no need for medication at this time 10/08/2023 Atrial fibrillation, unspecified type (ICD-10 - I48.91) stable, will continue current regiment 04/19/2024 Gross hematuria (ICD -10 - R31.0) will continue with ab since she is still having blood in the urine, pending future lab, will continue to monitor 04/19/2024 Acute UTI (ICD-10 - N39.0) will contiue ab 05/16/2024 After-treatment (ICD -10 - Z51.89) 05/16/2024 Gross hematuria (ICD -10 - R31.0) maybe related to the uti 07/29/2024 After-treatment (ICD -10 - Z51.89) had been in the hospital with urinary tract infection. is doing well now 07/29/2024 Acute constipation (ICD-10 - K59.00) doing well/ is using meds. 04/12/2024 Essential hypertensi on (ICD-10 - I10) 06/02/2024 Hematuria (ICD-10 - R31.9) 04/19/2024 Atrial fibrillation, unspecified type (ICD-10 - I48.91) well controlled rate, will continue current regiment 05/16/2024 Loss of consciousnes s (ICD-10 - R40.20) maybe related to her uti/ but appears to be confused at times. did have heart rate of 200 in afib and is slower now but is going to get cardioverted next week 04/19/2024 Pure hypercholesterolemia (ICD-10 - E78.00) doing well, will contiue current regiment 04/19/2024 Prediabetes (ICD-10 - R73.09) stable, no need for medication at this time 04/19/2024 Essential hypertensi on (ICD-10 - I10) stable, will continue current regiment 04/19/2024 Depression screening (ICD-10 - Z13.31) negative screen Plan Of Treatment Next Appt Details Provider Name:Jem Mckee ier, 04/17/2025 07:45:00 AM, [address] [place] [address], [address], [place], [phone], Provider Name:Jem rodriguezr, 04/24/2025 01:00:00 PM, [address] [place] [address], [address], [place], [place], [phone], Insurance Providers Payer Name Payer Address Payer Phone Subscriber Number Group Number Insured Name Patient Relationship to Insured Coverage Start Date Coverage End Date [employer] [address] [place] [address] [id number] Toña Ríos Self - patient is the insured [facility] [address] [place] [phone] [id number] Toña Ríos Self - patient is the insured Medical (General) History Medical History History ICD Code Refuses flu shot (07-06-12) Refuses pneumo (07-06-12) refuses colonoscoopy 2012 refuses pneumo, 2013 Surgical History Surgery Date(Month/Year) Left Total Hip Arthroplasty by Dr. Alexandru Young 09/2016
--- OUTSIDE RECORDS SUMMARY | 2024-09-22 09:40 | XMS_ITS ---
Author Organization Jem Reid MD Address [address] [place] [phone] Care Team Providers Care Kier Drier Name Role Phone Jem Reid Primary Care Provider Medications Medication SIG (Take, Route, Fr equency, Duration) Notes Start Date End Date Status Amoxicillin 500 MG 1 capsule Orally twi ce a day for 5 days 07/31/2024 Active Encounters Encounter Location Date Provider Diagnosis Jem Reid MD [address] [facility] [address] [place] [phone] 07/31/2024 Jem Reid Plan Of Treatment Medication Medication Name Sig Start Date Stop Date Notes Amoxicillin 500 MG 1 capsule Orally twice a day for 5 days 07/31/2024 Next Appt Details Provider Name:Jem aragon, 04/17/2025 07:45:00 AM, [address] [place] [address], [address], [phone], Provider Name:Jem aragon, 04/24/2025 01:00:00 PM, [address] [place] [address], [phone], Progress Notes * Toña RÍOS MDOB:[birth year] (89 yo F)Acc No.[id number]:07/31/2024 Patient:?SHAHIDA Toña Edel :1935???Age:89 Y???Sex:Female Address:[address] [place] [address] * Refills? Start Amoxicillin Capsule, 500 MG, Orally, 10 Capsule, 1 capsule, twice a day, 5 days * true * Date:? Generated for Octavia castillo/Jay/eTransmitting on:?09/22/2024 09:40 AM EDT
--- OUTSIDE RECORDS SUMMARY | 2024-09-22 09:40 | XMS_ITS ---
Author Organization Jem Reid MD Address [address] [place] [phone] Care Team Providers Care Stitch Wheeler Name Role Phone Jem Reid Primary Care Provider Allergies No Known Allergies Results Component Value Reference Range Notes UA ClnCatch+Micro w/rflx Cul t Reviewed date:07/29/2024 04:29:01 PM Interpretation: Performing Lab:[facility], [address] [place] [phone] Notes/Report: Urine, Clean Catch Color Urine Yellow Appearance Urine Clear PH 8.5 5.0-9.0 Glucose Urine UA Negative Negative mg/dL Urine Blood Negative Negative Specific [place] - Urine 1.015 1.005-1.025 Urine Protein Negative [...] Problem Status W/U Status Risk Notes Problem 802818308 Acute constipation (K59.00) Active confirmed Vital Signs Blood pressure systolic 88 mm Hg 07/29/19 25 Blood pressure diastolic 56 mm Hg 025 Height 63 in 07/29/2024 Weight 112 lbs 07/29/2024 BMI 19.84 kg/m2 07/29/2024 Encounters Encounter Location Date Provider Diagnosis Jem Reid MD [address] [place] [phone] 07/29/2024 Jem Reid After-treatment Z51.89 and Acute [...] Details Provider Name:Jem aragon, 04/17/2025 07:45:00 AM, [address] [place] [address], [place] [address], [place], [place], [phone], Provider Name:Jem aragon, 04/24/2025 01:00:00 PM, [address] [place] [address], [place] [address], [place], [place], [phone], Progress Notes * Toña RÍOS MDOB:[birth year] (89 yo F)Acc No.[id number]:07/29/2024 Patient:?SHAHIDA, Toña M Provider:?Jem Reid MD :1935???Age:89 Y???Sex:Female D ate:07/29/2024 Address:[id number] Subjective: * Chief Complaints: * ???PH/TCMAccompanied by [...] Reid MD Date:?0 07/29/2024 Generated for Octavia castillo/Jay/Renayitting on:?09/22/2024 09:40 AM EDT History and Physical Notes * [...]
--- OUTSIDE RECORDS SUMMARY | 2024-09-22 09:40 | XMS_ITS ---
Author Organization Jem Reid MD Address [address] [place] [phone] Care Team Providers Care Senior Accounting Clerk Name Role Phone Jem Reid Primary Care Provider Results Component Value Reference Range Notes UA ClnCatch+Micro w/rflx Cul t Reviewed date:08/22/2024 09:35:10 AM Interpretation: Performing Lab:[facility], [address] [place] [phone] Notes/Report: Urine, Clean Catch Color Urine Yellow Appearance Urine Hazy PH 6.0 5.0-9.0 Glucose Urine UA Negative Negative mg/dL Urine Blood Large (3+) Negative Specific [place] - Urine >= 1.030 1.005-1.025 Urine Protein [...] Reid MD [address] [place], [place] [phone] 08/18/2024 Jem Reid After-treatment Z51.89 Assessments Encounter Date Diagnosis (ICD Code) Assessment Notes Treatment Notes Treatment Clinical Notes Section Notes 08/18/2024 After-treatment (ICD-10 - Z51.89) Plan Of Treatment Next Appt Details Provider Name:Jem Mckee ier, 04/17/2025 07:45:00 AM, [address] [place] [address], [address], [place], [phone], Provider Name:Jem Mckee ier, 04/24/2025 01:00:00 PM, [address] [place] [address], [address], [place], [phone], Progress Notes * Toña RÍOS MDOB:[birth year] (89 yo F)Acc No.[id number]:08/18/2024 Progress Note Patient:?Toña RÍOS M Provider:?Jem Reid MD :1935???Age:89 Y???Sex:Female D ate:08/18/2024 Address:[address] [place], [place] [phone] Subjective: * Chief Complaints: * ???1. U/A POST CARE. * Medical History:? Objective: * Vitals:? Assessment: * Assessment: 1.?After-treatment - Z51.89 (Primary)??? Plan: * Treatment: * * The named appointment provid er may or may not be the originator of this progress note, and it is not deemed complete until electronically signed by the appointment provider. Sign off status: Pending * Provider:?Jem Reid MD Date:?0 08/18/2024 Generated for Octavia castillo/Jay/Amayasmitting on:?09/22/2024 09:39 AM EDT
== END 2024-09-22 10:09 | disposition home or self-care (01) ==
LOC: HO.HUSH 08:55
PROVIDERS: PCP Internal Medicine; Visit Provider Urology
DX: Z13.9 Encounter for screening, unspecified (principal)

== ENCOUNTER 2024-11-01 13:41 | Outpatient (REF) | payer MEDICARE, OTHER, SELFPAY ==
--- NOTE | ~2024-11-01 | CT_ITS ---
CLINICAL HISTORY: N30.00 - Acute cystitis without hematuria CT abdomen and pelvis with and without contrast Comparison: CR - XR KUB - 06/24/24 17:02 EST Findings: Increased reticulation in the lung bases. Questionable trace honeycombing. Unremarkable gallbladder. Beam hardening artifact from bilateral total hip arthroplasties limits evaluation of the bladder. No hydronephrosis or nephrolithiasis. The kidneys enhance normally and excrete contrast symmetrically. No identified bladder stone. Prominent amount of calcification in the uterus. The other solid organs are unremarkable. No bowel wall thickening or dilation. A normal appendix is identified. Colonic diverticulosis. Moderately increased stool quantity in the proximal colon and rectum. Rectum is distended with stool, measuring 8.2 cm in transverse dimension No aneurysm. Moderate to severe calcified atherosclerotic disease. No lymphadenopathy. No ascites. No acute osseous abnormality. Intact bilateral total hip arthroplasties. Impression: No urinary tract stone, obstruction or other acute findings. Evaluation of bladder is limited due to beam hardening artifact. Consider further evaluation of the bladder with ultrasound if symptoms persist. Moderately increased stool quantity may indicate constipation. Increased stool quantity in the rectum could be due to fecal impaction. This document has been electronically signed by: Ana Lind MD on 11/02/2024 21:47:30
--- OUTSIDE RECORDS SUMMARY | 2024-11-01 13:54 | XMS_ITS ---
Author Organization Jem Reid MD Address [address] [place] [phone] Care Team Providers Care Speech Professor Name Role Phone Jeanette Jem Primary Care Provider Results Component Value Reference Range Notes UA ClnCatch+Micro w/rflx Cul t Reviewed date:08/22/2024 09:35:10 AM Interpretation: Performing Lab:[facility], [address] [place] [phone] Notes/Report: Urine, Clean Catch Color Urine Yellow Appearance Urine Hazy PH 6.0 5.0-9.0 Glucose Urine UA Negative Negative mg/dL Urine Blood Large (3+) Negative Specific [place] - Urine >= 1.030 1.005-1.025 Urine Protein [...] Reid MD [address] [place], [place] [phone] 08/18/2024 Jem Reid After-treatment Z51.89 Assessments Encounter Date Diagnosis (ICD Code) Assessment Notes Treatment Notes Treatment Clinical Notes Section Notes 08/18/2024 After-treatment (ICD-10 - Z51.89) Plan Of Treatment Next Appt Details Provider Name:Jem Mckee ier, 04/17/2025 07:45:00 AM, [address] [facility], [address], [place], [phone], Provider Name:Jem Mckee ier, 04/24/2025 01:00:00 PM, [address] [place] [address], [address], [place], [phone], Progress Notes * Toña RÍOS MDOB:[birth year] (89 yo F)Acc No.[id number]:08/18/2024 Progress Note Patient:?Toña RÍOS M Provider:?Jem Reid MD :1935???Age:89 Y???Sex:Female D ate:08/18/2024 Address:[address] [place], [place] [phone] Subjective: * Chief Complaints: * ???1. U/A [...] Reid MD Date:?0 08/18/2024 Generated for Octavia castillo/Jay/Renayitting on:?11/01/2024 01:54 PM EDT
[2024-11-01] MEDS: iohexoL 350 MG/ML 100 ML INFUS..BTL 85 ML IV (15:48)
[2024-11-02 08:21] LABS: Creatinine POC 0.5 mg/dL (0.5-1.4); GFR POC > 60
== END 2024-11-01 13:42 | disposition home or self-care (01) ==
LOC: HO.CT 13:41
PROVIDERS: PCP Internal Medicine; Visit Provider Urology
DX: N30.00 Acute cystitis without hematuria (principal)
CPT/HCPCS: 74178; 82565; Q9967

== ENCOUNTER → 2024-11-01 13:44 | Outpatient (BNV) | payer MEDICARE, OTHER, SELFPAY | PROVIDERS: PCP Internal Medicine; Visit Provider Radiology Diagnostic Radiology | DX: N30.00 Acute cystitis without hematuria (principal) | CPT/HCPCS: 74178 ==

== ENCOUNTER 2024-11-24 13:30 | Outpatient (REF) | payer MEDICARE, OTHER, SELFPAY | END 2024-11-24 13:31 | disposition home or self-care (01) | LOC: HO.LAB 13:30 | PROVIDERS: PCP Internal Medicine; Visit Provider Urology | DX: R31.0 Gross hematuria (principal); N39.0 Urinary tract infection, site not specified | CPT/HCPCS: 52000; 81003; 87086; 87088; 87186; 99212 ==

== ENCOUNTER 2024-11-24 13:30 | Outpatient (AMB) | payer MEDICARE, OTHER, SELFPAY ==
--- OUTSIDE RECORDS SUMMARY | 2024-08-18 09:00 | XMS_ITS ---
Author Organization Jem Reid MD Address [address] [place] [phone] Care Team Providers Care Diesel Engine Tester Name Role Phone Jem Reid Primary Care Provider Results Component Value Reference Range Notes UA ClnCatch+Micro w/rflx Cul t Reviewed date:08/22/2024 09:35:10 AM Interpretation: Performing Lab:[facility], [address] [place] [phone] Notes/Report: Urine, Clean Catch Color Urine Yellow Appearance Urine Hazy PH 6.0 5.0-9.0 Glucose Urine UA Negative Negative mg/dL Urine Blood Large (3+) Negative Specific [place] - Urine >= 1.030 1.005-1.025 Urine Protein [...] Reid MD [address] [place], [place] [phone] 08/18/2024 Jemze Fullerbeatriz After-treatment Z51.89 Assessments Encounter Date Diagnosis (ICD Code) Assessment Notes Treatment Notes Treatment Clinical Notes Section Notes 08/18/2024 After-treatment (ICD-10 - Z51.89) Plan Of Treatment Next Appt Details Provider Name:Jem Mckee ier, 04/17/2025 07:45:00 AM, [address] [facility], [address], [place], [phone], Provider Name:Jem Mckee ier, 04/24/2025 01:00:00 PM, [address] [place] [address], [address], [place], [phone], Progress Notes * Toña RÍOS MDOB:[birth year] (89 yo F)Acc No.[id number]:08/18/2024 Progress Note Patient: Robert Toña BURGESS Edel Provider: Meka Reid MD :1935 A ge:89 Y S ex:Female Date:08/18/2024 Address:[address] [place], [place] [phone] Subjective: * Chief Complaints: * 1 . [...] 08/18/2024 Generated for Octavia castillo/Jay/Quang on: 0 11/24/2024 02:40 PM EDT
--- NOTE | 2024-11-24 13:32 | A.OFFVIS_ITS ---
Intake Visit Reasons: Cysto/ labs/CT Intake Note: Pt presents to the office today for a cystoscopy/labs/CT. Cystoscope: Lot:[id number] Exp:10/14/26 Allergies No Known Allergies (No Known Allergies*) Allergy (Verified 11/24/24 13:33) Medication List - Last Reconciled 11/24/24 by Edwin May MD amiodarone 100 mg PO DAILY ascorbic acid (vitamin C) (Vitamin C) 500 mg PO DAILY calcium carbonate 500 mg PO DAILY cholecalciferol (vitamin D3) (Vitamin D3) 25 mcg PO DAILY docusate sodium 200 mg (2 x 100 mg) PO BEDTIME magnesium hydroxide (Milk of Magnesia) 30 mL PO DAILY PRN rivaroxaban (Xarelto) 15 mg PO DAILY@1700 zinc acetate 50 mg PO DAILY HPI Comments Details: 11/24/24--Toña is here for office cystoscopy. Cystoscopy findings consistent with cystitis follicularis. - The patient is an 89-year-old female presenting with a history of complicated urinary tract infection and gross hematuria. - The patient was initially seen on 09/22/24 for complicated UTI and gross hematuria. - A CT urogram was performed on 11/02/24, which showed normal kidney function. - The patient has been experiencing recurrent urinary tract infections for some time. - Cystoscopy findings included red spots and bullous changes, indicating persistent bacterial presence in the bladder. - The patient has a history of constipation, which has been managed at home. Urinary Symptoms Review - Recurrent urinary tract infections - Gross hematuria Results - CT Urogram: Normal kidney function - Cystoscopy: erythematous changes in the bladder Discussion Notes I discussed with the patient the findings from the cystoscopy, which showed erythematous and bullous changes in the bladder. We talked about the plan to treat with Macrobid for a seven-day course followed by a daily suppressive course for several weeks. I explained that the urine culture results might necessitate a change in antibiotics if the bacteria are resistant to Macrobid. We also discussed the importance of monitoring symptoms and scheduling a follow- up cystoscopy to assess the treatment's effectiveness. 09/22/24--The patient is an 89-year-old female presenting with hematuria and recurrent urinary tract infections. Her urinary issues trace back to February, with the initial episode of macroscopic hematuria prompting hospitalization at [place] [facility]. During hospital admission, the urine resembled red wine, indicative of significant blood content. Subsequently, the hematuria was less apparent to the patient and primarily detected via diagnostic procedures, underscoring the transition to microscopic hematuria. Concomitantly, the patient experienced severe urinary tract infections, resulting in consultation with an infectious disease specialist who confirmed bacterial colonization within the bladder. The patient has a recorded history of kidney stones, not presenting acutely at this time. Following the recent hospitalization, no typical urinary symptoms such as dysuria have been reported, yet cognitive symptoms appeared during the urinary infection episodes, aligning with atypical UTI presentations in geriatric patients. Urinary Symptoms Review - Macroscopic hematuria progressing to microscopic hematuria detectable only by machinery - History of kidney stones - Severe urinary tract infections with associated cognitive symptoms - No current dysuria or burning sensation with urination Discussion Notes During the visit, we discussed the management of hematuria, including ordering a CT scan of the kidneys and lower pelvis. This will enable us to have a comprehensive view to rule out any small lesions that a CT might miss. The patient was informed about the colonization of bacteria in the bladder, noting it does not necessarily require treatment absent significant symptoms. Close monitoring and surveillance including cognitive symptoms secondary to UTIs were discussed. [facility] Medical History Atrial flutter with rapid ventricular response Paroxysmal atrial fibrillation Persistent atrial fibrillation History of cardioversion Surgical History History of hip surgery Family History Father No problems noted. Mother No problems noted. Social History Household Members: Spouse Housing: House Are you a primary health care / medical job titles to a significant other at home: No Do you presently have visiting nurse or other home services: Yes (phys therapy) Patient Tobacco Use Status: Never used Tobacco service: No Review of Systems Const All systems reviewed & are unremarkable except as noted in HPI and below Reports no additional complaints Eyes Reports no additional complaints ENT Reports no additional complaints Card Reports no additional complaints Resp Reports no additional complaints GI Reports no additional complaints Reports as per HPI Musc Reports no additional complaints Skin/Breast Reports system reviewed and no additional complaints, except as documented Neuro Reports no additional complaints Psych Reports no additional complaints Endo Reports no additional complaints Presley/Lymph Reports no additional complaints Aller/Immun Reports no additional complaints Office Procedures Cystoscopy Consent Discussed risk and benefit or proposed procedure with the patient. Information consent for procedure given to the patient. Discussed technical aspects, risks, benefits and alternatives in full. Addressed all of the patient's questions and concerns regarding the procedure. The patient demonstrated knowledge and understanding. They wish to proceed with this procedure. Preparation The patient was prepped in the usual manner. A wire rope fabrication supervisor was present and in the room. Genitalia was prepped with betadine solution in a sterile manner. Lidocaine Jelly 2% was placed into the urethra and 16Fr flexible Olympus cystoscope was inserted into the meatus after adequate lubrication. Procedure Time out per protocol performed. Speculum used as indicated for adequate visualization of urethra, the flexible cystoscope is passed transurethrally: The bladder was inspected in its entirety with utilization retroflexion displaying: Tumor(s): Papillary lesions not visualized Trabeculation: Mild Mucosal Erthema: Yes Orifices: normal shape and position Urethra: normal Cystoscopy findings: erythematous and bullous changes consistent with cystitis follicularis [id number] DISPOSABLE SCOPE URO-G FLEXIBLE SCOPE Procedure code (CPT) selection complete Office Meds lidocaine HCl 2 % mucosal jelly in applicator Performing Provider: Edwin May MD [facility] Administered by: Rick Olmos LPN on 11/24/24 14:03 Dose Route Admin Location Dispensed Lot Number Expiration Date [facility] Trust Manager Assistant 10 mL intra-urethral 20 mL nitrofurantoin monohydrate/macrocrystals 100 mg capsule Performing Provider: Edwin May MD Performing Location: [facility] Administered by: Rick Olmos LPN on 11/24/24 14:03 Dose Route Admin Location Dispensed Lot Number Expiration Date [place] Trust Manager Assistant 100 mg PO 1 cap phenazopyridine 200 mg tablet Performing Provider: Edwin May MD [facility] Administered by: Rick Olmos LPN on 11/24/24 14:03 Dose Route Admin Location Dispensed Lot Number Expiration Date [place] Trust Manager Assistant 200 mg PO 1 tab Results AMB Urinalysis, Automated UA Leukoctes 500 New/uL Last Edit by Lexi Moody, NICHOLAS on 11/24/24 13:50 UA Nitrite Positive Last Edit by Lexi Moody, SYSTEMS DEVELOPER on 11/24/24 13:50 UA Urobilinogen 3.5 mg/dL Last Edit by Lexi Moody, [facility] on 11/24/24 13:50 UA Protein 0.3 mg/dL Last Edit by Lexi Moody, SYSTEMS DEVELOPER on 11/24/24 13:50 UA pH 5.0 Last Edit by Lexi Moody, SYSTEMS DEVELOPER on 11/24/24 13:50 UA Blood 25 Romulo/uL Last Edit by Lexi Moody, SYSTEMS DEVELOPER on 11/24/24 13:50 UA Specific [place] 1.025 Last Edit by Lexi Moody, SYSTEMS DEVELOPER on 11/24/24 13:50 UA Ketone Negative Last Edit by Lexi Moody, [facility] on 11/24/24 13:50 UA Bilirubin 0 mg/dL Last Edit by Lexi Moody, SYSTEMS DEVELOPER on 11/24/24 13:50 UA Glucose 0 mg/dL Last Edit by Lexi Moody, [facility] on 11/24/24 13:50 Results Reviewed Results Reviewed: Laboratory Last Values Urine pH (Auto) 5.0 11/24/24 13:38 Specific [place] (Auto) 1.025 11/24/24 13:38 Urine Protein (Auto) 0.3 mg/dL 11/24/24 13:38 Glucose (UA)(Auto) 0 mg/dL 11/24/24 13:38 Urine Ketones (Auto) Negative 11/24/24 13:38 Urine Blood (Auto) 25 Romulo/uL 11/24/24 13:38 Urine Nitrite (Auto) Positive 11/24/24 13:38 Urine Bilirubin (Auto) 0 mg/dL 11/24/24 13:38 Urine Urobilinogen (Auto) 3.5 mg/dL 11/24/24 13:38 Leukocyte Esterase (Auto) 500 New/uL 11/24/24 13:38 Date of Service: 11/01/24 Procedure(s): CT urogram Accession Number(s): [id number] cc: Edwin May MD; Jem Reid MD~ Report Number: [id number]: Total DLP = 535.00 mGy-cm CLINICAL HISTORY: N30.00 - Acute cystitis without hematuria CT abdomen and pelvis with and without contrast Comparison: CR - XR KUB - 06/24/24 17:02 EST Findings: Increased reticulation in the lung bases. Questionable trace honeycombing. Unremarkable gallbladder. Beam hardening artifact from bilateral total hip arthroplasties limits evaluation of the bladder. No hydronephrosis or nephrolithiasis. The kidneys enhance normally and excrete contrast symmetrically. No identified bladder stone. Prominent amount of calcification in the uterus. The other solid organs are unremarkable. No bowel wall thickening or dilation. A normal appendix is identified. Colonic diverticulosis. Moderately increased stool quantity in the proximal colon and rectum. Rectum is distended with stool, measuring 8.2 cm in transverse dimension No aneurysm. Moderate to severe calcified atherosclerotic disease. No lymphadenopathy. No ascites. No acute osseous abnormality. Intact bilateral total hip arthroplasties. Impression: No urinary tract stone, obstruction or other acute findings. Evaluation of bladder is limited due to beam hardening artifact. Consider further evaluation of the bladder with ultrasound if symptoms persist. Moderately increased stool quantity may indicate constipation. Increased stool quantity in the rectum could be due to fecal impaction. Assessment & Plan Assessment & Plan (1) Gross hematuria: Code(s): R31.0 - Gross hematuria Category: Medical (2) Recurrent UTI: Code(s): N39.0 - Urinary tract infection, site not specified Category: Medical Plan Plan - Initiate treatment with Macrobid for a seven-day course, followed by a daily suppressive course for several weeks. - Schedule a follow-up cystoscopy to evaluate the effectiveness of the treatment. - Monitor urine culture results to determine if a change in antibiotics is necessary based on bacterial sensitivity. Orders: Orders AMB Cystoscopy Today N39.0 - Urinary tract infection, site not specified, R31.0 - Gross hematuria Urine Culture Today N39.0 - Urinary tract infection, site not specified AMB Urinalysis Automated Today N39.0 - Urinary tract infection, site not specified Medications: New nitrofurantoin monohyd/m-cryst 100 mg (Macrobid) 100 mg orally twice daily for 7 days, then continue 100 mg once daily; must administer with a meal/food 100 caps 0RF nitrofurantoin monohyd/m-cryst 100 mg (Macrobid) 100 mg PO BID 14 caps 0RF Patient Instructions: The patient had an opportunity to ask questions regarding treatment plan. The patient expressed understanding and agreement with the above treatment plan. The patient is aware they should contact our office by phone for worsening of their current condition or the appearance of new symptoms. Compliance is encouraged with any medications and followup testing that is ordered. It is a privilege to be allowed the opportunity to participate in the urologic care of your patient. If you have any questions or concerns regarding treatment for the above conditions please do not hesitate to contact me. The office telephone contact is [phone]. This note is constructed in part using voice recognition software. While every effort has been made to ensure accuracy cruise agent errors may have been included. Yours sincerely, Edwin May MD Scribe Plan - Not visible on output: Patient was informed and verbally consented to the use of an ambient scribe for clinic note documentation during this visit. Coding Level of Care Code Est Pt Level 4 (16428) Diagnoses Gross hematuria R31.0 Recurrent UTI N39.0 CPT Codes Cystoscopy - CPT: 22738-Pmvheclayq ([id number])
== END 2024-11-24 14:44 | disposition home or self-care (01) ==
LOC: HO.HUSH 13:30
PROVIDERS: PCP Internal Medicine; Visit Provider Urology
DX: R31.0 Gross hematuria (principal); N39.0 Urinary tract infection, site not specified
CPT/HCPCS: 52000; 99214

== ENCOUNTER 2024-12-13 14:28 | Outpatient (AMB) | payer MEDICARE, OTHER, SELFPAY ==
--- OUTSIDE RECORDS SUMMARY | 2024-08-18 09:00 | XMS_ITS ---
Author Organization Jem Reid MD Address [address] [place] [phone] Care Team Providers Care Event Management Consultant Name Role Phone Jem Reid Primary Care Provider Results Component Value Reference Range Notes UA ClnCatch+Micro w/rflx Cul t Reviewed date:08/22/2024 09:35:10 AM Interpretation: Performing Lab:[facility], [address] [place] [phone] Notes/Report: Urine, Clean Catch Color Urine Yellow Appearance Urine Hazy PH 6.0 5.0-9.0 Glucose Urine UA Negative Negative mg/dL Urine Blood Large (3+) Negative Specific [place] - Urine >= 1.030 1.005-1.025 Urine Protein 30 (1+) Neg-Trace mg/dL Urine Ketones Trace Negative mg/dL Nitrite Urine Negative Negative Leukocyte Esterase Urine Trace Negative RBC Urine >20 0-2 /HPF WBC Urine 0-5 0-5 /HPF Squamous Epithelial Cell Urine 0-2 0-2 /HPF Bacteria Urine Trace None Seen Hyaline Casts Urine 0-2 0-2 /LPF Yeast Urine Present REASON FOR VISIT U/A POST CARE Encounters Encounter Location Date Provider Diagnosis Jem Reid MD [address] [place], [place] [phone] 08/18/2024 Jemze Fullerbeatriz After-treatment Z51.89 Assessments Encounter Date Diagnosis (ICD Code) Assessment Notes Treatment Notes Treatment Clinical Notes Section Notes 08/18/2024 After-treatment (ICD-10 - Z51.89) Plan Of Treatment Next Appt Details Provider Name:Jem Mckee ier, 04/17/2025 07:45:00 AM, [address] [facility], [address], [place], [phone], Provider Name:Jem Mckee ier, 04/24/2025 01:00:00 PM, [address] [place] [address], [address], [place], [place], [phone], Progress Notes * Toña RÍOS MDOB:[birth year] (89 yo F)Acc No.[id number]:08/18/2024 Progress Note Patient: Robert Toña BURGESS Edel Provider: Meka Reid MD :1935 A ge:89 Y S ex:Female Date:08/18/2024 Address:[address] [place], [place] [phone] Subjective: * Chief Complaints: * 1 . U/A POST CARE. * Medical History: Objective: * Vitals: Assessment: * Assessment: 1. A fter-treatment - Z51.89 (Primary) Plan: * Treatment: * * The named appointment provid er may or may not be the originator of this progress note, and it is not deemed complete until electronically signed by the appointment provider. Sign off status: Pending * Provider: Meka Reid MD Date: 0 08/18/2024 Generated for Octavia castillo/Jay/Quang on: 0 12/13/2024 03:20 PM EDT
--- NOTE | 2024-12-13 14:29 | A.OFFVIS_ITS ---
Vital Signs 12/13/24 14:30 Height 5 ft 2 in Weight 110 lb 3.698 oz BMI 20.2 BP 108/62 Blood Pressure Location Lt brachial Position Sitting Pulse 73 Intake Visit Reasons: 6m follow up Intake Note: 6 month follow-up with ekg feeling good Knitted Cloth Examiner Required: No Allergies No Known Allergies (No Known Allergies*) Allergy (Verified 11/24/24 13:33) Medication List - Last Reconciled 12/13/24 by Vic Stanley MD amiodarone 100 mg PO DAILY ascorbic acid (vitamin C) (Vitamin C) 500 mg PO DAILY calcium carbonate 500 mg PO DAILY cholecalciferol (vitamin D3) (Vitamin D3) 25 mcg PO DAILY docusate sodium 200 mg (2 x 100 mg) PO BEDTIME magnesium hydroxide (Milk of Magnesia) 30 mL PO DAILY PRN nitrofurantoin macrocrystal 50 mg PO Q24H 12 weeks rivaroxaban (Xarelto) 15 mg PO DAILY@1700 zinc acetate 50 mg PO DAILY HPI Comments Details: Toña comes for follow-up to the clinic accompanied by her daughter. She has been doing well from cardiac perspective. Denies any prolonged palpitation irregular heartbeat. Denies any bleeding issues or neurologic events. Walks wi th a walker. Denies any lightheadedness, syncope. Takes all her medications. No heart failure symptoms. No anginal symptoms. Mild cognitive issue but as per the daughter these are not getting worse. [facility] Medical History Atrial flutter with rapid ventricular response Paroxysmal atrial fibrillation Persistent atrial fibrillation History of cardioversion Surgical History History of hip surgery Family History Father No problems noted. Mother No problems noted. Social History Household Members: Spouse Housing: House Are you a primary respiratory care specialist to a significant other at home: No Do you presently have visiting nurse or other home services: Yes (phys therapy) Patient Tobacco Use Status: Never used Tobacco service: No Review of Systems Const Denies chills, Denies fatigue, Denies fever(s), Denies frequent falls, Denies weakness, Denies weight gain and Denies weight loss ENT Denies dizziness Card Denies chest pain, Denies leg edema, Denies lightheadedness, Denies palpitations, Denies dyspnea, Denies dyspnea on exertion, Denies orthopnea and Denies other (loss of consciousness) Resp Denies cough, Denies dyspnea and Denies dyspnea on exertion GI Denies hematochezia and Denies change in stool character Musc Denies abnormal gait, Denies muscle weakness, Denies numbness, Denies radiating pain into limb and Denies tingling Neuro Denies abnormal gait, Denies dizziness, Denies frequent falls, Denies numbness, Denies tingling and Denies weakness Endo Denies fatigue and Denies palpitations Physical Exam Vital Signs: Last Vital Signs Pulse 73 12/13/24 14:30 BP 108/62 12/13/24 14:30 BMI result Body Mass Index 20.2 Const General: cooperative, comfortable, no acute distress, alert and awake Nutritional Appearance: thin, underweight and other (Frail elderly woman) Limitations: ambulation with walker Neck Neck: Yes supple and Yes no JVD Chest Chest palpation & inspection: normal inspection of the chest Resp Effort & Inspection: normal respiratory effort Auscultation: clear to auscultation bilaterally Cardio Jugular venous distension: no JVD Rhythm: abnormal rhythm irregularly irregular Heart sounds: S1 normal heart sound present, S2 normal heart sound present, no click, no gallops and no murmurs GI Auscultation: normal bowel sounds Neuro General: no focal motor deficits Extrem General: Yes no clubbing, cyanosis or edema Psych Appearance: grossly normal Office Procedures EKG Details: Normal sinus rhythm with sinus arrhythmias. More R-wave progression most likely lead placement with [place] QT interval 58699-[id number], Complete Assessment & Plan Assessment & Plan (1) Paroxysmal atrial fibrillation: Code(s): I48.0 - Paroxysmal atrial fibrillation Category: Medical Plan: Symptomatic paroxysmal atrial fibrillation has done well with rhythm control approach and has done well with low-dose amiodarone therapy. Continue amiodarone therapy. Annual check for amiodarone toxicity will be pursued. Currently on full oral anticoagulation with Xarelto. Continue the same. Quarterly renal function test should be pursued. Blood pressure is currently well optimized. Advised to call me with any new symptoms. Maintain activity level as tolerated. Will follow up in the clinic in 6 months time, sooner p.r.n.. Thank you for allowing me to partake in her care Coding Level of Care Code Est Pt Level 4 (96991) Complex EM visit Add On G2211 Diagnoses Paroxysmal atrial fibrillation I48.0 CPT Codes EKG - CPT: 68173-[id number], Complete ([id number])
[2024-12-13 14:30] VITALS: BP 108/62; PULSE 73; BMI 20.2
== END 2024-12-13 14:59 | disposition home or self-care (01) ==
LOC: HO.HCS 14:28
PROVIDERS: PCP Internal Medicine; Visit Provider Internal Medicine Cardiovascular Disease
DX: I48.0 Paroxysmal atrial fibrillation (principal)
CPT/HCPCS: 93010; 99214; G2211

== ENCOUNTER → 2024-12-13 14:28 | Outpatient (BNVA) | payer MEDICARE, OTHER, SELFPAY | PROVIDERS: PCP Internal Medicine; Visit Provider Internal Medicine Cardiovascular Disease | DX: I48.0 Paroxysmal atrial fibrillation (principal); R94.31 Abnormal electrocardiogram [ECG] [EKG]; Z79.899 Other long term (current) drug therapy | CPT/HCPCS: 93005; 99212 ==

== ENCOUNTER 2025-02-10 22:35 | Emergency (ER) | payer MEDICARE, OTHER, SELFPAY ==
--- OUTSIDE RECORDS SUMMARY | 2024-06-17 10:00 | XMS_ITS ---
Author Organization Jem Reid MD Address [address] [place], [place] [id number] Care Team Providers Care Shift Lab Technician Name Role Phone Jeanette Jem Primary Care Provider Allergies No Known Allergies Reason For Referral Reason microscopic hematuri a Diagnosis 1 Microscopic hematuri a (R31.29) Referral Organization Jem Reid MD Referring Provider First Name Jem Referring Provider Last Name Jeanette Referring Provider Speciality Internal M edicine Referred Provider Edwin Sim Referred Provider Specialty Urology General Notes Mitali Nunez 0 06/21/2024 02:37:37 PM > referral info faxed, Mitali Nunez 07/11/2024 07:32:26 AM > info mailed to patient Referral Priority Routine Referral Appointment Date 09/22/2024 REASON FOR VISIT 1MO F/U/ CBACK URINE, Accompanied by and daughter Medications Medication SIG (Take, Route, Frequency, Duration) Notes Start Date End Date Status Calcium + D 315-200 MG-UNIT 1 tablet with meals Orally Twice a day Active Xarelto 15 MG TAKE 1 TABLET BY EVERY DAY Orally Once a day Active Digoxin 125 MCG 1 tablet Orally Not-Taking Tylenol 325 MG 1 tablet as needed Orally every 4 hrs Not-Taking Tylenol Extra Strength 500 MG 2 tablets as needed Orally every 6 hrs Not-Taking Amiodarone HCl 200 MG 1 tablet Orally On ce a day Active Vital Signs Blood pressure systolic 92 mm Hg 06/17/19 25 Blood pressure diastolic 60 mm Hg 025 Height 63 in 06/17/2024 Weight 112 lbs 06/17/2024 BMI 19.84 kg/m2 06/17/2024 Encounters Encounter Location Date Provider Diagnosis Jem Reid MD [address] [place] [id number] 06/17/2024 Jem Reid Microscopic hematuria R31.29 Assessments Encounter Date Diagnosis (ICD Code) Assessment Notes Treatment Notes Treatment Clinical Notes Section Notes 06/17/2024 Microscopic hematuria (ICD-10 - R31.29) have gone over the results of the repeat urine and is going to get evaluated by urologist Plan Of Treatment Treatment Notes Assessment Notes Microscopic hematuria have gone over the results of the repeat urine and is going to get evaluated by urologist Referrals Referral Date Details 06/17/2024 06/17/2024, microsco pic hematuria, Edwin Arriaga Next Appt Details Provider Name:Jem Mckee ier, 04/17/2025 07:45:00 AM, [address] [place] [address], [place] [address], [place], [place], [phone], Provider Name:Jem Mckee ier, 04/24/2025 01:00:00 PM, [address] [place] [address], [place] [address], [place], [place], [phone], Progress Notes * Toña PINEDO MDOB:[birth year] (89 yo F)Acc No.[id number]:06/17/2024 Patient: Toña BRODERICK Provider: Meka Reid MD :1935 A ge:88 Y S ex:Female Date:06/17/2024 Address:[address] [place] [address] Ivon Naranjo [id number] Subjective: * Chief Complaints: * 1 . 1MO F/U/ CBACK URINE. 2. Accompanied by and daughter. * HPI: S ymptom(s): patient is a 88 yo female here for one month follow up of uti, accompanied by and daughter. * ROS: G eneral/Constitutional: Denies C hills. D enies F atigue. D enies F ever. D enies H eadache. E NT: Patient denies d ecreased sense of smell , any loss of taste , sore throat. D enies S ore throat. R espiratory: Denies C ough. D enies S hortness of breath at rest. D enies S hortness of breath with exertion. G astrointestinal: Denies D iarrhea. D enies N ausea. M usculoskeletal: Patient denies m uscle aches. P eripheral Vascular: Patient denies r ed and blue toes. * Medical History: R efuses flu shot (07-06-12), Refuses pneumo (07-06-12), Refuses colonoscoopy 2012, Refuses pneumo, 2013. * Medications: T aking Amiodarone HCl 200 MG Tablet 1 tablet Orally Once a day , Taking Calcium + D 315-200 MG-UNIT Tablet 1 tablet with meals Orally Twice a day , Taking Xarelto 15 MG Tablet TAKE 1 TABLET BY MOUTH EVERY DAY Orally Once a day , Not-Taking/PRN Digoxin 125 MCG Tablet 1 tablet Orally , Not-Taking/PRN Tylenol 325 MG Tablet 1 tablet as needed Orally every 4 hrs , Not-Taking/PRN Tylenol Extra Strength 500 MG Tablet 2 tablets as needed Orally every 6 hrs , Medication List reviewed and reconciled with the patient * Allergies: N .K.D.A. Objective: * Vitals: H t: 63, Wt:112, BMI:19.84, BP:92/60. * Examination: G eneral Examination: GENERAL APPEARANCE: a lert, well hydrated, in no distress , female. HEAD: n ormocephalic. SKIN: g ood turgor. HEART: r egular rate and rhythm , no murmurs, rubs, gallops. LUNGS: n o wheezes, rales, rhonchi , good air movement , clear to auscultation bilaterally. ABDOMEN: s oft, nontender, nondistended. BACK: n o costovertebral angle tenderness. Assessment: * Assessment: 1. M icroscopic hematuria - R31.29 (Primary) Plan: * Treatment: * * The named appointment provid er may or may not be the originator of this progress note, and it is not deemed complete until electronically signed by the appointment provider. Sign off status: Pending * Provider: Meka Reid MD Date: 0 06/17/2024 Generated for Lupilloi anna/Jay/Amayasmitting on: 0 02/10/2025 11:59 PM EDT History and Physical Notes * HPI (History of Present Illness) Category Sub-Category Detail Notes Category Not es Symptom(s) patient is a 88 yo female here for one month follow up of uti, accompanied by and daughter Examination Category Sub-Category Detail Notes Category Not es General Examination GENERAL APPEARANCE: alert, w ell hydrated, in no distress , female HEAD: normocephalic HEART: regular rate and rhy thm , no murmurs, rubs, gallops LUNGS: no wheezes, rales, r honchi , good air movement , clear to auscultation bilaterally ABDOMEN: soft, nontender, non distended SKIN: good turgor BACK: no costovertebral an gle tenderness Consultation Request Notes Referral Date Referring Provider Referred Provider Not es 06/17/2024 Jem Reid Corlis L m icroscopic hematuria
--- OUTSIDE RECORDS SUMMARY | 2024-06-28 08:09 | XMS_ITS ---
Author Organization Jem Reid MD Address [address] [facility] [address] [place] [phone] Care Team Providers Care Medical Claims Analyst Name Role Phone Jeanette Jem Primary Care Provider [phone] REASON FOR VISIT discharge Encounters Encounter Location Date Provider Diagnosis Jem Reid MD [address] [facility] [address] [place] [phone] 06/28/2024 Jem Reid Plan Of Treatment Next Appt Details Provider Name:Jem Mckee ier, 04/17/2025 07:45:00 AM, [address] [place] [address], [address], [phone], Provider Name:Jem Mckee ier, 04/24/2025 01:00:00 PM, [address] [place] [address], [address], [phone], Progress Notes * Toña RÍOS MDOB:[birth year] (89 yo F)Acc No.[id number]:06/28/2024 Patient: Toña BRODERICK :1935 A ge:88 Y S ex:Female Address:[address] [place] [address] [place] [address] * true * Date: Generated for Octavia castillo/Jay/Quang on: 0 02/11/2025 12:00 AM EDT
--- OUTSIDE RECORDS SUMMARY | 2024-07-29 05:15 | XMS_ITS ---
Author Organization Jem Reid MD Address [address] [place] [phone] Care Team Providers Care Social Science Analyst Name Role Phone Jem Reid Primary Care Provider Allergies No Known Allergies Results Component Value Reference Range Notes UA ClnCatch+Micro w/rflx Cul t Reviewed date:07/29/2024 04:29:01 PM Interpretation: Performing Lab:[facility], [address] [place] [phone] Notes/Report: Urine, Clean Catch Color Urine Yellow Appearance Urine Clear PH 8.5 5.0-9.0 Glucose Urine UA Negative Negative mg/dL Urine Blood Negative Negative Specific [place] - Urine 1.015 1.005-1.025 Urine Protein Negative Neg-Trace mg/dL Urine Ketones Negative Negative mg/dL Nitrite Urine Negative Negative Leukocyte Esterase Urine Large (3+) Negative RBC Urine 0-2 0-2 /HPF WBC Urine 21-50 0-5 /HPF Squamous Epithelial Cell Urine 11-20 0-2 /HPF Bacteria Urine 2+ None Seen Hyaline Casts Urine 0-2 0-2 /LPF REASON FOR VISIT PH/TCM, Accompanied by and daughter Medications Medication SIG (Take, Route, Frequency, Duration) Notes Start Date End Date Status Calcium + D 315-200 MG-UNIT 1 tablet with meals Orally Twice a day Active Digoxin 125 MCG 1 tablet Orally Not-Taking Xarelto 15 MG TAKE 1 TABLET BY CHERRI TH EVERY DAY Orally Once a day Active Tylenol Extra Strength 500 MG 2 tablets as needed Orally every 6 hrs Not-Taking Tylenol 325 MG 1 tablet as needed Orally every 4 hrs Not-Taking Amiodarone HCl 100 MG 1 tablet Orally On ce a day Active Problems Problem Type SNOMED Code ICD Code Onset Dates Problem Status W/U Status Risk Notes Problem 519752058 Acute constipation (K59.00) Active confirmed Vital Signs Blood pressure systolic 88 mm Hg 07/29/19 25 Blood pressure diastolic 56 mm Hg 025 Height 63 in 07/29/2024 Weight 112 lbs 07/29/2024 BMI 19.84 kg/m2 07/29/2024 Encounters Encounter Location Date Provider Diagnosis Jem Reid MD [address] [place] [phone] 07/29/2024 Jem Reid After-treatment Z51.89 and Acute constipation K59.00 Assessments Encounter Date Diagnosis (ICD Code) Assessment Notes Treatment Notes Treatment Clinical Notes Section Notes 07/29/2024 After-treatment (ICD-10 - Z51.89) had been in the hospital with urinary tract infection. is doing well now 07/29/2024 Acute constipation (ICD-10 - K59.00) doing well/ is using meds. Plan Of Treatment Treatment Notes Assessment Notes After-treatment had been in the hosp [facility] with urinary tract infection. is doing well now Acute constipation doing well/ is using meds. Next Appt Details Provider Name:Jem aragon, 04/17/2025 07:45:00 AM, [address] [place] [address], [place] [address], [place], [place], [phone], Provider Name:Jem aragon, 04/24/2025 01:00:00 PM, [address] [place] [address], [place] [address], [place], [place], [phone], Progress Notes * Toña RÍOS MDOB:[birth year] (89 yo F)Acc No.[id number]:07/29/2024 Patient: Toña BRODERICK Provider: Meka Reid MD :1935 A ge:89 Y S ex:Female Date:07/29/2024 Address:[address] [id number] Subjective: * Chief Complaints: * P H/TCMAccompanied by and daughter * HPI: S ymptom(s): patient is a 89 yo female here for follow up from recent hospitaliztion, discharge summary has been reviewed and medications reconcilled. had been in hospital for covid, uti and constipation. * ROS: G eneral/Constitutional: Denies C hills. D enies F atigue. D enies F ever. D enies H eadache. E NT: Patient denies d ecreased sense of smell, any loss of taste, sore throat. D enies S ore throat. R espiratory: Denies C ough. D enies S hortness of breath at rest. D enies S hortness of breath with exertion. G astrointestinal: Denies D iarrhea. D enies N ausea. M usculoskeletal: Patient denies m uscle aches. P eripheral Vascular: Patient denies r ed and blue toes. * Medical History: * Surgical History: * Hospitalization/Major Diagno stic Procedure: * Medications: T akingAmiodarone HCl 100 MG Tablet 1 tablet Orally Once a day Calcium + D 315-200 MG-UNIT Tablet 1 tablet with meals Orally Twice a day Xarelto 15 MG Tablet TAKE 1 TABLET BY MOUTH EVERY DAY Orally Once a day Taking Amiodarone HCl 100 MG Tablet 1 tablet Orally Once a day Taking Calcium + D 315-200 MG-UNIT Tablet 1 tablet with meals Orally Twice a day Taking Xarelto 15 MG Tablet TAKE 1 TABLET BY MOUTH EVERY DAY Orally Once a day Not-Taking/PRNDigoxin 125 MCG Tablet 1 tablet Orally Tylenol 325 MG Tablet 1 tablet as needed Orally every 4 hrs Tylenol Extra Strength 500 MG Tablet 2 tablets as needed Orally every 6 hrs Medication List reviewed and reconciled with the patientNot-Taking/PRN Digoxin 125 MCG Tablet 1 tablet Orally Not-Taking/PRN Tylenol 325 MG Tablet 1 tablet as needed Orally every 4 hrs Not-Taking/PRN Tylenol Extra Strength 500 MG Tablet 2 tablets as needed Orally every 6 hrs Medication List reviewed and reconciled with the patient * Allergies: N .K.D.A.yes[Allergies Verified] Objective: * Vitals: H t: 63, Wt: 112, BMI:19.84, BP:88/56, Wt-k.8. * Examination: G eneral Examination: GENERAL APPEARANCE: a lert, well hydrated, in no distress.? HEAD: n ormocephalic. SKIN: g ood turgor. HEART: n o murmurs, rubs, gallops, regular rate and rhythm.? LUNGS: n o wheezes, rales, rhonchi, good air movement, clear to auscultation bilaterally. Assessment: * Assessment: 1. A cute constipation - K59.00 (Primary) 2 . A fter-treatment - Z51.89? Plan: * Treatment: 2. A fter-treatment L AB: UA ClnCatch+Micro w/rflx Cult (Collection Date & Time - 07/29/2024 09:15 AM) Notes: had been in the hospital with urinary tract infection. is doing well now * Procedure Codes: * * Sign off status: Completed true * Provider: Meka Reid MD Date: 0 07/29/2024 Generated for Octavia castillo/Jay/Renayitting on: 0 02/11/2025 12:00 AM EDT History and Physical Notes * HPI (History of Present Illness) Category Sub-Category Detail Notes Category Not es Symptom(s) patient is a 89 yo female here for follow up from recent hospitaliztion, discharge summary has been reviewed and medications reconcilled. had been in hospital for covid, uti and constipation Examination Category Sub-Category Detail Notes Category Not es General Examination GENERAL APPEARANCE: alert, w ell hydrated, in no distress HEAD: normocephalic HEART: no murmurs, rubs, ga llops, regular rate and rhythm LUNGS: no wheezes, rales, r honchi, good air movement, clear to auscultation bilaterally SKIN: good turgor
--- OUTSIDE RECORDS SUMMARY | 2024-07-31 05:43 | XMS_ITS ---
Author Organization Jem Reid MD Address [address] [place] [phone] Care Team Providers Care Behavior Clinician Name Role Phone Jem Reid Primary Care Provider Medications Medication SIG (Take, Route, Fr equency, Duration) Notes Start Date End Date Status Amoxicillin 500 MG 1 capsule Orally twi ce a day for 5 days 07/31/2024 Active Encounters Encounter Location Date Provider Diagnosis Jem Reid MD 10 [facility] [address] [place] [phone] 07/31/2024 Jem Reid Plan Of Treatment Medication Medication Name Sig Start Date Stop Date Notes Amoxicillin 500 MG 1 capsule Orally twice a day for 5 days 07/31/2024 Next Appt Details Provider Name:Jem aragon, 04/17/2025 07:45:00 AM, [address] [place] [address], [address], [phone], Provider Name:Jem aragon, 04/24/2025 01:00:00 PM, [address] [place] [address], [phone], Progress Notes * Toña RÍOS MDOB:[birth year] (89 yo F)Acc No.[id number]:07/31/2024 Patient: Robert BURGESS Toña Edel :1935 A ge:89 Y S ex:Female Address:[address] [place] [address] * Refills Start Amoxicillin Capsule, 500 MG, Orally, 10 Capsule, 1 capsule, twice a day, 5 days * true * Date: Generated for Octavia castillo/Jay/Renayitting on: 0 02/10/2025 11:59 PM EDT
--- OUTSIDE RECORDS SUMMARY | 2024-08-18 09:00 | XMS_ITS ---
Author Organization Jem Reid MD Address [address] [place] [phone] Care Team Providers Care Director Staffing Name Role Phone Jem Reid Primary Care Provider Results Component Value Reference Range Notes UA ClnCatch+Micro w/rflx Cul t Reviewed date:08/22/2024 09:35:10 AM Interpretation: Performing Lab:[facility], [address] [place] [phone] Notes/Report: Urine, Clean Catch Color Urine Yellow Appearance Urine Hazy PH 6.0 5.0-9.0 Glucose Urine UA Negative Negative mg/dL Urine Blood Large (3+) Negative Specific [place] - Urine >= 1.030 1.005-1.025 Urine Protein [...] Reid MD [address] [place], [place] [phone] 08/18/2024 Jemez Fullerbeatriz After-treatment Z51.89 Assessments Encounter Date Diagnosis (ICD Code) Assessment Notes Treatment Notes Treatment Clinical Notes Section Notes 08/18/2024 After-treatment (ICD-10 - Z51.89) Plan Of Treatment Next Appt Details Provider Name:Jem Mckee ier, 04/17/2025 07:45:00 AM, [address] [facility], [address], [place], [phone], Provider Name:Jem Mckee ier, 04/24/2025 01:00:00 PM, [address] [place] [address], [address], [place], [place], [phone], Progress Notes * Toña RÍOS MDOB:[birth year] (89 yo F)Acc No.[id number]:08/18/2024 Progress Note Patient: Robert Toña BURGESS Edel Provider: Meka Reid MD :1935 A ge:89 Y S ex:Female Date:08/18/2024 Address:[address] [place], [place] [phone] Subjective: * Chief Complaints: * 1 . [...] 08/18/2024 Generated for Octavia castillo/Jay/Quang on: 0 02/10/2025 11:59 PM EDT
--- NOTE | ~2025-02-10 | CT_ITS ---
CLINICAL HISTORY: fall, pain CT cervical spine without contrast Comparison: CT of the cervical spine from 06/24/2024 Findings: No acute fracture of the cervical spine. Mild reversal of the cervical lordosis. No significant change in mild anterolisthesis at C3-C4. Redemonstration of the facet effusion including C2-C3. Facet arthropathy is multifocal. Mild worsening of the degenerative changes with a disc osteophyte complexes and mild spinal canal stenosis including C4-C5 and C5-C6. Moderate to severe foraminal narrowing at C4-C5 and C5-C6, left worse than right. Additional foraminal narrowing is mild No paraspinal hematoma. Vascular calcifications noted. Mild scarring of the imaged lung apices. IMPRESSION: No acute fracture of the cervical spine. This document has been electronically signed by: Christian Khoury MD on 02/11/2025 03:04:55
--- NOTE | ~2025-02-10 | CT_ITS ---
CLINICAL HISTORY: fall, on thinners CT head without contrast Comparison: Head CT from 06/24/2024 Findings: No acute intracranial hemorrhage. No midline shift or hydrocephalus accounting for mild-moderate generalized volume loss. Mild white matter lesions are redemonstrated as can be seen with small-vessel ischemic disease. No large arterial territorial infarction by CT. Perivascular spaces versus small old infarctions are redemonstrated basal ganglia lesions. Metal artifacts noted including of the right frontal convexity. Soft tissue scalp hematoma with soft tissue swelling including over the right frontal convexity. No underlying acute frontal bone fracture. Vessel channels are redemonstrated. Low bone mineralization suggested. Partially empty sella. Vascular calcifications are redemonstrated. Fluid and mucosal thickening of the paranasal sinuses including ethmoid air cells. Imaged mastoid air cells are well aerated. Scalp jessenia noted of the left upper parietal convexity with soft tissue swelling. IMPRESSION: 1. No acute intracranial abnormality by CT. This document has been electronically signed by: Christian Khoury MD on 02/11/2025 03:11:52
[2025-02-10 22:44] VITALS: BP 112/60; PULSE 89; O2SAT 95; BMI 16.9
[2025-02-10 22:50] VITALS: BP 108/64; PULSE 92; RESP 15; TEMP 36.5; O2SAT 96
--- NOTE | 2025-02-10 23:00 | ECG_ITS ---
Test Reason : FALL Blood Pressure : */* mmHG Vent. Rate : 90 BPM Atrial Rate : * BPM P-R Int : * ms QRS Dur : 96 ms QT Int : 290 ms P-R-T Axes : * 33 33 degrees QTcB Int : 354 ms Accelerated Junctional rhythm Cannot rule out Anterior infarct (cited on or before 24-Jun-2024) Abnormal ECG When compared with ECG of 24-Jun-2024 14:58, Junctional rhythm has replaced Sinus rhythm QT has shortened Referred By: Mary Albert Electronically Signed By: Ty Jackson
[2025-02-10 23:22] LABS: MANUAL DIFF FLAG NO
[2025-02-10 23:23] LABS: Hematocrit 36.5 % (37.0-47.0); Hemoglobin 12.6 g/dl (12.0-16.0); Imm Gran Abs Auto 0.05 X10*3/uL (0.00-0.03); Imm Gran Pct Auto 0.3 % (0.0-0.4); Lymphocytes Absolute Auto 0.8 X10*3/uL (1.2-4.9); Mean Corpuscular HGB Conc 34.5 g/dl (31.0-35.0); Mean Corpuscular Hemoglobin 32.4 pg (27.0-33.0); Mean Corpuscular Volume 93.8 fL (80.0-98.0); NRBC Abs Auto 0.000 X10*3/uL (0.0-0.012); NRBC Pct Auto 0.0 /100WBC (0.0-0.2); Platelet Count 234 X10*3/uL (160-400); Red Blood Count 3.89 X10*6/uL (4.20-5.50); White Blood Count 15.3 X10*3/uL (4.8-10.8)
[2025-02-10 23:36] LABS: Alanine Aminotransferase 17 U/L (0-31); Albumin Level 3.7 g/dL (3.5-5.0); Alkaline Phosphatase 81 U/L (39-117); Anion Gap 11 (12-20); Aspartate Amino Transferase 33 U/L (5-31); Blood Urea Nitrogen 17 mg/dL (9-16); Calcium 9.1 mg/dL (8.4-10.2); Carbon Dioxide 27 mmol/L (22-29); Chloride 104 mmol/L (96-108); Creatinine Clr Calc Pharmacy 37.2; Estimated Glomerular Filt Rate > 60; Potassium 3.9 mmol/L (3.3-5.1); Sodium 138 mmol/L (135-145); Total Protein 7.4 g/dL (6.5-8.0)
[2025-02-10 23:43] LABS: Troponin-I High Sensitivity 16.1 ng/L (<3.5-17.0)
--- NOTE | 2025-02-10 23:43 | ED_ITS ---
HPI - Fall General Chief Complaint: Fall Stated Complaint: Mechanical fall, lac on head Source: patient Mode of arrival: ambulatory Limitations: no limitations History of Present Illness ED Provider: Dr. Mary Albert HPI Narrative: patient comes to the emergency room complaining of a fall. Patient states that she rolled out of bed and hit her head on the right side. Patient takes Eliquis. Patient also has a laceration on the left side of the occipital region in the scalp. Patient states that she only has localized pain, no headache, no loss of consciousness. Patient has some scrapes in her lower extremities. Patient lives with her . According to the patient's son who is at bedside, patient is currently being treated for a UTI with Macrobid. Patient denies any urinary symptoms. However, patient states that she feels a bit weaker than usual. Seems that EMS was told by the family that patient's seems a bit more confused than usual. Related Data Home Medications ?Medication ?Instructions ?Recorded ?Confirmed ascorbic acid (vitamin C) 500 mg 500 mg PO DAILY 06/2412/13/24 tablet (Vitamin C) calcium carbonate 500 mg PO DAILY 06/24/2401/30 cholecalciferol (vitamin D3) 25 25 mcg PO DAILY 12/13/24 mcg (1,000 unit) tablet (Vitamin D3) zinc acetate 50 mg (zinc) capsule 50 mg PO DAILY 06/2412/13/24 Previous Rx's ?Medication ?Instructions ?Recorded docusate sodium 100 mg capsule 200 mg (2 x 100 mg) PO BEDTIME #60 06/28/24 caps magnesium hydroxide 400 mg/5 mL 30 ml PO DAILY PRN Con stipation 06/28/24 oral suspension (Milk of Magnesia) #355 mL rivaroxaban 15 mg tablet (Xarelto) 15 mg PO DAILY@1700 #90 tabs 09/27/24 amiodarone 100 mg tablet 100 mg PO DAILY #90 tabs nitrofurantoin macrocrystal 50 mg 50 mg PO Q24H 12 wee ks #84 caps 11/28/24 capsule cefuroxime axetil 250 mg tablet 250 mg PO BID #19 tabs 02/11/25 Allergies Allergy/AdvReac Type Severity Reaction Status Date / Time No Known Allergies (No Known Allergy Verified 09/05/25 22:45 Allergies*) Review of Systems 2 Review of Systems: Constitutional : No Weight loss, No Fever, No Chills, No Night Sweats, No Fatigue, No Malaise ENT/Mouth : No Hearing loss, No Ear Pain, No Nasal Congestion, No Sinus Pain, No Hoarseness, No sore throat, No Rhinorrhea, No Swallowing Difficulty Eyes: No Eye Pain, No Swelling, No Redness, No Foreign Body, No Discharge, No Vision Changes Cardiovascular : No Chest Pain, No SOB, No Dyspnea on Exertion, No Orthopnea, No Edema, No Palpitations Respiratory : No Cough, No Sputum, No Wheezing, No Smoke Exposure, No Dyspnea Gastrointestinal : No Nausea, No Vomiting, No Diarrhea, No Constipation, No abdominal Pain, No Hematochezia, No Melena Genitourinary : no irregular bleeding, No Dysuria, No Urinary Frequency, No Hematuria, No Urinary Incontinence, No Urgency, No Flank Pain, No Urinary Flow Changes, No Hesitancy Musculoskeletal : No joint pain, No Myalgias, No Joint Swelling Skin : Complaining of multiple abrasions in the lower extremities especially right leg in complaining of a laceration to the right side of the forehead and left side of the scalp posteriorly Neuro : No Weakness, No Numbness, No Paresthesias, No Loss of Consciousness, No Dizziness, No Headache Psych : No Anxiety/Panic, No Depression, No SI/HI/AH/VH, No Social Issues, Heme/Lymph: No Bruising, No Bleeding,No Lymphadenopathy Endocrine : No Polyuria, No Polydipsia, No Temperature Intolerance [facility] Past Medical History Medical History Atrial flutter with rapid ventricular response Paroxysmal atrial fibrillation Persistent atrial fibrillation History of cardioversion Surgical History History of hip surgery Family History Family History Father No problems noted. Mother No problems noted. Social History Social History Household Members: Spouse Housing: House Are you a primary critical care cns to a significant other at home: No Do you presently have visiting nurse or other home services: Yes (phys therapy) Patient Tobacco Use Status: Never used Tobacco Advance Directives: No Advance Directives Information Provided: Yes Do you have a plan to hurt others: No Plan service: No Physical Exam 2 Exam: Exam: Appearance: Alert. Oriented X3. No acute distress. Eyes: Pupils equal, round and reactive to light. ENT: Pharynx normal. Neck: Normal inspection. Neck supple. No lymph nodes noted. No crepitus CVS: Normal heart rate and rhythm. Pulses normal. Normal S1 and S2 Respiratory: No respiratory distress. Breath sounds normal. No Wheezing. No rales Abdomen: Soft and nontender. No rigidity. No distention. Skin: Skin warm and dry. Normal skin color. Normal skin turgor. Extremities: No lower extremity edema. No Lacerations. No Rash. Patient is able to flex and extend with full range of motion her upper extremities, able to flex the hip bilaterally. Patient has multiple ecchymosis in upper and lower extremities, abrasions, no lacerations in extremities. Patient has a 0.5 cm laceration in the forehead, not deep, bleeding controlled. Patient has a 3 cm laceration to the scalp posteriorly Neuro: Oriented X 3. No motor deficit. No sensory deficit. Moving all extremities. No slurred speech. CN 2 through 12 grossly intact Psych: calm, cooperative, normal affect Vital Signs: Vital Signs: Last Vital Signs Temp 98.7 F 02/11/25 03:12 Pulse 88 02/11/25 03:12 Resp 14 02/11/25 03:12 BP 132/82 02/11/25 03:12 Pulse Ox 97 02/11/25 03:12 O2 Del Method Room Air 02/11/25 03:12 BMI result Body Mass Index 16.9 Course Course Course Narrative: urine pending to rule out urinalysis. Patient is currently getting treated with Macrobid. CT scan of the head and cervical spine pending. Patient has full range of motion of her upper or lower extremities and hip. Discussed with the patient that she needs stitches in the posterior aspect of her scalp in patient needs some glue in her forehead. Patient agrees with plan. Medical Decision Making Medical Decision Making MDM Narrative: Patient tolerated well the jessenia. Patient was given a choice of putting the jessenia with or without lidocaine, patient chose to do it without. Bleeding now controlled. Patient's urinalysis positive for UTI, patient received the 1st dose of cefuroxime here in the emergency room. Patient instructed to discontinue taking Macrobid I reviewed patient's urine microbiology report from November of 2024, patient's urine is sensitive to all antibiotics for treatment of UTI with E coli head and cervical spine CT scan did not show any acute abnormality. I offered to the patient's family PT case management. The patient states that she uses a walker at home, feels comfortable going home. At this time, patient declined an ambulation trial. Patient states that she has been a services at home and she has 5 children at home who all help take care of her and her . patient was given the 1st dose of cefuroxime. Patient states that she feels well to go home. Discussed with the patient and her family that the jessenia need to be removed in 7-10 days. Differential Diagnosis Differential Diagnoses: The differential diagnosis associated with the presentation includes ( Intracranial bleed, cervical spine injury, contusion, concussion, abrasions, lacerations) Admission/Observation Consideration of admission/observation: Escalation of care including admission/observation considered ( given patient's age, being on blood thinners, presentation, observation was considered) Lab Data MDM Lab Attestation statement: I reviewed the patient's lab results. 02/10/25 23:17 02/10/25 23:17 Labs: Lab Results 02/10/25 02/11/25 Range/Units 23:17 00:25 WBC 15.3 H (4.8-10.8) X10*3/uL RBC 3.89 L (4.20-5.50) X10*6/uL Hgb 12.6 (12.0-16.0) g/dl Hct 36.5 L (37.0-47.0) % MCV 93.8 (80.0-98.0) fL MCH 32.4 (27.0-33.0) pg MCHC 34.5 (31.0-35.0) g/dl RDW 12.7 (11.0-16.0) % Plt Count 234 (160-400) X10*3/uL MPV 10.1 (9.4-12.3) fL Immature Gran % (Auto) 0.3 (0.0-0.4) % Neut % (Auto) 86.3 H (45-73) % Lymph % (Auto) 5.4 L (20-40) % Swain % (Auto) 7.5 (2-11) % Eos % (Auto) 0.3 (0-4) % Baso % (Auto) 0.2 (0-2) % Lymph # (Auto) 0.8 L (1.2-4.9) X10*3/uL Swain # (Auto) 1.1 (0.1-1.2) X10*3/uL Eos # (Auto) 0.1 (0.0-0.4) X10*3/uL Baso # (Auto) 0.0 (0.0-0.2) X10*3/uL Abs Immat Gran (auto) 0.05 H (0.00-0.03) X10*3/uL Absolute Neuts (auto) 13.2 H (2.0-8.3) x10*3/uL Absolute Nucleated RBC 0.000 (0.0-0.012) X10*3/uL Nucleated RBC % (auto) 0.0 (0.0-0.2) /100WBC Sodium 138 (135-145) mmol/L Potassium 3.9 (3.3-5.1) mmol/L Chloride 104 (96-108) mmol/L Carbon Dioxide 27 (22-29) mmol/L Anion Gap 11 L (12-20) BUN 17 H (9-16) mg/dL Creatinine 0.83 (0.5-1.4) mg/dL Estim Creat Clear Calc 37.2 Estimated GFR > 60 Random Glucose 138 H (60-115) mg/dL Calcium 9.1 D (8.4-10.2) mg/dL Total Bilirubin 0.5 (0.0-1.0) mg/dL AST 33 H (5-31) U/L ALT 17 (0-31) U/L Alkaline Phosphatase 81 (39-117) U/L Troponin I High Sens 16.1 (<3.5-17.0) ng/L Total Protein 7.4 (6.5-8.0) g/dL Albumin 3.7 (3.5-5.0) g/dL Urine Color Yellow Urine Appearance Cloudy Urine pH 6.5 (5.0-9.0) Ur Specific [place] 1.010 (1.005-1.025) Urine Protein Negative (Neg-Trace) mg/dL Urine Glucose (UA) Negative (Negative) mg/dL Urine Ketones Negative (Negative) mg/dL Urine Blood Trace H (Negative) Urine Nitrite Negative (Negative) Ur Leukocyte Esterase Large (3+) H (Negative) Urine RBC >20 H (0-2) /HPF Urine WBC 21-50 H (0-5) /HPF Ur Squamous Epith Cells 3-5 (0-2) /HPF Urine Bacteria 4+ (None Seen) Hyaline Casts 3-5 (0-2) /LPF Influenza Type A (PCR) NEGATIVE (Negative) Influenza Type B (PCR) NEGATIVE (Negative) RSV RNA Qual (PCR) NEGATIVE (Negative) SARS-CoV-2 RNA (RT-PCR) NEGATIVE (Negative) Independent Interpretation I performed an independent interpretation of an: CT Scan Radiology Impression Discussion of test interpretation with radiology: I have reviewed the radiologist's reading. Radiologist Impression: No acute intracranial hemorrhage. No midline shift or hydrocephalus accounting for mild-moderate generalized volume loss. Mild white matter lesions are redemonstrated as can be seen with small-vessel ischemic disease. No large arterial territorial infarction by CT. Perivascular spaces versus small old infarctions are redemonstrated basal ganglia lesions. Metal artifacts noted including of the right frontal convexity. Soft tissue scalp hematoma with soft tissue swelling including over the right frontal convexity. No underlying acute frontal bone fracture. Vessel channels are redemonstrated. Low bone mineralization suggested. Partially empty sella. Vascular calcifications are redemonstrated. Fluid and mucosal thickening of the paranasal sinuses including ethmoid air cells. Imaged mastoid air cells are well aerated. Scalp jessenia noted of the left upper parietal convexity with soft tissue swelling. No acute fracture of the cervical spine. Mild reversal of the cervical lordosis. No significant change in mild anterolisthesis at C3-C4. Redemonstration of the facet effusion including C2-C3. Facet arthropathy is multifocal. Mild worsening of the degenerative changes with a disc osteophyte complexes and mild spinal canal stenosis including C4-C5 and C5-C6. Moderate to severe foraminal narrowing at C4-C5 and C5-C6, left worse than right. Additional foraminal narrowing is mild No paraspinal hematoma. Vascular calcifications noted. Mild scarring of the imaged lung apices. Independent Historian Clinical information obtained from an independent historian. History obtained from or confirmed by: Spouse and Other ( patient's son) Critical Care Time Critical Care Time Critical Care Time: Yes Total Critical Care Time: 35 Attestation: I have personally provided critical care time. Time includes review of lab data, radiology results, discussion with consultants, and monitoring for potential decompensation. Intervention performed as documented. Discharge Plan Discharge Clinical Impression: Fall, Abrasion of skin, Contusion, Laceration of scalp, UTI (urinary tract infection) Patient Disposition: Home, Self-Care Instructions: Staple Care (ED), Fall Prevention (ED), Facial Laceration (ED), Urinary Tract Infection in Older Adults (ED) Additional Instructions: Please follow-up with your primary care physician tomorrow. If you have any worsening or new symptoms, please return to the emergency room or call 911 Prescriptions: New cefuroxime axetil 250 mg tablet 250 mg PO BID Qty: 19 0RF No Action Xarelto 15 mg tablet 15 mg PO DAILY@1700 Qty: 90 3RF amiodarone 100 mg tablet 100 mg PO DAILY Qty: 90 1RF nitrofurantoin macrocrystal 50 mg capsule 50 mg PO Q24H 84 Days Qty: 84 0RF Rx Instructions: must administer with a meal/food zinc acetate 50 mg (zinc) Capsule 50 mg PO DAILY calcium carbonate 500 mg calcium (1,250 mg) Tablet 500 mg PO DAILY ascorbic acid (vitamin C) [Vitamin C] 500 mg Tablet 500 mg PO DAILY cholecalciferol (vitamin D3) [Vitamin D3] 25 mcg (1,000 unit) Tablet 25 mcg PO DAILY magnesium hydroxide [Milk of Magnesia] 400 mg/5 mL Suspension 30 ml PO DAILY PRN (Reason: Constipation) Qty: 355 0RF docusate sodium 100 mg Capsule 200 mg PO BEDTIME Qty: 60 0RF Print Language: Palauan
--- OUTSIDE RECORDS SUMMARY | 2025-02-11 | XMS_ITS | Patient Health Record ---
Author Organization Jem Reid MD Address [address] [place], [place] [id number] Care Team Providers Care Videotape Sales Representative Name Role Phone Jem Reid Primary Care Provider [phone] Allergies No Known Allergies Results Component Value Reference Range Notes Complete Blood Count Auto Di ff Reviewed date:04/12/2024 04:50:38 PM Interpretation: Performing Lab:[facility], [address] [place] [phone] Notes/Report: White Blood Count 7.5 4.8-10.8 X10*3/uL [...] NRBC Abs Auto 0.000 0.0-0.012 X10*3/uL [facility]. Panel Fa st Reviewed date:04/12/2024 04:49:40 PM Interpretation: Performing Lab:[facility], [address] [place] [phone] Notes/Report: Sodium 144 135-145 mmol/L Potassium 4.4 3.3-5.1 mmol/L Chloride 107 96-108 mmol/L Carbon Dioxide 25 22-29 mmol/L Anion Gap 16 12-20 Blood Urea Nitrogen 18 9-16 mg/dL Creatinine 0.74 0.5-1.4 mg/dL Estimated Glomerular Filt Rate > 60 NOTE: For -[place] individuals, multiply the result by 1.210. Chronic [...] Panel Reviewed date:04/12/2024 04:51:05 PM Interpretation: Performing Lab:[facility], [address] [place] [phone] Notes/Report: Triglycerides 87 <150 mg/dL Desirable Triglyceride: [...] Random Reviewed date:04/12/2024 04:50:01 PM Interpretation: Performing Lab:[facility], [address] [place] [phone] Notes/Report: Creatinine Urine 23.52 Microalbumin Urine 41.0 Microalbum/Creatinine Ratio Ur 174.3 <30 ug/mg cr Albumin/Creatinine Ratio Reference Ranges: Normal: < 30 ug/mg creatinine Microalbuminuria: 30 - 300 ug/mg creatinine Clinical Albuminuria: > 300 ug/mg creatinine Hemoglobin A1c Reviewed date:04/12/2024 04:49:49 PM Interpretation: Performing Lab:[facility], [address] [place] [phone] Notes/Report: Hemoglobin A1c % 5.3 <6.0 % [...] average glucose, using the formula of the A4K-Nnmegrz Average Glucose study (ADAG), Diabetes Care, Vol.31,#8, 2007 UA ClnCatch+Micro w/rflx Cul t Reviewed date:04/21/2024 10:28:41 AM Interpretation:CHEN 04/19 Performing Lab:[facility], [address] [place] [phone] Notes/Report: Urine, Clean Catch Color Urine Yellow Appearance Urine Clear PH 7.0 5.0-9.0 Glucose Urine UA Negative Negative mg/dL Urine Blood Large (3+) Negative Specific [place] - Urine <= 1.005 1.005-1.025 Urine Protein [...] Reviewed date:06/20/2024 09:15:12 AM Interpretation:CHEN 06/17/24 Performing Lab:[facility], [address] [place] [phone] Notes/Report: Urine, Clean Catch Color Urine Yellow Appearance Urine Clear PH 7.0 5.0-9.0 Glucose Urine UA Negative Negative mg/dL Urine Blood Moderate (2+) Negative Specific [place] - Urine 1.020 1.005-1.025 Urine Protein Trace Neg-Trace mg/dL Urine Ketones Negative Negative mg/dL Nitrite Urine Negative Negative Leukocyte Esterase Urine Negative Negative RBC Urine >20 0-2 /HPF WBC Urine 0-5 0-5 /HPF Squamous Epithelial Cell Urine 0-2 0-2 /HPF Bacteria Urine None Seen None Seen Hyaline Casts Urine 0-2 0-2 /LPF UA ClnCatch+Micro w/rflx Cul t Reviewed date:08/22/2024 09:35:10 AM Interpretation: Performing Lab:[facility], [address] [place] [phone] Notes/Report: Urine, Clean Catch Color Urine Yellow Appearance Urine Hazy PH 6.0 5.0-9.0 Glucose Urine UA Negative Negative mg/dL Urine Blood Large (3+) Negative Specific [place] - Urine >= 1.030 1.005-1.025 Urine Protein 30 (1+) Neg-Trace mg/dL Urine Ketones Trace Negative mg/dL Nitrite Urine Negative Negative Leukocyte Esterase Urine Trace Negative RBC Urine >20 0-2 /HPF WBC Urine 0-5 0-5 /HPF Squamous Epithelial Cell Urine 0-2 0-2 /HPF Bacteria Urine Trace None Seen Hyaline Casts Urine 0-2 0-2 /LPF Yeast Urine Present UA ClnCatch+Micro w/rflx Cul t Reviewed date:05/17/2024 12:50:27 PM Interpretation: Performing Lab:[facility], [address] [place] [phone] Notes/Report: Urine, Clean Catch Color Urine Yellow Appearance Urine Clear PH 8.0 5.0-9.0 Glucose Urine UA Negative Negative mg/dL Urine Blood Large (3+) Negative Specific [place] - Urine 1.015 1.005-1.025 Urine Protein Negative Neg-Trace mg/dL Urine Ketones Negative Negative mg/dL Nitrite Urine Negative Negative Leukocyte Esterase Urine Trace Negative RBC Urine >20 0-2 /HPF WBC Urine 0-5 0-5 /HPF Squamous Epithelial Cell Urine 3-5 0-2 /HPF Bacteria Urine None Seen None Seen Hyaline Casts Urine 0-2 0-2 /LPF UA ClnCatch+Micro w/rflx Cul t Reviewed date:07/29/2024 04:29:01 PM Interpretation: Performing Lab:[facility], [address] [place] [phone] Notes/Report: Urine, Clean Catch Color Urine Yellow Appearance Urine Clear PH 8.5 5.0-9.0 Glucose Urine UA Negative Negative mg/dL Urine Blood Negative Negative Specific [place] - Urine 1.015 1.005-1.025 Urine Protein Negative Neg-Trace mg/dL Urine Ketones Negative Negative mg/dL Nitrite Urine Negative Negative Leukocyte Esterase Urine Large (3+) Negative RBC Urine 0-2 0-2 /HPF WBC Urine 21-50 0-5 /HPF Squamous Epithelial Cell Urine 11-20 0-2 /HPF Bacteria Urine 2+ None Seen Hyaline Casts Urine 0-2 0-2 /LPF Urine Culture Reviewed date:04/14/2024 12:49:03 PM Interpretation: Performing Lab:[facility], [address] [place] [phone] Notes/Report: O:ESCCOL Escherichia coli Urine Culture Quant Urine Culture > 100,000 cfu/mL Ampicillin 8 Cefazolin 2 Cefepime <=0.12 Ceftriaxone <=0.25 Ciprofloxacin <=0.06 Gentamicin <=1 Nitrofurantoin <=16 Trimethoprim/Sulfametho xazole <=20 Complete Blood Count Auto Di ff Reviewed date:05/03/2024 06:12:49 PM Interpretation: Performing Lab:[facility], [address] [place] [phone] Notes/Report: White Blood Count 7.1 4.8-10.8 X10*3/uL [...] INR Reviewed date:05/03/2024 06:12:09 PM Interpretation: Performing Lab:[facility], [address] [place] [phone] Notes/Report: Prothrombin Time 23.3 10.9-12.4 SEC [employer]NATIONAL [...] Panel Reviewed date:05/03/2024 06:12:00 PM Interpretation: Performing Lab:[facility], [address] [place] [phone] Notes/Report: Sodium 138 135-145 mmol/L Potassium 4.2 [...] Sensitivity Reviewed date:05/05/2024 12:00:12 PM Interpretation: Performing Lab:[facility], [address] [place] [phone] Notes/Report: Troponin-I High Sensitivity 9.0 <3.5-17.0 ng/L The [place] high sensitivity Troponin-I results should be used in conjunction with other diagnostic information such as ECG, clinical observations and information, and patient symptoms to aid in the diagnosis of [place]. Urine Culture Reviewed date:05/09/2024 12:34:43 PM Interpretation: Performing Lab:[facility], [address] [place] [phone] Notes/Report: O:PSEAER Pseudomonas aeruginosa Urine Culture Quant Urine Culture > 100,000 cfu/mL Cefepime 2 Ciprofloxacin <=0.06 Gentamicin <=1 Meropenem <=0.25 Piperacillin/Tazobactam <=4 UA ClnCatch+Micro w/rflx Cul t Reviewed date:06/03/2024 08:00:29 AM Interpretation:will be booked to a PH visit Performing Lab:[facility], [address] [place] [phone] Notes/Report: [id number] Urine, Clean Catch Color Urine RED Appearance Urine Turbid PH 6.5 5.0-9.0 Glucose Urine UA Negative Negative mg/dL Urine Blood Large (3+) Negative Specific [place] - Urine >= 1.030 1.005-1.025 Urine Protein [...] date:05/03/2024 06:16:41 PM Interpretation: Performing Lab: Notes/Report: [address] [address] [place] Scan Report Signed Patient: Toña Ríos MR#: [id number] 2 : 1935 Acct:[id number] Age/Sex: 88 / F ADM Date: 05/03/24 Loc: HO.ED Attending Dr: Ordering Physician: Nicolasa Rodriguez NP Date of Service: 05/03/24 Procedure(s): CT cervical spine wo IV con Accession Number(s): [id number] cc: Jem Reid MD; Nicolasa Rodriguez NP [...] by: Apolinar Oliva DO 05/03/2024 06:02 PM [facility] Dictated By: Charles Oliva DO Signed By: <Electronically signed by Charles Oliva DO in OV> 05/03/24 1802 DD/ 1523 TD/TT: 05/03/24 1533 Pull Over Machine Operator: DEBI [address] [address] [place] Scan Report Signed Patient: Mee Ríos MR#: [id number] 2 : 1935 Acct:[id number] Age/Sex: 88 / F ADM Date: 05/03/24 Loc: HO.ED Attending Dr: Ordering Physician: Nicolasa Rodriguez NP Date of Service: 05/03/24 Procedure(s): CT cer vical spine wo IV con Accession Number(s): [id number] cc: Jem Reid MD; Nicolasa Rodriguez NP [...] con IMPRESSION: 1. No evidence of ac standing rock intracranial hemorrhage or edematous territorial infarcti on. 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 2. No evidence of ac standing rock fracture or traumatic subluxation of the cervical spine. 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 3. Moderate right fr ontal scalp, right periorbital, and right facial soft tissue edema/hematoma. No associated osseous abnormalities. 4. No evidence of ac standing rock fracture of the maxillofacial bones. Electronically nate d by: Apolinar Oliva DO 05/03/2024 06:02 PM EST Dictated By: Mati Oliva DO Signed By: <Nita harvey signed by Charles Oliva DO in OV> 05/03/24 1802 DD/ 1523 TD/TT: 05/03/24 1533 Pull Over Machine Operator: DEBI CT head/brain wo con Reviewed date:05/03/2024 06:16:59 PM Interpretation: Performing Lab: Notes/Report: [address] [address] [place] Scan Report Signed Patient: Toña Ríos MR#: [id number] 2 : 1935 Acct:[id number] Age/Sex: 88 / F ADM Date: 05/03/24 Loc: HO.ED Attending Dr: Ordering Physician: Nicolasa Rodriguez NP Date of Service: 05/03/24 Procedure(s): CT head/brain wo IV con Accession Number(s): [id number] cc: Jem Reid MD; Nicolasa Rodriguez NP [...] by: Apolinar Oliva DO 05/03/2024 06:02 PM [facility] Dictated By: Charles Oliva DO Signed By: <Electronically signed by Charles Oliva DO in OV> 05/03/24 1802 DD/ 1459 TD/TT: 05/03/24 1533 Pull Over Machine Operator: [address] [address] [place] Scan Report Signed Patient: Mee Ríos MR#: [id number] 2 : 1935 Acct:[id number] Age/Sex: 88 / F ADM Date: 05/03/24 Loc: HO.ED Attending Dr: Ordering Physician: Nicolasa Rodriguez NP Date of Service: 05/03/24 Procedure(s): CT head/brain wo IV con Accession Number(s): [id number] cc: Jem Reid MD; Nicolasa Rodriguez NP [...] con IMPRESSION: 1. No evidence of ac standing rock intracranial hemorrhage or edematous territorial infarcti on. 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 2. No evidence of ac standing rock fracture or traumatic subluxation of the cervical spine. 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 3. Moderate right fr ontal scalp, right periorbital, and right facial soft tissue edema/hematoma. No associated osseous abnormalities. 4. No evidence of ac standing rock fracture of the maxillofacial bones. Electronically nate d by: Apolinar Oliva DO 05/03/2024 06:02 PM [facility] Dictated By: Mati Oliva DO Signed By: <Electron ically signed by Charles Oliva DO in OV> 05/03/24 1802 DD/ 1459 TD/TT: 05/03/24 1533 Pull Over Machine Operator: JL CT facial bones wo con Reviewed date:05/03/2024 06:17:06 PM Interpretation: Performing Lab: Notes/Report: [address] [address] [place] Scan Report Signed Patient: Toña Ríos MR#: [id number] 2 : 1935 Acct:[id number] Age/Sex: 88 / F ADM Date: 05/03/24 Loc: HO.ED Attending Dr: Ordering Physician: Nicolasa Rodriguez NP Date of Service: 05/03/24 Procedure(s): CT facial bones wo IV con Accession Number(s): [id number] cc: Jem Reid MD; Nicolasa Rodriguez NP [...] by: Apolinar Oliva DO 05/03/2024 06:02 PM [facility] Dictated By: Charles Oliva DO Signed By: <Electronically signed by Charles Oliva DO in OV> 05/03/24 8861 DD/ 2971 TD/TT: 05/03/24 1533 Pull Over Machine Operator: DEBI [address] [address] [place] Scan Report Signed Patient: Mee Ríos MR#: [id number] 2 : 1935 Acct:[id number] Age/Sex: 88 / F ADM Date: 05/03/24 Loc: HO.ED Attending Dr: Ordering Physician: Nicolasa Rodriguez NP Date of Service: 05/03/24 Procedure(s): CT fac ial bones wo IV con Accession Number(s): [id number] cc: Jem Reid MD; Nicolasa Rodriguez NP [...] con IMPRESSION: 1. No evidence of ac standing rock intracranial hemorrhage or edematous territorial infarcti on. 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 2. No evidence of ac standing rock fracture or traumatic subluxation of the cervical spine. 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 3. Moderate right fr ontal scalp, right periorbital, and right facial soft tissue edema/hematoma. No associated osseous abnormalities. 4. No evidence of ac standing rock fracture of the maxillofacial bones. Electronically nate d by: Apolinar Oliva DO 05/03/2024 06:02 PM [facility] Dictated By: [facility] Signed By: <Electron ically signed by Charles Oliva DO in OV> 05/03/24 1802 DD/ 1459 TD/TT: 05/03/24 1533 Pull Over Machine Operator: DEBI Complete Blood Count Auto Di ff Reviewed date:05/05/2024 12:04:27 PM Interpretation: Performing Lab:[facility], [address] [place] [phone] Notes/Report: White Blood Count 5.9 4.8-10.8 X10*3/uL [...] Panel Reviewed date:05/05/2024 11:58:12 AM Interpretation: Performing Lab:[facility], [address] [place] [phone] Notes/Report: Sodium 140 135-145 mmol/L Potassium 4.0 [...] Magnesium Reviewed date:05/05/2024 11:57:54 AM Interpretation: Performing Lab:[facility], [address] [place] [phone] Notes/Report: Magnesium 2.4 1.6-2.6 mg/dL MR head/brain wo con Reviewed date:05/05/2024 11:49:06 AM Interpretation: Performing Lab: Notes/Report: [address] [address] Magnetic Resonance Report Signed Patient: Toña Ríos MR#: [id number] 2 : 1935 Acct:[id number] Age/Sex: 88 / F ADM Date: 05/03/24 Loc: .S3 359-[address]: Christelle Lambert MD Ordering Physician: Mj Seals MD Date of Service: 05/04/24 Procedure(s): MR head/brain wo con Accession Number(s): [id number] cc: Jem Reid MD; Mj Seals MD [...] by: Danish Moreno MD 05/04/2024 08:57 PM [facility] Dictated By: Danish Moreno MD Signed By: <Electronically signed by Danish Moreno MD in OV> 05/04/242056 DD/ 1300 TD/TT: 05/04/24 1345 Pull Over Machine Operator: [place] [address] Magnetic Resonance Report Signed Patient: Mee Ríos MR#: [id number] 2 : 1935 Acct:[id number] Age/Sex: 88 / F ADM Date: 05/03/24 Loc: .S3 359-[address]: Rolando Lambert MD Ordering Physician: Mj Seals MD Date of Service: 05/04/24 Procedure(s): MR head/brain wo con Accession Number(s): [id number] cc: Jem Reid MD; Mj Seals MD [...] OV> 05/04/242056 DD/ 1300 TD/TT: 05/04/24 1345 Pull Over Machine Operator: Basic Metabolic Panel Reviewed date:05/07/2024 01:47:35 PM Interpretation: Performing Lab:[facility], [address] [place] [phone] Notes/Report: Sodium 141 135-145 mmol/L Potassium 4.4 [...] Hormone Reviewed date:05/07/2024 01:43:46 PM Interpretation: Performing Lab:[facility], [address] [place] [phone] Notes/Report: Thyroid Stimulating Hormone 2.26 0.32-4.0 uIU/mL TSH 3rd Generation ([facility]) Complete Blood Count Auto Di ff Reviewed date:06/24/2024 05:57:08 PM Interpretation: Performing Lab:[address] [address] Notes/Report: White Blood Count 6.8 4.8-10.8 X10*3/uL [...] Panel Reviewed date:06/24/2024 05:52:26 PM Interpretation: Performing Lab:[facility], [address] [place] [phone] Notes/Report: Bilirubin Total 0.5 0.0-1.0 mg/dL Bilirubin Direct 0.2 0.0-0.5 mg/dL Aspartate Amino Transferase 41 5-31 U/L Alanine Aminotransferase 15 0-31 U/L Total Protein 8.5 6.5-8.0 g/dL Albumin Level 4.1 3.5-5.0 g/dL Alkaline Phosphatase 85 39-117 U/L Basic Metabolic Panel Reviewed date:06/24/2024 05:54:58 PM Interpretation: Performing Lab:[address] [address] Notes/Report: Sodium 137 135-145 mmol/L Potassium 4.3 [...] Acid Reviewed date:06/24/2024 05:54:33 PM Interpretation: Performing Lab:[address] [address] Notes/Report: Lactic Acid 1.6 0.5-2.0 mmol/L Magnesium Reviewed date:06/24/2024 05:54:18 PM Interpretation: Performing Lab:[address] [address] Notes/Report: Magnesium 2.3 1.6-2.6 mg/dL Creatine Kinase Total Reviewed date:06/24/2024 05:55:16 PM Interpretation: Performing Lab:[address] [place] [address] Notes/Report: Creatine Kinase Total 219 26-140 U/L Troponin-I High Sensitivity Reviewed date:06/24/2024 05:54:43 PM Interpretation: Performing Lab:[address] [address] Notes/Report: Troponin-I High Sensitivity 20.3 <3.5-17.0 ng/L The [place] high sensitivity Troponin-I results should be used in conjunction with other diagnostic information such as ECG, clinical observations and information, and patient symptoms to aid in the diagnosis of [place]. Lipase Reviewed date:06/24/2024 05:54:11 PM Interpretation: Performing Lab:[address] [phone] Notes/Report: Lipase 21 8-78 U/L Urine Culture Reviewed date:06/28/2024 01:21:17 PM Interpretation: Performing Lab:[address] [address] Notes/Report: O:ESCCOL Escherichia coli Urine Culture Quant Urine Culture > 100,000 cfu/mL Ampicillin <=2 Cefazolin (Urine) 2 Cefepime <=0.12 Ceftriaxone <=0.25 Ciprofloxacin <=0.06 Gentamicin <=1 Nitrofurantoin <=16 Trimethoprim/Sulfametho xazole <=20 SARS-CoV2/FLU/RSV Reviewed date:06/24/2024 05:54:26 PM Interpretation: Performing Lab:[address] [address] Notes/Report: Influenza A PCR NEGATIVE Negative Influenza [...] by authorized laboratories. Testing performed on the Cepheid GeneXpert utilizing real-time RT-PCR. All SARS CoV2 and positive influenza A/B results are reported to [facility]. Blood Culture (First) Reviewed date:06/30/2024 05:52:36 PM Interpretation: Performing Lab:[address] [phone] Notes/Report: Blood Culture (First) No growth after 5 days. Blood Culture (Second) Reviewed date:06/30/2024 05:52:44 PM Interpretation: Performing Lab:[facility], [address] [place] [phone] Notes/Report: Blood Culture (Second) No growth after 5 days. UA ClnCatch+Micro w/rflx Cul t Reviewed date:06/24/2024 05:56:48 PM Interpretation: Performing Lab:[address] [address] Notes/Report: Urine, Clean Catch Color Urine Yellow Appearance Urine Cloudy PH 5.5 5.0-9.0 Glucose Urine UA Negative Negative mg/dL Urine Blood Trace Negative Specific [place] - Urine 1.015 1.005-1.025 Urine Protein Trace [...] date:06/24/2024 05:53:01 PM Interpretation: Performing Lab: Notes/Report: [address] [address] [place] Scan Report Signed Patient: Toña Ríos MR#: [id number] 2 : 1935 Acct:[id number] Age/Sex: 88 / F ADM Date: 06/24/24 Loc: .ED Attending Dr: Ordering Physician: Hanna Harrington DO Date of Service: 06/24/24 Procedure(s): CT cervical spine wo IV con Accession Number(s): [id number] cc: Jem Reid MD; Hanna Harrington DO Report Number: [id number]: Total DLP = 868.56 mGy-cm EXAMINATION: CT [...] by: Obdulio Schultz MD 06/24/2024 04:29 PM [facility] Dictated By: Obdulio Schultz MD Signed By: <Electronically signed by Obdulio Schultz MD in OV> 06/24/24 1629 DD/ 1556 TD/TT: 06/24/24 1617 Pull Over Machine Operator: [address] [address] [place] Scan Report Signed Patient: Mee Ríos MR#: [id number] 2 : 1935 Acct:[id number] Age/Sex: 88 / F ADM Date: 06/24/24 Loc: HO.ED Attending Dr: Ordering Physician: Hanna Harrington DO Date of Service: 06/24/24 Procedure(s): CT cer vical spine wo IV con Accession Number(s): [id number] cc: Jem Reid MD; Hanna Harrington DO [...] by: Obdulio Schultz MD 06/24/2024 04:29 PM [facility] Dictated By: Obdulio Durand MD Signed By: <Nita harvey signed by Obdulio Schultz MD in OV> 06/24/24 1629 DD/ 1556 TD/TT: 06/24/24 1617 Pull Over Machine Operator: CT head/brain wo con Reviewed date:06/24/2024 05:54:02 PM Interpretation: Performing Lab: Notes/Report: [address] [address] [place] Scan Report Signed Patient: Toña Ríos MR#: [id number] 2 : 1935 Acct:[id number] Age/Sex: 88 / F ADM Date: 06/24/24 Loc: HO.ED Attending Dr: Ordering Physician: Hanna Harrington DO Date of Service: 06/24/24 Procedure(s): CT head/brain wo IV con Accession Number(s): [id number] cc: Jem Reid MD; Hanna Harrington DO Report Number: [id number]: Total DLP = 0.00 mGy-cm EXAMINATION: CT [...] by: Obdulio Schultz MD 06/24/2024 04:40 PM [facility] Dictated By: Obdulio Schultz MD Signed By: <Electronically signed by Obdulio Schultz MD in OV> 06/24/24 1640 DD/ 1428 TD/TT: 06/24/24 1617 Pull Over Machine Operator: [place] [address] [place] Scan Report Signed Patient: Mee Ríos MR#: [id number] 2 : 1935 Acct:[id number] Age/Sex: 88 / F ADM Date: 06/24/24 Loc: HO.ED Attending Dr: Ordering Physician: Hanna Harrington DO Date of Service: 06/24/24 Procedure(s): CT head/brain wo IV con Accession Number(s): [id number] cc: Jem Reid MD; Hanna Harrington DO [...] by: Obdulio Schultz MD 06/24/2024 04:40 PM EST Dictated By: Obdulio Durand MD Signed By: <Electron ically signed by Obdulio Schultz MD in OV> 06/24/24 1640 DD/ 1428 TD/TT: 06/24/24 1617 Pull Over Machine Operator: CARMINA HUNTER Reviewed date:06/24/2024 05:52:08 PM Interpretation: Performing Lab: Notes/Report: [place] [address] XRay Report Signed Patient: Toña Ríos MR#: [id number] 2 : 1935 Acct:[id number] Age/Sex: 88 / F ADM Date: 06/24/24 Loc: HO.ED Attending Dr: Ordering Physician: Anders Bradford MD Date of Service: 06/24/24 Procedure(s): CARMINA HUNTER Accession Number(s): [id number] cc: Jem Reid MD; Anedrs Bradford MD CLINICAL HISTORY: fecal impaction 1 [...] by Joan Mcdonald MD in OV> 06/24/24 173 DD/ 32 TD/TT: 06/24/241732 Pull Over Machine Operator: [place] [address] XRay Report Signed Patient: Mee Ríos MR#: [id number] 2 : 1935 Acct:[id number] Age/Sex: 88 / F ADM Date: 06/24/24 Loc: HO.ED Attending Dr: Ordering Physician: Anders Bradford MD Date of Service: 06/24/24 Procedure(s): XR KUB Accession Number(s): [id number] cc: Jem Reid MD; Anders Bradford MD [...] Dictated By: Rachel Mcdonald MD Signed By: <Electron ically signed by Joan Mcdonald MD in OV> 06/24/24 1734 DD/ 1733 TD/TT: 06/24/24 1733 Pull Over Machine Operator: XR chest 1V Reviewed date:06/24/2024 05:53:29 PM Interpretation: Performing Lab: Notes/Report: [address] [address] XRay Report Signed Patient: Toña Ríos MR#: [id number] 2 : 1935 Acct:[id number] Age/Sex: 88 / F ADM Date: 06/24/24 Loc: HO.ED Attending Dr: Ordering Physician: Hanna Harrington DO Date of Service: 06/24/24 Procedure(s): XR chest 1V Accession Number(s): [id number] cc: Jem Reid MD; Hanna Harrington DO [...] by: Obdulio Schultz MD 06/24/2024 04:43 PM [facility] Dictated By: Obdulio Schultz MD Signed By: <Electronically signed by Obdulio Schultz MD in OV> 06/24/24 1643 DD/ 1428 TD/TT: 06/24/24 1439 Pull Over Machine Operator: [address] [address] XRay Report Signed Patient: Mee Ríos MR#: [id number] 2 : 1935 Acct:[id number] Age/Sex: 88 / F ADM Date: 06/24/24 Loc: HO.ED Attending Dr: Ordering Physician: Hanna Harrington DO Date of Service: 06/24/24 Procedure(s): XR chest 1V Accession Number(s): [id number] cc: Jem Reid MD; Hanna Harrington DO [...] by: Obdulio Schultz MD 06/24/2024 04:43 PM [facility] Dictated By: Obdulio Durand MD Signed By: <Electron ically signed by Obdulio Schultz MD in OV> 06/24/24 1643 DD/ 1428 TD/TT: 06/24/24 1439 Pull Over Machine Operator: Urine Culture Reviewed date:07/31/2024 09:36:47 AM Interpretation: Performing Lab:[address] [address] Notes/Report: O:ENTFAC Enterococcus faecalis Urine Culture Quant Urine Culture > 100,000 cfu/mL Ampicillin <=2 Levofloxacin 0.5 Nitrofurantoin <=16 Tetracycline <=1 Vancomycin 1 Urine Culture Reviewed date:09/27/2024 12:28:00 PM Interpretation: Performing Lab:[address] [phone] Notes/Report: Urine Culture Report Result Urine Culture 10,000 to 50,000 cfu/ml Urine Culture Mixed bacterial erick a characteristic of Urine Culture urogenital contamination. Creatinine GFR POC Reviewed date:11/03/2024 04:28:00 PM Interpretation: Performing Lab:[facility], [address] [place] [phone] Notes/Report: [id number] 0.52 >60 1429 HO.HEAK Creatinine POC 0.5 0.5-1.4 mg/dL GFR POC > 60 Chronic Kidney Disease: Estimated GFR < 60 mL/min/1.73m2 Severe Kidney Disease: Estimated GFR < 15 mL/min/1.73m2 CT urogram Reviewed date:11/03/2024 12:36:14 PM Interpretation: Performing Lab: Notes/Report: [address] [address] [address] Scan Report Signed Patient: Toña Ríos MR#: [id number] 2 : 1935 Acct:[id number] Age/Sex: 89 / F ADM Date: 11/01/24 Loc: HO.CT Attending Dr: Edwin May MD Ordering Physician: Edwin May MD Date of Service: 11/01/24 Procedure(s): CT urogram Accession Number(s): [id number] cc: Edwin May MD; Jem Reid MD Report Number: [id number]: Total DLP = 535.00 mGy-cm CLINICAL HISTORY: N30.00 - Acute cystitis without hematuria CT abdomen and pelvis with and without contrast Comparison: CR - XR KUB - 06/24/24 17:02 EST Findings: Increased reticulation in the lung bases. Questionable trace honeycombing. Unremarkable gallbladder. Beam hardening artifact from bilateral total hip arthroplasties limits evaluation of the bladder. No hydronephrosis or nephrolithiasis. The kidneys enhance normally and excrete contrast symmetrically. No identified bladder stone. Prominent amount of calcification in the uterus. The other solid organs are unremarkable. No bowel wall thickening or dilation. A normal appendix is identified. Colonic diverticulosis. Moderately increased stool quantity in the proximal colon and rectum. Rectum is distended with stool, measuring 8.2 cm in transverse dimension No aneurysm. Moderate to severe calcified atherosclerotic disease. No lymphadenopathy. No ascites. No acute osseous abnormality. Intact bilateral total hip arthroplasties. Impression: No urinary tract stone, obstruction or other acute findings. Evaluation of bladder is limited due to beam hardening artifact. Consider further evaluation of the bladder with ultrasound if symptoms persist. Moderately increased stool quantity may indicate constipation. Increased stool quantity in the rectum could be due to fecal impaction. This document has been electronically signed by: Ana Lind MD on 11/02/2024 21:47:30 Dictated By: Ana Parrish MD Signed By: <Electronically signed by Ana Parrish MD in OV> 11/02/242147 DD/ 46 TD/TT: 11/02/242146 Pull Over Machine Operator: [place] [address] CT Scan Report Signed Patient: Mee Ríos MR#: [id number] 2 : 1935 Acct:[id number] Age/Sex: 89 / F ADM Date: 11/01/24 Loc: HO.CT Attending Dr: Edwin May MD Ordering Physician: Edwin May MD Date of Service: 11/01/24 Procedure(s): CT urogram Accession Number(s): [id number] cc: Santi May MD; Jem Reid MD Report Number: [id number]: Total DLP = 535.00 mGy-cm CLINICAL HISTORY: N3 0.00 - Acute cystitis without hematuria CT abdomen and pelvi s with and without contrast Comparison: CR - XR KUB - 06/24/24 17:02 EST Findings: Increased reticulati on in the lung bases. Questionable trace honeycombing. Unremarkable gallbla dder. Beam hardening artifact from bilateral total hip arthroplasties limit s evaluation of the bladder. No hydronephrosis or nephrolithiasis. The kidneys enhance normally and excrete contrast symmetrically. No identified bladder stone. Prominent amount of calcification in the uterus. The other solid organs are unremarkable. No bowel wall thicke edy or dilation. A normal appendix is identified. Colonic diverticulos is. Moderately increased stool quantity in the proximal colon and r ectum. Rectum is distended with stool, measuring 8.2 cm in transverse dimension No aneurysm. Moderat e to severe calcified atherosclerotic disease. No lymphadenopathy. No ascites. No acute osseous abnormality. Intact bilateral total hip arthroplasties. Impression: No urinary tract sto ne, obstruction or other acute findings. Evaluation of bladder is limited d ue to beam hardening artifact. Consider further evaluation of the bl adder with ultrasound if symptoms persist. Moderately increased stool quantity may indicate constipation. Increased stool quantity in th e rectum could be due to fecal impaction. This document has be en electronically signed by: Ana Lind MD on 11/02/2024 21:47:30 Dictated By: Ana Parrish MD Signed By: <Electronically signed by Ana Parrish MD in OV> 11/02/242147 DD/ 46 TD/TT: 11/02/242146 Pull Over Machine Operator: Urine Culture Reviewed date:11/29/2024 12:22:08 PM Interpretation: Performing Lab:[facility], [address] [place] [phone] Notes/Report: O:ESCCOL Escherichia coli Urine Culture Quant Urine Culture > 100,000 cfu/mL Ampicillin 8 Cefazolin (Urine) <=1 Cefepime <=0.12 Ceftriaxone <=0.25 Ciprofloxacin <=0.06 Gentamicin <=1 Nitrofurantoin <=16 Trimethoprim/Sulfametho xazole <=20 Reason For Referral Reason microscopic hematuri a [...] Problem Status W/U Status Risk Notes Problem 35132504 Essential hypert ension (I10) Active confirmed Problem 1380863 Prediabetes (R73.09) Active confirmed Problem 72060583 Atrial fibrillat ion, unspecified type (I48.91) Active confirmed Problem 765259390 Pure hypercholesterolemia (E78.00) Active confirmed Problem 92626218 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) Active confirme d Problem 375647064 Acute constipati on (K59.00) Active confirmed Vital Signs Blood pressure diastolic 56 mm Hg 07/29/2024 Height 63 in 07/29/2024 Blood pressure systolic 88 mm Hg 07/29/2024 Weight 112 lbs 07/29/2024 BMI 19.84 kg/m2 07/29/2024 Encounters Encounter Location Date Provider Diagnosis Jem Reid MD [address] [place] [id number] 04/12/2024 Jem Reid Prediabetes R73.09 ; Pure hypercholesterolemia E78.00 and Essential hypertension I10 Jem Reid MD [address] [place] [id number] 06/02/2024 Jem Bombardier Hematuria R31.9 Jem Reid MD [address] [place] [address] [id number] 06/17/2024 Jem Reid Microscopic hematuri a R31.29 Jem Reid MD [address] [place] [address] [id number] 08/18/2024 Jem Bombardier After-treatment Z51. 89 Jem Reid MD [address] [place] [address] [id number] 04/19/2024 Jem Jeanette Gross hematuria R31. 0 ; Acute UTI N39.0 ; Atrial fibrillation, unspecified type I48.91 ; Pure hypercholesterolemia E78.00 ; Prediabetes R73.09 ; Essential hypertension I10 and Depression screening Z13.31 Jem Reid MD [address] [place] [address] [id number] 05/16/2024 Jem Bombardier After-treatment Z51. 89 ; Gross hematuria R31.0 and Loss of consciousness R40.20 Jem Reid MD [address] [place] [address] [id number] 07/29/2024 Jem Bombardier After-treatment Z51. 89 and Acute constipation K59.00 Jem Reid MD [address] [place] [address] [id number] 04/14/2024 Jem Reid MD [address] [place] [address] [id number] 04/14/2024 Jem Reid MD [address] [place] [address] [id number] 04/14/2024 Jem Reid MD [address] [place] [address] [id number] 05/03/2024 Jem Reid MD [address] [place] [address] [id number] 05/09/2024 Jemze Reid MD [address] [place] [address] [id number] 05/19/2024 Jem Reid MD [address] [place] [address] [id number] 06/28/2024 Jem Reid MD [address] [place] [address] [id number] 07/31/2024 Jem Reid Assessments Encounter Date Diagnosis (ICD Code) Assessment Notes Treatment Notes Treatment Clinical Notes Section Notes 04/12/2024 Prediabetes (ICD-10 - R73.09) 04/12/2024 Pure hypercholesterolemia (ICD-10 - E78.00) 06/17/2024 Microscopic hematuri a (ICD-10 - R31.29) have gone over the results of the repeat urine and is going to get evaluated by urologist 08/18/2024 After-treatment (ICD -10 - Z51.89) 04/19/2024 Gross hematuria (ICD -10 - R31.0) [...] Name:Jem Mckee ier, 04/17/2025 07:45:00 AM, [address] [place] [address], [place] [address], [place], [place], [phone], Provider Name:Jem Mckee ier, 04/24/2025 01:00:00 PM, [address] [place] [address], [place] [address], [place], [place], [phone], Insurance Providers Payer Name Payer Address Payer Phone Subscriber Number Group Number Insured Name Patient Relationship to Insured Coverage Start Date Coverage End Date MEDICARE NHIC [address] [place] [address] [id number] Toña Ríos Self - patient is the insured [facility] [address] [place] [phone] [id number] Toña Ríos Self - patient is the insured Medical (General) History Medical History History ICD Code Refuses flu shot (07-06-12) Refuses pneumo (07-06-12) refuses colonoscoopy 2012 refuses pneumo, 2013 Surgical History Surgery Date(Month/Year) Left Total Hip Arthroplasty by Dr. Alexandru Young 09/2016
[2025-02-11 00:01] LABS: Resp Syncy Virus RNA Qual PCR NEGATIVE (Negative); SARS COV2 PCR INHOUSE NEGATIVE (Negative)
[2025-02-11 00:31] LABS: Appearance Urine Cloudy; Glucose Urine UA Negative (Negative); PH 6.5 (5.0-9.0); Specific Gravity - Urine 1.010 (1.005-1.025); UMIC TRIGGER UACC YES
[2025-02-11 00:47] LABS: UACC Culture Trigger YES
[2025-02-11 03:12] VITALS: BP 132/82; PULSE 88; RESP 14; TEMP 37.1; O2SAT 97
[2025-02-11 04:00] VITALS: BP 132/82; PULSE 88; RESP 14; TEMP 37.1; O2SAT 97
== END 2025-02-11 04:13 | disposition home or self-care (01) ==
PROVIDERS: Emergency Provider Emergency Medicine; PCP Internal Medicine
DX: S01.01XA Laceration without foreign body of scalp, initial encounter (principal); T14.8XXA Other injury of unspecified body region, initial encounter; N39.0 Urinary tract infection, site not specified; I48.0 Paroxysmal atrial fibrillation; M54.2 Cervicalgia; R51.9 Headache, unspecified; W06.XXXA Fall from bed, initial encounter; Y93.89 Activity, other specified; Y92.092 Bedroom in other non-institutional residence as the place of occurrence of the external cause; Y99.8 Other external cause status; Z79.899 Other long term (current) drug therapy; Z03.818 Encounter for observation for suspected exposure to other biological agents ruled out; Z79.01 Long term (current) use of anticoagulants
CPT/HCPCS: 12002; 70450; 72125; 80053; 81001; 84484; 85025; 87086; 87637; 93005; 99284; 99285

== ENCOUNTER → 2025-02-10 23:00 | Outpatient (BNV) | payer MEDICARE, OTHER, SELFPAY | PROVIDERS: Emergency Provider Emergency Medicine; Visit Provider Internal Medicine Cardiovascular Disease | DX: R94.31 Abnormal electrocardiogram [ECG] [EKG] (principal); Z04.3 Encounter for examination and observation following other accident | CPT/HCPCS: 93010 ==

== ENCOUNTER → 2025-02-11 00:01 | Outpatient (BNV) | payer MEDICARE, OTHER, SELFPAY | PROVIDERS: Emergency Provider Emergency Medicine; Visit Provider Radiology Neuroradiology | DX: M50.121 Cervical disc disorder at C4-C5 level with radiculopathy (principal); S09.90XA Unspecified injury of head, initial encounter | CPT/HCPCS: 70450; 72125 ==

== ENCOUNTER 2025-02-23 13:22 | Outpatient (AMB) | payer MEDICARE, OTHER, SELFPAY ==
--- NOTE | 2025-02-23 13:44 | MHC.OFFVIS ---
Intake Visit Reasons: cysto Intake Note: Patient presents today for a cystoscopy Urology Medication:none Blood Thinner: Xarelto Antibiotic Allergies:none Lot #: [id number] Exp: 09/01/27 Allergies No Known Allergies (No Known Allergies*) Allergy (Verified 02/23/25 13:46) HPI Comments Details: 02/23/25--Toña is an 89-year-old female who is here for repeat office cystoscopy. She is being followed for recurrent UTIs and chronic cystitis. She had an office cystoscopy done on 11/24/2024 with findings of erythematous changes of the bladder mucosa suggestive of cystitis. She was placed on a suppressive course of Macrobid 50 mg daily. Cystoscopy findings: WNL, erythematous changes resolved. no suspicious bladder lesions visualized History of Present Illness The patient is an 89-year-old female presenting with recurrent urinary tract infections and cystitis. She has a history of recurrent urinary tract infections and was previously diagnosed with cystitis, with erythematous changes of the bladder mucosa noted during a cystoscopy on November 24, 2024. The patient was placed on a suppressive course of nitrofurantoin 50 mg daily to manage these infections. Currently she is off daily nitrofurantoin. Recently, the patient experienced a fall, which was followed by a urinary tract infection. The fall occurred approximately a week and a half ago, and she was seen in the [facility] and treated with antibiotics for a UTI. The patient also has a history of vascular dementia, which complicates her overall health management. Results - Cystoscopy on 11/24/24: Erythematous changes of the bladder mucosa suggestive of cystitis - Cystoscopy findings today: WNL, erythematous changes resolved. no suspicious bladder lesions visualized Plan 1. Recurrent Urinary Tract Infections/Cystitis - Resume suppressive therapy with nitrofurantoin 50 mg daily. - Monitor for signs of infection recurrence and adjust treatment as necessary. 2. Fall With Subsequent Urinary Tract Infection - Monitor for any signs of infection recurrence post-antibiotic treatment. 11/24/24--Toña is here for office cystoscopy. Cystoscopy findings consistent with cystitis follicularis. - The patient is an 89-year-old female presenting with a history of complicated urinary tract infection and gross hematuria. - The patient was initially seen on 09/22/24 for complicated UTI and gross hematuria. - A CT urogram was performed on 11/02/24, which showed normal kidney function. - The patient has been experiencing recurrent urinary tract infections for some time. - Cystoscopy findings included red spots and bullous changes, indicating persistent bacterial presence in the bladder. - The patient has a history of constipation, which has been managed at home. Urinary Symptoms Review - Recurrent urinary tract infections - Gross hematuria Results - CT Urogram: Normal kidney function - Cystoscopy: erythematous changes in the bladder Discussion Notes I discussed with the patient the findings from the cystoscopy, which showed erythematous and bullous changes in the bladder. We talked about the plan to treat with Macrobid for a seven-day course followed by a daily suppressive course for several weeks. I explained that the urine culture results might necessitate a change in antibiotics if the bacteria are resistant to Macrobid. We also discussed the importance of monitoring symptoms and scheduling a follow-up cystoscopy to assess the treatment's effectiveness. 09/22/24--The patient is an 89-year-old female presenting with hematuria and recurrent urinary tract infections. Her urinary issues trace back to February, with the initial episode of macroscopic hematuria prompting hospitalization at [facility]. During hospital admission, the urine resembled red wine, indicative of significant blood content. Subsequently, the hematuria was less apparent to the patient and primarily detected via diagnostic procedures, underscoring the transition to microscopic hematuria. Concomitantly, the patient experienced severe urinary tract infections, resulting in consultation with an infectious disease specialist who confirmed bacterial colonization within the bladder. The patient has a recorded history of kidney stones, not presenting acutely at this time. Following the recent hospitalization, no typical urinary symptoms such as dysuria have been reported, yet cognitive symptoms appeared during the urinary infection episodes, aligning with atypical UTI presentations in geriatric patients. Urinary Symptoms Review - Macroscopic hematuria progressing to microscopic hematuria detectable only by machinery - History of kidney stones - Severe urinary tract infections with associated cognitive symptoms - No current dysuria or burning sensation with urination Discussion Notes During the visit, we discussed the management of hematuria, including ordering a CT scan of the kidneys and lower pelvis. This will enable us to have a comprehensive view to rule out any small lesions that a CT might miss. The patient was informed about the colonization of bacteria in the bladder, noting it does not necessarily require treatment absent significant symptoms. Close monitoring and surveillance including cognitive symptoms secondary to UTIs were discussed. [facility] Medical History Atrial flutter with rapid ventricular response Paroxysmal atrial fibrillation Persistent atrial fibrillation History of cardioversion Surgical History History of hip surgery Family History Father No problems noted. Mother No problems noted. Social History Household Members: Spouse Housing: House Are you a primary health careers instructor to a significant other at home: No Do you presently have visiting nurse or other home services: Yes (phys therapy) Patient Tobacco Use Status: Never used Tobacco service: No Review of Systems Const All systems reviewed & are unremarkable except as noted in HPI and below Reports no additional complaints Eyes Reports no additional complaints ENT Reports no additional complaints Card Denies dyspnea Resp Denies cough and Denies dyspnea GI Reports no additional complaints Reports no additional complaints Musc Reports no additional complaints Skin/Breast Denies rash and Denies unusual bruising Neuro Reports no additional complaints Psych Reports no additional complaints Endo Reports no additional complaints Presley/Lymph Reports no additional complaints Aller/Immun Reports no additional complaints Office Procedures Cystoscopy Consent Discussed risk and benefit or proposed procedure with the patient. Information consent for procedure given to the patient. Discussed technical aspects, risks, benefits and alternatives in full. Addressed all of the patient's questions and concerns regarding the procedure. The patient demonstrated knowledge and understanding. They wish to proceed with this procedure. Preparation The patient was prepped in the usual manner. A shoulder sawyer was present and in the room. Genitalia was prepped with betadine solution in a sterile manner. Lidocaine Jelly 2% was placed into the urethra and 16Fr flexible Olympus cystoscope was inserted into the meatus after adequate lubrication. Procedure Time out per protocol performed. Speculum used as indicated for adequate visualization of urethra, the flexible cystoscope is passed transurethrally: The bladder was inspected in its entirety with utilization retroflexion displaying: Tumor(s): no suspicious bladder lesions visualized Trabeculation: Mild to Moderate Mucosal Erthema: Orifices: normal shape and position Urethra: normal Cystoscopy findings: WNL, erythematous changes resolved. no suspicious bladder lesions visualized [id number] DISPOSABLE SCOPE URO-G FLEXIBLE SCOPE Procedure code (CPT) selection complete Office Meds lidocaine HCl 2 % mucosal jelly in applicator Performing Provider: Edwin May MD Per[place] [facility] Administered by: Rick Olmos LPN on 02/23/25 14:05 Dose Route Admin Location Dispensed Lot Number Expiration Date NDC [employer] 10 mL intra-urethral 20 mL nitrofurantoin monohydrate/macrocrystals 100 mg capsule Performing Provider: Edwin May MD Performing Location[place] [facility] Administered by: Rick Olmos LPN on 02/23/25 14:05 Dose Route Admin Location Dispensed Lot Number Expiration Date ND [employer] 100 mg PO 1 cap Assessment & Plan Assessment & Plan (1) Recurrent UTI: Code(s): N39.0 - Urinary tract infection, site not specified Category: Medical (2) History of gross hematuria: Code(s): Z87.898 - Personal history of other specified conditions Category: Medical (3) Dementia: Code(s): F03.90 - Unspecified dementia, unspecified severity, without behavioral disturbance, psychotic disturbance, mood disturbance, and anxiety Category: Medical Plan Plan 1. Recurrent Urinary Tract Infections/Cystitis - Resume suppressive therapy with nitrofurantoin 50 mg daily. - Monitor for signs of infection recurrence and adjust treatment as necessary. 2. Fall With Subsequent Urinary Tract Infection - Monitor for any signs of infection recurrence post-antibiotic treatment. Orders: Orders AMB Cystoscopy Today N39.0 - Urinary tract infection, site not specified, R31.0 - Gross hematuria Patient Instructions: The patient had an opportunity to ask questions regarding treatment plan. The patient expressed understanding and agreement with the above treatment plan. The patient is aware they should contact our office by phone for worsening of their current condition or the appearance of new symptoms. Compliance is encouraged with any medications and followup testing that is ordered. It is a privilege to be allowed the opportunity to participate in the urologic care of your patient. If you have any questions or concerns regarding treatment for the above conditions please do not hesitate to contact me. The office telephone contact is [phone]. This note is constructed in part using voice recognition software. While every effort has been made to ensure accuracy customer care professional errors may have been included. Yours sincerely, Edwin May MD Scribe Plan - Not visible on output: Patient was informed and verbally consented to the use of an ambient scribe for clinic note documentation during this visit. Coding Level of Care Code Est Pt Level 4 (57760) Complex EM visit Add On G2211 Diagnoses Recurrent UTI N39.0 History of gross hematuria Z87.898 Dementia F03.90 CPT Codes Cystoscopy - CPT: 82559-[id number] ([id number])
== END 2025-02-23 14:51 | disposition home or self-care (01) ==
LOC: HO.HUSH 13:23
PROVIDERS: PCP Internal Medicine; Visit Provider Urology
DX: N39.0 Urinary tract infection, site not specified (principal); Z87.898 Personal history of other specified conditions; F03.90 Unspecified dementia, unspecified severity, without behavioral disturbance, psychotic disturbance, mood disturbance, and anxiety
CPT/HCPCS: 52000; 99214

== ENCOUNTER → 2025-02-23 13:22 | Outpatient (BNVA) | payer MEDICARE, OTHER, SELFPAY | PROVIDERS: PCP Internal Medicine; Visit Provider Urology | DX: N39.0 Urinary tract infection, site not specified (principal); N32.89 Other specified disorders of bladder; F03.90 Unspecified dementia, unspecified severity, without behavioral disturbance, psychotic disturbance, mood disturbance, and anxiety; Z87.898 Personal history of other specified conditions | CPT/HCPCS: 52000; 81003; 99212 ==

== ENCOUNTER 2025-03-16 10:32 | Outpatient (AMB) | payer MEDICARE, OTHER, SELFPAY ==
[2025-03-16 10:47] VITALS: BP 110/62; PULSE 76; TEMP 36.4; O2SAT 100
--- NOTE | 2025-03-16 10:47 | AM.OFFWIN_ITS ---
Intake Vital Signs 03/16/25 10:47 Height 5 ft 8 in BMI Reason not done Patient refused/unable BP 110/62 Blood Pressure Location Lt brachial Position Sitting Pulse 76 Pulse Source Pulse Oximeter Temp 97.6 F Temp Source Oral Pulse Oximetry (%) 100 Oxygen Delivery Method Room Air Intake Visit Reasons: EP pt fell has cut on forehead Patient Tobacco Use Status: Never used Tobacco Allergies No Known Allergies (No Known Allergies*) Allergy (Verified 03/16/25 11:48) Do you need a note to return to daycare/school/sports/work: No HPI HPI Comments History of Present Illness Details History of Present Illness - The patient is an 89-year-old female p resenting with her daughter for head injury due to a fall. - The fall occurred when the patient tri pped while moving plants outside, resulting in a head impact on the driveway last night around 7pm. - The patient was able to get up by hers elf and was assisted by family members who noticed bleeding and bandaged her wound. - She had steri strips in her home and h er sons placed them on the wound for her. - The patient is on anticoagulation ther apy with Xarelto. - She continues to bleed this am and her daughter was concerned and brought her here for an evaluation. - The patient denies experiencing headac he, dizziness, blurry vision, or weakness on any side of the body following the fall. Physical Exam General: Cooperative, healthy appearing, comfortable, no acute distress and well developed Orientation: Patient oriented x3 Limitations: Ambulates with walker Head: Hematoma present on the right lateral frontal region. Laceration noted on the left anterior frontal region with active bleeding and steri strips in place. Eyes: Appearance normal, both eyes and all related structures. PERRLA. Neck: Normal visual inspection and Yes full ROM No midline spinous tenderness noted. Respiratory: Normal respiratory effort and able to speak in complete sentences. Clear to auscultation bilaterally. No w/r/r noted. Cardiovascular: Regular rate and rhythm. Normal S1 and S2 GI: Normal to inspection. Soft to palpation and nontender Skin: No rashes or lesions noted. Open laceration noted on the forehead and left elbow with active bleeding. Abrasion noted on the left knee, not bleeding Neuro: Patient oriented x3. CN II-XII intact. Extremities: Normal to inspection. Patient was informed and verbally consented to the use of an ambient scribe for clinic note documentation during this visit. [facility] Medical History Atrial flutter with rapid ventricular response Paroxysmal atrial fibrillation Persistent atrial fibrillation History of cardioversion Surgical History History of hip surgery Family History Father No problems noted. Mother No problems noted. Social History Household Members: Spouse Housing: House Are you a primary clinical care leader to a significant other at home: No Do you presently have visiting nurse or other home services: Yes (phys therapy) Patient Tobacco Use Status: Never used Tobacco service: No Physical Exam Vital Signs: Last Vital Signs Temp 97.6 F 03/16/25 10:47 Pulse 76 03/16/25 10:47 BP 110/62 03/16/25 10:47 Pulse Ox 100 03/16/25 10:47 Oxygen Delivery Method Room Air 03/16/25 10:47 Assessment & Plan Assessment & Plan (1) Fall: Code(s): W19.XXXA - Unspecified fall, initial encounter Qualifiers: Encounter type: initial encounter Qualified Code(s): W19.XXXA - Unspecified fall, initial encounter (2) Laceration of head: Code(s): S01.91XA - Laceration without foreign body of unspecified part of head, initial encounter Qualifiers: Encounter type: initial encounter Location of open wound of head: other part of head Foreign body presence: without foreign body Qualified Code(s): S01.81XA - Laceration without foreign body of other part of head, initial encounter (3) Elbow laceration: Code(s): S51.019A - Laceration without foreign body of unspecified elbow, initial encounter Qualifiers: Encounter type: initial encounter Laterality: left Qualified Code(s): S51.012A - Laceration without foreign body of left elbow, initial encounter Plan Most likely lacerations s/p fall plan - will send pt to the ER for an evaluation - will need laceration repair and a head CT - called [facility] for an expect - Daughter will drive her to the ER and she declined ambulance Coding Level of Care Code Est Pt Level 3 (14596) Diagnoses Fall, initial encounter W19.XXXA Encounter type: initial encounter Laceration of other part of head without foreign body, initial encounter S01.81XA Encounter type: initial encounter Location of open wound of head: other part of head Foreign body presence: without foreign body Laceration of left elbow, initial encounter S51.012A Encounter type: initial encounter Laterality: left
== END 2025-03-16 11:37 | disposition home or self-care (01) ==
PROVIDERS: PCP Internal Medicine; Visit Provider Physician Assistant Medical
DX: S01.81XA Laceration without foreign body of other part of head, initial encounter (principal); S51.012A Laceration without foreign body of left elbow, initial encounter; W19.XXXA Unspecified fall, initial encounter

== ENCOUNTER → 2025-03-16 10:32 | Outpatient (BNVA) | payer MEDICARE, OTHER, SELFPAY | PROVIDERS: PCP Internal Medicine; Visit Provider Physician Assistant Medical | DX: S51.012A Laceration without foreign body of left elbow, initial encounter (principal); S01.91XA Laceration without foreign body of unspecified part of head, initial encounter; W01.0XXA Fall on same level from slipping, tripping and stumbling without subsequent striking against object, initial encounter; Y93.H2 Activity, gardening and landscaping; Y92.9 Unspecified place or not applicable; Y99.9 Unspecified external cause status; Z79.01 Long term (current) use of anticoagulants | CPT/HCPCS: 99212 ==

== ENCOUNTER 2025-03-16 11:42 | Emergency (ER) | payer MEDICARE, OTHER, SELFPAY ==
--- NOTE | ~2025-03-16 | CT_ITS ---
EXAMINATION: CT HEAD WITHOUT IV CONTRAST HISTORY: fall with head strike, on thinners. TECHNIQUE: Unenhanced helical CT of the head was performed per standard departmental protocol. Coronal and sagittal reformats of the head were also evaluated. One or more of the following techniques was used for dose reduction: Automated exposure control, adjustment of the mA and/or kV according to patient size, use of iterative reconstruction technique. DLP: 577 mGy-cm COMPARISON: Comparison is made with the prior examination dated 02/11/2025. FINDINGS: BRAIN: There is diffuse prominence of the ventricular system and cortical sulci, consistent with atrophy. Periventricular and subcortical white matter hypodensities are noted which are nonspecific, but often seen in the setting of small vessel ischemic disease. There is no mass effect or midline shift. No intra- or extra-axial fluid collections are identified. SINUSES: The visualized paranasal sinuses are clear. The mastoid air cells and middle ear cavities are well pneumatized. ORBITS: The visualized orbits are unremarkable. BONES/SOFT TISSUES: The extracranial soft tissues are unremarkable. The calvarium is intact. No suspicious lytic or sclerotic lesions. CT/CT head/brain wo IV con IMPRESSION: No acute intracranial abnormality. Electronically signed by: Hunter Reeder MD 03/16/2025 12:15 PM EDT
--- NOTE | ~2025-03-16 | CT_ITS ---
EXAMINATION: CT CERVICAL SPINE WITHOUT IV CONTRAST HISTORY: fall with head strike, on thinners. TECHNIQUE: Helical CT of the cervical spine was performed per standard departmental protocol. Coronal and sagittal reformatted images were also evaluated. One or more of the following techniques was used for dose reduction: Automated exposure control, adjustment of the mA and/or kV according to patient size, use of iterative reconstruction technique. DLP: 201 mGy-cm COMPARISON: Comparison is made with the prior examination dated 02/11/2025. FINDINGS: CERVICAL SPINE: The bones are osteopenic. The vertebral bodies maintain normal height. There is straightening of the normal cervical lordosis. Slight anterolisthesis of C3 on C4 and C6 on C7 is unchanged and is likely related to facet osteoarthritis. There is moderate degenerative disc disease with disc space narrowing and osteophyte formation, most prominent at the C4-5 and C5-6 levels. BRAIN: The visualized portion of the brain is unremarkable. SINUSES: The visualized paranasal sinuses, mastoid air cells and middle ear cavities are unremarkable. LUNG APICES: The visualized lung apices are clear. SOFT TISSUES: The visualized paraspinal soft tissues are unremarkable. CT/CT cervical spine wo IV con IMPRESSION: Straightening of the normal cervical lordosis. No evidence of fracture of the cervical spine. Degenerative changes as described. Electronically signed by: Hunter Reedre MD 03/16/2025 12:20 PM EDT
--- NOTE | 2025-03-16 11:45 | ED.GENADULT ---
HPI - General Adult General Chief complaint: Fall Stated complaint: Head injury, sent from urgent care Time Seen by Provider: 03/16/25 14:39 Source: patient, family and RN notes reviewed Mode of arrival: ambulatory Limitations: no limitations History of Present Illness ED Provider: Maryann Clark PA-C HPI narrative: This is a 89-year-old female, with a past medical history of AFib on Eliquis, who presents emergency department with concerns of laceration to head and left elbow. Patient states that last night she was bringing in her plants into her home due to the incoming cold weather and accidentally tripped and fell striking her head and her left elbow. She denies loss of consciousness. She was able to get herself up off the ground without assistance. Her son's came over the house and placed several Steri-Strips on her wound. Her daughter saw her this morning and noticed that she is still having some bleeding from the site and they went to an urgent care where they were instructed to go to the emergency room to get a CT scan as she is on Eliquis. Patient denies any headache, dizziness, blurred vision, double vision, severe chest pain or shortness of breath. She felt well prior to the fall. Denies any other complaints or concerns at this time. MD complaint: Head injury Relieving factors: none Exacerbating factors: none Associated symptoms: denies other symptoms Treatments prior to arrival: none Related Data Home Medications ?Medication ?Instructions ?Recorded ?Confirmed ascorbic acid (vitamin C) 500 mg 500 mg PO DAILY 06/24/24 02/23/25 tablet (Vitamin C) calcium carbonate 500 mg PO DAILY 06/24/24 02/23/25 cholecalciferol (vitamin D3) 25 25 mcg PO DAILY 06/24/24 02/23/25 mcg (1,000 unit) tablet (Vitamin D3) zinc acetate 50 mg (zinc) capsule 50 mg PO DAILY 06/24/24 02/23/25 Previous Rx's ?Medication ?Instructions ?Recorded docusate sodium 100 mg capsule 200 mg (2 x 100 mg) PO BEDTIME #60 06/28/24 caps magnesium hydroxide 400 mg/5 mL 30 ml PO DAILY PRN Constipation 06/28/24 oral suspension (Milk of Magnesia) #355 mL rivaroxaban 15 mg tablet (Xarelto) 15 mg PO DAILY@1700 #90 tabs 09/27/24 amiodarone 100 mg tablet 100 mg PO DAILY #90 tabs 02/22/25 Allergies Allergy/AdvReac Type Severity Reaction Status Date / Time No Known Allergies (No Known Allergy Verified 03/16/25 11:48 Allergies*) Review of Systems Review of Systems: Constitutional : No Fever, No Chills ENT/Mouth : No sore throat, No Rhinorrhea Eyes: No Eye Pain, No Swelling, No Redness Cardiovascular : No Chest Pain, No SOB Respiratory : No Cough, No Sputum Gastrointestinal : No Nausea, No Vomiting, No Diarrhea, No abdominal Pain Genitourinary : No Dysuria, No Hematuria Musculoskeletal : No joint pain, No Myalgias, No Joint Swelling Skin : No Skin Lesions Neuro : No Weakness, No Numbness, No Headache All other systems reviewed and are negative Yes all other systems are reviewed and are negative Constitutional: Constitutional: Reports as per [facility] Past Medical History Medical History Atrial flutter with rapid ventricular response Paroxysmal atrial fibrillation Persistent atrial fibrillation History of cardioversion Surgical History History of hip surgery Family History Family History Father No problems noted. Mother No problems noted. Social History Social History Household Members: Spouse Housing: House Are you a primary critical care unit nurse to a significant other at home: No Do you presently have visiting nurse or other home services: Yes (phys therapy) Patient Tobacco Use Status: Never used Tobacco Advance Directives: No Advance Directives Information Provided: Yes Do you have a plan to hurt others: No Plan service: No Physical Exam ED Vital Signs: Vital Signs - 24 hr 03/16/25 11:46 03/16/25 14:23 03/16/25 16:00 Temperature 96.9 F Pulse Rate 87 65 59 Respiratory Rate 18 16 14 Blood Pressure 125/76 132/71 128/68 Pulse Oximetry 98 100 98 Oxygen Delivery Method Room Air Room Air Room Air 03/16/25 17:37 Temperature 0 F L Pulse Rate 59 Respiratory Rate 14 Blood Pressure 128/68 Pulse Oximetry 98 Oxygen Delivery Method Room Air BMI result Body Mass Index 20.5 Const General: cooperative, comfortable and no acute distress Orientation/consciousness: patient oriented x3 Limitations: no limitations HENMT Head: Yes normal to inspection, Yes normocephalic and Yes atraumatic Ears: hearing grossly normal bilaterally General nose exam: Normal external nose present Face and sinus: Yes normal facial exam Mouth: Normal oral and palatal mucosa present, oropharynx normal and moist mucous membranes Throat: Yes posterior oropharynx normal Eyes General: appearance normal, both eyes and all related structures Eyelids: Yes eyelids normal Conjunctivae: conjunctivae normal Sclerae: sclerae normal Pupils: Equal, round and reactive pupils present EOM: EOMs intact bilaterally Neck Other: No midline cervical spine tenderness on examination. Neck: Yes normal visual inspection, Yes full ROM and Yes no lymphadenopathy Lymphatic: no lymphadenopathy noted Chest Chest palpation & inspection: normal inspection of the chest Resp Effort & Inspection: normal respiratory effort and able to speak in complete sentences Auscultation: clear to auscultation bilaterally, no crackles, no rales, no rhonchi and no wheezes Cardio Rate: regular rate Rhythm: regular rhythm Heart sounds: S1 normal heart sound present and S2 normal heart sound present GI Inspection: Yes normal to inspection Back/Spine/Pelvis Other: Lumbar spine with no bony abnormalities, no midline spine tenderness on examination. Skin Other: Left elbow, with 2 cm partial-thickness laceration noted, at the distal end there is a superficial skin tear. No active oozing. Left forehead with irregular partial-thickness laceration noted to the left forehead, active bleeding noted. Trauma: no lacerations or abrasions Wounds: no wounds Neuro General: patient oriented x3 and moves all extremities Cranial nerves: Yes CN's II-XII intact bilaterally and Yes Equal, round and reactive pupils present Cognition (Neuro): normal cognition Gait exam (Neuro): Normal gait present Motor exam (neuro): 5/5 motor strength present throughout and Pronator motor function not present Extrem General: Yes normal to inspection Right upper extremity: normal to inspection Left upper extremity: normal to inspection Right lower extremity: normal to inspection Left lower extremity: normal to inspection Course Course Course Narrative: This is a rapid medical exam performed by Sally Rodriguez NP: Additional HPI, ROS, PE not included below will be deferred to primary provider. Patient is an 89y/o F pmhx dementia, on Eliquis referred from urgent care after fall up 4 concrete stairs last night. Denies dizziness prior to the fall, but is not entirely sure. Son put steri strips on her forehead and L elbow lacs and put her to bed. Went to today because wounds still bleeding. Plan: CT head and c-spine Medications Administered Discontinued Medications Generic Name Dose Route Start Last Admin Trade Name Scott PRN Reason Stop Dose Admin Bacitracin 1 appl 03/16/25 17:06 03/16/25 17:19 Bacitracin Oint 0.9 Gm Packet TOPICAL 03/16/25 17:07 1 appl ONCE ONE Administration Protocol Diphtheria/Tetanus/Acell Pertussis 0.5 ml 03/16/25 17:13 03/16/25 17:21 Diphth,Pertus(Acell),Tet Adult 0.5 Ml Syringe IM 03/16/25 17:14 0.5 ml .ONCE ONE Administration Lidocaine HCl 10 ml 03/16/25 15:18 03/16/25 15:42 Lidocaine Hcl 1 % Mpf 5 Ml Vial SUBCUT 03/16/25 15:19 10 ml ONCE ONE Administration Procedures Laceration Laceration 1: Site: face Side (If applicable): left Size (cm): 4 Description: irregular Depth: simple, single layer Local Anesthetic: lidocaine 1% Amount of anesthesia used (mL): 4 Pre-repair: wound explored, irrigated extensively and deep structures intact Skin layer closed with: nylon Size (cm): 6-0 Number of sutures: 9 Technique: simple, interrupted Laceration 2: Site: upper extremity Side (If applicable): left Size (cm): 2 Description: linear Depth: simple, single layer Local Anesthetic: lidocaine 1% Amount of anesthesia used (mL): 3 Pre-repair: wound explored, irrigated extensively and deep structures intact Skin layer closed with: nylon Size (cm): 5-0 Number of sutures: 3 Medical Decision Making Medical Decision Making MDM Narrative: This is a 89-year-old female, with a past medical history of AFib on Eliquis, who presents emergency department with concerns of laceration to head and left elbow. On arrival, vital signs within normal limits. She is neurologically intact with no focal deficits on examination. CT head and neck were obtained prior to my evaluation. Given trip and fall mechanism yesterday with head strike and patient on anticoagulation, ICH is considered. She is neurologically intact with no focal deficits on examination. She has no cervical midline spine tenderness. CT head and neck revealing no acute intracranial hemorrhage, no cervical spine fracture. Discussed findings with patient as well as daughter at bedside. Patient has partial-thickness laceration noted to the her left forehead as well as left elbow. These are requiring suture repair. Please see procedure note for detail. Tetanus was updated in the department today. Patient given wound care instructions. Given strict return precautions. Daughter feels safe with patient returning back home as she is independent, she lives at home with her . They understand and agree with plan, patient stable for discharge. Differential Diagnosis Differential Diagnoses: The differential diagnosis associated with the presentation includes ICH, cervical spine fracture, closed head injury, laceration Radiology Impression Discussion of test interpretation with radiology: I have reviewed the radiologist's reading. Radiologist Impression: FINDINGS: BRAIN: There is diffuse prominence of the ventricular system and cortical sulci, consistent with atrophy. Periventricular and subcortical white matter hypodensities are noted which are nonspecific, but often seen in the setting of small vessel ischemic disease. There is no mass effect or midline shift. No intra- or extra-axial fluid collections are identified. SINUSES: The visualized paranasal sinuses are clear. The mastoid air cells and middle ear cavities are well pneumatized. ORBITS: The visualized orbits are unremarkable. BONES/SOFT TISSUES: The extracranial soft tissues are unremarkable. The calvarium is intact. No suspicious lytic or sclerotic lesions. CT/CT head/brain wo IV con IMPRESSION: No acute intracranial abnormality. Electronically signed by: Hunter Reeder MD 03/16/2025 12:15 PM EDT RP Dictated By: Hunter Reeder MD FINDINGS: CERVICAL SPINE: The bones are osteopenic. The vertebral bodies maintain normal height. There is straightening of the normal cervical lordosis. Slight anterolisthesis of C3 on C4 and C6 on C7 is unchanged and is likely related to facet osteoarthritis. There is moderate degenerative disc disease with disc space narrowing and osteophyte formation, most prominent at the C4-5 and C5-6 levels. BRAIN: The visualized portion of the brain is unremarkable. SINUSES: The visualized paranasal sinuses, mastoid air cells and middle ear cavities are unremarkable. LUNG APICES: The visualized lung apices are clear. SOFT TISSUES: The visualized paraspinal soft tissues are unremarkable. CT/CT cervical spine wo IV con IMPRESSION: Straightening of the normal cervical lordosis. No evidence of fracture of the cervical spine. Degenerative changes as described. Electronically signed by: Hunter Reeder MD 03/16/2025 12:20 PM EDT RP Dictated By: Hunter Reeder MD Discharge Plan Discharge Clinical Impression: Laceration of head, Laceration of elbow, Fall Patient Disposition: Home, Self-Care Instructions: Laceration (ED), Fall Prevention (ED), Stitches Removal (ED), Head Laceration (ED) Additional Instructions: You were seen in the emergency department after a fall. Your CT of your neck and had do not show any new injury from the fall. Please continue all home medications as prescribed. We did have to closure wound with sutures, your face sutures need to be in place for 5 days. You may return here or follow up with your primary care or urgent care to have these removed. Your stitches on your left elbow need to be removed in 10 days. Please keep wounds clean and dry. You may rinse with warm soapy water. Watch for any signs of infection including but not limited to increased redness, swelling, fevers. If any of these occur, please return for re-evaluation. Prescriptions: No Action Xarelto 15 mg tablet 15 mg PO DAILY@1700 Qty: 90 3RF amiodarone 100 mg tablet 100 mg PO DAILY Qty: 90 3RF zinc acetate 50 mg (zinc) Capsule 50 mg PO DAILY calcium carbonate 500 mg calcium (1,250 mg) Tablet 500 mg PO DAILY ascorbic acid (vitamin C) [Vitamin C] 500 mg Tablet 500 mg PO DAILY cholecalciferol (vitamin D3) [Vitamin D3] 25 mcg (1,000 unit) Tablet 25 mcg PO DAILY magnesium hydroxide [Milk of Magnesia] 400 mg/5 mL Suspension 30 ml PO DAILY PRN (Reason: Constipation) Qty: 355 0RF docusate sodium 100 mg Capsule 200 mg PO BEDTIME Qty: 60 0RF Interventions: ED Discharge Assessment Last Done: 03/16/25 17:37 Discharge Date/Time: 03/16/25 17:37 Print Language: Vincentian
[2025-03-16 11:46] VITALS: BP 125/76; PULSE 87; RESP 18; TEMP 36.1; O2SAT 98; BMI 20.5
[2025-03-16 14:23] VITALS: BP 132/71; PULSE 65; RESP 16; O2SAT 100
[2025-03-16] MEDS: Lidocaine HCl 1 % MPF 5 ML VIAL 10 ML SUBCUT (15:42)
[2025-03-16 16:00] VITALS: BP 128/68; PULSE 59; RESP 14; O2SAT 98
[2025-03-16] MEDS: Diphth,Pertus(ACell),Tet Adult 0.5 ML SYRINGE IM (17:21)
[2025-03-16 17:37] VITALS: BP 128/68; PULSE 59; RESP 14; TEMP -17.7; TEMP 0; O2SAT 98
== END 2025-03-16 17:37 | disposition home or self-care (01) ==
PROVIDERS: Emergency Provider Emergency Medicine; PCP Internal Medicine
DX: S01.81XA Laceration without foreign body of other part of head, initial encounter (principal); S51.012A Laceration without foreign body of left elbow, initial encounter; Z23 Encounter for immunization; I48.91 Unspecified atrial fibrillation; F03.90 Unspecified dementia, unspecified severity, without behavioral disturbance, psychotic disturbance, mood disturbance, and anxiety; W01.0XXA Fall on same level from slipping, tripping and stumbling without subsequent striking against object, initial encounter; Y93.9 Activity, unspecified; Y92.009 Unspecified place in unspecified non-institutional (private) residence as the place of occurrence of the external cause; Y99.9 Unspecified external cause status; Z79.01 Long term (current) use of anticoagulants
CPT/HCPCS: 12001; 12013; 70450; 72125; 90471; 90715; 99284; J2003

== ENCOUNTER → 2025-03-16 11:47 | Outpatient (BNV) | payer MEDICARE, OTHER, SELFPAY | PROVIDERS: PCP Internal Medicine; Visit Provider Radiology Diagnostic Radiology | DX: M50.321 Other cervical disc degeneration at C4-C5 level (principal); M50.322 Other cervical disc degeneration at C5-C6 level; S01.81XA Laceration without foreign body of other part of head, initial encounter; W19.XXXA Unspecified fall, initial encounter | CPT/HCPCS: 70450; 72125 ==

== ENCOUNTER 2025-03-21 12:17 | Outpatient (AMB) | payer MEDICARE, OTHER, SELFPAY ==
--- OUTSIDE RECORDS SUMMARY | 2024-07-31 05:43 | XMS_ITS ---
Author Organization Jem Reid MD Address [address] [place] [phone] Care Team Providers Care Shop Helper Name Role Phone Jem Reid Primary Care Provider [phone] Medications Medication SIG (Take, Route, Fr equency, Duration) Notes Start Date End Date Status Amoxicillin 500 MG 1 capsule Orally twi ce a day for 5 days 07/31/2024 Active Encounters Encounter Location Date Provider Diagnosis Jem Reid MD [address] [facility] [address] [place] [phone] 07/31/2024 Jem Reid Plan Of Treatment Medication Medication Name Sig Start Date Stop Date Notes Amoxicillin 500 MG 1 capsule Orally twice a day for 5 days 07/31/2024 Next Appt Details Provider Name:Jem aragon, 04/17/2025 07:45:00 AM, [address] [place] [address], [address], [phone], Provider Name:Jem aragon, 04/24/2025 01:00:00 PM, [address] [place] [address], [phone], Progress Notes * Toña RÍOS MDOB:[birth year] (89 yo F)Acc No.[id number]:07/31/2024 Patient: Robert BURGESS Toña Edel :1935 A ge:89 Y S ex:Female Address:[address] [place] [address] * Refills Start Amoxicillin Capsule, 500 MG, Orally, 10 Capsule, 1 capsule, twice a day, 5 days * true * Date: Generated for Octavia castillo/Jay/Amayasmitting on: 1 02:59 PM EDT
--- OUTSIDE RECORDS SUMMARY | 2024-08-18 09:00 | XMS_ITS ---
Author Organization Jem Reid MD Address [address] [place] [phone] Care Team Providers Care Campaign Fundraiser Name Role Phone Jem Reid Primary Care Provider Results Component Value Reference Range Notes UA ClnCatch+Micro w/rflx Cul t Reviewed date:08/22/2024 09:35:10 AM Interpretation: Performing Lab:[facility], [address] [place] [phone] Notes/Report: Urine, Clean Catch Color Urine Yellow Appearance Urine Hazy PH 6.0 5.0-9.0 Glucose Urine UA Negative Negative mg/dL Urine Blood Large (3+) Negative Specific [place] - Urine >= 1.030 1.005-1.025 Urine Protein [...] Reid MD [address] [place], [place] [phone] 08/18/2024 Jemze Fullerbeatriz After-treatment Z51.89 Assessments Encounter Date Diagnosis (ICD Code) Assessment Notes Treatment Notes Treatment Clinical Notes Section Notes 08/18/2024 After-treatment (ICD-10 - Z51.89) Plan Of Treatment Next Appt Details Provider Name:Jem Mckee ier, 04/17/2025 07:45:00 AM, [address] [facility], [address], [place], [phone], Provider Name:Jem Mckee ier, 04/24/2025 01:00:00 PM, [address] [place] [address], [address], [place], [place], [phone], Progress Notes * Toña RÍOS MDOB:[birth year] (89 yo F)Acc No.[id number]:08/18/2024 Progress Note Patient: Robert Toña BURGESS Edel Provider: Meka Reid MD :1935 A ge:89 Y S ex:Female Date:08/18/2024 Address:[address] [place], [place] [phone] Subjective: * Chief Complaints: * 1 . [...] 08/18/2024 Generated for Octavia castillo/Jay/Quang on: 1 02:59 PM EDT
--- OUTSIDE RECORDS SUMMARY | 2025-02-20 09:30 | XMS_ITS ---
Author Organization Jem Reid MD Address [address] [place] [phone] Care Team Providers Care Gym Supervisor Name Role Phone Jem Reid Primary [...] kg/m2 02/20/2025 weight is down 2 pounds [facility] e 07-29-24 Encounters Encounter Location Date Provider Diagnosis Jem Reid MD [address] [place] [phone] 02/20/2025 Jem Reid Laceration 879.8 ; Head [...] Provider Name:Jem Mckee ier, 04/17/2025 07:45:00 AM, [address] [place] [address], [address], [phone], Provider Name:Jem Mckee ier, 04/24/2025 01:00:00 PM, [address] [place] [address], [place] [address], [place], [place], [phone], Progress Notes * Toña RÍOS MDOB:[birth year] (89 yo F)Acc No.[id number]:02/20/2025 Progress Notes Patient: Toña BRODERICK Provider: Meka Reid MD :1935 A ge:89 Y S ex:Female Date:02/20/2025 Address:[address] [place], [place] [address] Subjective: * Chief Complaints: * F /U [...] 9 0662 FLU VACC PRSV FREE INC [id number] ADMN FLU VAC NO FEE SCHED SAME DAY * * Sign off status: Completed true * Provider: Meka Reid MD Date: 0 02/20/2025 Generated for Octavia castillo/Jay/eTransmitting on: 1 02:59 PM EDT History and Physical Notes * [...]
--- OUTSIDE RECORDS SUMMARY | 2025-02-23 11:00 | XMS_ITS ---
Author Organization Jem Reid MD Address [address] [facility] [address] [place] [phone] Care Team Providers Care Meter Installer Name Role Phone Jem Reid Primary Care Provider Encounters Encounter Location Date Provider Diagnosis Jem Reid MD [address] [facility] [address] [place] [phone] 02/23/2025 Jem Reid Plan Of Treatment Next Appt Details Provider Name:Jem Mckee ier, 04/17/2025 07:45:00 AM, [address] [place] [address], [address], [phone], Provider Name:Jem Mckee ier, 04/24/2025 01:00:00 PM, [address] [place] [address], [address], [phone], Progress Notes * Toña RÍOS MDOB:[birth year] (89 yo F)Acc No.[id number]:02/23/2025 Patient: Toña BRODERICK :1935 A ge:89 Y S ex:Female Address:[address] [place] [address] [place] [address] * true * Date: Generated for Octavia castillo/Jay/Quang on: 02:59 PM EDT
--- OUTSIDE RECORDS SUMMARY | 2025-03-21 07:27 | XMS_ITS ---
Author Organization Jem Reid MD Address [address] [facility] [address] [place] [phone] Care Team Providers Care Health Sciences Manager Name Role Phone Jeanette Jem Primary Care Provider REASON FOR VISIT ER Encounters Encounter Location Date Provider Diagnosis Jem Reid MD [address] [facility] [address] [place] [phone] 03/21/2025 Jem Reid Plan Of Treatment Next Appt Details Provider Name:Jem Mckee ier, 04/17/2025 07:45:00 AM, [address] [place] [address], [address], [phone], Provider Name:Jem Mckee ier, 04/24/2025 01:00:00 PM, [address] [place] [address], [address], [phone], Progress Notes * Toña RÍOS MDOB:[birth year] (89 yo F)Acc No.[id number]:03/21/2025 Patient: Toña BRODERICK :1935 A ge:89 Y S ex:Female Address:[address] [place], [place] [address] [address] * true * Date: Generated for Octavia castillo/Jay/Quang on: 02:59 PM EDT
--- NOTE | 2025-03-21 12:44 | AM.OFFWIN_ITS ---
Intake Vital Signs 03/21/25 12:45 Height 5 ft 2 in Weight 112 lb BMI 20.5 BP 104/72 Blood Pressure Location Lt brachial Position Sitting Pulse 59 Pulse Source Pulse Oximeter Temp 97.6 F Temp Source Oral Pulse Oximetry (%) 94 Oxygen Delivery Method Room Air Intake Visit Reasons: ep stiches removal Intake Note: pt presents with need for suture removal to forehead Patient Tobacco Use Status: Never used Tobacco Allergies No Known Allergies (No Known Allergies*) Allergy (Verified 03/21/25 12:47) Do you need a note to return to daycare/school/sports/work: No HPI HPI Comments History of Present Illness Details History of Present Illness - The patient is an 89-year-old female p resenting with lacerations on the face and elbow. - The patient received 9 sutures on the face following an incident involving ramirez while trying to save plants. The sutures were placed 6 days ago, and the head CT was normal. There have been no signs of infection such as oozing, fever, pain, or redness. - Laceration on the elbow: The patient r eceived 3 sutures on the elbow. Similar to the facial laceration, there have been no signs of infection. Physical Exam General: Cooperative, healthy appearing, comfortable, no acute distress and well developed Orientation: Patient oriented x3 Limitations: No limitations Head: Normal to inspection Ears: Right ear looks really infected, left ear canal is very red Nose: Normal External nose present Face and sinus: 9 sutures on the face with scabbing, no erythema, warmth or discharge noted Eyes: Appearance normal, both eyes and all related structures Neck: Normal visual inspection and Yes full ROM Respiratory: Normal respiratory effort and able to speak in complete sentences. Skin: No rashes or lesions noted Neuro: Patient oriented x3 Review of Systems - General: Denies fever, pain, or rednes s at suture sites - Ears: Reports right ear infection, lef t ear redness, denies hearing aid use in right ear All systems reviewed and are unremarkable except as noted in HPI [facility] Medical History Atrial flutter with rapid ventricular response Paroxysmal atrial fibrillation Persistent atrial fibrillation History of cardioversion Surgical History History of hip surgery Family History Father No problems noted. Mother No problems noted. Social History Household Members: Spouse Housing: House Are you a primary patient care representative to a significant other at home: No Do you presently have visiting nurse or other home services: Yes (phys therapy) Patient Tobacco Use Status: Never used Tobacco service: No Physical Exam Vital Signs: Last Vital Signs Temp 97.6 F 03/21/25 12:45 Pulse 59 03/21/25 12:45 BP 104/72 03/21/25 12:45 Pulse Ox 94 03/21/25 12:45 Oxygen Delivery Method Room Air 03/21/25 12:45 BMI result Body Mass Index 20.5 Assessment & Plan Assessment & Plan (1) Visit for suture removal: Code(s): Z48.02 - Encounter for removal of sutures Plan: Plan Patient was informed and verbally consented to the use of an ambient scribe for clinic note documentation during this visit. 1. Laceration On The Face - 9 sutures removed with no issues. Monitor for signs of infection such as redness, swelling, or discharge. - Advise gentle cleaning with soap and water, avoiding scrubbing to allow natural healing. 2. Laceration On The Elbow - Sutures to be removed after 10 days as per initial advice. Monitor for signs o f infection. - Advise gentle cleaning with soap and water, avoiding scrubbing to allow natural healing. Coding Level of Care Code Est Pt Level 3 (97979) Diagnoses Visit for suture removal Z48.02
[2025-03-21 12:45] VITALS: BP 104/72; PULSE 59; TEMP 36.4; O2SAT 94; BMI 20.5
--- OUTSIDE RECORDS SUMMARY | 2025-03-21 15:00 | XMS_ITS | Patient Health Record ---
Author Organization Jem Reid MD Address [address] [place], [place] [id number] Care Team Providers Care Welfare Administrator Name Role Phone Jem Reid Primary Care Provider Allergies No Known Allergies Results Component Value Reference Range Notes Complete Blood Count Auto Di ff Reviewed date:04/12/2024 04:50:38 PM Interpretation: Performing Lab:[facility], [address] [place] [phone] Notes/Report: White Blood Count 7.5 4.8-10.8 X10*3/uL [...] NRBC Abs Auto 0.000 0.0-0.012 X10*3/uL Comprehensive [place]. Panel Fa st Reviewed date:04/12/2024 04:49:40 PM Interpretation: Performing Lab:[facility], [address] [place] [phone] Notes/Report: Sodium 144 135-145 mmol/L Potassium 4.4 3.3-5.1 mmol/L Chloride 107 96-108 mmol/L Carbon Dioxide 25 22-29 mmol/L Anion Gap 16 12-20 Blood Urea Nitrogen 18 9-16 mg/dL Creatinine 0.74 0.5-1.4 mg/dL Estimated Glomerular Filt Rate > 60 NOTE: For -[place] individuals, multiply the result by 1.210. Chronic [...] Panel Reviewed date:04/12/2024 04:51:05 PM Interpretation: Performing Lab:[facility], [address] [place] [phone] Notes/Report: Triglycerides 87 <150 mg/dL Desirable Triglyceride: [...] Random Reviewed date:04/12/2024 04:50:01 PM Interpretation: Performing Lab:[facility], [address] [place] [phone] Notes/Report: Creatinine Urine 23.52 Microalbumin Urine 41.0 Microalbum/Creatinine Ratio Ur 174.3 <30 ug/mg cr Albumin/Creatinine Ratio Reference Ranges: Normal: < 30 ug/mg creatinine Microalbuminuria: 30 - 300 ug/mg creatinine Clinical Albuminuria: > 300 ug/mg creatinine Hemoglobin A1c Reviewed date:04/12/2024 04:49:49 PM Interpretation: Performing Lab:[facility], [address] [place] [phone] Notes/Report: Hemoglobin A1c % 5.3 <6.0 % [...] average glucose, using the formula of the I5E-Zweqpry Average Glucose study (ADAG), Diabetes Care, Vol.31,#8, 2007 UA ClnCatch+Micro w/rflx Cul t Reviewed date:04/21/2024 10:28:41 AM Interpretation:CHEN 04/19 Performing Lab:[facility], [address] [place] [phone] Notes/Report: Urine, Clean Catch Color Urine Yellow Appearance Urine Clear PH 7.0 5.0-9.0 Glucose Urine UA Negative Negative mg/dL Urine Blood Large (3+) Negative Specific [place] - Urine <= 1.005 1.005-1.025 Urine Protein [...] Reviewed date:06/20/2024 09:15:12 AM Interpretation:CHEN 06/17/24 Performing Lab:[facility], [address] [place] [phone] Notes/Report: Urine, Clean Catch Color Urine Yellow Appearance Urine Clear PH 7.0 5.0-9.0 Glucose Urine UA Negative Negative mg/dL Urine Blood Moderate (2+) Negative Specific [place] - Urine 1.020 1.005-1.025 Urine Protein Trace Neg-Trace mg/dL Urine Ketones Negative Negative mg/dL Nitrite Urine Negative Negative Leukocyte Esterase Urine Negative Negative RBC Urine >20 0-2 /HPF WBC Urine 0-5 0-5 /HPF Squamous Epithelial Cell Urine 0-2 0-2 /HPF Bacteria Urine None Seen None Seen Hyaline Casts Urine 0-2 0-2 /LPF UA ClnCatch+Micro w/rflx Cul t Reviewed date:08/22/2024 09:35:10 AM Interpretation: Performing Lab:[facility], [address] [place] [phone] Notes/Report: Urine, Clean Catch Color Urine Yellow Appearance Urine Hazy PH 6.0 5.0-9.0 Glucose Urine UA Negative Negative mg/dL Urine Blood Large (3+) Negative Specific [place] - Urine >= 1.030 1.005-1.025 Urine Protein [...] t Reviewed date:05/17/2024 12:50:27 PM Interpretation: Performing Lab:[facility], [address] [place] [phone] Notes/Report: Urine, Clean Catch Color Urine Yellow Appearance Urine Clear PH 8.0 5.0-9.0 Glucose Urine UA Negative Negative mg/dL Urine Blood Large (3+) Negative Specific [place] - Urine 1.015 1.005-1.025 Urine Protein Negative Neg-Trace mg/dL Urine Ketones Negative Negative mg/dL Nitrite Urine Negative Negative Leukocyte Esterase Urine Trace Negative RBC Urine >20 0-2 /HPF WBC Urine 0-5 0-5 /HPF Squamous Epithelial Cell Urine 3-5 0-2 /HPF Bacteria Urine None Seen None Seen Hyaline Casts Urine 0-2 0-2 /LPF UA ClnCatch+Micro w/rflx Cul t Reviewed date:07/29/2024 04:29:01 PM Interpretation: Performing Lab:[facility], [address] [place] [phone] Notes/Report: Urine, Clean Catch Color Urine Yellow Appearance Urine Clear PH 8.5 5.0-9.0 Glucose Urine UA Negative Negative mg/dL Urine Blood Negative Negative Specific [place] - Urine 1.015 1.005-1.025 Urine Protein Negative Neg-Trace mg/dL Urine Ketones Negative Negative mg/dL Nitrite Urine Negative Negative Leukocyte Esterase Urine Large (3+) Negative RBC Urine 0-2 0-2 /HPF WBC Urine 21-50 0-5 /HPF Squamous Epithelial Cell Urine 11-20 0-2 /HPF Bacteria Urine 2+ None Seen Hyaline Casts Urine 0-2 0-2 /LPF Urine Culture Reviewed date:04/14/2024 12:49:03 PM Interpretation: Performing Lab:[facility], [address] [place] [phone] Notes/Report: O:ESCCOL Escherichia coli Urine Culture Quant Urine Culture > 100,000 cfu/mL Ampicillin 8 Cefazolin 2 Cefepime <=0.12 Ceftriaxone <=0.25 Ciprofloxacin <=0.06 Gentamicin <=1 Nitrofurantoin <=16 Trimethoprim/Sulfametho xazole <=20 Complete Blood Count Auto Di ff Reviewed date:05/03/2024 06:12:49 PM Interpretation: Performing Lab:[facility], [address] [place] [phone] Notes/Report: White Blood Count 7.1 4.8-10.8 X10*3/uL [...] INR Reviewed date:05/03/2024 06:12:09 PM Interpretation: Performing Lab:[facility], [address] [place] [phone] Notes/Report: Prothrombin Time 23.3 10.9-12.4 SEC INTERNATIONAL [...] Panel Reviewed date:05/03/2024 06:12:00 PM Interpretation: Performing Lab:[facility], [address] [place] [phone] Notes/Report: Sodium 138 135-145 mmol/L Potassium 4.2 [...] Sensitivity Reviewed date:05/05/2024 12:00:12 PM Interpretation: Performing Lab:[facility], [address] [place] [phone] Notes/Report: Troponin-I High Sensitivity 9.0 <3.5-17.0 ng/L [place] high sensitivity Troponin-I results should be used in conjunction with other diagnostic information such as ECG, clinical observations and information, and patient symptoms to aid in the diagnosis of [place]. Urine Culture Reviewed date:05/09/2024 12:34:43 PM Interpretation: Performing Lab:[facility], [address] [place] [phone] Notes/Report: O:PSEAER Pseudomonas aeruginosa Urine Culture Quant Urine Culture > 100,000 cfu/mL Cefepime 2 Ciprofloxacin <=0.06 Gentamicin <=1 Meropenem <=0.25 Piperacillin/Tazobactam <=4 UA ClnCatch+Micro w/rflx Cul t Reviewed date:06/03/2024 08:00:29 AM Interpretation:will be booked to a PH visit Performing Lab:[facility], [address] [place] [phone] Notes/Report: [id number] Urine, Clean Catch Color Urine RED Appearance Urine Turbid PH 6.5 5.0-9.0 Glucose Urine UA Negative Negative mg/dL Urine Blood Large (3+) Negative Specific [place] - Urine >= 1.030 1.005-1.025 Urine Protein [...] date:05/03/2024 06:16:41 PM Interpretation: Performing Lab: Notes/Report: [address] [address] [address] Scan Report Signed Patient: Toña Ríos MR#: [id number] 2 : 1935 Acct:[id number] Age/Sex: 88 / F ADM Date: 05/03/24 Loc: HO.ED Attending Dr: Ordering Physician: Nicolasa Rodriguez NP Date of Service: 05/03/24 Procedure(s): CT cervical spine wo IV con Accession Number(s): [id number] cc: Jem Reid MD; Nicolasa Rodriguez NP [...] by: Apolinar Oliva DO 05/03/2024 06:02 PM [facility] Dictated By: Charles Oliva DO Signed By: <Electronically signed by Charles Oliva DO in OV> 05/03/24 1802 DD/ 1523 TD/TT: 05/03/24 1533 Clinical Pathologist: DEBI [address] [address] [address] Scan Report Signed Patient: Mee Ríos MR#: [id number] 2 : 1935 Acct:[id number] Age/Sex: 88 / F ADM Date: 05/03/24 Loc: HO.ED Attending Dr: Ordering Physician: Nicolasa Rodriguez NP Date of Service: 05/03/24 Procedure(s): CT cer vical spine wo IV con Accession Number(s): [id number] cc: Jem Reid MD; Nicolasa Rodriguez NP [...] con IMPRESSION: 1. No evidence of ac [place]o intracranial hemorrhage or edematous territorial infarcti on. 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 2. No evidence of [place] fracture or traumatic subluxation of the cervical spine. 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 3. Moderate right fr ontal scalp, right periorbital, and right facial soft tissue edema/hematoma. No associated osseous abnormalities. 4. No evidence of ac campo fracture of the maxillofacial bones. Electronically nate d by: Apolinar Oliva DO 05/03/2024 06:02 PM EST Dictated By: Mati Oliva DO Signed By: <Nita harvey signed by Charles Oliva DO in OV> 05/03/24 1802 DD/ 1523 TD/TT: 05/03/24 1533 Clinical Pathologist: DEBI CT head/brain wo con Reviewed date:05/03/2024 06:16:59 PM Interpretation: Performing Lab: Notes/Report: [address] [address] [address] Scan Report Signed Patient: Toña Ríos MR#: [id number] 2 : 1935 Acct:[id number] Age/Sex: 88 / F ADM Date: 05/03/24 Loc: HO.ED Attending Dr: Ordering Physician: Nicolasa Rodriguez NP Date of Service: 05/03/24 Procedure(s): CT head/brain wo IV con Accession Number(s): [id number] cc: Jem Reid MD; Nicolasa Rodriguez NP [...] by: Apolinar Oliva DO 05/03/2024 06:02 PM [facility] Dictated By: Charles Oliva DO Signed By: <Electronically signed by Charles Oliva DO in OV> 05/03/24 1802 DD/ 1459 TD/TT: 05/03/24 1533 Clinical Pathologist: [address] [address] [address] Scan Report Signed Patient: Mee Ríos MR#: [id number] 2 : 1935 Acct:[id number] Age/Sex: 88 / F ADM Date: 05/03/24 Loc: HO.ED Attending Dr: Ordering Physician: Nicolasa Rodriguez NP Date of Service: 05/03/24 Procedure(s): CT head/brain wo IV con Accession Number(s): [id number] cc: Jem Reid MD; Nicolasa Rodriguez NP [...] con IMPRESSION: 1. No evidence of ac [place] intracranial hemorrhage or edematous territorial infarcti on. 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 2. No evidence of ac [place] fracture or traumatic subluxation of the cervical spine. 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 3. Moderate right fr ontal scalp, right periorbital, and right facial soft tissue edema/hematoma. No associated osseous abnormalities. 4. No evidence of ac campo fracture of the maxillofacial bones. Electronically nate d by: Apolinar Oliva DO 05/03/2024 06:02 PM [facility] Dictated By: Mati Oliva DO Signed By: <Electron ically signed by Charles Oliva DO in OV> 05/03/24 1802 DD/ 1459 TD/TT: 05/03/24 1533 Clinical Pathologist: JL CT facial bones wo con Reviewed date:05/03/2024 06:17:06 PM Interpretation: Performing Lab: Notes/Report: [address] [address] [address] Scan Report Signed Patient: Toña Ríos MR#: [id number] 2 : 1935 Acct:[id number] Age/Sex: 88 / F ADM Date: 05/03/24 Loc: HO.ED Attending Dr: Ordering Physician: Nicolasa Rodriguez NP Date of Service: 05/03/24 Procedure(s): CT facial bones wo IV con Accession Number(s): [id number] cc: Jem Reid MD; Nicolasa Rodriguez NP [...] by: Apolinar Oliva DO 05/03/2024 06:02 PM [facility] Dictated By: Charles Oliva DO Signed By: <Electronically signed by Charles Oliva DO in OV> 05/03/24 6333 DD/ 8876 TD/TT: 05/03/24 1533 Clinical Pathologist: DEBI [address] [address] [address] Scan Report Signed Patient: Mee Ríos MR#: [id number] 2 : 1935 Acct:[id number] Age/Sex: 88 / F ADM Date: 05/03/24 Loc: HO.ED Attending Dr: Ordering Physician: Nicolasa Rodriguez NP Date of Service: 05/03/24 Procedure(s): CT fac ial bones wo IV con Accession Number(s): [id number] cc: Jem Reid MD; Nicolasa Rodriguez NP [...] con IMPRESSION: 1. No evidence of ac [place] intracranial hemorrhage or edematous territorial infarcti on. 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 2. No evidence of ac campo fracture or traumatic subluxation of the cervical spine. 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 3. Moderate right fr ontal scalp, right periorbital, and right facial soft tissue edema/hematoma. No associated osseous abnormalities. 4. No evidence of ac campo fracture of the maxillofacial bones. Electronically nate d by: Apolinar Oliva DO 05/03/2024 06:02 PM [facility] Dictated By: Mati [facility] Signed By: <Electron ically signed by Charles Oliva DO in OV> 05/03/24 1802 DD/ 1459 TD/TT: 05/03/24 1533 Clinical Pathologist: DEBI Complete Blood Count Auto Di ff Reviewed date:05/05/2024 12:04:27 PM Interpretation: Performing Lab:[facility], [address] [place] [phone] Notes/Report: White Blood Count 5.9 4.8-10.8 X10*3/uL [...] Panel Reviewed date:05/05/2024 11:58:12 AM Interpretation: Performing Lab:[facility], [address] [place] [phone] Notes/Report: Sodium 140 135-145 mmol/L Potassium 4.0 [...] Magnesium Reviewed date:05/05/2024 11:57:54 AM Interpretation: Performing Lab:[facility], [address] [place] [phone] Notes/Report: Magnesium 2.4 1.6-2.6 mg/dL MR head/brain wo con Reviewed date:05/05/2024 11:49:06 AM Interpretation: Performing Lab: Notes/Report: [address] [address] Magnetic Resonance Report Signed Patient: Toña Ríos MR#: [id number] 2 : 1935 Acct:[id number] Age/Sex: 88 / F ADM Date: 05/03/24 Loc: .S3 359-[address]: Christelle Lambert MD Ordering Physician: Mj Seals MD Date of Service: 05/04/24 Procedure(s): MR head/brain wo con Accession Number(s): [id number] cc: Jem Reid MD; Mj Seals MD [...] by: Danish Moreno MD 05/04/2024 08:57 PM [facility] Dictated By: Danish Moreno MD Signed By: <Electronically signed by Danish Moreno MD in OV> 05/04/242056 DD/ 1300 TD/TT: 05/04/24 1345 Clinical Pathologist: [place] [address] Magnetic Resonance Report Signed Patient: Mee Ríos MR#: [id number] 2 : 1935 Acct:[id number] Age/Sex: 88 / F ADM Date: 05/03/24 Loc: .S3 359-[address]: Rolando Lambert MD Ordering Physician: Mj Seals MD Date of Service: 05/04/24 Procedure(s): MR head/brain wo con Accession Number(s): [id number] cc: Jem Reid MD; Mj Seals MD [...] OV> 05/04/242056 DD/ 1300 TD/TT: 05/04/24 1345 Clinical Pathologist: Basic Metabolic Panel Reviewed date:05/07/2024 01:47:35 PM Interpretation: Performing Lab:[facility], [address] [place] [phone] Notes/Report: Sodium 141 135-145 mmol/L Potassium 4.4 [...] Hormone Reviewed date:05/07/2024 01:43:46 PM Interpretation: Performing Lab:[facility], [address] [place] [phone] Notes/Report: Thyroid Stimulating Hormone 2.26 0.32-4.0 uIU/mL TSH 3rd Generation ([facility]) Complete Blood Count Auto Di ff Reviewed date:06/24/2024 05:57:08 PM Interpretation: Performing Lab:[address] [address] Notes/Report: White Blood Count 6.8 4.8-10.8 X10*3/uL [...] Panel Reviewed date:06/24/2024 05:52:26 PM Interpretation: Performing Lab:[facility], [address] [place] [phone] Notes/Report: Bilirubin Total 0.5 0.0-1.0 mg/dL Bilirubin Direct 0.2 0.0-0.5 mg/dL Aspartate Amino Transferase 41 5-31 U/L Alanine Aminotransferase 15 0-31 U/L Total Protein 8.5 6.5-8.0 g/dL Albumin Level 4.1 3.5-5.0 g/dL Alkaline Phosphatase 85 39-117 U/L Basic Metabolic Panel Reviewed date:06/24/2024 05:54:58 PM Interpretation: Performing Lab:[address] [address] Notes/Report: Sodium 137 135-145 mmol/L Potassium 4.3 [...] Acid Reviewed date:06/24/2024 05:54:33 PM Interpretation: Performing Lab:[address] [address] Notes/Report: Lactic Acid 1.6 0.5-2.0 mmol/L Magnesium Reviewed date:06/24/2024 05:54:18 PM Interpretation: Performing Lab:[address] [address] Notes/Report: Magnesium 2.3 1.6-2.6 mg/dL Creatine Kinase Total Reviewed date:06/24/2024 05:55:16 PM Interpretation: Performing Lab:[address] [place] [address] Notes/Report: Creatine Kinase Total 219 26-140 U/L Troponin-I High Sensitivity Reviewed date:06/24/2024 05:54:43 PM Interpretation: Performing Lab:[address] [address] Notes/Report: Troponin-I High Sensitivity 20.3 <3.5-17.0 ng/L The [place] high sensitivity Troponin-I results should be used in conjunction with other diagnostic information such as ECG, clinical observations and information, and patient symptoms to aid in the diagnosis of [place]. Lipase Reviewed date:06/24/2024 05:54:11 PM Interpretation: Performing Lab:[address] [address] Notes/Report: Lipase 21 8-78 U/L Urine Culture Reviewed date:06/28/2024 01:21:17 PM Interpretation: Performing Lab:[address] [address] Notes/Report: O:ESCCOL Escherichia coli Urine Culture Quant Urine Culture > 100,000 cfu/mL Ampicillin <=2 Cefazolin (Urine) 2 Cefepime <=0.12 Ceftriaxone <=0.25 Ciprofloxacin <=0.06 Gentamicin <=1 Nitrofurantoin <=16 Trimethoprim/Sulfametho xazole <=20 SARS-CoV2/FLU/RSV Reviewed date:06/24/2024 05:54:26 PM Interpretation: Performing Lab:[address] [address] Notes/Report: Influenza A PCR NEGATIVE Negative Influenza [...] positive influenza A/B results are reported to [facility]. Blood Culture (First) Reviewed date:06/30/2024 05:52:36 PM Interpretation: Performing Lab:[address] [address] Notes/Report: Blood Culture (First) No growth after 5 days. Blood Culture (Second) Reviewed date:06/30/2024 05:52:44 PM Interpretation: Performing Lab:[facility], [address] [place] [address] Notes/Report: Blood Culture (Second) No growth after 5 days. UA ClnCatch+Micro w/rflx Cul t Reviewed date:06/24/2024 05:56:48 PM Interpretation: Performing Lab:[address] [address] Notes/Report: Urine, Clean Catch Color Urine Yellow Appearance Urine Cloudy PH 5.5 5.0-9.0 Glucose Urine UA Negative Negative mg/dL Urine Blood Trace Negative Specific [place] - Urine 1.015 1.005-1.025 Urine Protein Trace [...] date:06/24/2024 05:53:01 PM Interpretation: Performing Lab: Notes/Report: [address] [address] [address] Scan Report Signed Patient: Toña Ríos MR#: [id number] 2 : 1935 Acct:[id number] Age/Sex: 88 / F ADM Date: 06/24/24 Loc: .ED Attending Dr: Ordering Physician: Hanna Harrington DO Date of Service: 06/24/24 Procedure(s): CT cervical spine wo IV con Accession Number(s): [id number] cc: Jem Reid MD; Hanna Harrington DO Report Number: [id number]: Total DLP = 868.56 mGy-cm EXAMINATION: CT [...] by: Obdulio Schultz MD 06/24/2024 04:29 PM [facility] Dictated By: Obdulio Schultz MD Signed By: <Electronically signed by Obdulio Schultz MD in OV> 06/24/24 1629 DD/ 1556 TD/TT: 06/24/24 1617 Clinical Pathologist: [address] [address] [address] Scan Report Signed Patient: Mee Ríos MR#: [id number] 2 : 1935 Acct:[id number] Age/Sex: 88 / F ADM Date: 06/24/24 Loc: HO.ED Attending Dr: Ordering Physician: Hanna Harrington DO Date of Service: 06/24/24 Procedure(s): CT cer vical spine wo IV con Accession Number(s): [id number] cc: Jem Reid MD; Hanna Harrington DO [...] by: Obdulio Schultz MD 06/24/2024 04:29 PM [facility] Dictated By: Obdulio Durand MD Signed By: <Nita harvey signed by Obdulio Schultz MD in OV> 06/24/24 1629 DD/ 1556 TD/TT: 06/24/24 1617 Clinical Pathologist: CT head/brain wo con Reviewed date:06/24/2024 05:54:02 PM Interpretation: Performing Lab: Notes/Report: [address] [address] [address] Scan Report Signed Patient: Toña Ríos MR#: [id number] 2 : 1935 Acct:[id number] Age/Sex: 88 / F ADM Date: 06/24/24 Loc: HO.ED Attending Dr: Ordering Physician: Hanna Harrington DO Date of Service: 06/24/24 Procedure(s): CT head/brain wo IV con Accession Number(s): [id number] cc: Jem Reid MD; Hanna Harrington DO Report Number: [id number]: Total DLP = 0.00 mGy-cm EXAMINATION: CT [...] by: Obdulio Schultz MD 06/24/2024 04:40 PM [facility] Dictated By: Obdulio Schultz MD Signed By: <Electronically signed by Obdulio Schultz MD in OV> 06/24/24 1640 DD/ 1428 TD/TT: 06/24/24 1617 Clinical Pathologist: [place] [address] CT Scan Report Signed Patient: Mee Ríos MR#: [id number] 2 : 1935 Acct:[id number] Age/Sex: 88 / F ADM Date: 06/24/24 Loc: HO.ED Attending Dr: Ordering Physician: Hanna Harrington DO Date of Service: 06/24/24 Procedure(s): CT head/brain wo IV con Accession Number(s): [id number] cc: Jem Reid MD; Hanna Harrington DO [...] 06/24/24 1640 DD/ 1428 TD/TT: 06/24/24 1617 Clinical Pathologist: CARMINA HUNTER Reviewed date:06/24/2024 05:52:08 PM Interpretation: Performing Lab: Notes/Report: [place] [address] XRay Report Signed Patient: Toña Ríos MR#: [id number] 2 : 1935 Acct:[id number] Age/Sex: 88 / F ADM Date: 06/24/24 Loc: HO.ED Attending Dr: Ordering Physician: Anders Bradford MD Date of Service: 06/24/24 Procedure(s): CARMINA HUNTER Accession Number(s): [id number] cc: Jem Reid MD; Anders Bradford MD [...] OV> 06/24/24 173 DD/ 32 TD/TT: 06/24/241732 Clinical Pathologist: [place] [address] XRay Report Signed Patient: Mee Ríos MR#: [id number] 2 : 1935 Acct:[id number] Age/Sex: 88 / F ADM Date: 06/24/24 Loc: HO.ED Attending Dr: Ordering Physician: Anders Bradford MD Date of Service: 06/24/24 Procedure(s): XR KUB Accession Number(s): [id number] cc: Jem Reid MD; Anders Bradford MD [...] 06/24/24 1734 DD/ 1733 TD/TT: 06/24/24 1733 Clinical Pathologist: XR chest 1V Reviewed date:06/24/2024 05:53:29 PM Interpretation: Performing Lab: Notes/Report: [address] [address] XRay Report Signed Patient: Toña Ríos MR#: [id number] 2 : 1935 Acct:[id number] Age/Sex: 88 / F ADM Date: 06/24/24 Loc: HO.ED Attending Dr: Ordering Physician: Hanna Harrington DO Date of Service: 06/24/24 Procedure(s): XR chest 1V Accession Number(s): [id number] cc: Jem Reid MD; Hanna Harrington DO [...] by: Obdulio Schultz MD 06/24/2024 04:43 PM [facility] Dictated By: Obdulio Schultz MD Signed By: <Electronically signed by Obdulio Schultz MD in OV> 06/24/24 1643 DD/ 1428 TD/TT: 06/24/24 1439 Clinical Pathologist: [address] [address] XRay Report Signed Patient: Mee Ríos MR#: [id number] 2 : 1935 Acct:[id number] Age/Sex: 88 / F ADM Date: 06/24/24 Loc: HO.ED Attending Dr: Ordering Physician: Hanna Harrington DO Date of Service: 06/24/24 Procedure(s): XR chest 1V Accession Number(s): [id number] cc: Jem Reid MD; Hanna Harrington DO [...] by: Obdulio Schultz MD 06/24/2024 04:43 PM [facility] Dictated By: Obdulio Durand MD Signed By: <Electron ically signed by Obdulio Schultz MD in OV> 06/24/24 1643 DD/ 1428 TD/TT: 06/24/24 1439 Clinical Pathologist: Urine Culture Reviewed date:07/31/2024 09:36:47 AM Interpretation: Performing Lab:[address] [address] Notes/Report: O:ENTFAC Enterococcus faecalis Urine Culture Quant Urine Culture > 100,000 cfu/mL Ampicillin <=2 Levofloxacin 0.5 Nitrofurantoin <=16 Tetracycline <=1 Vancomycin 1 Urine Culture Reviewed date:09/27/2024 12:28:00 PM Interpretation: Performing Lab:[address] [address] Notes/Report: Urine Culture Report Result Urine Culture 10,000 to 50,000 cfu/ml Urine Culture Mixed bacterial erick a characteristic of Urine Culture urogenital contamination. Creatinine GFR POC Reviewed date:11/03/2024 04:28:00 PM Interpretation: Performing Lab:[facility], [address] [place] [address] Notes/Report: [phone] 0.52 >60 1429 HO.HEAK Creatinine POC 0.5 0.5-1.4 mg/dL GFR POC > 60 Chronic Kidney Disease: Estimated GFR < 60 mL/min/1.73m2 Severe Kidney Disease: Estimated GFR < 15 mL/min/1.73m2 CT urogram Reviewed date:11/03/2024 12:36:14 PM Interpretation: Performing Lab: Notes/Report: [address] [address] [address] Scan Report Signed Patient: Toña Ríos MR#: [id number] 2 : 1935 Acct:[id number] Age/Sex: 89 / F ADM Date: 11/01/24 Loc: HO.CT Attending Dr: Edwin May MD Ordering Physician: Edwin May MD Date of Service: 11/01/24 Procedure(s): CT urogram Accession Number(s): [id number] cc: Edwin May MD; Jem Reid MD Report Number: [id number]: Total DLP = 535.00 mGy-cm CLINICAL HISTORY: [...] in OV> 11/02/242147 DD/ 46 TD/TT: 11/02/242146 Clinical Pathologist: [place] [address] [place] Scan Report Signed Patient: Mee Ríos MR#: [id number] 2 : 1935 Acct:[id number] Age/Sex: 89 / F ADM Date: 11/01/24 Loc: HO.CT Attending Dr: Edwin May MD Ordering Physician: Edwin May MD Date of Service: 11/01/24 Procedure(s): CT urogram Accession Number(s): [id number] cc: Santi May MD; Jem Reid MD [...] in OV> 11/02/242147 DD/ 46 TD/TT: 11/02/242146 Clinical Pathologist: Urine Culture Reviewed date:11/29/2024 12:22:08 PM Interpretation: Performing Lab:[facility], [address] [place] [id number] Notes/Report: O:ESCCOL Escherichia coli Urine Culture Quant Urine Culture > 100,000 cfu/mL Ampicillin 8 Cefazolin (Urine) <=1 Cefepime <=0.12 Ceftriaxone <=0.25 Ciprofloxacin <=0.06 Gentamicin <=1 Nitrofurantoin <=16 Trimethoprim/Sulfametho xazole <=20 CT cervical spine wo con Reviewed date:03/16/2025 01:43:38 PM Interpretation: Performing Lab: Notes/Report: [address] [address] [address] Scan Report Signed Patient: Toña Ríos MR#: [id number] 2 : 1935 Acct:[id number] Age/Sex: 89 / F ADM Date: 03/16/25 Loc: .ED Attending Dr: Ordering Physician: Nicolasa Rodriguez NP Date of Service: 03/16/25 Procedure(s): CT cervical spine wo IV con Accession Number(s): [id number] cc: Jem Reid MD; Nicolasa Rodriguez NP Report Number: [id number]: Total DLP = 794.00 mGy-cm Reason for Exam: fall with head strike, on thinners EXAMINATION: CT CERVICAL SPINE WITHOUT IV CONTRAST HISTORY: fall with head strike, on thinners. TECHNIQUE: Helical CT of the cervical spine was performed per standard departmental protocol. Coronal and sagittal reformatted images were also evaluated. One or more of the following techniques was used for dose reduction: Automated exposure control, adjustment of the mA and/or kV according to patient size, use of iterative reconstruction technique. DLP: 201 mGy-cm COMPARISON: Comparison is made with the prior examination dated 02/11/2025. FINDINGS: CERVICAL SPINE: The bones are osteopenic. The vertebral bodies maintain normal height. There is straightening of the normal cervical lordosis. Slight anterolisthesis of C3 on C4 and C6 on C7 is unchanged and is likely related to facet osteoarthritis. There is moderate degenerative disc disease with disc space narrowing and osteophyte formation, most prominent at the C4-5 and C5-6 levels. BRAIN: The visualized portion of the brain is unremarkable. SINUSES: The visualized paranasal sinuses, mastoid air cells and middle ear cavities are unremarkable. LUNG APICES: The visualized lung apices are clear. SOFT TISSUES: The visualized paraspinal soft tissues are unremarkable. CT/CT cervical spine wo IV con IMPRESSION: Straightening of the normal cervical lordosis. No evidence of fracture of the cervical spine. Degenerative changes as described. Electronically signed by: Hunter Reeder MD 03/16/2025 12:20 PM EDT RP Dictated By: Hunter Reeder MD Signed By: <Electronically signed by Hunter Reeder MD in OV> 03/16/25 1220 DD/ 1150 TD/TT: 03/16/25 1208 Clinical Pathologist: [place] [address] CT Scan Report Signed Patient: Mee Ríos MR#: [id number] 2 : 1935 Acct:[id number] Age/Sex: 89 / F ADM Date: 03/16/25 Loc: HO.ED Attending Dr: Ordering Physician: Nicolasa Rodriguez NP Date of Service: 03/16/25 Procedure(s): CT cer vical spine wo IV con Accession Number(s): [id number] cc: Jem Reid MD; Nicolasa Rodriguez NP Report Number: [id number]: Total DLP = 794.00 mGy-cm Reason for Exam: fal l with head strike, on thinners EXAMINATION: CT CERV ICAL SPINE WITHOUT IV CONTRAST HISTORY: fall with h ead strike, on thinners. TECHNIQUE: Helical CT of the ce rvical spine was performed per standard departmental protoco l. Coronal and sagittal reformatted images were also evaluated. One or more of the following techniques was used for dose reduction: Auto mated exposure control, adjustment of the mA and/or kV according to zoe ent size, use of iterative reconstruction technique. DLP: 201 mGy-cm COMPARISON: Comparis on is made with the prior examination dated 02/11/2025. FINDINGS: CERVICAL SPINE: The bones are osteopenic. The vertebral bodies maintain normal heig ht. There is straightening of the normal cervical lordosis. Slight anterolisthesis of C3 on C4 and C6 on C7 is unchanged and is likely relate d to facet osteoarthritis. There is moderate degenerative disc di sease with disc space narrowing and osteophyte formation, most prom inent at the C4-5 and C5-6 levels. BRAIN: The visualize d portion of the brain is unremarkable. SINUSES: The visuali zed paranasal sinuses, mastoid air cells and middle ear cavities are unremarkable. LUNG APICES: The visualized lung apices are clear. SOFT TISSUES: The visualized paraspinal soft tissues are unremarkable. C T/CT cervical spine wo IV con IMPRESSION: Straightening of the normal cervical lordosis. No evidence of fracture of the cervical spin e. Degenerative changes as described. Electronically nate d by: Hutner Reeder MD 03/16/2025 12:20 PM EDT RP Dictated By: Hunter Reeder MD Signed By: <Electron ically signed by Hunter Reeder MD in OV> 03/16/25 1220 DD/ 1150 TD/TT: 03/16/25 1208 Clinical Pathologist: CT head/brain wo con Reviewed date:03/16/2025 01:44:21 PM Interpretation: Performing Lab: Notes/Report: [address] [address] [address] Scan Report Signed Patient: Toña Ríos MR#: [id number] 2 : 1935 Acct:[id number] Age/Sex: 89 / F ADM Date: 03/16/25 Loc: HO.ED Attending Dr: Ordering Physician: Nicolasa Rodriguez NP Date of Service: 03/16/25 Procedure(s): CT head/brain wo IV con Accession Number(s): [id number] cc: Jem Reid MD; Nicolasa Rodriguez NP Report Number: [id number]: Total DLP = 0.00 mGy-cm Reason for Exam: fall with head strike, on thinners EXAMINATION: CT HEAD WITHOUT IV CONTRAST HISTORY: fall with head strike, on thinners. TECHNIQUE: Unenhanced helical CT of the head was performed per standard departmental protocol. Coronal and sagittal reformats of the head were also evaluated. One or more of the following techniques was used for dose reduction: Automated exposure control, adjustment of the mA and/or kV according to patient size, use of iterative reconstruction technique. DLP: 577 mGy-cm COMPARISON: Comparison is made with the prior examination dated 02/11/2025. FINDINGS: BRAIN: There is diffuse prominence of the ventricular system and cortical sulci, consistent with atrophy. Periventricular and subcortical white matter hypodensities are noted which are nonspecific, but often seen in the setting of small vessel ischemic disease. There is no mass effect or midline shift. No intra- or extra-axial fluid collections are identified. SINUSES: The visualized paranasal sinuses are clear. The mastoid air cells and middle ear cavities are well pneumatized. ORBITS: The visualized orbits are unremarkable. BONES/SOFT TISSUES: The extracranial soft tissues are unremarkable. The calvarium is intact. No suspicious lytic or sclerotic lesions. CT/CT head/brain wo IV con IMPRESSION: No acute intracranial abnormality. Electronically signed by: Hunter Reeder MD 03/16/2025 12:15 PM EDT Dictated By: Hunter Reeder MD Signed By: <Electronically signed by Hunter Reeder MD in OV> 03/16/25 1215 DD/ 1150 TD/TT: 03/16/25 1208 Clinical Pathologist: [address] [address] [address] Scan Report Signed Patient: Mee Ríos MR#: [id number] 2 : 1935 Acct:[id number] Age/Sex: 89 / F ADM Date: 03/16/25 Loc: HO.ED Attending Dr: Ordering Physician: Nicolasa Rodriguez NP Date of Service: 03/16/25 Procedure(s): CT head/brain wo IV con Accession Number(s): [id number] cc: Jem Reid MD; Nicolasa Rodriguez NP Report Number: [id number]: Total DLP = 0.00 mGy-cm Reason for Exam: fal l with head strike, on thinners EXAMINATION: CT HEAD WITHOUT IV CONTRAST HISTORY: fall with h ead strike, on thinners. TECHNIQUE: Unenhanced helical C T of the head was performed per standard departmental protoco l. Coronal and sagittal reformats of the head were also evaluated. One or more of the following techniques was used for dose reduction: Auto mated exposure control, adjustment of the mA and/or kV according to zoe ent size, use of iterative reconstruction technique. DLP: 577 mGy-cm COMPARISON: Comparis on is made with the prior examination dated 02/11/2025. FINDINGS: BRAIN: There is diff use prominence of the ventricular system and cortical sulci, cons istent with atrophy. Periventricular and subcortical white ma tter hypodensities are noted which are nonspecific, but often seen in th e setting of small vessel ischemic disease. There is no mass effect or midline shift. No intra- or extra-axial fluid collections are identified. SINUSES: The visuali zed paranasal sinuses are clear. The mastoid air cells and middle ear cavities are well pneumatized. ORBITS: The visualiz ed orbits are unremarkable. BONES/SOFT TISSUES: The extracranial soft tissues are unremarkable. The calvarium is intact. No suspicious lytic or sclerotic lesions. C T/CT head/brain wo IV con IMPRESSION: No acute intracrania l abnormality. Electronically nate d by: Hunter Reeder MD 03/16/2025 12:15 PM EDT RP Dictated By: Hunter Reeder MD Signed By: <Nita harvey signed by Hunter Reeder MD in OV> 03/16/25 1215 DD/ 1150 TD/TT: 03/16/25 1208 Clinical Pathologist: Reason For Referral Reason microscopic hematuri a [...] EVERY DAY Orally Once a day Active Immunizations Vaccine Route Administration Date Status Comme nts Shingles Unknown 04/25/2013 Administered [facility] SARS-COV-2 Moderna Unknown 07/25/2020 Administered SARS-COV-2 Moderna Unknown 08/22/2020 Administered SARS-COV-2 Moderna Unknown 04/23/2021 Administered [facility] Influenza High Dose IM Intramuscular 04/01/2022 Administer ed Influenza High Dose IM Intramuscular 04/06/2023 Administer ed Influenza High Dose IM Intramuscular 02/20/2025 Administer ed PPSV23 (Pnemovax) Unknown 08/18/2013 Refused [...] Problem Status W/U Status Risk Notes Problem 28492414 Essential hypert ension (I10) Active confirmed Problem 1544154 Prediabetes (R73.09) Active confirmed Problem 42887895 Atrial fibrillat ion, unspecified type (I48.91) Active confirmed Problem 863497796 Pure hypercholesterolemia (E78.00) Active confirmed Problem 01539554 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) Active confirme d Problem 795292631 Acute constipati on (K59.00) Active confirmed Vital Signs Blood pressure diastolic 88 mm Hg 02/20/2025 jose guadalupe ght is down 2 pounds since 07-29-24 Height 63 in 02/20/2025 weight is down 2 pounds since 07-29-24 Blood pressure systolic 112 mm Hg 02/20/2025 weig ht is down 2 pounds since 07-29-24 Weight 110 lbs 02/20/2025 weight is down 2 pounds since 07-29-24 BMI 19.48 kg/m2 02/20/2025 weight is down 2 pounds since 07-29-24 Encounters Encounter Location Date Provider Diagnosis Jem Reid MD [address] [place] [address] [id number] 04/12/2024 Jem Reid Prediabetes R73.09 ; Pure hypercholesterolemia E78.00 and Essential hypertension I10 Jem Reid MD [address] [place] [address] [id number] 06/02/2024 Jem Bombardier Hematuria R31.9 Jem Reid MD [address] [place] [address] [id number] 06/17/2024 Jem Alinaardier Microscopic hematuri a R31.29 Jem Reid MD [address] [place] [address] [id number] 08/18/2024 Jem Bombardier After-treatment Z51. 89 Jem Reid MD [address] [place] [address] [id number] 04/19/2024 Jem Alinaardier Gross hematuria R31. 0 ; Acute UTI N39.0 ; Atrial fibrillation, unspecified type I48.91 ; Pure hypercholesterolemia E78.00 ; Prediabetes R73.09 ; Essential hypertension I10 and Depression screening Z13.31 Jem Reid MD [address] [place] [address] [id number] 05/16/2024 Jem Bombardier After-treatment Z51. 89 ; Gross hematuria R31.0 and Loss of consciousness R40.20 Jem Reid MD [address] [place] [address] [id number] 07/29/2024 Jem Bombardier After-treatment Z51. 89 and Acute constipation K59.00 Jem Reid MD [address] [place] [address] [id number] 02/20/2025 Jem Alinaardier Laceration 879.8 ; H ead injury S09.90XA and Encounter for administration of vaccine Z23 Jem Reid MD [address] [place] [address] [id number] 04/14/2024 Jem Reid MD [address] [place] [address] [id number] 04/14/2024 Jem Reid MD [address] [place] [address] [id number] 04/14/2024 Jme Reid MD [address] [place] [address] [id number] 05/03/2024 Jem Reid MD [address] [place] [address] [id number] 05/09/2024 Jem Reid MD [address] [place] [address] [id number] 05/19/2024 Jem Reid MD [address] [place] [address] [id number] 06/28/2024 Jem Reid MD [address] [place] [address] [id number] 07/31/2024 Jem Reid MD [address] [place] [address] [id number] 02/23/2025 Jem Reid MD [address] [place] [address] [id number] 03/21/2025 Jem Reid Assessments Encounter Date Diagnosis (ICD [...] - K59.00) doing well/ is using meds. 02/20/2025 Laceration (ICD9-CM - 879.8) 02/20/2025 Head injury (ICD-10 - S09.90XA) jessenia removed and wound well healed 04/12/2024 Essential hypertensi on (ICD-10 - I10) [...] is going to get cardioverted next week 02/20/2025 Encounter for administration of vaccine (ICD-10 - Z23) HD flu vaccine admnistered 04/19/2024 Pure hypercholesterolemia (ICD-10 - E78.00) doing well, will contiue current regiment 04/19/2024 Prediabetes (ICD-10 - R73.09) stable, no need for medication at this time 04/19/2024 Essential hypertensi on (ICD-10 - I10) stable, will continue current regiment 04/19/2024 Depression screening (ICD-10 - Z13.31) negative screen Plan Of Treatment Next Appt Details Provider Name:Jem rodriguezr, 04/17/2025 07:45:00 AM, [address] [place] [address], [address], [phone], Provider Name:Jem Mckee ier, 04/24/2025 01:00:00 PM, [address] [place] [address], [address] [place] [address], [id number], Insurance Providers Payer Name Payer Address Payer Phone Subscriber Number Group Number Insured Name Patient Relationship to Insured Coverage Start Date Coverage End Date [employer] [address] [place] [address] [id number] Toña Ríos Self - patient is the insured [facility] [address] [place] [phone] [id number] Toña Ríos Self - patient is the insured Medical (General) History Medical History History ICD Code Refuses flu shot (07-06-12) Refuses pneumo (07-06-12) refuses colonoscoopy 2012 refuses pneumo, 2013 Surgical History Surgery Date(Month/Year) Left Total Hip Arthroplasty by Dr. Alexandru Young 09/2016
== END 2025-03-21 13:23 | disposition home or self-care (01) ==
PROVIDERS: PCP Internal Medicine; Visit Provider Physician Assistant
DX: Z48.02 Encounter for removal of sutures (principal)

== ENCOUNTER → 2025-03-21 12:17 | Outpatient (BNVA) | payer MEDICARE, OTHER, SELFPAY | PROVIDERS: PCP Internal Medicine; Visit Provider Physician Assistant | DX: S01.81XD Laceration without foreign body of other part of head, subsequent encounter (principal); S51.019D Laceration without foreign body of unspecified elbow, subsequent encounter; X58.XXXD Exposure to other specified factors, subsequent encounter; Z48.02 Encounter for removal of sutures | CPT/HCPCS: 99212 ==

== ENCOUNTER 2025-03-31 12:55 | Outpatient (AMB) | payer MEDICARE, OTHER, SELFPAY ==
--- OUTSIDE RECORDS SUMMARY | 2024-05-19 06:42 | XMS_ITS ---
Author Organization Jem Reid MD Address [address] [facility] [address] [place] [phone] Care Team Providers Care Petroleum Refining Equipment Operator Name Role Phone Jem Reid Primary Care Provider Encounters Encounter Location Date Provider Diagnosis Jem Reid MD [address] [facility] [address] [place] [phone] 05/19/2024 Jem Reid Plan Of Treatment Next Appt Details Provider Name:Jem Mckee ier, 04/17/2025 07:45:00 AM, [address] [place] [address], [address], [phone], Provider Name:Jem Mckee ier, 04/24/2025 01:00:00 PM, [address] [place] [address], [address], [phone], Progress Notes * Toña RÍOS MDOB:[birth year] (88 yo F)Acc No.[id number]:05/19/2024 Patient: Toña Damon :1935 A ge:88 Y S ex:Female Address:[address] [place] [address] [place] [id number] * true * Date: Generated for Octavia castillo/Jay/Quang on: 02:50 PM EDT
--- OUTSIDE RECORDS SUMMARY | 2024-06-02 04:30 | XMS_ITS ---
Author Organization Jem Reid MD Address [address] [place] [phone] Care Team Providers Care Labor Supervisor Name Role Phone Jem Reid Primary Care Provider [phone] Results Component Value Reference Range Notes UA ClnCatch+Micro w/rflx Cul t Reviewed date:06/20/2024 09:15:12 AM Interpretation:CHEN 06/17/24 Performing Lab:[facility], [address] [place] [phone] Notes/Report: Urine, Clean Catch Color Urine Yellow Appearance Urine Clear PH 7.0 5.0-9.0 Glucose Urine UA Negative Negative mg/dL Urine Blood Moderate (2+) Negative Specific [place] - Urine 1.020 1.005-1.025 Urine Protein Trace Neg-Trace mg/dL Urine Ketones Negative Negative mg/dL Nitrite Urine Negative Negative Leukocyte Esterase Urine Negative Negative RBC Urine >20 0-2 /HPF WBC Urine 0-5 0-5 /HPF Squamous Epithelial Cell Urine 0-2 0-2 /HPF Bacteria Urine None Seen None Seen Hyaline Casts Urine 0-2 0-2 /LPF REASON FOR VISIT U/A Encounters Encounter Location Date Provider Diagnosis Jem Reid MD [address] [place] [id number] 06/02/2024 Jem Reid Hematuria R31.9 Assessments Encounter Date Diagnosis (ICD Code) Assessment Notes Treatment Notes Treatment Clinical Notes Section Notes 06/02/2024 Hematuria (ICD-10 - R31.9) Plan Of Treatment Next Appt Details Provider Name:Jem Mckee ier, 04/17/2025 07:45:00 AM, [address] [facility], [address], [place], [place], [phone], Provider Name:Jem Mckee ier, 04/24/2025 01:00:00 PM, [address] [facility], [address], [place], [place], [phone], Progress Notes * Toña RÍOS MDOB:[birth year] (89 yo F)Acc No.[id number]:06/02/2024 Progress Note Patient: Toña BRODERICK Provider: Meka Reid MD :1935 A ge:88 Y S ex:Female Date:06/02/2024 Address:[address] [place], [place] [phone] Subjective: * Chief Complaints: * 1 . U/A. * Medical History: Objective: * Vitals: Assessment: * Assessment: 1. H ematuria - R31.9 Plan: * Treatment: * * The named appointment provid er may or may not be the originator of this progress note, and it is not deemed complete until electronically signed by the appointment provider. Sign off status: Pending * Provider: Meka Reid MD Date: 08/03/2023 Generated for Octavia castillo/Jay/eTransmitting on: 02:50 PM EDT
--- OUTSIDE RECORDS SUMMARY | 2024-06-17 10:00 | XMS_ITS ---
Author Organization Jem Reid MD Address [address] [place], [place] [id number] Care Team Providers Care Guest Attendant Name Role Phone Jeanette Jem [facility] [...] 02:37:37 PM > referral info faxed, Mitali uNnez 07/11/2024 07:32:26 AM > info mailed to [...] Location Date Provider Diagnosis Jem Reid MD [address] [place] [id number] 06/17/2024 Jem Reid Microscopic hematuria R31.29 Assessments [...] Provider Name:Jem Mckee ier, 04/17/2025 07:45:00 AM, [address] [place] [address], [place] [address], [place], [place], [phone], Provider Name:Jem Mckee ier, 04/24/2025 01:00:00 PM, [address] [place] [address], [place] [address], [place], [place], [phone], Progress Notes * Toña PINEDO MDOB:[birth year] (89 yo F)Acc No.[id number]:06/17/2024 Patient: Toña BRODERICK Provider: Meka Reid MD :[id number] A ge:88 Y S ex:Female Date:06/17/2024 Address:[address] [place] [address] Ivon Naranjo [id number] Subjective: * Chief Complaints: * 1 . [...] MD Date: 0 06/17/2024 Generated for Lupilloi anna/Jay/Renayitting on: 02:49 PM EDT History and Physical Notes * [...]
--- OUTSIDE RECORDS SUMMARY | 2024-06-28 08:09 | XMS_ITS ---
Author Organization Jem Reid MD Address [address] [facility] [address] [place] [phone] Care Team Providers Care Material Man Name Role Phone Jeanette Jem Primary Care Provider REASON FOR VISIT discharge Encounters Encounter Location Date Provider Diagnosis Jem Reid MD [address] [facility] [address] [place] [phone] 06/28/2024 Jem Reid Plan Of Treatment Next Appt Details Provider Name:Jem Mckee ier, 04/17/2025 07:45:00 AM, [address] [place] [address], [address], [phone], Provider Name:Jem Mckee ier, 04/24/2025 01:00:00 PM, [address] [place] [address], [address], [phone], Progress Notes * Toña RÍOS MDOB:[birth year] (89 yo F)Acc No.[id number]:06/28/2024 Patient: Toña BRODERICK :1935 A ge:88 Y S ex:Female Address:[address] [place], [place] [address] [address] * true * Date: Generated for Octavia castillo/Jay/Quang on: 02:51 PM EDT
--- OUTSIDE RECORDS SUMMARY | 2024-07-29 05:15 | XMS_ITS ---
Author Organization Jem Reid MD Address [address] [place] [phone] Care Team Providers Care Distillery Supervisor Name Role Phone Jem Reid Primary Care Provider Allergies No Known Allergies Results Component Value Reference Range Notes UA ClnCatch+Micro w/rflx Cul t Reviewed date:07/29/2024 04:29:01 PM Interpretation: Performing Lab:[facility], [address] [place] [phone] Notes/Report: Urine, Clean Catch Color Urine Yellow Appearance Urine Clear PH 8.5 5.0-9.0 Glucose Urine UA Negative Negative mg/dL Urine Blood Negative Negative Specific [place] - Urine 1.015 1.005-1.025 Urine Protein Negative [...] Problem Status W/U Status Risk Notes Problem [id number] Acute constipation (K59.00) Active confirmed Vital Signs Blood pressure systolic 88 mm Hg 07/29/19 25 Blood pressure diastolic 56 mm Hg 025 Height 63 in 07/29/2024 Weight 112 lbs 07/29/2024 BMI 19.84 kg/m2 07/29/2024 Encounters Encounter Location Date Provider Diagnosis Jem Reid MD [address] [place] [phone] 07/29/2024 Jem Reid After-treatment Z51.89 and Acute [...] Details Provider Name:Jem aragon, 04/17/2025 07:45:00 AM, [address] [place] [address], [place] [address], [place], [place], [phone], Provider Name:Jem aragon, 04/24/2025 01:00:00 PM, [address] [place] [address], [place] [address], [place], [place], [phone], Progress Notes * Toña RÍOS MDOB:[birth year] (89 yo F)Acc No.[id number]:07/29/2024 Patient: Toña BRODERICK Provider: Meka Reid MD :1935 A ge:89 Y S ex:Female Date:07/29/2024 Address:[address] [id number] Subjective: * Chief Complaints: * P H/TCMAccompanied [...] 0 07/29/2024 Generated for Octavia castillo/Jay/Renayitting on: 1 02:51 PM EDT History and Physical Notes * [...]
--- OUTSIDE RECORDS SUMMARY | 2024-07-31 05:43 | XMS_ITS ---
Author Organization Jem Reid MD Address [address] [place] [phone] Care Team Providers Care Wood Tank Builder Name Role Phone Jem Reid Primary Care Provider Medications Medication SIG (Take, Route, Fr equency, Duration) Notes Start Date End Date Status Amoxicillin 500 MG 1 capsule Orally twi ce a day for 5 days 07/31/2024 Active Encounters Encounter Location Date Provider Diagnosis Jem Reid MD 10 [facility] [address] [place] [phone] 07/31/2024 Jem Reid Plan Of Treatment Medication Medication Name Sig Start Date Stop Date Notes Amoxicillin 500 MG 1 capsule Orally twice a day for 5 days 07/31/2024 Next Appt Details Provider Name:Jem aragon, 04/17/2025 07:45:00 AM, [address] [place] [address], [address], [phone], Provider Name:Jem aragon, 04/24/2025 01:00:00 PM, [address] [place] [address], [phone], Progress Notes * Toña RÍOS MDOB:[birth year] (89 yo F)Acc No.[id number]:07/31/2024 Patient: Robert BURGESS Toña Edel :1935 A ge:89 Y S ex:Female Address:[address] [place] [address] * Refills Start Amoxicillin Capsule, 500 MG, Orally, 10 Capsule, 1 capsule, twice a day, 5 days * true * Date: Generated for Octavia castillo/Jay/Amayasmitting on: 1 02:50 PM EDT
--- OUTSIDE RECORDS SUMMARY | 2024-08-18 09:00 | XMS_ITS ---
Author Organization Jem Reid MD Address [address] [place] [phone] Care Team Providers Care Sales Marketing Manager Name Role Phone Jem Reid Primary Care Provider [phone] Results Component Value Reference Range Notes UA ClnCatch+Micro w/rflx Cul t Reviewed date:08/22/2024 09:35:10 AM Interpretation: Performing Lab:[facility], [address] [place] [phone] Notes/Report: Urine, Clean Catch Color Urine Yellow Appearance Urine Hazy PH 6.0 5.0-9.0 Glucose Urine UA Negative Negative mg/dL Urine Blood Large (3+) Negative Specific [place] - Urine >= 1.030 1.005-1.025 Urine Protein [...] Reid MD [address] [place], [place] [phone] 08/18/2024 Jemze Fullerbeatriz After-treatment Z51.89 Assessments Encounter Date Diagnosis (ICD Code) Assessment Notes Treatment Notes Treatment Clinical Notes Section Notes 08/18/2024 After-treatment (ICD-10 - Z51.89) Plan Of Treatment Next Appt Details Provider Name:Jem Mckee ier, 04/17/2025 07:45:00 AM, [address] [facility], [address], [place], [phone], Provider Name:Jem Mckee ier, 04/24/2025 01:00:00 PM, [address] [place] [address], [address], [place], [place], [phone], Progress Notes * Toña RÍOS MDOB:[birth year] (89 yo F)Acc No.[id number]:08/18/2024 Progress Note Patient: Robert Toña BURGESS Edel Provider: Meka Reid MD :1935 A ge:89 Y S ex:Female Date:08/18/2024 Address:[address] [place], [place] [phone] Subjective: * Chief Complaints: * 1 . [...] 0 08/18/2024 Generated for Octavia castillo/Jay/Quang on: 1 02:49 PM EDT
--- OUTSIDE RECORDS SUMMARY | 2025-02-20 09:30 | XMS_ITS ---
Author Organization Jem Reid MD Address [address] [place] [phone] Care Team Providers Care Precision Lens Grinder Apprentice Name Role Phone Jem Reid Primary Care Provider Allergies No Known Allergies REASON FOR VISIT F/U ERV fall staple removal, Accompanied by and daughtere Medications Medication SIG (Take, Route, Frequency, Duration) Notes Start Date End Date Status Amoxicillin 500 MG 1 capsule Orally twi ce a day for 5 days 07/31/2024 Active Tylenol Extra Strength 500 MG 2 tablets as needed Orally every 6 hrs Not-Taking Digoxin 125 MCG 1 tablet Orally Not-Taking Tylenol 325 MG 1 tablet as needed Orally every 4 hrs Not-Taking Xarelto 15 MG TAKE 1 TABLET BY CHERRI TH EVERY DAY Orally Once a day Active Amiodarone HCl 100 MG 1 tablet Orally On ce a day Active Calcium + D 315-200 MG-UNIT 1 tablet with meals Orally Twice a day Active Immunizations Vaccine Route Administration Date Status Comme nts Influenza High Dose IM Intramuscular 02/20/2025 Administer ed Vital Signs Blood pressure systolic 112 mm Hg 02/21/20 25 Blood pressure diastolic 88 mm Hg 025 Height 63 in 02/20/2025 Weight 110 lbs 02/20/2025 BMI 19.48 kg/m2 02/20/2025 weight is down 2 pounds [facility] e 07-29-24 Encounters Encounter Location Date Provider Diagnosis Jem Reid MD [address] [place] [id number] 02/20/2025 Jem Reid Laceration 879.8 ; Head injury S09.90XA and Encounter for administration of vaccine Z23 Assessments Encounter Date Diagnosis (ICD Code) Assessment Notes Treatment Notes Treatment Clinical Notes Section Notes 02/20/2025 Laceration (ICD9-CM - 879.8) 02/20/2025 Head injury (ICD-10 - S09.90XA) jessenia removed and wound well healed 02/20/2025 Encounter for administration of vaccine (ICD-10 - Z23) HD flu vaccine admnistered Plan Of Treatment Treatment Notes Assessment Notes Head injury jessenia removed and wound well healed Encounter for administration of vaccine HD flu vaccine admnistered Next Appt Details Provider Name:Jem Mckee ier, 04/17/2025 07:45:00 AM, [address] [place] [address], [address], [phone], Provider Name:Jem Mckee ier, 04/24/2025 01:00:00 PM, [address] [place] [address], [place] [address], [place], [place], [phone], Progress Notes * Toña RÍOS MDOB:[birth year] (89 yo F)Acc No.[id number]:02/20/2025 Progress Notes Patient: Toña BRODERICK Provider: Meka Reid MD :1935 A ge:89 Y S ex:Female Date:02/20/2025 Address:[address] [place], [place] [address] Subjective: * Chief Complaints: * F /U ERV fall staple removalAccompanied by and daughtere * HPI: S ymptom(s): patient is a 89 yo female here for ER follow up visit/ fell out of bed. . here to get jessenia removed. * ROS: G eneral/Constitutional: Denies C hills. D enies F atigue. D enies F ever. D enies H eadache. E NT: Denies S ore throat. R espiratory: Denies C ough. D enies S hortness of breath at rest. D enies S hortness of breath with exertion. G astrointestinal: Denies D iarrhea. D enies N ausea. * Medical History: * Surgical History: * Hospitalization/Major Diagno stic Procedure: * Medications: T akingAmiodarone HCl 100 MG Tablet 1 tablet Orally Once a day Calcium + D 315-200 MG-UNIT Tablet 1 tablet with meals Orally Twice a day Xarelto 15 MG Tablet TAKE 1 TABLET BY MOUTH EVERY DAY Orally Once a day Amoxicillin 500 MG Capsule 1 capsule Orally twice a day Taking Amiodarone HCl 100 MG Tablet 1 tablet Orally Once a day Taking Calcium + D 315-200 MG-UNIT Tablet 1 tablet with meals Orally Twice a day Taking Xarelto 15 MG Tablet TAKE 1 TABLET BY MOUTH EVERY DAY Orally Once a day Taking Amoxicillin 500 MG Capsule 1 capsule Orally twice a day Not-Taking/PRNDigoxin 125 MCG Tablet 1 [...] Objective: * Vitals: H t: 63, Wt: 110, BMI:19.48, BP:112/88, Wt-k.9. weight is down 2 pounds since 07-29-24. * Examination: G eneral Examination: GENERAL APPEARANCE: a lert, well hydrated, in no distress.? HEAD: n ormocephalic, abnormal with 4 jessenia on well healed laceration. Assessment: * Assessment: 1. L aceration - 879.8 (Primary) 2 . H ead injury - S09.90XA ?3. E ncounter for administration of vaccine - Z23 Plan: * Treatment: 2. E ncounter for administration of vaccine Notes: HD flu vaccine admnistered * Immunizations: Influenza High Dose : 0.5 mL (Dose No:1) (Route: Intramuscular) given by Shraddha Edward , Office Staff on Left Deltoid * Procedure Codes: 9 0662 FLU VACC PRSV FREE INC [id number] ADMN FLU VAC NO FEE SCHED SAME DAY * * Sign off status: Completed true * Provider: Meka Reid MD Date: 0 02/20/2025 Generated for Octavia castillo/Jay/eTransmitting on: 1 02:51 PM EDT History and Physical Notes * HPI (History of Present Illness) Category Sub-Category Detail Notes Category Not es Symptom(s) patient is a 89 yo female here for ER follow up visit/ fell out of bed. . here to get jessenia removed Examination Category Sub-Category Detail Notes Category Not es General Examination GENERAL APPEARANCE: alert, w ell hydrated, in no distress HEAD: normocephalic, abnor mal with 4 jessenia on well healed laceration
--- OUTSIDE RECORDS SUMMARY | 2025-02-23 11:00 | XMS_ITS ---
Author Organization Jem Reid MD Address [address] [facility] [address] [place] [phone] Care Team Providers Care Column Precaster Name Role Phone Jem Reid Primary Care Provider Encounters Encounter Location Date Provider Diagnosis Jem Reid MD [address] [facility] [address] [place] [phone] 02/23/2025 Jem Reid Plan Of Treatment Next Appt Details Provider Name:Jem Mckee ier, 04/17/2025 07:45:00 AM, [address] [place] [address], [address], [phone], Provider Name:Jem Mckee ier, 04/24/2025 01:00:00 PM, [address] [place] [address], [address], [phone], Progress Notes * Toña RÍOS MDOB:[birth year] (89 yo F)Acc No.[id number]:02/23/2025 Patient: Toña BRODERICK :1935 A ge:89 Y S ex:Female Address:[address] [place] [address] [place] [address] * true * Date: Generated for Octavia castillo/Jay/Quang on: 02:51 PM EDT
--- OUTSIDE RECORDS SUMMARY | 2025-03-21 07:27 | XMS_ITS ---
Author Organization Jem Ried MD Address [address] [facility] [address] [place] [phone] Care Team Providers Care Rn Hemo Dialysis Name Role Phone Jeanette Jem Primary Care Provider REASON FOR VISIT ER Encounters Encounter Location Date Provider Diagnosis Jem Reid MD [address] [facility] [address] [place] [phone] 03/21/2025 Jem Reid Plan Of Treatment Next Appt Details Provider Name:Jem Mckee ier, 04/17/2025 07:45:00 AM, [address] [place] [address], [address], [phone], Provider Name:Jem Mckee ier, 04/24/2025 01:00:00 PM, [address] [place] [address], [address], [phone], Progress Notes * Toña RÍOS MDOB:[birth year] (89 yo F)Acc No.[id number]:03/21/2025 Patient: Toña BRODERICK :1935 A ge:89 Y S ex:Female Address:[address] [place], [place] [address] [address] * true * Date: Generated for Octavia castillo/Jay/Quang on: 02:50 PM EDT
--- NOTE | 2025-03-31 12:57 | AM.OFFWIN_ITS ---
<Statement entered by Renetta Hill PA-C - 03/31/25 14:43> I was not involved in the evaluation or care of this patient. TERE San Intake Vital Signs 03/31/25 12:58 Height 5 ft 2 in Weight 112 lb BMI 20.5 BP 102/64 Blood Pressure Location Lt brachial Position Sitting Pulse 71 Pulse Source Pulse Oximeter Temp 98.4 F Temp Source Oral Pulse Oximetry (%) 96 Oxygen Delivery Method Room Air Intake Visit Reasons: EP - Stitches removal Intake Note: Patient presents for suture removal on left elbow Patient Tobacco Use Status: Never used Tobacco Allergies No Known Allergies (No Known Allergies*) Allergy (Verified 03/31/25 13:00) HPI HPI Comments History of Present Illness Details History of Present Illness - The patient is an 89-year-old female p resenting with an elbow wound. - The patient had 3 sutures placed in th e left elbow on March 16, and the visit was to assess healing and remove stitches. - The wound showed scabbing but pt denie s any signs of infection such as redness, warmth, or discharge. Review of Systems - Musculoskeletal: Denies pain, redness, or warmth in the elbow. All systems reviewed and are unremarkable except as noted in HPI Physical Exam General: Cooperative, healthy appearing, comfortable, no acute distress and well developed Orientation: Patient oriented x3 Limitations: No limitations Head: Normal to inspection Nose: Normal External nose present Face and sinus: Normal facial exam Eyes: Appearance normal, both eyes and all related structures Neck: Normal visual inspection and Yes full ROM Respiratory: Normal respiratory effort and able to speak in complete sentences. Skin: No rashes or lesions noted Neuro: Patient oriented x3 Extremities: 3 sutures, CDI in left elbow with some scabbing on the wound, edges approximated, no drainage, no warmth noted, slight/light erythema, full ROM left elbow. [facility] Medical History Atrial flutter with rapid ventricular response Paroxysmal atrial fibrillation Persistent atrial fibrillation History of cardioversion Surgical History History of hip surgery Family History Father No problems noted. Mother No problems noted. Social History Household Members: Spouse Housing: House Are you a primary care transitions manager to a significant other at home: No Do you presently have visiting nurse or other home services: Yes (phys therapy) Patient Tobacco Use Status: Never used Tobacco service: No Physical Exam Vital Signs: Last Vital Signs Temp 98.4 F 03/31/25 12:58 Pulse 71 03/31/25 12:58 BP 102/64 03/31/25 12:58 Pulse Ox 96 03/31/25 12:58 Oxygen Delivery Method Room Air 03/31/25 12:58 BMI result Body Mass Index 20.5 Assessment & Plan Assessment & Plan (1) Visit for suture removal: Code(s): Z48.02 - Encounter for removal of sutures Plan: Plan Patient was informed and verbally consented to the use of an ambient scribe for clinic note documentation during this visit. - The stitches in the left elbow were removed as the wound showed appropriate healing with some scabbing. - No signs of infection were noted. Coding Level of Care Code New Pt Level 2 (51168) Diagnoses Visit for suture removal Z48.02
[2025-03-31 12:58] VITALS: BP 102/64; PULSE 71; TEMP 36.9; O2SAT 96; BMI 20.5
--- OUTSIDE RECORDS SUMMARY | 2025-03-31 14:50 | XMS_ITS | Patient Health Record ---
Author Organization Jem Reid MD Address [address] [place], [place] [id number] Care Team Providers Care Pig Sticker Name Role Phone Jem Reid Primary Care Provider [phone] Allergies No Known Allergies Results Component Value Reference Range Notes Complete Blood Count Auto Di ff Reviewed date:04/12/2024 04:50:38 PM Interpretation: Performing Lab:[facility], [address] [place] [address] Notes/Report: White Blood Count 7.5 4.8-10.8 X10*3/uL [...] NRBC Abs Auto 0.000 0.0-0.012 X10*3/uL Comprehensive [place]. Panel Fa st Reviewed date:04/12/2024 04:49:40 PM Interpretation: Performing Lab:[facility], [address] [place] [address] Notes/Report: Sodium 144 135-145 mmol/L Potassium 4.4 3.3-5.1 mmol/L Chloride 107 96-108 mmol/L Carbon Dioxide 25 22-29 mmol/L Anion Gap 16 12-20 Blood Urea Nitrogen 18 9-16 mg/dL Creatinine 0.74 0.5-1.4 mg/dL Estimated Glomerular Filt Rate > 60 NOTE: For -[place] individuals, multiply the result by 1.210. Chronic [...] Panel Reviewed date:04/12/2024 04:51:05 PM Interpretation: Performing Lab:[facility], [address] [place] [address] Notes/Report: Triglycerides 87 <150 mg/dL Desirable Triglyceride: [...] Random Reviewed date:04/12/2024 04:50:01 PM Interpretation: Performing Lab:[facility], [address] [place] [address] Notes/Report: Creatinine Urine 23.52 Microalbumin Urine 41.0 Microalbum/Creatinine Ratio Ur 174.3 <30 ug/mg cr Albumin/Creatinine Ratio Reference Ranges: Normal: < 30 ug/mg creatinine Microalbuminuria: 30 - 300 ug/mg creatinine Clinical Albuminuria: > 300 ug/mg creatinine Hemoglobin A1c Reviewed date:04/12/2024 04:49:49 PM Interpretation: Performing Lab:[facility], [address] [place] [address] Notes/Report: Hemoglobin A1c % 5.3 <6.0 % [...] average glucose, using the formula of the [id number] Average Glucose study (ADAG), Diabetes Care, Vol.31,#8, 2007 UA ClnCatch+Micro w/rflx Cul t Reviewed date:04/21/2024 10:28:41 AM Interpretation:CHEN 04/19 Performing Lab:[facility], [address] [place] [phone] Notes/Report: Urine, Clean Catch Color Urine Yellow Appearance Urine Clear PH 7.0 5.0-9.0 Glucose Urine UA Negative Negative mg/dL Urine Blood Large (3+) Negative Specific [place] - Urine <= 1.005 1.005-1.025 Urine Protein [...] Reviewed date:06/20/2024 09:15:12 AM Interpretation:CHEN 06/17/24 Performing Lab:[facility], [address] [place] [address] Notes/Report: Urine, Clean Catch Color Urine Yellow Appearance Urine Clear PH 7.0 5.0-9.0 Glucose Urine UA Negative Negative mg/dL Urine Blood Moderate (2+) Negative Specific [place] - Urine 1.020 1.005-1.025 Urine Protein Trace Neg-Trace mg/dL Urine Ketones Negative Negative mg/dL Nitrite Urine Negative Negative Leukocyte Esterase Urine Negative Negative RBC Urine >20 0-2 /HPF WBC Urine 0-5 0-5 /HPF Squamous Epithelial Cell Urine 0-2 0-2 /HPF Bacteria Urine None Seen None Seen Hyaline Casts Urine 0-2 0-2 /LPF UA ClnCatch+Micro w/rflx Cul t Reviewed date:08/22/2024 09:35:10 AM Interpretation: Performing Lab:[facility], [address] [place] [address] Notes/Report: Urine, Clean Catch Color Urine Yellow Appearance Urine Hazy PH 6.0 5.0-9.0 Glucose Urine UA Negative Negative mg/dL Urine Blood Large (3+) Negative Specific [place] - Urine >= 1.030 1.005-1.025 Urine Protein [...] t Reviewed date:05/17/2024 12:50:27 PM Interpretation: Performing Lab:[facility], [address] [place] [address] Notes/Report: Urine, Clean Catch Color Urine Yellow Appearance Urine Clear PH 8.0 5.0-9.0 Glucose Urine UA Negative Negative mg/dL Urine Blood Large (3+) Negative Specific [place] - Urine 1.015 1.005-1.025 Urine Protein Negative Neg-Trace mg/dL Urine Ketones Negative Negative mg/dL Nitrite Urine Negative Negative Leukocyte Esterase Urine Trace Negative RBC Urine >20 0-2 /HPF WBC Urine 0-5 0-5 /HPF Squamous Epithelial Cell Urine 3-5 0-2 /HPF Bacteria Urine None Seen None Seen Hyaline Casts Urine 0-2 0-2 /LPF UA ClnCatch+Micro w/rflx Cul t Reviewed date:07/29/2024 04:29:01 PM Interpretation: Performing Lab:[facility], [address] [place] [phone] Notes/Report: Urine, Clean Catch Color Urine Yellow Appearance Urine Clear PH 8.5 5.0-9.0 Glucose Urine UA Negative Negative mg/dL Urine Blood Negative Negative Specific [place] - Urine 1.015 1.005-1.025 Urine Protein Negative Neg-Trace mg/dL Urine Ketones Negative Negative mg/dL Nitrite Urine Negative Negative Leukocyte Esterase Urine Large (3+) Negative RBC Urine 0-2 0-2 /HPF WBC Urine 21-50 0-5 /HPF Squamous Epithelial Cell Urine 11-20 0-2 /HPF Bacteria Urine 2+ None Seen Hyaline Casts Urine 0-2 0-2 /LPF Urine Culture Reviewed date:04/14/2024 12:49:03 PM Interpretation: Performing Lab:[facility], [address] [place] [phone] Notes/Report: O:ESCCOL Escherichia coli Urine Culture Quant Urine Culture > 100,000 cfu/mL Ampicillin 8 Cefazolin 2 Cefepime <=0.12 Ceftriaxone <=0.25 Ciprofloxacin <=0.06 Gentamicin <=1 Nitrofurantoin <=16 Trimethoprim/Sulfametho xazole <=20 Complete Blood Count Auto Di ff Reviewed date:05/03/2024 06:12:49 PM Interpretation: Performing Lab:[facility], [address] [place] [address] Notes/Report: White Blood Count 7.1 4.8-10.8 X10*3/uL [...] INR Reviewed date:05/03/2024 06:12:09 PM Interpretation: Performing Lab:[facility], [address] [place] [address] Notes/Report: Prothrombin Time 23.3 10.9-12.4 SEC [employer] [...] Panel Reviewed date:05/03/2024 06:12:00 PM Interpretation: Performing Lab:[facility], [address] [place] [phone] Notes/Report: Sodium 138 135-145 mmol/L Potassium 4.2 [...] Sensitivity Reviewed date:05/05/2024 12:00:12 PM Interpretation: Performing Lab:[facility], [address] [place] [address] Notes/Report: Troponin-I High Sensitivity 9.0 <3.5-17.0 ng/L [place] high sensitivity Troponin-I results should be used in conjunction with other diagnostic information such as ECG, clinical observations and information, and patient symptoms to aid in the diagnosis of [place]. Urine Culture Reviewed date:05/09/2024 12:34:43 PM Interpretation: Performing Lab:[facility], [address] [place] [address] Notes/Report: O:PSEAER Pseudomonas aeruginosa Urine Culture Quant Urine Culture > 100,000 cfu/mL Cefepime 2 Ciprofloxacin <=0.06 Gentamicin <=1 Meropenem <=0.25 Piperacillin/Tazobactam <=4 UA ClnCatch+Micro w/rflx Cul t Reviewed date:06/03/2024 08:00:29 AM Interpretation:will be booked to a PH visit Performing Lab:[facility], [address] [place] [address] Notes/Report: [id number] Urine, Clean Catch Color Urine RED Appearance Urine Turbid PH 6.5 5.0-9.0 Glucose Urine UA Negative Negative mg/dL Urine Blood Large (3+) Negative Specific [place] - Urine >= 1.030 1.005-1.025 Urine Protein [...] date:05/03/2024 06:16:41 PM Interpretation: Performing Lab: Notes/Report: [address] [address] [address] Scan Report Signed Patient: Toña Ríos MR#: [id number] 2 : 1935 Acct:[id number] Age/Sex: 88 / F ADM Date: 05/03/24 Loc: HO.ED Attending Dr: Ordering Physician: Nicolasa Rodriguez NP Date of Service: 05/03/24 Procedure(s): CT cervical spine wo IV con Accession Number(s): [id number] cc: Jem Reid MD; Nicolasa Rodriguez NP [...] DO 05/03/2024 06:02 PM [facility] [place]ict[place] By: Charles Oliva DO Signed By: <Electronically signed by Charles Oliva DO in OV> 05/03/24 1802 DD/ 1523 TD/TT: 05/03/24 1533 Factory Maintenance Manager: DEBI [address] [address] [address] Scan Report Signed Patient: Mee Ríos MR#: [id number] 2 : 1935 Acct:[id number] Age/Sex: 88 / F ADM Date: 05/03/24 Loc: HO.ED Attending Dr: Ordering Physician: Nicolasa Rodriguez NP Date of Service: 05/03/24 Procedure(s): CT cer vical spine wo IV con Accession Number(s): [id number] cc: Jem Reid MD; Nicolasa Rodriguez NP [...] con IMPRESSION: 1. No evidence of ac [place] intracranial hemorrhage or edematous territorial infarcti on. 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 2. No evidence of ac [place] fracture or traumatic subluxation of the cervical spine. 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 3. Moderate right fr ontal scalp, right periorbital, and right facial soft tissue edema/hematoma. No associated osseous abnormalities. 4. No evidence of ac [place] fracture of the maxillofacial bones. Electronically nate d by: Apolinar Oliva DO 05/03/2024 06:02 PM EST Dictated By: Mati Oliva DO Signed By: <Nita harvey signed by Charles Oliva DO in OV> 05/03/24 1802 DD/ 1523 TD/TT: 05/03/24 1533 Factory Maintenance Manager: DEBI CT head/brain wo con Reviewed date:05/03/2024 06:16:59 PM Interpretation: Performing Lab: Notes/Report: [address] [address] [address] Scan Report Signed Patient: Toña Ríos MR#: [id number] 2 : 1935 Acct:[id number] Age/Sex: 88 / F ADM Date: 05/03/24 Loc: HO.ED Attending Dr: Ordering Physician: Nicolasa Rodriguez NP Date of Service: 05/03/24 Procedure(s): CT head/brain wo IV con Accession Number(s): [id number] cc: Jem Reid MD; Nicolasa Rodriguez NP [...] DO 05/03/2024 06:02 PM [facility] [place]ict[place] By: Charles Oliva DO Signed By: <Electronically signed by Charles Oliva DO in OV> 05/03/24 1802 DD/ 1459 TD/TT: 05/03/24 1533 Factory Maintenance Manager: [address] [address] [address] Scan Report Signed Patient: Mee Ríos MR#: [id number] 2 : 1935 Acct:[id number] Age/Sex: 88 / F ADM Date: 05/03/24 Loc: HO.ED Attending Dr: Ordering Physician: Nicolasa Rodriguez NP Date of Service: 05/03/24 Procedure(s): CT head/brain wo IV con Accession Number(s): [id number] cc: Jem Reid MD; Nicolasa Rodriguez NP [...] con IMPRESSION: 1. No evidence of ac [place] intracranial hemorrhage or edematous territorial infarcti on. 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 2. No evidence of ac [place] fracture or traumatic subluxation of the cervical spine. 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 3. Moderate right fr ontal scalp, right periorbital, and right facial soft tissue edema/hematoma. No associated osseous abnormalities. 4. No evidence of ac [place] fracture of the maxillofacial bones. Electronically nate d by: Apolinar Oliva DO 05/03/2024 06:02 PM [facility] [place]ictated By: Mati Oliva DO Signed By: <Electron ically signed by Charles Oliva DO in OV> 05/03/24 1802 DD/ 1459 TD/TT: 05/03/24 1533 Factory Maintenance Manager: JL CT facial bones wo con Reviewed date:05/03/2024 06:17:06 PM Interpretation: Performing Lab: Notes/Report: [address] [address] [address] Scan Report Signed Patient: Toña Ríos MR#: [id number] 2 : 1935 Acct:[id number] Age/Sex: 88 / F ADM Date: 05/03/24 Loc: HO.ED Attending Dr: Ordering Physician: Nicolasa Rodriguez NP Date of Service: 05/03/24 Procedure(s): CT facial bones wo IV con Accession Number(s): [id number] cc: Jem Reid MD; Nicolasa Rodriguez NP [...] DO 05/03/2024 06:02 PM [facility] [place]ict[place] By: Charles Oliva DO Signed By: <Electronically signed by Charles Oliva DO in OV> 05/03/24 2475 DD/ 0932 TD/TT: 05/03/24 1533 Factory Maintenance Manager: DEBI [address] [address] [address] Scan Report Signed Patient: Mee Ríos MR#: [id number] 2 : 1935 Acct:[id number] Age/Sex: 88 / F ADM Date: 05/03/24 Loc: HO.ED Attending Dr: Ordering Physician: Nicolasa Rodriguez NP Date of Service: 05/03/24 Procedure(s): CT fac ial bones wo IV con Accession Number(s): [id number] cc: Jem Reid MD; Nicolasa Rodriguez NP [...] con IMPRESSION: 1. No evidence of ac [place] intracranial hemorrhage or edematous territorial infarcti on. 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 2. No evidence of ac [place] fracture or traumatic subluxation of the cervical spine. 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 3. Moderate right fr ontal scalp, right periorbital, and right facial soft tissue edema/hematoma. No associated osseous abnormalities. 4. No evidence of ac [place] fracture of the maxillofacial bones. Electronically nate d by: Apolinar Oliva DO 05/03/2024 06:02 PM [facility] [place]ictated By: [facility] Signed By: <Electron ically signed by Charles Oliva DO in OV> 05/03/24 1802 DD/ 1459 TD/TT: 05/03/24 1533 Factory Maintenance Manager: DEBI Complete Blood Count Auto Di ff Reviewed date:05/05/2024 12:04:27 PM Interpretation: Performing Lab:[facility], [address] [place] [address] Notes/Report: White Blood Count 5.9 4.8-10.8 X10*3/uL [...] Panel Reviewed date:05/05/2024 11:58:12 AM Interpretation: Performing Lab:[facility], [address] [place] [address] Notes/Report: Sodium 140 135-145 mmol/L Potassium 4.0 [...] Magnesium Reviewed date:05/05/2024 11:57:54 AM Interpretation: Performing Lab:[facility], [address] [place] [address] Notes/Report: Magnesium 2.4 1.6-2.6 mg/dL MR head/brain wo con Reviewed date:05/05/2024 11:49:06 AM Interpretation: Performing Lab: Notes/Report: [address] [address] Magnetic Resonance Report Signed Patient: Toña Ríos MR#: [id number] 2 : 1935 Acct:[id number] Age/Sex: 88 / F ADM Date: 05/03/24 Loc: .S3 359-[address]: Christelle Lambert MD Ordering Physician: Mj Seals MD Date of Service: 05/04/24 Procedure(s): MR head/brain wo con Accession Number(s): [id number] cc: Jem Reid MD; Mj Seals MD [...] MD 05/04/2024 08:57 PM [facility] [place]ictated By: Danish Moreno MD Signed By: <Electronically signed by Danish Moreno MD in OV> 05/04/242056 DD/ 1300 TD/TT: 05/04/24 1345 Factory Maintenance Manager: [place] [address] Magnetic Resonance Report Signed Patient: Mee Ríos MR#: [id number] 2 : 1935 Acct:[id number] Age/Sex: 88 / F ADM Date: 05/03/24 Loc: .S3 359-[address]: Rolando Lambert MD Ordering Physician: Mj Seals MD Date of Service: 05/04/24 Procedure(s): MR head/brain wo con Accession Number(s): [id number] cc: Jem Reid MD; Mj Seals MD [...] OV> 05/04/242056 DD/ 1300 TD/TT: 05/04/24 1345 Factory Maintenance Manager: Basic Metabolic Panel Reviewed date:05/07/2024 01:47:35 PM Interpretation: Performing Lab:[facility], [address] [place] [address] Notes/Report: Sodium 141 135-145 mmol/L Potassium 4.4 [...] Hormone Reviewed date:05/07/2024 01:43:46 PM Interpretation: Performing Lab:[facility], [address] [place] [address] Notes/Report: Thyroid Stimulating Hormone 2.26 0.32-4.0 uIU/mL TSH 3rd Generation ([facility]) Complete Blood Count Auto Di ff Reviewed date:06/24/2024 05:57:08 PM Interpretation: Performing Lab:[address] [address] Notes/Report: White Blood Count 6.8 4.8-10.8 X10*3/uL [...] Panel Reviewed date:06/24/2024 05:52:26 PM Interpretation: Performing Lab:[facility], [address] [place] [address] Notes/Report: Bilirubin Total 0.5 0.0-1.0 mg/dL Bilirubin Direct 0.2 0.0-0.5 mg/dL Aspartate Amino Transferase 41 5-31 U/L Alanine Aminotransferase 15 0-31 U/L Total Protein 8.5 6.5-8.0 g/dL Albumin Level 4.1 3.5-5.0 g/dL Alkaline Phosphatase 85 39-117 U/L Basic Metabolic Panel Reviewed date:06/24/2024 05:54:58 PM Interpretation: Performing Lab:[address] [address] Notes/Report: Sodium 137 135-145 mmol/L Potassium 4.3 [...] Acid Reviewed date:06/24/2024 05:54:33 PM Interpretation: Performing Lab:[address] [address] Notes/Report: Lactic Acid 1.6 0.5-2.0 mmol/L Magnesium Reviewed date:06/24/2024 05:54:18 PM Interpretation: Performing Lab:[address] [address] Notes/Report: Magnesium 2.3 1.6-2.6 mg/dL Creatine Kinase Total Reviewed date:06/24/2024 05:55:16 PM Interpretation: Performing Lab:[address] [place] [address] Notes/Report: Creatine Kinase Total 219 26-140 U/L Troponin-I High Sensitivity Reviewed date:06/24/2024 05:54:43 PM Interpretation: Performing Lab:[address] [address] Notes/Report: Troponin-I High Sensitivity 20.3 <3.5-17.0 ng/L [place] high sensitivity Troponin-I results should be used in conjunction with other diagnostic information such as ECG, clinical observations and information, and patient symptoms to aid in the diagnosis of [place]. Lipase Reviewed date:06/24/2024 05:54:11 PM Interpretation: Performing Lab:[address] [address] Notes/Report: Lipase 21 8-78 U/L Urine Culture Reviewed date:06/28/2024 01:21:17 PM Interpretation: Performing Lab:[address] [address] Notes/Report: O:ESCCOL Escherichia coli Urine Culture Quant Urine Culture > 100,000 cfu/mL Ampicillin <=2 Cefazolin (Urine) 2 Cefepime <=0.12 Ceftriaxone <=0.25 Ciprofloxacin <=0.06 Gentamicin <=1 Nitrofurantoin <=16 Trimethoprim/Sulfametho xazole <=20 SARS-CoV2/FLU/RSV Reviewed date:06/24/2024 05:54:26 PM Interpretation: Performing Lab:[address] [address] Notes/Report: Influenza A PCR NEGATIVE Negative Influenza [...] positive influenza A/B results are reported to [facility]. Blood Culture (First) Reviewed date:06/30/2024 05:52:36 PM Interpretation: Performing Lab:[address] [address] Notes/Report: Blood Culture (First) No growth after 5 days. Blood Culture (Second) Reviewed date:06/30/2024 05:52:44 PM Interpretation: Performing Lab:[facility], [address] [place] [address] Notes/Report: Blood Culture (Second) No growth after 5 days. UA ClnCatch+Micro w/rflx Cul t Reviewed date:06/24/2024 05:56:48 PM Interpretation: Performing Lab:[address] [address] Notes/Report: Urine, Clean Catch Color Urine Yellow Appearance Urine Cloudy PH 5.5 5.0-9.0 Glucose Urine UA Negative Negative mg/dL Urine Blood Trace Negative Specific [place] - Urine 1.015 1.005-1.025 Urine Protein Trace [...] date:06/24/2024 05:53:01 PM Interpretation: Performing Lab: Notes/Report: [address] [address] [address] Scan Report Signed Patient: Toña Ríos MR#: [id number] 2 : 1935 Acct:[id number] Age/Sex: 88 / F ADM Date: 06/24/24 Loc: .ED Attending Dr: Ordering Physician: Hanna Harrington DO Date of Service: 06/24/24 Procedure(s): CT cervical spine wo IV con Accession Number(s): [id number] cc: Jem Reid MD; Hanna Harrington DO Report Number: [id number]: Total DLP = 868.56 mGy-cm EXAMINATION: CT [...] by: Obdulio Schultz MD 06/24/2024 04:29 PM [facility] [place]ict[place] By: Obdulio Schultz MD Signed By: <Electronically signed by Obdulio Schultz MD in OV> 06/24/24 1629 DD/ 1556 TD/TT: 06/24/24 1617 Factory Maintenance Manager: [address] [address] [address] Scan Report Signed Patient: Mee Ríos MR#: [id number] 2 : 1935 Acct:[id number] Age/Sex: 88 / F ADM Date: 06/24/24 Loc: HO.ED Attending Dr: Ordering Physician: Hanna Harrington DO Date of Service: 06/24/24 Procedure(s): CT cer vical spine wo IV con Accession Number(s): [id number] cc: Jem Reid MD; Hanna Harrington DO [...] by: Obdulio Schultz MD 06/24/2024 04:29 PM [facility] [place]ict[place] By: Obdulio Durand MD Signed By: <Nita harvey signed by Obdulio Schultz MD in OV> 06/24/24 1629 DD/ 1556 TD/TT: 06/24/24 1617 Factory Maintenance Manager: CT head/brain wo con Reviewed date:06/24/2024 05:54:02 PM Interpretation: Performing Lab: Notes/Report: [address] [address] [address] Scan Report Signed Patient: Toña Ríos MR#: [id number] 2 : 1935 Acct:[id number] Age/Sex: 88 / F ADM Date: 06/24/24 Loc: HO.ED Attending Dr: Ordering Physician: Hanna Harrington DO Date of Service: 06/24/24 Procedure(s): CT head/brain wo IV con Accession Number(s): [id number] cc: Jem Reid MD; Hanna Harrington DO Report Number: [id number]: Total DLP = 0.00 mGy-cm EXAMINATION: CT [...] by: Obdulio Schultz MD 06/24/2024 04:40 PM [facility] [place]ictated By: Obdulio Schultz MD Signed By: <Electronically signed by Obdulio Schultz MD in OV> 06/24/24 1640 DD/ 1428 TD/TT: 06/24/24 1617 Factory Maintenance Manager: [place] [address] [address] Scan Report Signed Patient: Mee Ríos MR#: [id number] 2 : 1935 Acct:[id number] Age/Sex: 88 / F ADM Date: 06/24/24 Loc: HO.ED Attending Dr: Ordering Physician: Hanna Harrington DO Date of Service: 06/24/24 Procedure(s): CT head/brain wo IV con Accession Number(s): [id number] cc: Jem Reid MD; Hanna Harrington DO [...] 06/24/24 1640 DD/ 1428 TD/TT: 06/24/24 1617 Factory Maintenance Manager: CARMINA HUNTER Reviewed date:06/24/2024 05:52:08 PM Interpretation: Performing Lab: Notes/Report: [place] [address] XRay Report Signed Patient: Toña Ríos MR#: [id number] 2 : 1935 Acct:[id number] Age/Sex: 88 / F ADM Date: 06/24/24 Loc: HO.ED Attending Dr: Ordering Physician: Anders Bradford MD Date of Service: 06/24/24 Procedure(s): CARMINA HUNTER Accession Number(s): [id number] cc: Jem Reid MD; Anders Bradford MD [...] OV> 06/24/24 173 DD/ 32 TD/TT: 06/24/241732 Factory Maintenance Manager: [place] [address] XRay Report Signed Patient: Mee Ríos MR#: [id number] 2 : 1935 Acct:[id number] Age/Sex: 88 / F ADM Date: 06/24/24 Loc: HO.ED Attending Dr: Ordering Physician: Anders Bradford MD Date of Service: 06/24/24 Procedure(s): XR KUB Accession Number(s): [id number] cc: Jem Reid MD; Anders Bradford MD [...] 06/24/24 1734 DD/ 1733 TD/TT: 06/24/24 1733 Factory Maintenance Manager: XR chest 1V Reviewed date:06/24/2024 05:53:29 PM Interpretation: Performing Lab: Notes/Report: [address] [address] XRay Report Signed Patient: Toña Ríos MR#: [id number] 2 : 1935 Acct:[id number] Age/Sex: 88 / F ADM Date: 06/24/24 Loc: HO.ED Attending Dr: Ordering Physician: Hanna Harrington DO Date of Service: 06/24/24 Procedure(s): XR chest 1V Accession Number(s): [id number] cc: Jem Reid MD; Hanna Harrington DO [...] by: Obdulio Schultz MD 06/24/2024 04:43 PM [facility] [place] [facility] [place]ict[place] By: Obdulio Schultz MD Signed By: <Electronically signed by Obdulio Schultz MD in OV> 06/24/24 1643 DD/ 1428 TD/TT: 06/24/24 1439 Factory Maintenance Manager: [address] [address] XRay Report Signed Patient: Mee Ríos MR#: [id number] 2 : 1935 Acct:[id number] Age/Sex: 88 / F ADM Date: 06/24/24 Loc: HO.ED Attending Dr: Ordering Physician: Hanna Harrington DO Date of Service: 06/24/24 Procedure(s): XR chest 1V Accession Number(s): [id number] cc: Jem Reid MD; Hanna Harrington DO [...] by: Obdulio Schultz MD 06/24/2024 04:43 PM [facility] [place] [facility] [place]ict[place] By: Obdulio Durand MD Signed By: <Electron ically signed by Obdulio Schultz MD in OV> 06/24/24 1643 DD/ 1428 TD/TT: 06/24/24 1439 Factory Maintenance Manager: Urine Culture Reviewed date:07/31/2024 09:36:47 AM Interpretation: Performing Lab:[address] [address] Notes/Report: O:ENTFAC Enterococcus faecalis Urine Culture Quant Urine Culture > 100,000 cfu/mL Ampicillin <=2 Levofloxacin 0.5 Nitrofurantoin <=16 Tetracycline <=1 Vancomycin 1 Urine Culture Reviewed date:09/27/2024 12:28:00 PM Interpretation: Performing Lab:[address] [address] Notes/Report: Urine Culture Report Result Urine Culture 10,000 to 50,000 cfu/ml Urine Culture Mixed bacterial erick a characteristic of Urine Culture urogenital contamination. Creatinine GFR POC Reviewed date:11/03/2024 04:28:00 PM Interpretation: Performing Lab:[facility], [address] [place] [address] Notes/Report: [id number] 0.52 >60 1429 HO.HEAK Creatinine POC 0.5 0.5-1.4 mg/dL GFR POC > 60 Chronic Kidney Disease: Estimated GFR < 60 mL/min/1.73m2 Severe Kidney Disease: Estimated GFR < 15 mL/min/1.73m2 CT urogram Reviewed date:11/03/2024 12:36:14 PM Interpretation: Performing Lab: Notes/Report: [address] [address] [address] Scan Report Signed Patient: Toña Ríos MR#: [id number] 2 : 1935 Acct:[id number] Age/Sex: 89 / F ADM Date: 11/01/24 Loc: HO.CT Attending Dr: Edwin May MD Ordering Physician: Edwin May MD Date of Service: 11/01/24 Procedure(s): CT urogram Accession Number(s): [id number] cc: Edwin May MD; Jem Reid MD Report Number: [id number]: Total DLP = 535.00 mGy-cm CLINICAL HISTORY: [...] in OV> 11/02/242147 DD/ 46 TD/TT: 11/02/242146 Factory Maintenance Manager: [place] [address] [place] Scan Report Signed Patient: Mee Ríos MR#: [id number] 2 : 1935 Acct:[id number] Age/Sex: 89 / F ADM Date: 11/01/24 Loc: HO.CT Attending Dr: Edwin May MD Ordering Physician: Edwin May MD Date of Service: 11/01/24 Procedure(s): CT urogram Accession Number(s): [id number] cc: Santi May MD; Jem Reid MD [...] in OV> 11/02/242147 DD/ 46 TD/TT: 11/02/242146 Factory Maintenance Manager: Urine Culture Reviewed date:11/29/2024 12:22:08 PM Interpretation: Performing Lab:[facility], [address] [place] [id number] Notes/Report: O:ESCCOL Escherichia coli Urine Culture Quant Urine Culture > 100,000 cfu/mL Ampicillin 8 Cefazolin (Urine) <=1 Cefepime <=0.12 Ceftriaxone <=0.25 Ciprofloxacin <=0.06 Gentamicin <=1 Nitrofurantoin <=16 Trimethoprim/Sulfametho xazole <=20 CT cervical spine wo con Reviewed date:03/16/2025 01:43:38 PM Interpretation: Performing Lab: Notes/Report: [address] [address] [address] Scan Report Signed Patient: Toña Ríos MR#: [id number] 2 : 1935 Acct:[id number] Age/Sex: 89 / F ADM Date: 03/16/25 Loc: .ED Attending Dr: Ordering Physician: Nicolasa Rodriguez NP Date of Service: 03/16/25 Procedure(s): CT cervical spine wo IV con Accession Number(s): [id number] cc: Jem Reid MD; Nicolasa Rodriguez NP Report Number: [id number]: Total DLP = 794.00 mGy-cm Reason for [...] 03/16/25 1220 DD/ 1150 TD/TT: 03/16/25 1208 Factory Maintenance Manager: [place] [address] [place] Scan Report Signed Patient: Mee Ríos MR#: [id number] 2 : 1935 Acct:[id number] Age/Sex: 89 / F ADM Date: 03/16/25 Loc: HO.ED Attending Dr: Ordering Physician: Nicolasa Rodriguez NP Date of Service: 03/16/25 Procedure(s): CT cer vical spine wo IV con Accession Number(s): [id number] cc: Jem Reid MD; Nicolasa Rodriguez NP [...] changes as described. Electronically nate d by: Hunter Reeder MD 03/16/2025 12:20 PM EDT RP Dictated By: Hunter Reeder MD Signed By: <Electron ically signed by Hunter Reeder MD in OV> 03/16/25 1220 DD/ 1150 TD/TT: 03/16/25 1208 Factory Maintenance Manager: CT head/brain wo con Reviewed date:03/16/2025 01:44:21 PM Interpretation: Performing Lab: Notes/Report: [address] [address] [address] Scan Report Signed Patient: Toña Ríos MR#: [id number] 2 : 1935 Acct:[id number] Age/Sex: 89 / F ADM Date: 03/16/25 Loc: HO.ED Attending Dr: Ordering Physician: Nicolasa Rodriguez NP Date of Service: 03/16/25 Procedure(s): CT head/brain wo IV con Accession Number(s): [id number] cc: Jem Reid MD; Nicolasa Rodriguez NP Report Number: [id number]: Total DLP = 0.00 mGy-cm Reason for [...] 03/16/25 1215 DD/ 1150 TD/TT: 03/16/25 1208 Factory Maintenance Manager: [address] [address] [address] Scan Report Signed Patient: Mee Ríos MR#: [id number] 2 : 1935 Acct:[id number] Age/Sex: 89 / F ADM Date: 03/16/25 Loc: HO.ED Attending Dr: Ordering Physician: Nicolasa Rodriguez NP Date of Service: 03/16/25 Procedure(s): CT head/brain wo IV con Accession Number(s): [id number] cc: Jem Reid MD; Nicolasa Rodriguez NP [...] 03/16/25 1215 DD/ 1150 TD/TT: 03/16/25 1208 Factory Maintenance Manager: Reason For Referral Reason microscopic hematuri a [...] Problem Status W/U Status Risk Notes Problem 51815372 Essential hypert ension (I10) Active confirmed Problem 6637519 Prediabetes (R73.09) Active confirmed Problem 42830074 Atrial fibrillat ion, unspecified type (I48.91) Active confirmed Problem 598064844 Pure hypercholesterolemia (E78.00) Active confirmed Problem 00400253 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) Active confirme d Problem 300293791 Acute constipati on (K59.00) Active confirmed Vital [...] Jem Reid MD [address] [place] [id number] 04/12/2024 Jem Reid Prediabetes R73.09 ; Pure hypercholesterolemia E78.00 and Essential hypertension I10 Jem Reid MD [address] [place] [address] [id number] 06/02/2024 Jem Bombardier Hematuria R31.9 Jem Reid MD [address] [place] [address] [id number] 06/17/2024 Jem Alinaardier Microscopic hematuri a R31.29 Jem Reid MD [address] [place] [address] [id number] 08/18/2024 Jem Bombardier After-treatment Z51. 89 Jem Reid MD [address] [place] [address] [id number] 04/19/2024 Jem Alinaardier Gross hematuria R31. 0 ; Acute UTI N39.0 ; Atrial fibrillation, unspecified type I48.91 ; Pure hypercholesterolemia E78.00 ; Prediabetes R73.09 ; Essential hypertension I10 and Depression screening Z13.31 Jem Reid MD [address] [place] [address] [id number] 05/16/2024 Jem Bombardier After-treatment Z51. 89 ; Gross hematuria R31.0 and Loss of consciousness R40.20 Jem Reid MD [address] [place] [address] [id number] 07/29/2024 Jem Bombardier After-treatment Z51. 89 and Acute constipation K59.00 Jem Reid MD [address] [place] [address] [id number] 02/20/2025 Jem Alinaardier Laceration 879.8 ; H ead injury S09.90XA and Encounter for administration of vaccine Z23 Jem Reid MD [address] [place] [address] [id number] 04/14/2024 Jem Reid MD [address] [place] [address] [id number] 04/14/2024 Jem Reid MD [address] [place] [address] [id number] 04/14/2024 Jem Reid MD [address] [place] [address] [id number] 05/03/2024 Jem Reid MD [address] [place] [address] [id number] 05/09/2024 Jem Reid MD [address] [place] [address] [id number] 05/19/2024 Jem Reid MD [address] [place] [address] [id number] 06/28/2024 Jem Reid MD [address] [place] [address] [id number] 07/31/2024 Jem Reid MD [address] [place] [address] [id number] 02/23/2025 Jem Ried MD [address] [place] [address] [id number] 03/21/2025 Jem Reid Assessments Encounter Date Diagnosis [...] Details Provider Name:Jem rodriguezr, 04/17/2025 07:45:00 AM, [address] [place] [address], [address], [phone], Provider Name:Jem Mckee ier, 04/24/2025 01:00:00 PM, [address] [place] [address], [address] [place] [address], [phone], Insurance Providers Payer Name Payer Address Payer Phone Subscriber Number Group Number Insured Name Patient Relationship to Insured Coverage Start Date Coverage End Date [employer] [address] [place] [address] [id number] Toña Ríos Self - patient is the insured [facility] [address] [place] [phone] [id number] Toña Ríos Self - patient is the insured Medical (General) History Medical History History ICD Code Refuses flu shot (07-06-12) Refuses pneumo (07-06-12) refuses colonoscoopy 2012 refuses pneumo, 2013 Surgical History Surgery Date(Month/Year) Left Total Hip Arthroplasty by Dr. Alexandru Young 09/2016
== END 2025-03-31 13:24 | disposition home or self-care (01) ==
PROVIDERS: PCP Internal Medicine; Visit Provider Physician Assistant
DX: Z48.02 Encounter for removal of sutures (principal); S51.012A Laceration without foreign body of left elbow, initial encounter

== ENCOUNTER → 2025-03-31 12:55 | Outpatient (BNVA) | payer MEDICARE, OTHER, SELFPAY | PROVIDERS: PCP Internal Medicine; Visit Provider Physician Assistant | DX: Z48.02 Encounter for removal of sutures (principal) | CPT/HCPCS: 99212 ==

== ENCOUNTER 2025-04-17 10:53 | Outpatient (REF) | payer MEDICARE, OTHER, SELFPAY ==
[2025-04-17 10:56] LABS: MANUAL DIFF FLAG NO
[2025-04-17 11:15] LABS: Appearance Urine Hazy; Glucose Urine UA Negative (Negative); PH 7.5 (5.0-9.0); Specific Gravity - Urine 1.020 (1.005-1.025); UMIC TRIGGER UACC YES
[2025-04-17 11:18] LABS: Hematocrit 41.7 % (37.0-47.0); Hemoglobin 13.4 g/dl (12.0-16.0); Imm Gran Abs Auto 0.02 X10*3/uL (0.00-0.03); Imm Gran Pct Auto 0.3 % (0.0-0.4); Lymphocytes Absolute Auto 1.6 X10*3/uL (1.2-4.9); Mean Corpuscular HGB Conc 32.1 g/dl (31.0-35.0); Mean Corpuscular Hemoglobin 31.4 pg (27.0-33.0); Mean Corpuscular Volume 97.7 fL (80.0-98.0); NRBC Abs Auto 0.000 X10*3/uL (0.0-0.012); NRBC Pct Auto 0.0 /100WBC (0.0-0.2); Platelet Count 236 X10*3/uL (160-400); Red Blood Count 4.27 X10*6/uL (4.20-5.50); White Blood Count 7.0 X10*3/uL (4.8-10.8)
[2025-04-17 11:29] LABS: UACC Culture Trigger YES
[2025-04-17 11:57] LABS: Alanine Aminotransferase 16 U/L (0-31); Albumin Level 3.9 g/dL (3.5-5.0); Alkaline Phosphatase 90 U/L (39-117); Anion Gap 12 (12-20); Aspartate Amino Transferase 30 U/L (5-31); Blood Urea Nitrogen 20 mg/dL (9-16); Calcium 9.3 mg/dL (8.4-10.2); Carbon Dioxide 26 mmol/L (22-29); Chloride 108 mmol/L (96-108); Cholesterol 198 mg/dL (<200); Estimated Glomerular Filt Rate > 60; HDL Cholesterol 51 mg/dL (>40); Potassium 4.0 mmol/L (3.3-5.1); Sodium 142 mmol/L (135-145); Total Protein 7.7 g/dL (6.5-8.0); Triglycerides 84 mg/dL (<150)
== END 2025-04-17 10:54 | disposition home or self-care (01) ==
LOC: HO.LNP 10:53
PROVIDERS: Visit Provider Internal Medicine
DX: I10 Essential (primary) hypertension (principal); R73.09 Other abnormal glucose; E78.00 Pure hypercholesterolemia, unspecified
CPT/HCPCS: 80053; 80061; 81001; 85025; 87086